=== PATIENT | male | born 1975 | race African-American/Black ===

== ENCOUNTER 2022-06-28 18:48 | Inpatient (IN) | payer MEDICAID, SELFPAY ==
--- NOTE | 2022-06-28 18:50 | ECG_ITS ---
[facility] Test Date: 2022-06-28 Pat Name: Yoel Almeida Department: Room: Gender: Male Client Services Analyst: : 1975 Requested By: Mak Schwarz Order Number: [id number] Aubrey MD: Christiano Patel M.D. Measurements Intervals Michael Rate: 75 P: 63 LA: 157 QRS: 50 QRSD: 94 T: 37 QT: 355 QTc: 397 Interpretive Statements SINUS RHYTHM No previous ECG available for comparison Electronically Signed On 06-29-2022 15:04:18 WINDOWS SYSTEM ADMIN by Christiano Patel M.D. [id number]
[2022-06-28 19:01] VITALS: BP 142/89; PULSE 78; RESP 14; TEMP 36.8; O2SAT 92; BMI 28.6
--- NOTE | 2022-06-28 19:12 | W.ED.PSYCHS ---
HPI - Psych General: Chief Complaint: Psychiatric Symptoms Stated Complaint: MHE Time Seen by Provider: 06/28/22 19:02 Source: patient Mode of arrival: ambulatory Limitations: no limitations History of Present Illness: 46-year-old male states he has been having increased depression and suicidal thoughts over the last 3 days he states that he does not have any specific plan but is getting more depressed and feeling like he may do something. He states he is also been hearing some voices denies any worsening improving factors. Associated symptoms: Reports depression and suicidal ideation Review of Systems Const: Denies: fever(s), chills, body aches or change in appetite Eyes: Denies: blurry vision or eye discomfort ENMT: Denies: throat pain or dental pain Card: Denies: chest pain Resp: Denies: dyspnea GI: Denies: abdominal pain, nausea, vomiting or diarrhea : Denies: dysuria Musc: Denies: neck pain or back pain Skin/Breast: Denies: rash Neuro: Denies: headache(s) Psych: Reports: depression and suicidal ideation Dirk/Lymph: Denies: easy bruising All/Imm: Denies: urticaria PFSH ED PFSH: Medical History Anxiety Hypertension Psychiatric care Social History (Updated 06/28/22 @ 19:13 by Mak Schwarz MD) Substance/Drug Use: unknown Physical Exam Const: COMMON NORMALS: no acute distress, patient oriented x3 and healthy appearing HENMT: COMMON NORMALS: normocephalic and atraumatic HEAD & SCALP: normocephalic and atraumatic Eye: COMMON NORMALS: Equal, round and reactive pupils present and EOMs intact bilaterally PUPIL: Yes Equal, round and reactive pupils present Neck/C-Spine: COMMON NORMALS: full ROM and supple Chest: COMMONS NORMALS: normal inspection of the chest and normal palpation of entire chest wall Resp: COMMON NORMALS: normal respiratory effort, No retractions, No use of accessory muscles and clear to auscultation bilaterally AUSCULTATION: clear to auscultation bilaterally Cardio: COMMON NORMALS: regular rate, regular rhythm and No murmurs present (Cardio) RATE: regular rate RHYTHM: regular rhythm GI: COMMON NORMALS: Normal to inspection, nondistended, normoactive bowel sounds present, Soft to palpation, non-tender and no masses PALPATION: Yes Soft to palpation Extremity: COMMON NORMALS: normal to inspection and full ROM Neuro: COMMON NORMALS: patient oriented x3, moves all extremities and no focal motor deficits Psych: COMMON NORMALS: mental status grossly normal, Normal thought process present and cooperative MOOD & AFFECT: Yes depressed mood THOUGHT PROCESS: Normal thought process present THOUGHT CONTENT: Yes Suicidality present Skin: COMMON NORMALS: no rashes or lesions noted and no wounds GENERAL SKIN EXAM: no rashes or lesions noted Course Vital Signs: Vital signs: Vital Signs Temperature 97.7 F 06/28/22 21:37 Pulse Rate 83 06/29/22 01:18 Respiratory Rate 16 06/29/22 01:18 Blood Pressure 150/90 06/29/22 01:18 Pulse Oximetry 95 06/29/22 01:18 Oxygen Delivery Me thod 06/28/22 21:37 [facility] - Psych Medical Decision Making Patient presents here with suicidal ideations he is medically cleared I spoke to psychiatrist Dr. Nugent and will plan on admitting here to the psych unit. Lab Data 06/28/22 19:40 06/28/22 19:40 Laboratory Results WBC 8.3 10^3/uL (4.0-10.0) 06/28/22 19:40 RBC 4.60 10^6/uL (4.1-5.3) 06/28/22 19:40 Hgb 13.9 g/dL (11.7-16.6) 06/28/22 19:40 Hct 42.2 % (42.0-52.0) 06/28/22 19:40 MCV 91.7 fl (80-94) 06/28/22 19:40 MCH 30.2 pg (28.0-34.0) 06/28/22 19:40 MCHC 32.9 g/dL (30.0-36.0) 06/28/22 19:40 RDW 13.2 % (12.1-15.1) 06/28/22 19:40 Plt Count 360 10^3/cmm (130-400) 06/28/22 19:40 MPV 9.1 fL (7.4-10.4) 06/28/22 19:40 Neut % (Auto) 43.8 % 06/28/22 19:40 Lymph % (Auto) 42.1 % 06/28/22 19:40 [place] % (Auto) 8.4 % 06/28/22 19:40 Eos % (Auto) 5.0 % 06/28/22 19:40 Baso % (Auto) 0.5 % 06/28/22 19:40 Neut # (Auto) 3.64 10^3/uL (1.8-7.7) 06/28/22 19:40 Lymph # (Auto) 3.5 10^3/uL (0.8-4.8) 06/28/22 19:40 [place] # (Auto) 0.7 10^3/uL (0.2-0.9) 06/28/22 19:40 Eos # (Auto) 0.4 10^3/uL (0.0-0.8) 06/28/22 19:40 Baso # (Auto) 0.0 10^3/uL (0.0-0.1) 06/28/22 19:40 Nucleated RBC % (auto) 0 % 06/28/22 19:40 Nucleated RBCs # 0.0 /100WBC 06/28/22 19:40 Sodium 144 mmol/L (136-145) 06/28/22 19:40 Potassium 3.5 mmol/L (3.5-5.1) 06/28/22 19:40 Chloride 107 mmol/L (98-107) 06/28/22 19:40 Carbon Dioxide 28 mmol/L (22-29) 06/28/22 19:40 Anion Gap 12.5 (5-19) 06/28/22 19:40 BUN 17 mg/dL (6-20) 06/28/22 19:40 Creatinine 0.8 mg/dL (0.7-1.2) 06/28/22 19:40 GFR Calculation 126.5 mL/min (90-130) 06/28/22 19:40 Glucose 109 mg/dL (65-115) 06/28/22 19:40 Calculated Osmolality 300 mOsm/kg (285-295) H 06/28/22 19:40 Calcium 9.4 mg/dL (8.5-10.5) 06/28/22 19:40 Total Bilirubin 0.2 mg/dL (0.15-1.2) 06/28/22 19:40 AST 17 U/L (0-40) 06/28/22 19:40 ALT 22 U/L (0-41) 06/28/22 19:40 Alkaline Phosphatase 129 U/L (40-130) 06/28/22 19:40 Total Protein 7.3 g/dL (6.6-8.7) 06/28/22 19:40 Albumin 4.4 g/dL (3.5-5.2) 06/28/22 19:40 Globulin 2.9 g/dL (1.3-4.6) 06/28/22 19:40 Salicylates 0.5 mg/dL (3-10) L 06/28/22 19:40 Urine Opiates Screen Negative ng/mL (Negative) 06/28/22 20:59 Acetaminophen < 5.0 ug/mL (10-30) L 06/28/22 19:40 Ur Barbiturates Screen Negative ng/mL (Negative) 06/28/22 20:59 Ur Phencyclidine Scrn Negative ng/mL (Negative) 06/28/22 20:59 Ur Amphetamines Screen Negative ng/mL (Negative) 06/28/22 20:59 U Benzodiazepines Scrn Negative ng/mL (Negative) 06/28/22 20:59 Urine Cocaine Screen Negative ng/mL (Negative) 06/28/22 20:59 U Marijuana (THC) Screen Positive ng/mL (Negative) H 06/28/22 20:59 Ethyl Alcohol < 10 mg/dL (0-10) 06/28/22 19:40 SARS-CoV-2 Ag (Rapid) negative (Negative) 06/28/22 20:20 EKG Data EKG 1: I personally reviewed and interpreted this EKG as follows: EKG interpretation date: 06/28/22 EKG interpretation time: 20:15 Interpretation: nsr hr [address] or t wave abnormalities qrs 94 qtc 383 Discharge Plan Discharge Patient Disposition: Admitted As Inpatient Clinical Impression: Suicidal ideation Coding Level of Care Code ED Correctional Case Records Supervisor for Kelley Gomez
[2022-06-28 19:53] LABS: Basophils % 0.5 %; Eosinophils # 0.4 10^3/uL (0.0-0.8); Hematocrit 42.2 % (42.0-52.0); Hemoglobin 13.9 g/dL (11.7-16.6); Lymphocytes # 3.5 10^3/uL (0.8-4.8); Lymphocytes % 42.1 %; Mean Corpuscular HGB Conc 32.9 g/dL (30.0-36.0); Mean Corpuscular Hemoglobin 30.2 pg (28.0-34.0); Mean Corpuscular Volume 91.7 fl (80-94); Mean Platelet Volume 9.1 fL (7.4-10.4); Monocytes # 0.7 10^3/uL (0.2-0.9); Monocytes % 8.4 %; Neutrophils # 3.64 10^3/uL (1.8-7.7); Neutrophils % 43.8 %; Nucleated Red Blood Cells % 0 %; Platelet Count 360 10^3/cmm (130-400); Red Cell Distribution Width 13.2 % (12.1-15.1); White Blood Count 8.3 10^3/uL (4.0-10.0)
[2022-06-28 20:11] LABS: Alanine Aminotransferase 22 U/L (0-41); Albumin Level 4.4 g/dL (3.5-5.2); Alkaline Phosphatase 129 U/L (40-130); Anion Gap 12.5 (5-19); Aspartate Amino Transferase 17 U/L (0-40); Blood Urea Nitrogen 17 mg/dL (6-20); Calcium 9.4 mg/dL (8.5-10.5); Carbon Dioxide 28 mmol/L (22-29); Chloride 107 mmol/L (98-107); Creatinine Clr Calc Pharmacy 152.1471; Globulin 2.9 g/dL (1.3-4.6); Glomerular Filtration Rate 126.5 mL/min (90-130); Glucose 109 mg/dL (65-115); Osmolality Calculated 300 mOsm/kg (285-295); Potassium 3.5 mmol/L (3.5-5.1); Salicylate 0.5 mg/dL (3-10); Sodium 144 mmol/L (136-145); Total Bilirubin 0.2 mg/dL (0.15-1.2); Total Protein 7.3 g/dL (6.6-8.7)
[2022-06-28 20:17] LABS: Acetaminophen < 5.0 ug/mL (10-30); Alcohol Level < 10 mg/dL (0-10)
[2022-06-28 20:45] LABS: SARS Covid-2 Antigen negative (Negative)
[2022-06-28 21:26] LABS: Amphetamines Screen Urine Negative (Negative); Barbiturates Screen Urine Negative (Negative); Benzodiazepines Screen Urine Negative (Negative); Cocaine Screen Urine Negative (Negative); Opiate Screen Urine Negative (Negative); PCP Screen Urine Negative (Negative); THC Screen Urine Positive (Negative)
[2022-06-28 21:37] VITALS: BP 154/105; PULSE 92; RESP 16; TEMP 36.5; O2SAT 97
--- NOTE | 2022-06-28 21:39 | PC.NURSE ---
Patient sitting in chair between rooms 7 and 8, NAD noted. No psych rooms available. Sitter watching patient.
[2022-06-28] MEDS: LORazepam 1 mg Tablet PO (23:25)
[2022-06-28 23:26] VITALS: BP 130/81; PULSE 62; RESP 16; O2SAT 97
[2022-06-29] VITALS (7 sets, daily range): BP systolic 117–152; BP diastolic 74–105; PULSE 70–105; RESP 16–17; TEMP 36.6–37.2; O2SAT 95–98
--- NOTE | 2022-06-29 08:25 | PC.PHAR ---
pt states he takes care of his own medications-pt got meds from [facility] michelle redman and michelle maddox [phone]- inna [phone]-inna states bonilla zarate last filled seroquel 400mg hs 05/17 12d/s pt states still taking-pt states still taking buspar 15mg bid states hes been out for 2 weeks last filled 03/24/22 30d/s-notes are made in the pharmacy comments
--- NOTE | 2022-06-29 12:55 | PC.NURSE ---
Pt was given breakfast and lunch tray
[2022-06-29] MEDS: quetiapine 100 mg Tablet PO (21:02)
[2022-06-29] MEDS: quetiapine 300 mg Tablet PO (21:02)
[2022-06-29] MEDS: amlodipine 5 mg Tablet PO (21:02)
[2022-06-29] MEDS: pantoprazole DR 40 mg Tablet PO (21:02)
[2022-06-29] MEDS: BuSPIRONE 10 mg Tablet 15 MG PO (21:02)
[2022-06-29] MEDS: famotidine 20 mg Tablet PO (21:12)
[2022-06-29] MEDS: carvedilol 12.5 mg Tablet PO (21:12)
[2022-06-30 06:00] VITALS: RESP 17
[2022-06-30] MEDS: famotidine 20 mg Tablet PO ×2 (08:45→21:10)
[2022-06-30] MEDS: pantoprazole DR 40 mg Tablet PO ×2 (08:45→21:10)
[2022-06-30] MEDS: carvedilol 12.5 mg Tablet PO ×2 (08:46→21:10)
[2022-06-30] MEDS: hydroCHLOROthiazide 25 mg Tablet PO (08:46)
[2022-06-30] MEDS: aspirin 81 mg EC Tablet PO (08:46)
[2022-06-30] MEDS: BuSPIRONE 10 mg Tablet 15 MG PO ×2 (08:46→21:10)
[2022-06-30 14:00] VITALS: BP 168/74; PULSE 78; RESP 18; TEMP 36.9; O2SAT 98
--- NOTE | 2022-06-30 14:07 | W.PM.NPUH&PS ---
Providers/Chief Complaint Admitting Physician: Joel Nugent MD Chief Complaint: MHE HPI NPU History of Present Illness Yoel Almeida is a 46 year old male who presented to the emergency department with the following report: Chief Complaint: Psychiatric Symptoms Stated Complaint: MHE Time Seen by Provider: 06/28/22 19:02 Source: patient Mode of arrival: ambulatory Limitations: no limitations History of Present Illness: 46-year-old male states he has been having increased depression and suicidal thoughts over the last 3 days he states that he does not have any specific plan but is getting more depressed and feeling like he may do something. He states he is also been hearing some voices denies any worsening improving factors. Associated symptoms: Reports depression and suicidal ideation The patient was admitted to the neuropsychiatric unit for definitive treatment of those issues. He is currently taking Seroquel and Buspar. He presents to the psychiatric hospital as he [place] [facility] [place] out. He has been psychiatrically hospitalized 15 to 20 times, has received outpatient services through [facility] and has been on a number of psychiatric medication. He reports a half a pack of cigarettes a day, alcohol sometimes, denies marijuana or any other illicit drug use. He denies any drug and alcohol treatment or drug and alcohol related charges. His mental health issues first began around 16 years old with paranoia and was around the first time he was psychiatrically hospitalized. He was seeing a psychiatrist through his school years for depression. He has been living at the homeless longterm and was working on housing though being homeless has been an issues in his life for him. He is in the process of getting back onto disability. He has mostly been off his medication due to his houselessness issue. Psychiatric History: As above. Substance Abuse History: As above. Family History: He reports mental health and addiction issues on both sides of the family and suicide attempts on one or both sides but he could not recall. Developmental History: He denies any issues with his or , was disabled and delayed in learning to walk and talk and meeting his developmental milestones and received speech therapy and special education classes. Psychosocial History: He reports his parents were together when he was born and were together on and off. He has 14 total siblings including full and half siblings. He described his childhood as nothing to talk about and denies emotional, physical or sexual abuse. He reports [employer] involvement and placement once in foster care. He endorses some traumatic events. The highest grade he achieved was 11th grade. He endorses being heterosexual with his longest relationship being 14 years. He has never been , does not have children, has not been in the and endorses being synagogue. His longest employment history is working at [employer]. He is currently homeless. Legal History: He has been to detention a number of times he could not recall, the longest time of which was 5 months. Medical History: He denies any known allergies to medications. He has high blood pressure and is flat footed. Meds NPU Home Medications Medication Instructions Recorded Confirmed Last Taken Type buspirone 15 mg tablet 15 mg PO BID 06/09/22 06/29/22 2 Weeks Ago History ~06/15/22 famotidine 20 mg tablet 20 mg PO BID 06/09/22 06/29/22 Unknown History albuterol sulfate 90 mcg/actuation 2 puff inhalation Q6H PRN 06/29/22 06/29/22 Unknown History aerosol inhaler (Ventolin HFA) Shortness Of Breath amlodipine 5 mg tablet 5 mg PO BEDTIME 06/29/22 06/29/22 Unknown History aspirin 81 mg tablet,delayed 81 mg PO DAILY 06/29/22 06/29/22 Unknown History release carvedilol 12.5 mg tablet (Coreg) 12.5 mg PO BID 06/29/22 06/29/22 Unknown History fluticasone propionate 50 2 spray intranasal DAILY 06/29/22 06/29/22 Unknown History mcg/actuation nasal spray,suspension guaifenesin 600 mg tablet, 600 mg PO Q12H PRN Congestion 06/29/22 06/29/22 Unknown History extended release 12 hr (Mucinex) hydrochlorothiazide 25 mg tablet 25 mg PO QAM 06/29/22 06/29/22 Unknown History omeprazole 20 mg capsule,delayed 20 mg PO BID 06/29/22 06/29/22 Unknown History release quetiapine 400 mg tablet (Seroquel) 400 mg PO BEDTIME 06/29/22 06/29/22 Unknown History Allergies Allergy/AdvReac Type Severity Reaction Status Date / Time No Known Allergies Allergy Verified 06/29/22 07:39 PFSH NPU PFSH: Medical History Anxiety Hypertension Psychiatric care Social History (Updated 06/28/22 @ 19:13 by Mak Schwarz MD) Substance/Drug Use: unknown Mental Status Exam MSE Comments: This is a tall, slender appearing -British male with hospital scrubs on with limited grooming and eye contact. No abnormal movements except for mild psychomotor retardation. Cooperative with exam in mild distress. Speech was decreased rate and volume. Mood described as alright, affect is subdued. Thought process, organized. Thought content: patient denies suicidal or homicidal ideation, no delusions reported or noted and denies any auditory or visual hallucinations. Attention and concentration are intact and memory appeared reliable but none were formally tested. He is alert and oriented times three. Insight and judgment are limited. Impulse control is limited. Vitals/I&O/Wt Last Vital Signs Temp 98.9 F 06/29/22 14:00 Pulse 70 06/29/22 14:00 Resp 16 06/29/22 14:00 BP 137/94 06/29/22 14:00 Pulse Ox 95 06/29/22 14:00 O2 Del Method 06/29/22 14:00 Weight last 48 hrs Weight 103.873 kg Data NPU 06/28/22 19:40 06/28/22 19:40 A&P Assessment and plan (1) Suicidal ideation: (2) Anxiety: (3) Hypertension: (4) Intellectual disability: Plan This is a 46 year old man with a history of depression and paranoia, housing issues, and genetic loading for mental health and addiction issues who presents after a recent episode of paranoia reporting he has not been able to consistently take his medication due to his housing issues and open to changes in those medications at this time. 1. Continue current medications 2. Encourage individual, group and milieu therapy 3. Continue q-15 minute check for safety Involuntary Hold Information 96 Hour Hold: 96 Hour Involuntary Admission: Yes 96 Hour Hold Ending Date: 07/04/22 96 Hour Hold Ending Time: 07:25 Attestations NPU Medical Necessity Statement*: Inpatient hospitalization is medically necessary and the clinically appropriate intervention at this time. We will monitor medications and make changes as indicated. Patient will be in the hospital for over two midnights. Likely length of stay is three to five days. Coding Level of Care Code Acute Code for Chg Fwd Diagnoses Suicidal ideation R45.851 Anxiety F41.9 Hypertension I10 Intellectual disability F79
[2022-06-30] MEDS: quetiapine 300 mg Tablet PO (21:10)
[2022-06-30] MEDS: quetiapine 100 mg Tablet PO (21:10)
[2022-06-30] MEDS: amlodipine 5 mg Tablet PO (21:10)
[2022-06-30 22:00] VITALS: BP 135/80; PULSE 72; RESP 18; TEMP 36.7; O2SAT 98
--- NOTE | 2022-07-01 01:27 | NUR.SHIFT ---
Patient calm and cooperative during assessment, denies SI/HI/AVH. He is interacting appropriately with staff & peers. Patient reports that Seroquil given last night made him unsteady on his feet & realizes that his body will adjust to it. Patient has been compliant with all medications, reports good appetite. No concerns voiced at this time.
[2022-07-01] MEDS: acetaminophen 325 mg Tablet 650 MG PO ×2 (05:59→20:44)
[2022-07-01 06:00] VITALS: BP 116/78; PULSE 80; RESP 18; O2SAT 96
[2022-07-01] MEDS: benzocaine 20% 7 gm 1 APPLIC MUCOUS MEM ×2 (06:05→20:44)
[2022-07-01] MEDS: famotidine 20 mg Tablet PO ×2 (08:32→20:36)
[2022-07-01] MEDS: fluticasone nasal spray 16gm Btl 2 SPRAY INTRANASAL (08:32)
[2022-07-01] MEDS: carvedilol 12.5 mg Tablet PO ×2 (08:33→20:36)
[2022-07-01] MEDS: BuSPIRONE 10 mg Tablet 15 MG PO ×2 (08:33→20:36)
[2022-07-01] MEDS: aspirin 81 mg EC Tablet PO (08:33)
[2022-07-01] MEDS: pantoprazole DR 40 mg Tablet PO ×2 (08:33→20:36)
[2022-07-01] MEDS: hydroCHLOROthiazide 25 mg Tablet PO (08:33)
--- NOTE | 2022-07-01 13:01 | W.PM.NPUPNS ---
Subjective NPU Subjective: Patient presented today reporting a desire and need to be discharged. We discussed the fact that he was on a 96-hour hold that ends on Monday. He was not happy about that reporting that he came on his own volition. The situation escalated as he started saying that he was being kept like this is long term and that there is no reason for him being on a 96-hour hold therefore we were doing something nefarious. At 1 point security was called to make sure things did not escalate out of control. He refused to take as needed medication to calm down but was able to avoid the aggression that he was initially threatening. Mental Status Exam MSE Comments: This is a tall, slender appearing -English male with hospital scrubs on with limited grooming and eye contact. No abnormal movements except for mild psychomotor retardation. Cooperative with exam in mild distress. Speech was decreased rate and volume. Mood described as upset, affect is congruent. Thought process, organized. Thought content: patient denies suicidal or homicidal ideation but was making aggressive threats when discussing discharge, no delusions reported or noted and denies any auditory or visual hallucinations. Attention and concentration are intact and memory appeared reliable but none were formally tested. He is alert and oriented times three. Insight and judgment are limited. Impulse control is limited. Vitals/I&O/Wt Last Vital Signs Temp 98.0 F 06/30/22 22:00 Pulse 80 07/01/22 06:00 Resp 18 07/01/22 06:00 BP 116/78 07/01/22 06:00 Pulse Ox 96 07/01/22 06:00 O2 Del Method 07/01/22 06:00 Data NPU 06/28/22 19:40 06/28/22 19:40 A&P Assessment and plan (1) Suicidal ideation: (2) Anxiety: (3) Hypertension: (4) Intellectual disability: Plan This is a 46 year old man with a history of depression and paranoia, housing issues, and genetic loading for mental health and addiction issues who presents after a recent episode of paranoia reporting he has not been able to consistently take his medication due to his housing issues and open to changes in those medications at this time. 1. Continue current medications 2. Encourage individual, group and milieu therapy 3. Continue q-15 minute check for safety 4. We will work with treatment team to explore discharge options. Involuntary Hold Information 96 Hour Hold: 96 Hour Involuntary Admission: Yes 96 Hour Hold Ending Date: 07/04/22 96 Hour Hold Ending Time: 07:25 Attestations NPU Medical Necessity Statement*: Inpatient hospitalization is medically necessary and the clinically appropriate intervention at this time. We will monitor medications and make changes as indicated. Likely length of stay is 2-4 days. Coding Level of Care Code Acute Code for Chg Fwd Diagnoses Suicidal ideation R45.851 Anxiety F41.9 Hypertension I10 Intellectual disability F79
[2022-07-01 14:00] VITALS: BP 139/96; PULSE 64; RESP 18; TEMP 37; O2SAT 98
--- NOTE | 2022-07-01 16:54 | PC.NURSE ---
Patient became very agitated and labile while speaking to leather production worker, Batsheva. Pt. and Batsheva approach nursing station and this nurse and other staff attempted to calm patient . Pt upset and wants to leave. Staff and nurses explained to patient he was on a 96 hr hold and gave another copy to him. Security called and tobacco warehouse agent. Shannan and Dr. Ramirez attempted to calm pt and explain why he was here. Pt. stated he needs to go to his room and calm down. Patient went to room. Monitoring.
[2022-07-01] MEDS: amlodipine 5 mg Tablet PO (20:36)
[2022-07-01] MEDS: quetiapine 300 mg Tablet PO (20:36)
[2022-07-01] MEDS: quetiapine 100 mg Tablet PO (20:36)
[2022-07-01 22:00] VITALS: BP 143/82; PULSE 65; RESP 16; TEMP 36.6; O2SAT 97
[2022-07-02 06:00] VITALS: BP 130/89; PULSE 79; RESP 16; TEMP 36.4; O2SAT 96
[2022-07-02] MEDS: aspirin 81 mg EC Tablet PO (08:43)
[2022-07-02] MEDS: hydroCHLOROthiazide 25 mg Tablet PO (08:44)
[2022-07-02] MEDS: BuSPIRONE 10 mg Tablet 15 MG PO ×2 (08:47→19:46)
[2022-07-02] MEDS: carvedilol 12.5 mg Tablet PO ×2 (08:48→19:49)
[2022-07-02] MEDS: famotidine 20 mg Tablet PO ×2 (08:49→19:46)
[2022-07-02] MEDS: fluticasone nasal spray 16gm Btl 2 SPRAY INTRANASAL (08:52)
[2022-07-02] MEDS: pantoprazole DR 40 mg Tablet PO ×2 (08:54→19:47)
--- NOTE | 2022-07-02 13:38 | P.NPUPN_ITS ---
Subjective NPU Subjective: Patient presented today reporting that he was doing much better than yesterday. He was apologetic for the episodes that led to security being called him demanding to leave. We discussed making sure that he had resources sufficient to manage his circumstances when he is discharged. We agreed that we would support discharge on Monday morning with any added resources social work can provide as he attempts to create stability in his living and housing circumstance. He continues to deny a desire for any additional medications. Mental Status Exam MSE Comments: This is a tall, slender appearing -[place] male with hospital scrubs on with limited grooming and eye contact. No abnormal movements except for mild psychomotor retardation. Cooperative with exam in no acute distress. Speech was decreased rate and volume. Mood described as better, affect is congruent. Thought process, organized. Thought content: patient denies suicidal or homicidal ideation but was making aggressive threats when discussing discharge, no delusions reported or noted and denies any auditory or visual hallucinations. Attention and concentration are intact and memory appeared reliable but none were formally tested. He is alert and oriented times three. Insight and judgment are limited but improving. Impulse control is limited. Vitals/I&O/Wt Last Vital Signs Temp 97.6 F 07/02/22 06:00 Pulse 79 07/02/22 06:00 Resp 16 07/02/22 06:00 BP 130/89 07/02/22 06:00 Pulse Ox 96 07/02/22 06:00 O2 Del Method 07/02/22 06:00 Data NPU 06/28/22 19:40 06/28/22 19:40 A&P Assessment and plan (1) Suicidal ideation: (2) Anxiety: (3) Hypertension: (4) Intellectual disability: Plan This is a 46 year old man with a history of depression and paranoia, housing issues, and genetic loading for mental health and addiction i krystyna who presents after a recent episode of paranoia reporting he has not been able to consistently take his medication due to his housing issues and open to changes in those medications at this time. 1. Continue current medications 2. Encourage individual, group and milieu therapy 3. Continue q-15 minute check for safety 4. We will work with treatment team to explore discharge options. Involuntary Hold Information 96 Hour Hold: 96 Hour Involuntary Admission: Yes 96 Hour Hold Ending Date: 07/04/22 96 Hour Hold Ending Time: 07:25 Attestations NPU Medical Necessity Statement*: Inpatient hospitalization is medically necessary and the clinically appropriate intervention at this time. We will monitor medications and make changes as indicated. Likely length of stay is 2-4 days. Tentative plan for discharge Monday. Coding Level of Care Code Acute Code for Chg Fwd Diagnoses Suicidal ideation R45.851 Anxiety F41.9 Hypertension I10 Intellectual disability F79
[2022-07-02 14:00] VITALS: BP 126/81; PULSE 90; RESP 16; TEMP 36.6; O2SAT 99
[2022-07-02] MEDS: quetiapine 300 mg Tablet PO (19:46)
[2022-07-02] MEDS: quetiapine 100 mg Tablet PO (19:47)
[2022-07-02] MEDS: amlodipine 5 mg Tablet PO (19:47)
[2022-07-02 20:35] VITALS: BP 157/88; PULSE 87; RESP 18; TEMP 36.8; O2SAT 97
[2022-07-03 06:00] VITALS: BP 114/71; PULSE 91; RESP 16; TEMP 36.6; O2SAT 98
--- NOTE | 2022-07-03 06:31 | W.PM.NPUPNS ---
Subjective NPU Subjective: Patient presents today reporting he is feeling better. We discussed his plan for discharge tomorrow. We discussed that we would make sure that the message gets passed along to treatment team for this plan. He has no incidences since Monday and we identified we would not request a hold extension. Mental Status Exam MSE Comments: This is a tall, slender appearing -Aust[place] male with hospital scrubs on with limited grooming and eye contact. No abnormal movements except for mild psychomotor retardation. Cooperative with exam in no acute distress. Speech was decreased rate and volume. Mood described as better, affect is congruent. Thought process, organized. Thought content: patient denies suicidal or homicidal ideation but was making aggressive threats when discussing discharge, no delusions reported or noted and denies any auditory or visual hallucinations. Attention and concentration are intact and memory appeared reliable but none were formally tested. He is alert and oriented times three. Insight and judgment are limited but improving. Impulse control is limited. Vitals/I&O/Wt Last Vital Signs Temp 97.8 F 07/03/22 06:00 Pulse 91 07/03/22 06:00 Resp 16 07/03/22 06:00 BP 114/71 07/03/22 06:00 Pulse Ox 98 07/03/22 06:00 O2 Del Method 07/02/22 20:35 Weight last 48 hrs Weight 108.976 kg Data NPU 06/28/22 19:40 06/28/22 19:40 A&P Assessment and plan (1) Suicidal ideation: (2) Anxiety: (3) Hypertension: (4) Intellectual disability: Plan This is a 46 year old man with a history of depression and paranoia, housing issues, and genetic loading for mental health and addiction issues who presents after a recent episode of paranoia reporting he has not been able to consistently take his medication due to his housing issues and open to changes in those medications at this time. 1. Continue current medications 2. Encourage individual, group and milieu therapy 3. Continue q-15 minute check for safety 4. We will work with treatment team to explore discharge options. Involuntary Hold Information 96 Hour Hold: 96 Hour Involuntary Admission: Yes 96 Hour Hold Ending Date: 07/04/22 96 Hour Hold Ending Time: 07:25 Attestations NPU Medical Necessity Statement*: Inpatient hospitalization is medically necessary and the clinically appropriate intervention at this time. We will monitor medications and make changes as indicated. Likely length of stay is 1-3 days. Tentative plan for discharge tomorrow. Coding Level of Care Code Acute Code for Chg Fwd Diagnoses Suicidal ideation R45.851 Anxiety F41.9 Hypertension I10 Intellectual disability F79
[2022-07-03] MEDS: pantoprazole DR 40 mg Tablet PO ×2 (09:18→21:12)
[2022-07-03] MEDS: famotidine 20 mg Tablet PO ×2 (09:18→21:12)
[2022-07-03] MEDS: carvedilol 12.5 mg Tablet PO ×2 (09:18→21:12)
[2022-07-03] MEDS: hydroCHLOROthiazide 25 mg Tablet PO (09:18)
[2022-07-03] MEDS: BuSPIRONE 10 mg Tablet 15 MG PO ×2 (09:18→21:11)
[2022-07-03] MEDS: aspirin 81 mg EC Tablet PO (09:18)
[2022-07-03] MEDS: fluticasone nasal spray 16gm Btl 2 SPRAY INTRANASAL (09:19)
[2022-07-03 14:00] VITALS: BP 133/81; PULSE 87; RESP 16; TEMP 36.6; O2SAT 96
[2022-07-03 20:30] VITALS: BP 141/91; PULSE 80; RESP 18; TEMP 36.7; O2SAT 97
[2022-07-03] MEDS: amlodipine 5 mg Tablet PO (20:42)
[2022-07-03] MEDS: quetiapine 300 mg Tablet PO (20:42)
[2022-07-03] MEDS: quetiapine 100 mg Tablet PO (20:43)
[2022-07-04] MEDS: benzocaine 20% 7 gm 1 APPLIC MUCOUS MEM (03:47)
--- NOTE | 2022-07-04 04:42 | PC.NURSE ---
pt has been up couple times stating there's a ghost in my room , explained that staff has just walked by his room. Pt requested orajel for mouth sores. Given per MD orders. no other issues reported or noted
[2022-07-04 06:00] VITALS: BP 109/70; PULSE 77; RESP 16; TEMP 36.4; O2SAT 97
[2022-07-04] MEDS: carvedilol 12.5 mg Tablet PO (08:09)
[2022-07-04] MEDS: hydroCHLOROthiazide 25 mg Tablet PO (08:09)
[2022-07-04] MEDS: fluticasone nasal spray 16gm Btl 2 SPRAY INTRANASAL (08:09)
[2022-07-04] MEDS: BuSPIRONE 10 mg Tablet 15 MG PO (08:09)
[2022-07-04] MEDS: aspirin 81 mg EC Tablet PO (08:09)
[2022-07-04] MEDS: pantoprazole DR 40 mg Tablet PO (08:09)
[2022-07-04] MEDS: famotidine 20 mg Tablet PO (08:09)
--- NOTE | 2022-07-04 10:49 | P.NPUDS_ITS ---
Diagnoses at Discharge Discharge Diagnosis (1) Suicidal ideation: Status: Acute (2) Anxiety: Status: Acute (3) Hypertension: Status: Acute (4) Intellectual disability: Status: Acute Reason for Visit Reason for Visit: MHE Brief History: History of Present Illness Yoel Almeida is a 46 year old male who presented to the emergency department with the following report: Chief Complaint: Psychiatric Symptoms Stated Complaint: MHE Time Seen by Provider: 06/28/22 19:02 Source: patient Mode of arrival: ambulatory Limitations: no limitations History of Present Illness:?? 46-year-old male states he has been having increased depression and suicidal thoughts over the last 3 days he states that he does not have any specific plan but is getting more depressed and feeling like he may do something.? He states he is also been hearing some voices denies any worsening improving factors. Associated symptoms: Reports depression and suicidal ideation The patient was admitted to the neuropsychiatric unit for definitive treatment of those issues. He is currently taking Seroquel and Buspar. He presents to the psychiatric hospital as [place] [facility] [place]. He has been psychiatrically hospitalized 15 to 20 times, has received outpatient services through [facility] and has been on a number of psychiatric medication. He reports a half a pack of cigarettes a day, alcohol sometimes, denies marijuana or any other illicit drug use. He denies any drug and alcohol treatment or drug and alcohol related charges. His mental health issues first began around 16 years old with paranoia and was around the first time he was psychiatrically hospitalized. He was seeing a psychiatrist through his school years for depression. He has been living at the homeless halfway and was working on housing though being homeless has been an issues in his life for him. He is in the process of getting back onto disability. He has mostly been off his medication due to his houselessness issue. Psychiatric History: As above. Substance Abuse History: As above. Family History: He reports mental health and addiction issues on both sides of the family and suicide attempts on one or both sides but he could not recall. Developmental History: He denies any issues with his or , was disabled and delayed in learning to walk and talk and meeting his developmental milestones and received speech therapy and special education classes. Psychosocial History: He reports his parents were together when he was born and were together on and off. He has 14 total siblings including full and half siblings. He described his childhood as nothing to talk about and denies emotional, physical or sexual abuse. He reports [employer] involvement and placement once in foster care. He endorses some traumatic events. The highest grade he achieved was 11th grade. He endorses being heterosexual with his longest relationship being 14 years. He has never been , does not have children, has not been in the and endorses being mandaeism. His longest employment history is working at [employer]. He is currently homeless. Legal History: He has been to longterm a number of times he could not recall, the longest time of which was 5 months. Medical History: He denies any known allergies to medications. He has high blood pressure and is flat footed. Meds NPU Home Medications ?Medication ?Instructions ?Recorded ?Confirmed ?Last Taken ?Type buspirone 15 mg ta blet 15 mg PO BID 06/09/22 06/29/22 2 Weeks Ago History ? ~06/15/22 ? famotidine 20 mg t ablet 20 mg PO BID 06/09/22 06/29/22 Unk nown History albuterol sulfate 90 mcg/actuation 2 puff inhalation Q6H PRN 06/29/22 06/29/22 Unknown History aerosol inhaler (V entolin HFA) Shortness Of Breat h ? amlodipine 5 mg ta blet 5 mg PO BEDTIME 06/29/22 06/29/22 Unk nown History aspirin 81 mg tabl et,delayed 81 mg PO DAILY 06/29/22 06/29/22 Unk nown History release ? carvedilol 12.5 mg tablet (Coreg) 12.5 mg PO BID 06/29/22 06/29/22 Unk nown History fluticasone propio day 50 2 spray intranasa l DAILY 06/29/22 06/29/22 Unknown History mcg/actuation nasa l ? spray,suspension ? guaifenesin 600 mg tablet, 600 mg PO Q12H [place] N Congestion 06/29/22 06/29/22 Unknown History extended release 1 2 hr (Mucinex) ? hydrochlorothiazid e 25 mg tablet 25 mg PO QAM 06/29/22 06/29/22 Unk nown History omeprazole 20 mg c apsule,delayed 20 mg PO BID 06/29/22 06/29/22 Unk nown History release ? quetiapine 400 mg tablet (Seroquel)E 400 mg PO BEDTIME 06/29/22 06/29/22 Unknown History Allergies Allergy/AdvReac Type Severity Reaction Status Date / Time No Known Allergies Allergy ? ? Verified 06/29/22 07:39 PFSH NPU PFSH:?? Medical History?(Garth valdezwed 06/28/22 @ 19:12 by Mak albarran MD) Anxiety Hypertension Psych iatric care ? Soc ial History?(Updat ed 06/28/22 @ 19:1 3 by Mak Schwarz MD) Substance/Drug Use:? unknown ? Hospital Course Hospital Course Discharge Summary: During the hospitalization, patient had routine laboratory studies which were within normal limits except for few outliers. Additionally there was a general medical evaluation which was also within normal limits and revealed no new acute processes. At the time of discharge, lethality was denied and psychosis was absent. Mood and anxiety were well managed as patient was restarted back on his medications including Buspar 15mg twice a day and seroquel 400mg at night. Patient endorsed a plan to avoid all drugs of abuse and follow-up with the aftercare recommendations of the treatment team. Patient was evaluated and deemed to be absent credible lethality, and had achieved the maximum benefit from an inpatient hospitalization, so was discharged. Involuntary Hold Information 96 Hour Hold: 96 Hour Involuntary Admission: Yes 96 Hour Hold Ending Date: 07/04/22 96 Hour Hold Ending Time: 07:25 Mental Status Exam MSE Comments: This is a tall, slender appearing -Kos[place] male with hospital scrubs on with limited grooming and eye contact. No abnormal movements except for mild psychomotor retardation. Cooperative with exam in no acute distress. Speech was normal in rate and volume. Mood described as okay. His affect is mood congruent. Thought process was linear and organized. Thought content: patient denies suicidal or homicidal ideation. There were no delusions reported or noted and denies any auditory or visual hallucinations. Attention and concentration are intact and memory appeared reliable but none were formally tested. He is alert and oriented times three. Insight and judgment were improving on discharge. Impulse control was adequate. Discharge Data Studies Completed and Pending: Laboratory Results WBC 8.3 10^3/uL (4.0- 10.0) 06/28/22 19:40 RBC 4.60 10^6/uL (4.1 -5.3) 06/28/22 19:40 Hgb 13.9 g/dL (11.7-1 6.6) 06/28/22 19:40 Hct 42.2 % (42.0-52.0 ) 06/28/22 19:40 MCV 91.7 fl (80-94) 06/28/22 19:40 MCH 30.2 pg (28.0-34. 0) 06/28/22 19:40 MCHC 32.9 g/dL (30.0-3 6.0) 06/28/22 19:40 RDW 13.2 % (12.1-15.1 ) 06/28/22 19:40 Plt Count 360 10^3/cmm (130 -400) 06/28/22 19:40 MPV 9.1 fL (7.4-10.4) 06/28/22 19:40 Neut % (Auto) 43.8 % 06/28/22 19:40 Lymph % (Auto) 42.1 % 06/28/22 19:40 [place] % (Auto) 8.4 % 06/28/22 19:40 Eos % (Auto) 5.0 % 06/28/22 19:40 Baso % (Auto) 0.5 % 06/28/22 19:40 Neut # (Auto) 3.64 10^3/uL (1.8 -7.7) 06/28/22 19:40 Lymph # (Auto) 3.5 10^3/uL (0.8- 4.8) 06/28/22 19:40 [place] # (Auto) 0.7 10^3/uL (0.2- 0.9) 06/28/22 19:40 Eos # (Auto) 0.4 10^3/uL (0.0- 0.8) 06/28/22 19:40 Baso # (Auto) 0.0 10^3/uL (0.0- 0.1) 06/28/22 19:40 Nucleated RBC % (a uto) 0 % 06/28/22 19:40 Nucleated RBCs # 0.0 /100WBC 06/28/22 19:40 Sodium 144 mmol/L (136-1 45) 06/28/22 19:40 Potassium 3.5 mmol/L (3.5-5 .1) 06/28/22 19:40 Chloride 107 mmol/L (98-10 7) 06/28/22 19:40 Carbon Dioxide 28 mmol/L (22-29) 06/28/22 19:40 Anion Gap 12.5 (5-19) 06/28/22 19:40 BUN 17 mg/dL (6-20) 06/28/22 19:40 Creatinine 0.8 mg/dL (0.7-1. 2) 06/28/22 19:40 GFR Calculation 126.5 mL/min (90- 130) 06/28/22 19:40 Glucose 109 mg/dL (65-115 ) 06/28/22 19:40 Calculated Osmolal ity 300 mOsm/kg (285- 295) H 06/28/22 19:40 Calcium 9.4 mg/dL (8.5-10 .5) 06/28/22 19:40 Total Bilirubin 0.2 mg/dL (0.15-1 .2) 06/28/22 19:40 AST 17 U/L (0-40) 06/28/22 19:40 ALT 22 U/L (0-41) 06/28/22 19:40 Alkaline Phosphata se 129 U/L (40-130) 06/28/22 19:40 Total Protein 7.3 g/dL (6.6-8.7 ) 06/28/22 19:40 Albumin 4.4 g/dL (3.5-5.2 ) 06/28/22 19:40 Globulin 2.9 g/dL (1.3-4.6 ) 06/28/22 19:40 Salicylates 0.5 mg/dL (3-10) L 06/28/22 19:40 Urine Opiates Scre en Negative ng/mL (N egative) 06/28/22 20:59 Acetaminophen < 5.0 ug/mL (10-3 0) L 06/28/22 19:40 Ur Barbiturates Sc reen Negative ng/mL (N egative) 06/28/22 20:59 Ur Phencyclidine S crn Negative ng/mL (N egative) 06/28/22 20:59 Ur Amphetamines Sc reen Negative ng/mL (N egative) 06/28/22 20:59 U Benzodiazepines Scrn Negative ng/mL (N egative) 06/28/22 20:59 Urine Cocaine Scre en Negative ng/mL (N egative) 06/28/22 20:59 U Marijuana (THC) Screen Positive ng/mL (N egative) H 06/28/22 20:59 Ethyl Alcohol < 10 mg/dL (0-10) 06/28/22 19:40 SARS-CoV-2 Ag (Rap id) negative (Negati ve) 06/28/22 20:20 Vitals: Last Vital Signs Temp 97.5 F L 07/04/22 06:00 Pulse 77 07/04/22 06:00 Resp 16 07/04/22 06:00 BP 109/70 07/04/22 06:00 Pulse Ox 97 07/04/22 06:00 O2 Del Method 07/03/22 14:00 Discharge Plan Discharge Patient Disposition: Home Prescriptions: Continued famotidine 20 mg tablet 20 mg PO BID Coreg 12.5 mg Tablet 12.5 mg PO BID Rx Instructions: must administer with a meal/food omeprazole 20 mg Capsule,Delayed Release(Dr/Ec) 20 mg PO BID hydrochlorothiazide 25 mg Tablet 25 mg PO QAM Ventolin HFA 90 mcg/actuation Hfa Aerosol Inhaler 2 puff INHALATION Q6H PRN (Reason: Shortness Of Breath) fluticasone propionate 50 mcg/actuation [place],Suspension 2 spray INTRANASAL DAILY Mucinex 600 mg Tablet Extended Release 12hr 600 mg PO Q12H PRN (Reason: Congestion) aspirin 81 mg Tablet,Delayed Release (Dr/Ec) 81 mg PO DAILY amlodipine 5 mg Tablet 5 mg PO BEDTIME buspirone 15 mg tablet 15 mg PO BID 30 Days Qty: 60 1RF Seroquel 400 mg Tablet 400 mg PO BEDTIME 30 Days Qty: 30 1RF Discharge Orders: Discharge Order (Routine); Ordered 07/04/22 Ordered By: Gurjit Haider Referrals: Olaf Russell MD [Physician] - 07/05/22 2:30 pm (Follow up) Aubrey Corral LPC [Therapist] - 07/06/22 9:45 am (Follow up.) Yoel Adams MD [Physician] - 07/27/22 1:30 pm (Appointment scheduled for 07/27/22 at 1:30 pm check.) Discharge Diet: Advance as tolerated Discharge Activity: Resume usual activity Patient Instructions: Mood Disorders (DC), Depression (DC), Opioid Safety Discharge Attestations NPU Time Spent in Discharge Care*: less than 30 min Coding Level of Care Code Acute Chg FW DC note Diagnoses Suicidal ideation R45.851 Anxiety F41.9 Hypertension I10 Intellectual disability F79
[2022-07-04 10:59] VITALS: BP 109/70; PULSE 77; RESP 16; TEMP 36.4; O2SAT 97
--- NOTE | 2022-07-04 11:53 | PC.NURSE ---
Nurse went over discharge instructions. Patient verbalized understanding. Medication prescriptions given to patient. All belongings given to patient verified by patient. Patient will be leaving with his upon discharge.
== END 2022-07-04 12:09 | disposition home or self-care (01) | DRG 880 ==
LOC: ER 06-29 05:17 → ER IP 06-29 05:33 → NP 06-29 11:49
PROVIDERS: Admitting Provider Psychiatry & Neurology Psychiatry; Emergency Provider Emergency Medicine; Visit Provider Psychiatry & Neurology Psychiatry
DX: F41.9 Anxiety disorder, unspecified (principal); R45.851 Suicidal ideations; F32.A Depression, unspecified; F17.210 Nicotine dependence, cigarettes, uncomplicated; F10.10 Alcohol abuse, uncomplicated; Z59.00 Homelessness unspecified; I10 Essential (primary) hypertension; F79 Unspecified intellectual disabilities; Z79.82 Long term (current) use of aspirin
CPT/HCPCS: 36415; 80053; 80306; 80307; 85025; 87426; 93005; 97150; 97165; 99238; 99285

== ENCOUNTER 2022-07-07 01:52 | Emergency (ER) | payer MEDICAID, SELFPAY ==
[2022-07-07 01:54] VITALS: BMI 30.4
--- NOTE | 2022-07-07 02:00 | ECG_ITS ---
[facility] Test Date: 2022-07-07 Pat Name: Yoel Almeida Department: Room: Gender: Male Superintendent Tests: : 1975 Requested By: Mak Schwarz Order Number: [id number] Reading MD: CHASTITY MOLINA Measurements Intervals [place] Rate: 91 P: 65 [place]: 165 QRS: 53 QRSD: 101 T: 46 QT: 330 QTc: 408 Interpretive Statements SINUS RHYTHM Compared to ECG 06/28/2022 20:15:30 No significant changes Electronically Signed On 07-09-2022 23:45:55 CDT by CHASTITY MOLINA [id number]
[2022-07-07 02:01] VITALS: BP 158/112; PULSE 89; RESP 11; TEMP 36.4; O2SAT 98
--- NOTE | 2022-07-07 02:01 | W.ED.CHESTPA ---
HPI - Chest Pain General: Chief Complaint: Chest Pain Stated Complaint: HTN Time Seen by Provider: 07/07/22 01:59 Source: patient and EMS Mode of arrival: EMS Limitations: no limitations History of Present Illness: 46-year-old male who has a history of high blood pressure he states he has not taken his blood pressure medicine since this morning he is hypertensive denies he has some mild chest pain he rates a 1 out of 10 he denies any other complaints at this time denies any worsening proving factors. Associated symptoms: Deny abdominal pain, dyspnea, fever(s), nausea or vomiting Review of Systems Const: Denies: fever(s), chills, body aches or change in appetite Eyes: Denies: blurry vision or eye discomfort ENMT: Denies: throat pain or dental pain Card: Reports: chest pain Resp: Denies: dyspnea GI: Denies: abdominal pain, nausea, vomiting or diarrhea : Denies: dysuria Musc: Denies: neck pain or back pain Skin/Breast: Denies: rash Neuro: Denies: headache(s) Psych: Denies: depression Dirk/Lymph: Denies: easy bruising All/Imm: Denies: urticaria PFSH ED PFSH: Medical History Anxiety Hypertension Psychiatric care Social History (Updated 07/07/22 @ 02:01 by Mak Schwarz MD) Alcohol intake: current Physical Exam Const: COMMON NORMALS: no acute distress, patient oriented x3 and healthy appearing HENMT: COMMON NORMALS: normocephalic and atraumatic HEAD & SCALP: normocephalic and atraumatic Eye: COMMON NORMALS: Equal, round and reactive pupils present and EOMs intact bilaterally PUPIL: Yes Equal, round and reactive pupils present Neck/C-Spine: COMMON NORMALS: full ROM and supple Chest: COMMONS NORMALS: normal inspection of the chest and normal palpation of entire chest wall Resp: COMMON NORMALS: normal respiratory effort, No retractions, No use of accessory muscles and clear to auscultation bilaterally AUSCULTATION: clear to auscultation bilaterally Cardio: COMMON NORMALS: regular rate, regular rhythm and No murmurs present (Cardio) RATE: regular rate RHYTHM: regular rhythm GI: COMMON NORMALS: Normal to inspection, nondistended, normoactive bowel sounds present, Soft to palpation, non-tender and no masses PALPATION: Yes Soft to palpation Extremity: COMMON NORMALS: normal to inspection and full ROM Neuro: COMMON NORMALS: patient oriented x3, moves all extremities and no focal motor deficits Psych: COMMON NORMALS: mental status grossly normal, Normal thought process present and cooperative THOUGHT PROCESS: Normal thought process present Skin: COMMON NORMALS: no rashes or lesions noted and no wounds GENERAL SKIN EXAM: no rashes or lesions noted Course Vital Signs: Vital signs: Vital Signs Temperature 97.5 F L 07/07/22 02:01 Pulse Rate 89 07/07/22 02:01 Respiratory Rate 11 L 07/07/22 02:01 Blood Pressure 158/112 07/07/22 02:01 Pulse Oximetry 98 07/07/22 02:01 Oxygen Delivery Me thod 07/07/22 02:01 MDM - Chest Pain Medical Decision Making Patient presents here with hypertension his blood pressure here has improved his blood work is normal troponins normal we will refill his blood pressure meds and he is stable for discharge. Lab Data 07/07/22 02:00 07/07/22 02:00 Laboratory Results WBC 9.1 10^3/uL (4.0-10.0) 07/07/22 02:00 RBC 4.88 10^6/uL (4.1-5.3) 07/07/22 02:00 Hgb 14.4 g/dL (11.7-16.6) 07/07/22 02:00 Hct 44.4 % (42.0-52.0) 07/07/22 02:00 MCV 91.0 fl (80-94) 07/07/22 02:00 MCH 29.5 pg (28.0-34.0) 07/07/22 02:00 MCHC 32.4 g/dL (30.0-36.0) 07/07/22 02:00 RDW 13.2 % (12.1-15.1) 07/07/22 02:00 Plt Count 335 10^3/cmm (130-400) 07/07/22 02:00 MPV 9.7 fL (7.4-10.4) 07/07/22 02:00 Neut % (Auto) 40.7 % 07/07/22 02:00 Lymph % (Auto) 42.9 % 07/07/22 02:00 [place] % (Auto) 12.5 % 07/07/22 02:00 Eos % (Auto) 3.1 % 07/07/22 02:00 Baso % (Auto) 0.6 % 07/07/22 02:00 Neut # (Auto) 3.69 10^3/uL (1.8-7.7) 07/07/22 02:00 Lymph # (Auto) 3.9 10^3/uL (0.8-4.8) 07/07/22 02:00 [place] # (Auto) 1.1 10^3/uL (0.2-0.9) H 07/07/22 02:00 Eos # (Auto) 0.3 10^3/uL (0.0-0.8) 07/07/22 02:00 Baso # (Auto) 0.1 10^3/uL (0.0-0.1) 07/07/22 02:00 Nucleated RBC % (auto) 0 % 07/07/22 02:00 Nucleated RBCs # 0.0 /100WBC 07/07/22 02:00 Sodium 136 mmol/L (136-145) 07/07/22 02:00 Potassium 3.2 mmol/L (3.5-5.1) L 07/07/22 02:00 Chloride 98 mmol/L (98-107) 07/07/22 02:00 Carbon Dioxide 27 mmol/L (22-29) 07/07/22 02:00 Anion Gap 14.2 (5-19) 07/07/22 02:00 BUN 19 mg/dL (6-20) 07/07/22 02:00 Creatinine 0.8 mg/dL (0.7-1.2) 07/07/22 02:00 GFR Calculation 126.5 mL/min (90-130) 07/07/22 02:00 Glucose 91 mg/dL (65-115) 07/07/22 02:00 Calculated Osmolality 284 mOsm/kg (285-295) L 07/07/22 02:00 Calcium 9.2 mg/dL (8.5-10.5) 07/07/22 02:00 Total Bilirubin 0.3 mg/dL (0.15-1.2) 07/07/22 02:00 AST 44 U/L (0-40) H 07/07/22 02:00 ALT 84 U/L (0-41) H 07/07/22 02:00 Alkaline Phosphatase 112 U/L (40-130) 07/07/22 02:00 Troponin T Baseline 6 ng/L (0-15) 07/07/22 02:00 Total Protein 7.3 g/dL (6.6-8.7) 07/07/22 02:00 Albumin 4.3 g/dL (3.5-5.2) 07/07/22 02:00 Globulin 3.0 g/dL (1.3-4.6) 07/07/22 02:00 EKG Data EKG 1: I personally reviewed and interpreted this EKG as follows: EKG interpretation date: 07/07/22 EKG interpretation time: 02:00 Interpretation: Normal sinus rhythm heart rate [address] or T wave maladies QRS 101 QTc 379 Discharge Plan Discharge Patient Disposition: Home Clinical Impression: Hypertension Prescriptions: Continued Coreg 12.5 mg Tablet 12.5 mg PO BID Qty: 60 0RF Rx Instructions: must administer with a meal/food amlodipine 5 mg Tablet 5 mg PO BEDTIME Qty: 30 0RF hydrochlorothiazide 25 mg Tablet 25 mg PO QAM Qty: 30 0RF No Action famotidine 20 mg tablet 20 mg PO BID omeprazole 20 mg Capsule,Delayed Release(Dr/Ec) 20 mg PO BID Ventolin HFA 90 mcg/actuation Hfa Aerosol Inhaler 2 puff INHALATION Q6H PRN (Reason: Shortness Of Breath) fluticasone propionate 50 mcg/actuation [place],Suspension 2 spray INTRANASAL DAILY Mucinex 600 mg Tablet Extended Release 12hr 600 mg PO Q12H PRN (Reason: Congestion) aspirin 81 mg Tablet,Delayed Release (Dr/Ec) 81 mg PO DAILY buspirone 15 mg tablet 15 mg PO BID 30 Days Qty: 60 1RF Seroquel 400 mg Tablet 400 mg PO BEDTIME 30 Days Qty: 30 1RF Discharge Orders: Discharge ED (Routine); Ordered 07/07/22 Ordered By: Mak Schwarz Discharge Diet: Advance as tolerated Discharge Activity: Resume usual activity Patient Instructions: Hypertension (ED) Coding Level of Care Code ED Assistant Designer for Chg Patricia
[2022-07-07] MEDS: labetalol 5 mg/mL SDV 20mL 10 MG IVP (02:04)
[2022-07-07 02:17] LABS: Basophils # 0.1 10^3/uL (0.0-0.1); Basophils % 0.6 %; Eosinophils # 0.3 10^3/uL (0.0-0.8); Eosinophils % 3.1 %; Hematocrit 44.4 % (42.0-52.0); Hemoglobin 14.4 g/dL (11.7-16.6); Lymphocytes # 3.9 10^3/uL (0.8-4.8); Lymphocytes % 42.9 %; Mean Corpuscular HGB Conc 32.4 g/dL (30.0-36.0); Mean Corpuscular Hemoglobin 29.5 pg (28.0-34.0); Mean Platelet Volume 9.7 fL (7.4-10.4); Monocytes # 1.1 10^3/uL (0.2-0.9); Monocytes % 12.5 %; Neutrophils # 3.69 10^3/uL (1.8-7.7); Neutrophils % 40.7 %; Nucleated Red Blood Cells % 0 %; Platelet Count 335 10^3/cmm (130-400); Red Blood Count 4.88 10^6/uL (4.1-5.3); Red Cell Distribution Width 13.2 % (12.1-15.1); White Blood Count 9.1 10^3/uL (4.0-10.0)
--- NOTE | 2022-07-07 02:18 | PC.NURSE ---
Allergies verified with patient and band placed on rt wrist.
--- NOTE | 2022-07-07 02:21 | XRR_ITS ---
PROCEDURE INFORMATION: Exam: XR Chest Exam date and time: 07/07/2022 2:25 AM Age: 46 years old Clinical indication: Chest pressure; Patient HX: C/O chest pain. Hypertensive on monitor. ; Additional info: Cp TECHNIQUE: Imaging protocol: Radiologic exam of the chest. Views: 1 view. COMPARISON: No relevant prior studies available. FINDINGS: Lungs: No consolidation. Pleural spaces: No pleural effusion. No pneumothorax. Heart/Mediastinum: The cardiac silhouette appears to be at the upper limits of normal/mildly enlarged, this finding is likely at least partially related to low lung volumes and technique. Bones/joints: No acute fracture. XR/XR chest 1V portable [id number] IMPRESSION: No acute cardiopulmonary findings.
[2022-07-07 02:36] LABS: Alanine Aminotransferase 84 U/L (0-41); Albumin Level 4.3 g/dL (3.5-5.2); Alkaline Phosphatase 112 U/L (40-130); Anion Gap 14.2 (5-19); Aspartate Amino Transferase 44 U/L (0-40); Blood Urea Nitrogen 19 mg/dL (6-20); Calcium 9.2 mg/dL (8.5-10.5); Carbon Dioxide 27 mmol/L (22-29); Chloride 98 mmol/L (98-107); Glomerular Filtration Rate 126.5 mL/min (90-130); Glucose 91 mg/dL (65-115); Osmolality Calculated 284 mOsm/kg (285-295); Potassium 3.2 mmol/L (3.5-5.1); Sodium 136 mmol/L (136-145); Total Bilirubin 0.3 mg/dL (0.15-1.2); Total Protein 7.3 g/dL (6.6-8.7)
[2022-07-07 02:37] LABS: Troponin(5th) Baseline 6 ng/L (0-15)
[2022-07-07 03:23] VITALS: BP 145/88; PULSE 79; RESP 15; O2SAT 95
--- NOTE | 2022-07-07 16:12 | DCPLANNER ---
Addendum entered by Jenny Jose 07/15/22 09:17: Patient had a follow up appointment scheduled with Dr. Russell at [facility] to establish care - patient did attend appointment. Addendum entered by Jenny Jose 07/12/22 12:54: fresh food manager called patient due to no primary care physician - patient stated that he would like help in getting established with a primary care physician. fresh food manager called [facility], gave clinic patients information. A follow up appointment was scheduled for patient for June at 1:[address] Russell. fresh food manager gave patient the appointment information. Original Note: fresh food manager called patient due to no primary care physician - no answer at this time
== END 2022-07-07 03:29 | disposition home or self-care (01) ==
PROVIDERS: Emergency Provider Emergency Medicine
DX: I10 Essential (primary) hypertension (principal); Z79.82 Long term (current) use of aspirin
CPT/HCPCS: 71045; 80053; 84484; 85025; 93005; 96374; 99285; J3490

== ENCOUNTER 2022-07-19 01:10 | Emergency (ER) | payer MEDICAID, SELFPAY ==
[2022-07-19 01:11] VITALS: BP 132/92; PULSE 86; RESP 14; TEMP 36.5; O2SAT 96; BMI 30.4
--- NOTE | 2022-07-19 01:20 | ED_ITS ---
HPI - Extremity Injury (Lower) General: Chief Complaint: Extremity Problem,Nontraumatic Stated Complaint: Pain In Feet Time Seen by Provider: 07/19/22 01:19 History of Present Illness: 46-year-old male patient comes in today with complaints of foot pain. Patient states that he has been having some increased foot pain and is doing his best with that. Patient states that he is homeless and has been walking quite a bit. Patient appears nontoxic. Patient appears in no acute distress. Patient has a history of anxiety, hypertension, and intellectual disability. Review of Systems General: Reports: 10 or more systems reviewed and unremarkable except in HPI and below Const: Denies: fever(s) Card: Denies: chest pain Resp: Denies: dyspnea GI: Denies: nausea or vomiting : Denies: difficulty urinating Musc: Reports: extremity pain (Bilateral foot pain) [facility] ED PFSH: Medical History (Updated 07/19/22 @ 01:39 by LEXI Cosme) Allergic rhinitis Anxiety GERD (gastroesophageal reflux disease) Hospital discharge follow-up Hypertension Psychiatric care Social History (Updated 07/07/22 @ 02:01 by Mak Schwarz MD) Alcohol intake: current Physical Exam Const: COMMON NORMALS: alert HENMT: COMMON NORMALS: normocephalic HEAD & SCALP: normocephalic Neck/C-Spine: COMMON NORMALS: full ROM Resp: COMMON NORMALS: normal respiratory effort Cardio: COMMON NORMALS: regular rate RATE: regular rate Extremity: NARRATIVE EXTREMITY EXAM: Bilateral lower feet have no ulcers or significant abnormality. Neuro: SENSORIUM/ORIENTATION: Yes alert Skin: COMMON NORMALS: no rashes or lesions noted GENERAL SKIN EXAM: no rashes or lesions noted Course Vital Signs: Vital signs: Vital Signs Temperature 97.7 F 07/19/22 01:11 Pulse Rate 86 07/19/22 01:11 Respiratory Rate 14 07/19/22 01:11 Blood Pressure 132/92 07/19/22 01:11 Pulse Oximetry 96 07/19/22 01:11 Oxygen Delivery Me thod 07/19/22 01:11 MDM - Extremity Injury (Lower) Medical Decision Making 46-year-old male patient that is homeless comes in today for complaints of bilateral feet pain. On exam patient has no sores or injuries to the feet. Patient does have decreased arch angulation. Differential diagnosis includes but not limited to malingering, planter fasciitis, pes planus, homelessness. Believe patient has no significant abnormality of the feet probably has pain secondary to his flat feet and being up on them. Patient was given some Tylenol for his pain recommended to change his socks frequently to keep them dry as possible and wear good supportive shoes. Patient is homeless he was given a pair socks and recommended to check with the local shelters. 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 Discharge Plan Discharge Patient Disposition: Home Clinical Impression: Bilateral foot pain, Homelessness unspecified, Pes planus of both feet Condition: Stable Prescriptions: [place] (acetaminophen) 500 mg capsule 1,000 mg PO Q8H PRN (Reason: pain) Qty: 60 0RF No Action Ventolin HFA 90 mcg/actuation HFA aerosol inhaler 2 puff INHALATION Q6H PRN (Reason: Shortness Of Breath) Qty: 18 5RF amlodipine 5 mg tablet 5 mg PO BEDTIME Qty: 30 5RF aspirin 81 mg tablet,delayed release (DR/EC) 81 mg PO DAILY Qty: 90 5RF Coreg 12.5 mg tablet 12.5 mg PO BID Qty: 60 5RF Rx Instructions: must administer with a meal/food famotidine 20 mg tablet 20 mg PO BID Qty: 60 5RF fluticasone propionate 50 mcg/actuation [place],suspension 2 spray INTRANASAL DAILY PRN (Reason: nasal congestion) Qty: 16 5RF Mucinex 600 mg tablet extended release 12hr 600 mg PO Q12H PRN (Reason: Congestion) Qty: 60 5RF hydrochlorothiazide 25 mg tablet 25 mg PO QAM Qty: 30 5RF buspirone 15 mg tablet 15 mg PO BID 30 Days Qty: 60 1RF Seroquel 400 mg Tablet 400 mg PO BEDTIME 30 Days Qty: 30 1RF Discharge Orders: Discharge ED (Routine); Ordered 07/19/22 Ordered By: Buzz Muñoz Discharge Diet: Usual diet Discharge Activity: Increase activity as tolerated Patient Instructions: Pain Management Activity Restrictions/Additional Instructions: Change socks frequently. Wearing good comfortable supportive shoe. Follow-up with primary care as needed. Return to ED for new concerns or worsening symptoms. Coding Level of Care Code ED Ripening Room Attendant for Kelley Gomez
[2022-07-19] MEDS: acetaminophen 500 mg Tablet 1000 MG PO (01:47)
[2022-07-19 01:51] VITALS: BP 132/92; PULSE 80; RESP 16; O2SAT 94
[2022-07-19 01:58] VITALS: BP 132/92; PULSE 80; RESP 16; TEMP 36.5; O2SAT 94
== END 2022-07-19 01:59 | disposition home or self-care (01) ==
PROVIDERS: Emergency Provider Nurse Practitioner Family
DX: M79.671 Pain in right foot (principal); M79.672 Pain in left foot; M21.42 Flat foot [pes planus] (acquired), left foot; M21.41 Flat foot [pes planus] (acquired), right foot; Z59.00 Homelessness unspecified; Z79.82 Long term (current) use of aspirin; I10 Essential (primary) hypertension
CPT/HCPCS: 99283

== ENCOUNTER 2022-07-21 20:45 | Emergency (ER) | payer MEDICAID, SELFPAY ==
[2022-07-21 21:06] VITALS: BP 168/101; PULSE 98; RESP 20; TEMP 36.6; O2SAT 97; BMI 30.4
--- NOTE | 2022-07-21 21:17 | ECG_ITS ---
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 Measurements Intervals [place] Rate: 97 P: 68 VA: 154 QRS: 54 QRSD: 91 T: 43 QT: 313 QTc: 398 Interpretive Statements SINUS RHYTHM POSSIBLE LEFT ATRIAL ENLARGEMENT [-0.1mV P-WAVE IN V1/V2] WARNING: DATA QUALITY MAY AFFECT INTERPRETATION Compared to ECG 07/07/2022 02:00:41 No significant changes Electronically Signed On 07-22-2022 15:54:13 CDT by Corbin Wu M.D. [id number]
[2022-07-21 22:02] VITALS: BP 168/101; PULSE 98; RESP 20; O2SAT 97
--- NOTE | 2022-07-21 22:03 | W.ED.ARRPALP ---
HPI - Arrhythmia/Palpitations General: Chief Complaint: Arrhythmia/Palpitations Stated Complaint: High B/P Time Seen by Provider: 07/21/22 21:49 Source: patient Mode of arrival: ambulatory Limitations: no limitations History of Present Illness: 46-year-old male has a history hypertension he states that his is in the [place] [facility] and he is homeless and she has his meds he was unable to take them today he is concerned about his blood pressure he denies any chest pain denies any headache denies any worsening proving factors. Associated symptoms: Deny nausea or vomiting Review of Systems Const: Denies: fever(s), chills, body aches or change in appetite Eyes: Denies: blurry vision or eye discomfort ENMT: Denies: throat pain or dental pain Card: Denies: chest pain Resp: Denies: dyspnea GI: Denies: abdominal pain, nausea, vomiting or diarrhea : Denies: dysuria Musc: Denies: neck pain or back pain Skin/Breast: Denies: rash Neuro: Denies: headache(s) Psych: Denies: depression Dirk/Lymph: Denies: easy bruising All/Imm: Denies: urticaria PFSH ED PFSH: Medical History Allergic rhinitis Anxiety GERD (gastroesophageal reflux disease) Hospital discharge follow-up Hypertension Psychiatric care Social History Alcohol intake: current Physical Exam Const: COMMON NORMALS: no acute distress, patient oriented x3 and healthy appearing HENMT: COMMON NORMALS: normocephalic and atraumatic HEAD & SCALP: normocephalic and atraumatic Eye: COMMON NORMALS: Equal, round and reactive pupils present and EOMs intact bilaterally PUPIL: Yes Equal, round and reactive pupils present Neck/C-Spine: COMMON NORMALS: full ROM and supple Chest: COMMONS NORMALS: normal inspection of the chest and normal palpation of entire chest wall Resp: COMMON NORMALS: normal respiratory effort, No retractions, No use of accessory muscles and clear to auscultation bilaterally AUSCULTATION: clear to auscultation bilaterally Cardio: COMMON NORMALS: regular rate, regular rhythm and No murmurs present (Cardio) RATE: regular rate RHYTHM: regular rhythm GI: COMMON NORMALS: Normal to inspection, nondistended, normoactive bowel sounds present, Soft to palpation, non-tender and no masses PALPATION: Yes Soft to palpation Extremity: COMMON NORMALS: normal to inspection and full ROM Neuro: COMMON NORMALS: patient oriented x3, moves all extremities and no focal motor deficits Psych: COMMON NORMALS: mental status grossly normal, Normal thought process present and cooperative THOUGHT PROCESS: Normal thought process present Skin: COMMON NORMALS: no rashes or lesions noted and no wounds GENERAL SKIN EXAM: no rashes or lesions noted Course Vital Signs: Vital signs: Vital Signs Temperature 97.9 F 07/21/22 21:06 Pulse Rate 98 07/21/22 21:06 Respiratory Rate 20 H 07/21/22 21:06 Blood Pressure 168/101 07/21/22 21:06 Pulse Oximetry 97 07/21/22 21:06 Oxygen Delivery Me thod 07/21/22 21:06 MDM - Arrhythmia/Palpitations Medical Decision Making Patient presents here with hypertension he has a long history hypertension has not taken his meds today we will give a dose of hydralazine he has no other complaints he is stable for discharge. Discharge Plan Discharge Patient Disposition: Home Clinical Impression: Hypertension Condition: Stable Prescriptions: No Action Ventolin HFA 90 mcg/actuation HFA aerosol inhaler 2 puff INHALATION Q6H PRN (Reason: Shortness Of Breath) Qty: 18 5RF amlodipine 5 mg tablet 5 mg PO BEDTIME Qty: 30 5RF aspirin 81 mg tablet,delayed release (DR/EC) 81 mg PO DAILY Qty: 90 5RF Coreg 12.5 mg tablet 12.5 mg PO BID Qty: 60 5RF Rx Instructions: must administer with a meal/food famotidine 20 mg tablet 20 mg PO BID Qty: 60 5RF fluticasone propionate 50 mcg/actuation spray,suspension 2 spray INTRANASAL DAILY PRN (Reason: nasal congestion) Qty: 16 5RF Mucinex 600 mg tablet extended release 12hr 600 mg PO Q12H PRN (Reason: Congestion) Qty: 60 5RF hydrochlorothiazide 25 mg tablet 25 mg PO QAM Qty: 30 5RF Mapap (acetaminophen) 500 mg capsule 1,000 mg PO Q8H PRN (Reason: pain) Qty: 60 0RF buspirone 15 mg tablet 15 mg PO BID 30 Days Qty: 60 1RF Seroquel 400 mg Tablet 400 mg PO BEDTIME 30 Days Qty: 30 1RF Discharge Orders: Discharge ED (Routine); Ordered 07/21/22 Ordered By: Mak Schwarz Discharge Diet: Advance as tolerated Discharge Activity: Resume usual activity Patient Instructions: Hypertension (ED) Coding Level of Care Code ED Administrative Assistant Receptionist for Kelley Gomez
[2022-07-21] MEDS: hyDRALAzine 20 mg/mL INJ 1 mL 10 MG IM (22:04)
== END 2022-07-21 22:09 | disposition home or self-care (01) ==
PROVIDERS: Emergency Provider Emergency Medicine
DX: I10 Essential (primary) hypertension (principal); Z79.82 Long term (current) use of aspirin
CPT/HCPCS: 93005; 96372; 99284; J0360

== ENCOUNTER 2022-08-02 00:48 | Emergency (ER) | payer MEDICAID, SELFPAY ==
[2022-08-02 00:51] VITALS: BP 180/125; PULSE 90; RESP 18; TEMP 36.3; O2SAT 98; BMI 30.4
[2022-08-02 00:56] VITALS: BP 135/78; PULSE 70; RESP 18; O2SAT 98
--- NOTE | 2022-08-02 00:58 | W.ED.GENADLT ---
HPI - General Adult General: Chief complaint: General Medical Stated complaint: Left Hand Injury\Needs inhales Time Seen by Provider: 08/02/22 00:49 History of Present Illness: 46-year-old male patient with intellectual disability comes into the ER for concerns about elevated blood pressure, aggravating reflux, and difficulty breathing. Patient at this time is homeless and is waiting to get housing. Patient has no housing available at this time. Patient states that he lost his inhaler while staying at a hotel. Patient was concerned due to blood pressure being elevated and came into the ER to be seen. Patient was also concerned about a growth to his left hand. Examination of the injury notes that it is a wart. Main concern patient has is difficulty sleeping and not having a place to sleep. Associated symptoms: Deny chest pain, dyspnea or headache(s) Review of Systems General: Reports: 10 or more systems reviewed and unremarkable except in HPI and below Const: Denies: fever(s) Card: Denies: chest pain Resp: Denies: dyspnea Musc: Denies: extremity pain Skin/Breast: Reports: new lesions Neuro: Denies: headache(s) PFSH ED PFSH: Medical History Allergic rhinitis Anxiety GERD (gastroesophageal reflux disease) Hospital discharge follow-up Hypertension Psychiatric care Social History Alcohol intake: current Physical Exam Const: COMMON NORMALS: alert HENMT: COMMON NORMALS: normocephalic HEAD & SCALP: normocephalic Neck/C-Spine: COMMON NORMALS: full ROM Chest: COMMONS NORMALS: normal inspection of the chest Resp: COMMON NORMALS: normal respiratory effort Cardio: COMMON NORMALS: regular rate and regular rhythm RATE: regular rate RHYTHM: regular rhythm GI: COMMON NORMALS: non-tender Extremity: COMMON NORMALS: no pedal edema Neuro: SENSORIUM/ORIENTATION: Yes alert Skin: LESIONS: lesion noted (Fleshy lesion noted to the ulnar side of left hand) Course Vital Signs: Vital signs: Vital Signs Temperature 97.4 F L 08/02/22 00:51 Pulse Rate 85 08/02/22 01:44 Respiratory Rate 16 08/02/22 01:44 Blood Pressure 135/78 08/02/22 00:56 Pulse Oximetry 99 08/02/22 01:44 Oxygen Delivery Me thod 08/02/22 01:44 MDM - General Adult Medical Decision Making Patient comes in today for concerns of dyspepsia, elevated blood pressure, and lesion to the left hand. On exam we note a wart to the left side of his hand. Respirations are even lungs are clear to auscultation. No edema is noted. Abdomen soft nontender. Differential diagnosis includes not limited to homelessness, GERD, anxiety, asthma. Patient was given 0.1 mg of clonidine and monitored for blood pressure. Patient was given albuterol to help with his complaints of breathing difficulty. Patient was given a dose of famotidine. Patient was recommended to eat a healthy diet and follow-up with primary care return to ED for new concerns. Discharge Plan Discharge Patient Disposition: Home Clinical Impression: Wart viral Qualifiers: Viral wart type: other viral wart Qualified Code(s): B07.8 - Other viral warts Hypertension Qualifiers: Hypertension type: unspecified Qualified Code(s): I10 - Essential (primary) hypertension GERD (gastroesophageal reflux disease) Qualifiers: Esophagitis presence: without esophagitis Qualified Code(s): K21.9 - Gastro-esophageal reflux disease without esophagitis Condition: Stable Prescriptions: No Action Ventolin HFA 90 mcg/actuation HFA aerosol inhaler 2 puff INHALATION Q6H PRN (Reason: Shortness Of Breath) Qty: 18 5RF amlodipine 5 mg tablet 5 mg PO BEDTIME Qty: 30 5RF aspirin 81 mg tablet,delayed release (DR/EC) 81 mg PO DAILY Qty: 90 5RF Coreg 12.5 mg tablet 12.5 mg PO BID Qty: 60 5RF Rx Instructions: must administer with a meal/food famotidine 20 mg tablet 20 mg PO BID Qty: 60 5RF fluticasone propionate 50 mcg/actuation spray,suspension 2 spray INTRANASAL DAILY PRN (Reason: nasal congestion) Qty: 16 5RF Mucinex 600 mg tablet extended release 12hr 600 mg PO Q12H PRN (Reason: Congestion) Qty: 60 5RF hydrochlorothiazide 25 mg tablet 25 mg PO QAM Qty: 30 5RF Mapap (acetaminophen) 500 mg capsule 1,000 mg PO Q8H PRN (Reason: pain) Qty: 60 0RF buspirone 15 mg tablet 15 mg PO BID 30 Days Qty: 60 1RF Seroquel 400 mg Tablet 400 mg PO BEDTIME 30 Days Qty: 30 1RF Discharge Orders: Discharge ED (Routine); Ordered 08/02/22 Ordered By: Buzz Muñoz Discharge Diet: Usual diet Discharge Activity: Increase activity as tolerated Patient Instructions: Armando Suarez (ED) Activity Restrictions/Additional Instructions: Continue with medications as ordered. Use albuterol as needed for respiratory difficulty. Follow-up with primary care for further instruction. And refills of medications. Coding Level of Care Code ED Granite Polisher for Kelley Gomez
[2022-08-02] MEDS: famotidine 20 mg Tablet 40 MG PO (01:13)
[2022-08-02] MEDS: albuterol 8 gm MDI 2 PUFF INHALATION (01:43)
[2022-08-02 01:44] VITALS: PULSE 85; RESP 16; O2SAT 99
[2022-08-02 01:57] VITALS: BP 129/86; PULSE 73; RESP 17; O2SAT 97
--- NOTE | 2022-08-09 13:50 | DCPLANNER ---
manager landscape was triggered for patient with no primary care physician - patient is established with Dr. Russell at [facility].
== END 2022-08-02 01:58 | disposition home or self-care (01) ==
PROVIDERS: Emergency Provider Nurse Practitioner Family; PCP Family Medicine Adult Medicine
DX: I10 Essential (primary) hypertension (principal); B07.8 Other viral warts; K21.9 Gastro-esophageal reflux disease without esophagitis; Z79.82 Long term (current) use of aspirin
CPT/HCPCS: 94640; 99283; J3535

== ENCOUNTER 2022-08-15 11:22 | Emergency (ER) | payer MEDICAID, SELFPAY ==
[2022-08-15 11:42] VITALS: BP 160/106; PULSE 75; RESP 16; TEMP 36.8; O2SAT 99
--- NOTE | 2022-08-15 11:54 | ED_ITS ---
HPI - Male Genitourinary General: Chief complaint: Urogenital-Male Stated complaint: MHE Time Seen by Provider: 08/15/22 11:43 History of Present Illness: Mr. Almeida is a 46-year-old gentleman presenting to the emergency department due to concern for exposure to sexually transmitted infection. He reports a new sexual partner approximately 1 week ago and did not use barrier protection device. He is concerned that they may have had an STI and desires testing. He has noticed some mild itching however no rashes or skin lesions, denies testicular or penile pain, no pain with urination or changes in urination, no other changes in health. He does report a remote history of sexually transmitted infection. No other specific changes in health, exacerbating, or alleviating factors identified. Onset (ago): day(s) Context: new sexual partner Review of Systems General: Reports: 10 or more systems reviewed and unremarkable except in HPI and below PFSH ED PFSH: Medical History Allergic rhinitis Anxiety GERD (gastroesophageal reflux disease) Hospital discharge follow-up Hypertension Psychiatric care Social History Alcohol intake: current Substance/Drug Use: unknown Physical Exam Const: COMMON NORMALS: alert GENERAL APPEARANCE: cooperative and well developed HENMT: COMMON NORMALS: normocephalic and atraumatic HEAD & SCALP: normocephalic and atraumatic Eye: COMMON NORMALS: conjunctivae normal CONJUNCTIVA: Yes conjunctivae normal SCLERA: sclerae normal Neck/C-Spine: COMMON NORMALS: supple GENERAL: Yes trachea midline Resp: COMMON NORMALS: normal respiratory effort EFFORT & INSPECTION: Yes able to speak in complete sentences Cardio: COMMON NORMALS: regular rate and regular rhythm RATE: regular rate RHYTHM: regular rhythm GI: COMMON NORMALS: Soft to palpation PALPATION: Yes Soft to palpation and No Tenderness to palpation present (GI) : COMMON NORMALS: Yes normal external exam, Yes Testes normal and Yes scrotum normal Extremity: GENERAL: Yes normal exam except as noted and No edema Neuro: COMMON NORMALS: moves all extremities SENSORIUM/ORIENTATION: Yes alert and No Orientation impaired Psych: COMMON NORMALS: mental status grossly normal and Normal thought process present THOUGHT PROCESS: Normal thought process present Course Vital Signs: Vital signs: Vital Signs Temperature 98.2 F 08/15/22 11:42 Pulse Rate 75 08/15/22 11:42 Respiratory Rate 16 08/15/22 11:42 Blood Pressure 160/106 08/15/22 11:42 Pulse Oximetry 99 08/15/22 11:42 Oxygen Delivery Me thod Room Air 08/15/22 11:42 MDM - Male Medical Decision Making 46-year-old gentleman presenting due to concern over sexually transmitted infection due to new sexual partner. Exam as above. No concerning findings. Patient desires empiric treatment and we will also send urine for further analysis. Treatment ordered. The results of ED evaluation were discussed with the patient including prescriptions and/or symptomatic cares (if applicable) including appropriate and responsible use, followup plan, and return precautions. The patient verbalized understanding and felt safe for discharge. Medical Records I reviewed the patient's medical records. Lab Data I reviewed the patient's lab results. Discharge Plan Discharge Patient Disposition: Home Clinical Impression: Concern about sexually transmitted disease in male without diagnosis Condition: Stable Prescriptions: No Action Ventolin HFA 90 mcg/actuation HFA aerosol inhaler 2 puff INHALATION Q6H PRN (Reason: Shortness Of Breath) Qty: 18 5RF aspirin 81 mg tablet,delayed release (DR/EC) 81 mg PO DAILY Qty: 90 5RF fluticasone propionate 50 mcg/actuation spray,suspension 2 spray INTRANASAL DAILY PRN (Reason: nasal congestion) Qty: 16 5RF Mucinex 600 mg tablet extended release 12hr 600 mg PO Q12H PRN (Reason: Congestion) Qty: 60 5RF hydrochlorothiazide 25 mg tablet 25 mg PO QAM Qty: 30 5RF pantoprazole 40 mg tablet,delayed release (DR/EC) 40 mg PO DAILY Qty: 30 3RF Coreg 12.5 mg tablet 12.5 mg PO BID Qty: 60 5RF Rx Instructions: must administer with a meal/food amlodipine 5 mg tablet 5 mg PO BEDTIME Qty: 30 5RF buspirone 15 mg tablet 15 mg PO BID 30 Days Qty: 60 1RF quetiapine [Seroquel] 400 mg Tablet 400 mg PO BEDTIME 30 Days Qty: 30 1RF sucralfate 1 gram tablet 1 g PO TID 28 Days Qty: 84 0RF Discharge Orders: Discharge ED (Routine); Ordered 08/15/22 Ordered By: Vinay Knight Discharge Diet: Usual diet Discharge Activity: Resume usual activity Activity Restrictions/Additional Instructions: Thank you for visiting the emergency department. You were seen and evaluated for concern over exposure to sexually transmitted infection. We obtained a urine sample which will be sent to lab for further analysis. We do not routinely perform screening for hepatitis or HIV, this can be ordered by your primary care provider. You were treated empirically. Please follow-up with your primary care provider. Return to the emergency department for anything that you are concerned about and feel needs emergency department evaluation. Coding Level of Care Code ED Director [employer] for Kelley Gomez
[2022-08-15] MEDS: azithromycin 250 mg Tablet 1000 MG PO (12:37)
[2022-08-15] MEDS: cefTRIAXone 500 MG in water for injection-sterile 1 ML IM (12:48)
--- NOTE | 2022-08-19 12:04 | DCPLANNER ---
Patient sees Dr. Russell at [facility] for primary care physician.
== END 2022-08-15 12:55 | disposition home or self-care (01) ==
PROVIDERS: Emergency Provider Emergency Medicine; PCP Family Medicine Adult Medicine
DX: Z20.2 Contact with and (suspected) exposure to infections with a predominantly sexual mode of transmission (principal); Z79.82 Long term (current) use of aspirin; I10 Essential (primary) hypertension
CPT/HCPCS: 36415; 87491; 87591; 96372; 99284; J0696; Q0144

== ENCOUNTER 2022-08-19 11:28 | Emergency (ER) | payer MEDICAID, SELFPAY ==
[2022-08-19 11:42] VITALS: BP 136/86; PULSE 77; RESP 18; TEMP 36.7; O2SAT 97; BMI 30.4
--- NOTE | 2022-08-19 11:45 | ECG_ITS ---
[facility] Test Date: 2022-08-19 Pat Name: Yoel Almeida Department: Room: Gender: Male Er Rn: : 1975 Requested By: Fer Jin Order Number: [id number] Aubrey MD: Jihan Ware M.D. Measurements Intervals Mobile Rate: 69 P: 67 NV: 164 QRS: 49 QRSD: 86 T: 48 QT: 339 QTc: 365 Interpretive Statements SINUS RHYTHM EARLY REPOLARIZATION [ST ELEVATION WITH NORMALLY INFLECTED T-WAVE] Compared to ECG 07/21/2022 21:28:27 Early repolarization now present Electronically Signed On 08-20-2022 16:31:35 CDT by Jihan Ware M.D. [id number]
[2022-08-19 12:18] VITALS: BP 135/91; PULSE 74; RESP 16; O2SAT 97
--- NOTE | 2022-08-19 12:22 | XR_ITS ---
WS: [id number] Exam: XR chest 1V portable [id number] Date/Time of Exam: 08/19/2022 12:31 PM Reason For Exam: dyspnea/cough Comparison 07/07/2022. Findings: The lungs are clear and fully expanded. Costophrenic angles are sharp. No infiltrates. Bronchovascula r relief appears normal. Cardiac silhouette is unremarkable. Bony elements are intact. XR/XR chest 1V portable [id number] IMPRESSION: Unremarkable chest radiograph.
--- NOTE | 2022-08-19 12:43 | W.ED.SOB ---
HPI - SOB/Dyspnea General: Chief Complaint: Shortness of Breath/Dyspnea Stated Complaint: sob Time Seen by Provider: 08/19/22 12:21 Source: patient Mode of arrival: ambulatory History of Present Illness: HPI Narrative: 46-year-old male presents emergency room with complaints of vague chest discomfort feeling he states he has had this in the past its been relieved by GI cocktail. He has a history of his use nebulizers also complains of shortness of breath he denies any productive cough. No vomiting no diarrhea no hematochezia melena hematemesis or coffee-ground emesis. MD elicited complaint: shortness of breath and cough Onset (ago): hour(s) Timing: constant Exacerbating factors: nothing Relieving factors: nothing Associated symptoms: Reports chest pain and cough; Deny abdominal pain, chest congestion, diaphoresis, dizziness, extremity pain, fever(s), hemoptysis, lightheadedness, myalgias, nausea, orthopnea, palpitations, paresthesias, polydipsia, polyuria, rash, sense of impending doom, syncope or vomiting Review of Systems Const: Denies: fever(s), chills, fatigue, malaise or diaphoresis ENMT: Denies: throat pain, ear or mastoid pain, nasal discharge or nasal congestion Card: Reports: chest pain; Denies: palpitations, lightheadedness, syncope or orthopnea Resp: Reports: dyspnea, non-productive cough and wheezing; Denies: productive cough, hemoptysis or chest congestion GI: Denies: abdominal pain, nausea or vomiting : Denies: flank pain, dysuria, urinary frequency or urinary urgency Musc: Denies: extremity pain Skin/Breast: Denies: rash or pruritus Neuro: Denies: dizziness Endo: Denies: polyuria or polydipsia PFS ED PFSH: Medical History Allergic rhinitis Anxiety GERD (gastroesophageal reflux disease) Hospital discharge follow-up Hypertension Psychiatric care Social History Alcohol intake: current Substance/Drug Use: unknown Physical Exam Const: COMMON NORMALS: no acute distress GENERAL APPEARANCE: cooperative and comfortable ORIENTATION/CONSCIOUSNESS: Yes awake, Yes oriented to person, Yes oriented to place and Yes oriented to time HENMT: COMMON NORMALS: normocephalic, atraumatic and hearing grossly normal bilaterally HEAD & SCALP: normocephalic and atraumatic Resp: COMMON NORMALS: normal respiratory effort, No retractions and No use of accessory muscles AUSCULTATION: wheezes Cardio: COMMON NORMALS: regular rate, regular rhythm and No murmurs present (Cardio) RATE: regular rate RHYTHM: regular rhythm GI: COMMON NORMALS: Soft to palpation and No hepatosplenomegaly present AUSCULTATION: Yes normoactive bowel sounds PALPATION: Yes Soft to palpation, No Tenderness to palpation present (GI), No Guarding due to palpation present (GI) and Yes No hepatosplenomegaly present Extremity: COMMON NORMALS: normal to inspection, capillary refill normal, no clubbing, cyanosis or edema, no calf tenderness and no pedal edema Neuro: SENSORIUM/ORIENTATION: Yes oriented to person, Yes oriented to place and Yes oriented to time Skin: COMMON NORMALS: no rashes or lesions noted GENERAL SKIN EXAM: no rashes or lesions noted Course Vital Signs: Vital signs: Vital Signs Temperature 98.1 F 08/19/22 11:42 Pulse Rate 62 08/19/22 14:48 Respiratory Rate 16 08/19/22 14:48 Blood Pressure 143/94 08/19/22 14:48 Pulse Oximetry 95 08/19/22 14:48 Oxygen Delivery Me thod Room Air 08/19/22 14:48 MDM - SOB/Dyspnea Medical Decision Making Patient improved after nebulizer and GI cocktail. Will discharge home to DC famotidine start Protonix. Continue albuterol as needed and will also have him set up for a graded exercise stress test. Labs imaging and EKG reviewed no acute ST changes chest x-ray was not normal and there is no pneumonia pneumothorax. Clinically has no signs of a pulmonary embolism. No evidence of widening of the mediastinum reflective of dissection. He has not had any medic easy melena hematemesis or coffee-ground emesis and labs do not reflect any GI bleed. Medical Records I reviewed the patient's medical records. Lab Data I reviewed the patient's lab results. 08/19/22 12:36 08/19/22 12:36 Labs/Radiology: Radiology Impressions Chest X-Ray 08/19/22 12:22 IMPRESSION: Unremarkable chest radiograph. Laboratory Results WBC 6.1 10^3/uL (4.0-10.0) 08/19/22 12:36 RBC 5.02 10^6/uL (4.1-5.3) 08/19/22 12:36 Hgb 14.7 g/dL (11.7-16.6) 08/19/22 12:36 Hct 45.0 % (42.0-52.0) 08/19/22 12:36 MCV 89.6 fl (80-94) 08/19/22 12:36 MCH 29.3 pg (28.0-34.0) 08/19/22 12:36 MCHC 32.7 g/dL (30.0-36.0) 08/19/22 12:36 RDW 13.2 % (12.1-15.1) 08/19/22 12:36 Plt Count 348 10^3/cmm (130-400) 08/19/22 12:36 MPV 9.7 fL (7.4-10.4) 08/19/22 12:36 Neut % (Auto) 47.2 % 08/19/22 12:36 Lymph % (Auto) 38.9 % 08/19/22 12:36 [place] % (Auto) 10.7 % 08/19/22 12:36 Eos % (Auto) 2.3 % 08/19/22 12:36 Baso % (Auto) 0.7 % 08/19/22 12:36 Neut # (Auto) 2.86 10^3/uL (1.8-7.7) 08/19/22 12:36 Lymph # (Auto) 2.4 10^3/uL (0.8-4.8) 08/19/22 12:36 [place] # (Auto) 0.7 10^3/uL (0.2-0.9) 08/19/22 12:36 Eos # (Auto) 0.1 10^3/uL (0.0-0.8) 08/19/22 12:36 Baso # (Auto) 0.0 10^3/uL (0.0-0.1) 08/19/22 12:36 Nucleated RBC % (auto) 0 % 08/19/22 12:36 Nucleated RBCs # 0.0 /100WBC 08/19/22 12:36 Sodium 136 mmol/L (136-145) 08/19/22 12:36 Potassium 3.8 mmol/L (3.5-5.1) 08/19/22 12:36 Chloride 100 mmol/L (98-107) 08/19/22 12:36 Carbon Dioxide 24 mmol/L (22-29) 08/19/22 12:36 Anion Gap 15.8 (5-19) 08/19/22 12:36 BUN 13 mg/dL (6-20) 08/19/22 12:36 Creatinine 0.7 mg/dL (0.7-1.2) 08/19/22 12:36 GFR Calculation 147.6 mL/min (90-130) H 08/19/22 12:36 Glucose 95 mg/dL (65-115) 08/19/22 12:36 Calculated Osmolality 282 mOsm/kg (285-295) L 08/19/22 12:36 Calcium 9.6 mg/dL (8.5-10.5) 08/19/22 12:36 Magnesium 2.2 mg/dL (1.7-2.3) 08/19/22 12:36 Total Bilirubin 0.4 mg/dL (0.15-1.2) 08/19/22 12:36 AST 37 U/L (0-40) 08/19/22 12:36 ALT 79 U/L (0-41) H 08/19/22 12:36 Alkaline Phosphatase 89 U/L (40-130) 08/19/22 12:36 Troponin T Baseline 6 ng/L (0-15) 08/19/22 12:36 Troponin T 120 Minute 6.00 ng/L (0-15) 08/19/22 14:14 Delta Troponin T 0 ABS# (0-10) 08/19/22 14:14 NT-Pro-B Natriuret Pep 36 pg/mL (0-125) 08/19/22 12:36 Total Protein 7.4 g/dL (6.6-8.7) 08/19/22 12:36 Albumin 4.4 g/dL (3.5-5.2) 08/19/22 12:36 Globulin 3.0 g/dL (1.3-4.6) 08/19/22 12:36 Discharge Plan Discharge Patient Disposition: Home Clinical Impression: Atypical chest pain, GERD (gastroesophageal reflux disease), Reactive airway disease Condition: Stable Prescriptions: New pantoprazole 40 mg tablet,delayed release (DR/EC) 40 mg PO DAILY 28 Days Qty: 30 0RF Discontinued famotidine 20 mg tablet 20 mg PO BID Qty: 60 5RF No Action Ventolin HFA 90 mcg/actuation HFA aerosol inhaler 2 puff INHALATION Q6H PRN (Reason: Shortness Of Breath) Qty: 18 5RF aspirin 81 mg tablet,delayed release (DR/EC) 81 mg PO DAILY Qty: 90 5RF fluticasone propionate 50 mcg/actuation spray,suspension 2 spray INTRANASAL DAILY PRN (Reason: nasal congestion) Qty: 16 5RF Mucinex 600 mg tablet extended release 12hr 600 mg PO Q12H PRN (Reason: Congestion) Qty: 60 5RF amlodipine 5 mg tablet 5 mg PO BEDTIME Qty: 30 5RF Coreg 12.5 mg tablet 12.5 mg PO BID Qty: 60 5RF Rx Instructions: must administer with a meal/food hydrochlorothiazide 25 mg tablet 25 mg PO QAM Qty: 30 5RF buspirone 15 mg tablet 15 mg PO BID 30 Days Qty: 60 1RF quetiapine [Seroquel] 400 mg Tablet 400 mg PO BEDTIME 30 Days Qty: 30 1RF Discharge Orders: Discharge ED (Routine); Ordered 08/19/22 Ordered By: Fer Garibay Referrals: Olaf Russell MD [Primary Care Provider] - Discharge Diet: Usual diet Discharge Activity: Resume usual activity Patient Instructions: Opioid Safety, Pain Management Activity Restrictions/Additional Instructions: You were seen today for atypical chest pain shortness of breath and reflux. Your symptoms improved with treatment given in the emergency room your EKG and cardiac enzymes were negative. Recommend you stop the famotidine and start pantoprazole. Continue to use the albuterol as needed. Case management make arrangements for an outpatient exercise stress test. Return to the emergency room for further problems. Coding Level of Care Code ED Machine Binder Stripper for Kelley Gomez
[2022-08-19 12:55] VITALS: PULSE 71; RESP 16; O2SAT 98
[2022-08-19] MEDS: ipratropium-albuterol 3 mL Neb INHALATION (12:56)
[2022-08-19 13:00] VITALS: PULSE 70
[2022-08-19 13:09] LABS: Troponin(5th) Baseline 6 ng/L (0-15)
[2022-08-19 13:17] LABS: Alanine Aminotransferase 79 U/L (0-41); Albumin Level 4.4 g/dL (3.5-5.2); Alkaline Phosphatase 89 U/L (40-130); Anion Gap 15.8 (5-19); Aspartate Amino Transferase 37 U/L (0-40); Blood Urea Nitrogen 13 mg/dL (6-20); Calcium 9.6 mg/dL (8.5-10.5); Carbon Dioxide 24 mmol/L (22-29); Chloride 100 mmol/L (98-107); Glomerular Filtration Rate 147.6 mL/min (90-130); Glucose 95 mg/dL (65-115); Magnesium 2.2 mg/dL (1.7-2.3); NT Pro B Type Natriuretic Pept 36 pg/mL (0-125); Osmolality Calculated 282 mOsm/kg (285-295); Potassium 3.8 mmol/L (3.5-5.1); Sodium 136 mmol/L (136-145); Total Bilirubin 0.4 mg/dL (0.15-1.2); Total Protein 7.4 g/dL (6.6-8.7)
[2022-08-19] MEDS: lidocaine 2% viscous 15 ML, aluminum-mag hydrox-simethicon 30 ML, sucralfate oral liq 1 GM PO (13:23)
[2022-08-19 14:16] LABS: Basophils % 0.7 %; Eosinophils # 0.1 10^3/uL (0.0-0.8); Eosinophils % 2.3 %; Hemoglobin 14.7 g/dL (11.7-16.6); Lymphocytes # 2.4 10^3/uL (0.8-4.8); Lymphocytes % 38.9 %; Mean Corpuscular HGB Conc 32.7 g/dL (30.0-36.0); Mean Corpuscular Hemoglobin 29.3 pg (28.0-34.0); Mean Corpuscular Volume 89.6 fl (80-94); Mean Platelet Volume 9.7 fL (7.4-10.4); Monocytes # 0.7 10^3/uL (0.2-0.9); Monocytes % 10.7 %; Neutrophils # 2.86 10^3/uL (1.8-7.7); Neutrophils % 47.2 %; Nucleated Red Blood Cells % 0 %; Platelet Count 348 10^3/cmm (130-400); Red Blood Count 5.02 10^6/uL (4.1-5.3); Red Cell Distribution Width 13.2 % (12.1-15.1); White Blood Count 6.1 10^3/uL (4.0-10.0)
[2022-08-19 14:48] VITALS: BP 143/94; PULSE 62; RESP 16; O2SAT 95
[2022-08-19 15:13] LABS: Troponin 5 2HR Delta 0 ABS# (0-10)
--- NOTE | 2022-08-19 15:19 | ECG_ITS ---
[facility] Test Date: 2022-08-19 Pat Name: Yoel Almeida Department: Room: Gender: Male Screener Perfumer: : 1975 Requested By: Fer Jin Order Number: [id number] Aubrey MD: Jihan Ware M.D. Measurements Intervals [place] Rate: 71 P: 67 IA: 161 QRS: -64 QRSD: 128 T: 14 QT: 445 QTc: 485 Interpretive Statements SINUS RHYTHM WITH OCCASIONAL SUPRAVENTRICULAR PREMATURE COMPLEXES LEFT ANTERIOR FASCICULAR BLOCK [QRS AXIS <= -45, QR IN I, RS IN II] MINIMAL VOLTAGE CRITERIA FOR LVH, CONSIDER NORMAL VARIANT [MEETS CRITERIA IN ONE OF: R(aVL), S(V1), R(V5), R(V5/V6)+S(V1)] PROLONGED QT INTERVAL Compared to ECG 08/19/2022 12:07:58 Left anterior fascicular block now present Prolonged QT interval now present Early repolarization no longer present Electronically Signed On 08-20-2022 16:54:31 CDT by Jihan Ware M.D. [id number]
--- NOTE | 2022-08-23 10:05 | DCPLANNER ---
wind plant manager had message to schedule an outpatient stress test for patient. wind plant manager faxed signed order to centralized scheduling, who will call patient with appointment information.
== END 2022-08-19 15:26 | disposition home or self-care (01) ==
PROVIDERS: Emergency Provider Family Medicine; PCP Family Medicine Adult Medicine
DX: R07.89 Other chest pain (principal); K21.9 Gastro-esophageal reflux disease without esophagitis; J45.909 Unspecified asthma, uncomplicated; Z79.82 Long term (current) use of aspirin; I10 Essential (primary) hypertension
CPT/HCPCS: 36415; 71045; 80053; 83735; 83880; 84484; 85025; 93005; 94640; 99285

== ENCOUNTER 2022-08-27 03:15 | Emergency (ER) | payer MEDICAID, SELFPAY ==
[2022-08-27 03:22] VITALS: BP 128/88; PULSE 86; RESP 18; TEMP 36.6; O2SAT 96; BMI 30.4
--- NOTE | 2022-08-27 03:29 | ECG_ITS ---
[facility] Test Date: 2022-08-27 Pat Name: Yoel Almeida Department: Room: Gender: Male Trust Manager Assistant: : 1975 Requested By: [place] Order Number: [id number] Aubrey MD: Christiano Patel M.D. Measurements Intervals [place] Rate: 76 P: 72 SC: 152 QRS: 60 QRSD: 101 T: 53 QT: 365 QTc: 413 Interpretive Statements SINUS RHYTHM Compared to ECG 08/19/2022 15:19:07 Left anterior fascicular block no longer present Prolonged QT interval no longer present Electronically Signed On 08-27-2022 9:55:42 CDT by Christiano Patel M.D. [id number]
--- NOTE | 2022-08-27 03:29 | XRR_ITS ---
PROCEDURE INFORMATION: Exam: XR Chest Exam date and time: 08/27/2022 3:39 AM Age: 46 years old Clinical indication: Shortness of breath TECHNIQUE: Imaging protocol: Radiologic exam of the chest. Views: 1 view. COMPARISON: CR XR chest 1V portable [id number] 08/19/2022 12:54 PM FINDINGS: Lungs: Lungs are clear. Pleural spaces: There is no pleural effusion or pneumothorax. Heart/Mediastinum: Cardiomediastinal contours are unremarkable. Bones/joints: Bones are unremarkable. XR/XR chest 1V portable [id number] IMPRESSION: No acute findings.
[2022-08-27] MEDS: lidocaine 2% viscous 15 ML, aluminum-mag hydrox-simethicon 30 ML, sucralfate oral liq 1 GM PO (03:48)
[2022-08-27 04:44] VITALS: BP 117/78; PULSE 69; RESP 18; O2SAT 92
--- NOTE | 2022-08-27 05:29 | W.ED.SOB ---
HPI - SOB/Dyspnea General: Chief Complaint: Shortness of Breath/Dyspnea Stated Complaint: vocal cord issues Time Seen by Provider: 08/27/22 03:44 Source: patient History of Present Illness: HPI Narrative: 46-year-old male with a vague complaint of chest congestion, shortness of breath, and mild chest discomfort. He notes that he had similar symptoms a few days ago, was seen here, and was given a GI cocktail which resolved his symptoms. He has been on pantoprazole for quite some time without complete improvement in his reflux symptoms. He has had a cough. No sputum production, no fever. MD elicited complaint: shortness of breath and anxiety Pertinent past history: COPD Onset (ago): hour(s) Timing: constant Severity: moderate Exacerbating factors: other Relieving factors: nothing Known history of: other Associated symptoms: Reports chest pain; Deny fever(s) or vomiting Review of Systems Const: Denies: fever(s) Eyes: Denies: change in vision ENMT: Reports: throat pain Card: Reports: chest pain Resp: Reports: dyspnea; Denies: productive cough GI: Denies: vomiting Psych: Reports: anxiety PFSH ED PFSH: Medical History Allergic rhinitis Anxiety GERD (gastroesophageal reflux disease) Hospital discharge follow-up Hypertension Psychiatric care Social History Alcohol intake: current Substance/Drug Use: unknown Physical Exam Const: COMMON NORMALS: no acute distress and alert GENERAL APPEARANCE: cooperative; not ill appearing HENMT: COMMON NORMALS: normocephalic, atraumatic, external ears normal, TM's normal bilaterally and Normal external nose present HEAD & SCALP: normocephalic and atraumatic FACE & SINUS: normal facial exam and edema (minimal right); no ecchymosis NOSE: Normal external nose present EXTERNAL EAR: Yes external ears normal TYMPANIC MEMBRANE: TM's normal bilaterally Eye: COMMON NORMALS: Equal, round and reactive pupils present and EOMs intact bilaterally PUPIL: Yes Equal, round and reactive pupils present Chest: CHEST: Yes Symmetrical chest wall rise Resp: COMMON NORMALS: normal respiratory effort, No use of accessory muscles and clear to auscultation bilaterally AUSCULTATION: clear to auscultation bilaterally Cardio: COMMON NORMALS: regular rate and regular rhythm RATE: regular rate RHYTHM: regular rhythm GI: COMMON NORMALS: Normal to inspection, nondistended, normoactive bowel sounds present and Soft to palpation PALPATION: Yes Soft to palpation Extremity: COMMON NORMALS: no pedal edema Neuro: MILO COMA SCALE: document GCS findings [place] coma scale eye opening: Spontaneous [place] coma scale verbal response: Orientated [place] coma scale motor response: Obey commands Milo coma scale total score: 15 SENSORIUM/ORIENTATION: Yes alert Psych: ATTITUDE: Yes calm Course Vital Signs: Vital signs: Vital Signs Temperature 98 F 08/27/22 03:22 Pulse Rate 69 08/27/22 04:44 Respiratory Rate 18 08/27/22 04:44 Blood Pressure 117/78 08/27/22 04:44 Pulse Oximetry 92 08/27/22 04:44 Oxygen Delivery Me thod Room Air 08/27/22 03:22 MDM - SOB/Dyspnea Medical Decision Making 46 year old male with throat and chest discomfort relieved immediately by GI cocktail. He is asymptomatic now. His EKG is normal with no ST changes. Chest X-ray is negative. He had a negative chest pain workup a week ago. It appears he is to be scheduled for a stress test as an outpatient. With improvement in his symptoms, he'll be allowed discharge. Lab Data Labs/Radiology: Radiology Impressions Chest X-Ray 08/27/22 03:29 IMPRESSION: No acute findings. Discharge Plan Discharge Patient Disposition: Home Clinical Impression: GERD (gastroesophageal reflux disease), Atypical chest pain Condition: Stable Prescriptions: New sucralfate 1 gram tablet 1 g PO TID 28 Days Qty: 84 0RF No Action Ventolin HFA 90 mcg/actuation HFA aerosol inhaler 2 puff INHALATION Q6H PRN (Reason: Shortness Of Breath) Qty: 18 5RF aspirin 81 mg tablet,delayed release (DR/EC) 81 mg PO DAILY Qty: 90 5RF fluticasone propionate 50 mcg/actuation spray,suspension 2 spray INTRANASAL DAILY PRN (Reason: nasal congestion) Qty: 16 5RF Mucinex 600 mg tablet extended release 12hr 600 mg PO Q12H PRN (Reason: Congestion) Qty: 60 5RF amlodipine 5 mg tablet 5 mg PO BEDTIME Qty: 30 5RF Coreg 12.5 mg tablet 12.5 mg PO BID Qty: 60 5RF Rx Instructions: must administer with a meal/food hydrochlorothiazide 25 mg tablet 25 mg PO QAM Qty: 30 5RF buspirone 15 mg tablet 15 mg PO BID 30 Days Qty: 60 1RF quetiapine [Seroquel] 400 mg Tablet 400 mg PO BEDTIME 30 Days Qty: 30 1RF pantoprazole 40 mg tablet,delayed release (DR/EC) 40 mg PO DAILY 28 Days Qty: 30 0RF Discharge Orders: Discharge ED (Routine); Ordered 08/27/22 Ordered By: Yohannes Mejia Referrals: Olaf Russell MD [Primary Care Provider] - 1-3 days Patient Instructions: Chest Pain (ED), Esophageal Spasm (ED) Activity Restrictions/Additional Instructions: Take the medication you were prescribed 30 minutes before meals return for worsening pain, shortness of breath, any other concerning symptoms. See your doctor this coming week. They may wish to perform more outpatient tests Coding Level of Care Code ED Braker Passenger Train for Kelley Gomez
== END 2022-08-27 04:46 | disposition home or self-care (01) ==
PROVIDERS: Emergency Provider Emergency Medicine; PCP Family Medicine Adult Medicine
DX: K21.9 Gastro-esophageal reflux disease without esophagitis (principal); R07.89 Other chest pain; Z79.82 Long term (current) use of aspirin; I10 Essential (primary) hypertension
CPT/HCPCS: 71045; 93005; 99284

== ENCOUNTER 2022-09-03 22:18 | Emergency (ER) | payer MEDICAID, SELFPAY ==
--- NOTE | 2022-09-03 23:10 | XRR_ITS ---
PROCEDURE INFORMATION: Exam: XR Chest Exam date and time: 09/03/2022 11:20 PM Age: 46 years old Clinical indication: Patient HX: Cough and congestion; Additional info: Chest congestion TECHNIQUE: Imaging protocol: Radiologic exam of the chest. Views: 1 view. COMPARISON: CR (CHEST, ) 08/27/2022 3:39 AM FINDINGS: Lungs: Unremarkable. No consolidation. Pleural spaces: Unremarkable. No pleural effusion. No pneumothorax. Heart/Mediastinum: Unremarkable. No cardiomegaly. Bones/joints: Unremarkable. XR/XR chest 1V portable [id number] IMPRESSION: No acute findings.
--- NOTE | 2022-09-03 23:12 | ED_ITS ---
HPI - SOB/Dyspnea General: Chief Complaint: Allergic Reaction Stated Complaint: chest congestion from dust Time Seen by Provider: 09/03/22 23:11 History of Present Illness: HPI Narrative: 46-year-old male patient comes in today for some chest congestion and heartburn. Patient reports been working around a lot of dust lately and does not feel like he is getting a deep breath. Patient also reports some increased reflux and is asking for GI cocktail. Patient appears nontoxic. Patient appears in mild to no pain. Associated symptoms: Deny chest pain or fever(s) Review of Systems General: Reports: 10 or more systems reviewed and unremarkable except in HPI and below Const: Denies: fever(s) Card: Denies: chest pain Resp: Reports: non-productive cough GI: Reports: heartburn : Denies: difficulty urinating Musc: Denies: back pain Skin/Breast: Denies: rash PFSH ED PFSH: Medical History Allergic rhinitis Anxiety GERD (gastroesophageal reflux disease) Hospital discharge follow-up Hypertension Psychiatric care Social History Alcohol intake: current Substance/Drug Use: unknown Physical Exam Const: COMMON NORMALS: alert HENMT: COMMON NORMALS: normocephalic HEAD & SCALP: normocephalic MOUTH: Normal oral and palatal mucosa present Neck/C-Spine: COMMON NORMALS: full ROM Resp: COMMON NORMALS: normal respiratory effort and clear to auscultation bilaterally AUSCULTATION: clear to auscultation bilaterally Cardio: COMMON NORMALS: regular rate and regular rhythm RATE: regular rate RHYTHM: regular rhythm GI: COMMON NORMALS: non-tender Extremity: COMMON NORMALS: no pedal edema Neuro: SENSORIUM/ORIENTATION: Yes alert Skin: COMMON NORMALS: turgor normal GENERAL SKIN EXAM: turgor normal Course Vital Signs: Vital signs: Vital Signs Temperature 98.5 F 09/03/22 23:36 Pulse Rate 75 09/03/22 23:36 Respiratory Rate 16 09/03/22 23:36 Blood Pressure 139/98 09/03/22 23:36 Pulse Oximetry 98 09/03/22 23:36 Oxygen Delivery Me thod Room Air 09/03/22 23:36 MDM - SOB/Dyspnea Medical Decision Making Patient comes in today for complaints of cough and heartburn. On exam patient appears nontoxic. Lungs are clear to auscultation. Skin is warm and dry. No edema is noted in extremities. Differential diagnosis includes not limited to bronchitis, pneumonia, malingering, GERD. Patient does have a history of GERD but has been without his pantoprazole. Patient was given a GI cocktail in the ER and written a prescription for famotidine. Chest x-ray was normal. Recommended use of albuterol as needed for wheezing or cough. Patient reported understanding and agreed to plan. Discharge Plan Discharge Patient Disposition: Home Clinical Impression: GERD (gastroesophageal reflux disease) Qualifiers: Esophagitis presence: without esophagitis Qualified Code(s): K21.9 - Gastro- esophageal reflux disease without esophagitis Cough Qualifiers: Cough type: unspecified Qualified Code(s): R05.9 - Cough, unspecified Condition: Stable Prescriptions: New famotidine 40 mg tablet 40 mg PO BID Qty: 60 0RF No Action Ventolin HFA 90 mcg/actuation HFA aerosol inhaler 2 puff INHALATION Q6H PRN (Reason: Shortness Of Breath) Qty: 18 5RF aspirin 81 mg tablet,delayed release (DR/EC) 81 mg PO DAILY Qty: 90 5RF fluticasone propionate 50 mcg/actuation spray,suspension 2 spray INTRANASAL DAILY PRN (Reason: nasal congestion) Qty: 16 5RF Mucinex 600 mg tablet extended release 12hr 600 mg PO Q12H PRN (Reason: Congestion) Qty: 60 5RF amlodipine 5 mg tablet 5 mg PO BEDTIME Qty: 30 5RF hydrochlorothiazide 25 mg tablet 25 mg PO QAM Qty: 30 5RF Coreg 12.5 mg tablet 12.5 mg PO BID Qty: 60 5RF Rx Instructions: must administer with a meal/food pantoprazole 40 mg tablet,delayed release (DR/EC) 40 mg PO DAILY Qty: 30 3RF buspirone 15 mg tablet 15 mg PO BID 30 Days Qty: 60 1RF quetiapine [Seroquel] 400 mg Tablet 400 mg PO BEDTIME 30 Days Qty: 30 1RF sucralfate 1 gram tablet 1 g PO TID 28 Days Qty: 84 0RF Discharge Orders: Discharge ED (Routine); Ordered 09/03/22 Ordered By: Buzz Muñoz Referrals: Olaf Russell MD [Primary Care Provider] - Discharge Diet: Usual diet Discharge Activity: Increase activity as tolerated Patient Instructions: GERD (Gastroesophageal Reflux Disease) (ED) Activity Restrictions/Additional Instructions: Use inhaler as needed for coughing and wheezing. Take famotidine twice a day for gastric reflux and heartburn. Follow-up with primary care as needed. Return to ED for new concerns. Coding Level of Care Code ED Cash Shortage Investigator for Kelley Gomez
[2022-09-03 23:36] VITALS: BP 139/98; PULSE 75; RESP 16; TEMP 36.9; O2SAT 98; BMI 30.4
[2022-09-03] MEDS: lidocaine 2% viscous 15 ML, aluminum-mag hydrox-simethicon 30 ML, sucralfate oral liq 1 GM PO (23:58)
== END 2022-09-04 00:07 | disposition home or self-care (01) ==
PROVIDERS: Emergency Provider Nurse Practitioner Family; PCP Family Medicine Adult Medicine
DX: K21.9 Gastro-esophageal reflux disease without esophagitis (principal); R05.9 Cough, unspecified; Z79.82 Long term (current) use of aspirin; I10 Essential (primary) hypertension
CPT/HCPCS: 71045; 99283

== ENCOUNTER 2022-10-08 21:43 | Emergency (ER) | payer MEDICAID, SELFPAY ==
[2022-10-08 21:53] VITALS: BP 148/83; PULSE 83; RESP 14; TEMP 36.6; O2SAT 96
--- NOTE | 2022-10-08 23:42 | W.ED.GENADLT ---
HPI - General Adult General: Chief complaint: Shortness of Breath/Dyspnea Stated complaint: sob, wants treatment , abdomen pain Time Seen by Provider: 10/08/22 23:18 Source: patient Mode of arrival: ambulatory Limitations: no limitations History of Present Illness: Patient is a 46-year-old male who presents to ED today with a plethora of medical complaints. It is somewhat difficult to follow patient on history as he has so many complaints. He complains of chest congestion and mucus. He states he normally takes Mucinex at home for this. He states he normally has some type of inhaler that he uses but is out of it and wants a refill and breathing treatment now. Also complains of some arm pain as well as some abdominal bloating and gas. He states at one point he was given what sounds to be a GI cocktail and that opened me up also requesting 1 of those currently. He states he takes famotidine at home for his gas wants a refill of this medication. He also wants refills of Mucinex. Some report of rectal burning given in triage but he does not mention this particular complaint to me. Looking at previous documentations it looks like he was seen here twice last month for somewhat similar stories. Patient states he is not having any active chest pain. Not specifically complaining of shortness of breath-just chest congestion. He appears in no acute distress. His vital signs are normal. Onset (ago): unknown (chronic) Associated symptoms: Deny chest pain, confusion, malaise, nausea, rash, palpitations, syncope or vomiting Treatments prior to arrival: none Review of Systems Const: Denies: fever(s), chills, body aches, fatigue or malaise Eyes: Denies: change in vision, blurry vision, photophobia, floaters or seeing flashes ENMT: Reports: nasal discharge, nasal congestion and post nasal drip; Denies: throat pain, enlarged tonsils or odynophagia Card: Denies: chest pain, palpitations, irregular heart rhythm, edema, swelling of feet/ankles, lightheadedness, syncope, pre-syncope or orthopnea Resp: Reports: non-productive cough and chest congestion; Denies: wheezing, change in phlegm color or hemoptysis GI: Reports: abdominal pain, heartburn and bloating; Denies: nausea, vomiting or change in bowel habits : Denies: flank pain or dysuria Musc: Reports: extremity pain; Denies: neck pain, back pain, extremity swelling, joint pain, joint swelling, joint redness, joint warmth or limited range of motion Skin/Breast: Denies: rash Neuro: Denies: numbness in extremities, weakness in extremities, sensory changes, lack of coordination, difficulty walking, dizziness, confusion or seizure-like activity PFSH ED PFSH: Medical History Allergic rhinitis Anxiety GERD (gastroesophageal reflux disease) Hospital discharge follow-up Hypertension Psychiatric care Social History Alcohol intake: current Substance/Drug Use: unknown Physical Exam Const: COMMON NORMALS: no acute distress, average body habitus, patient oriented x3, no limitations, alert and well nourished GENERAL APPEARANCE: cooperative ORIENTATION/CONSCIOUSNESS: Yes awake, Yes oriented to person, Yes oriented to place and Yes oriented to time HENMT: COMMON NORMALS: normocephalic and atraumatic HEAD & SCALP: normal to inspection, normocephalic and atraumatic FACE & SINUS: normal facial exam and sinuses nontender Eye: GENERAL EYE: appearance normal, both eyes and all related structures Neck/C-Spine: COMMON NORMALS: full ROM, no lymphadenopathy, supple and no meningeal signs Chest: COMMONS NORMALS: normal inspection of the chest Resp: COMMON NORMALS: normal respiratory effort and clear to auscultation bilaterally AUSCULTATION: clear to auscultation bilaterally Cardio: COMMON NORMALS: regular rate and regular rhythm RATE: regular rate RHYTHM: regular rhythm GI: COMMON NORMALS: Normal to inspection, nondistended, normoactive bowel sounds present, Soft to palpation, non-tender, No hepatosplenomegaly present and no masses PALPATION: Yes Soft to palpation and Yes No hepatosplenomegaly present : COMMON NORMALS: Yes no CVA tenderness BLADDER/KIDNEY EXAM: Yes no CVA tenderness Back/Pelvis: COMMON NORMALS: no CVA tenderness and thoracic and lumbar spine normal to inspection Extremity: COMMON NORMALS: normal to inspection, full ROM, capillary refill normal, no joint enlargement, no clubbing, cyanosis or edema, no calf tenderness and no pedal edema GENERAL: Yes normal exam except as noted Neuro: MILO COMA SCALE: document GCS findings [place] coma scale eye opening: Spontaneous [place] coma scale verbal response: Orientated [place] coma scale motor response: Obey commands Milo coma scale total score: 15 COMMON NORMALS: patient oriented x3, CN's II-XII intact bilaterally, moves all extremities, no focal motor deficits, no sensory deficits noted and gait normal SENSORIUM/ORIENTATION: Yes alert, Yes oriented to person, Yes oriented to place and Yes oriented to time MENINGEAL SIGNS: Yes no meningeal signs Psych: SPEECH: Yes excessive Skin: COMMON NORMALS: no rashes or lesions noted GENERAL SKIN EXAM: no rashes or lesions noted Course Vital Signs: Vital signs: Vital Signs Temperature 97.9 F 10/08/22 21:53 Pulse Rate 74 10/08/22 23:53 Respiratory Rate 16 10/08/22 23:53 Blood Pressure 148/83 10/08/22 21:53 Pulse Oximetry 98 10/08/22 23:53 Oxygen Delivery Me thod Room Air 10/08/22 23:53 MDM - General Adult Medical Decision Making Patient here for multiple medical complaints none of which are acute. He is somewhat hard to follow given his excessive tangential speech. Ultimately patient was given an albuterol inhaler here as well as a dose of Maalox which he seems satisfied with. I will provide him with prescriptions for the albuterol as well as his famotidine. He does tell me he has a primary care provider so I highly recommend he follows up with him for further evaluation and treatment of his chronic conditions. Do not have any concern for emergent or life-threatening pathology at this time. Discharge Plan Discharge Patient Disposition: Home Clinical Impression: Multiple complaints Condition: Stable Prescriptions: New famotidine 20 mg tablet 20 mg PO DAILY Qty: 30 0RF albuterol sulfate 90 mcg/actuation HFA aerosol inhaler 2 inh INHALATION Q4H PRN (Reason: shortness of breath or wheezing) Qty: 6.7 0RF No Action aspirin 81 mg tablet,delayed release (DR/EC) 81 mg PO DAILY Qty: 90 5RF Mucinex 600 mg tablet extended release 12hr 600 mg PO Q12H PRN (Reason: Congestion) Qty: 60 5RF hydrochlorothiazide 25 mg tablet 25 mg PO QAM Qty: 30 5RF Coreg 12.5 mg tablet 12.5 mg PO BID Qty: 60 5RF Rx Instructions: must administer with a meal/food amlodipine 5 mg tablet 5 mg PO BEDTIME Qty: 30 5RF pantoprazole 40 mg tablet,delayed release (DR/EC) 40 mg PO DAILY Qty: 30 3RF fluticasone propionate 50 mcg/actuation spray,suspension 2 spray INTRANASAL DAILY PRN (Reason: nasal congestion) Qty: 16 5RF Ventolin HFA 90 mcg/actuation HFA aerosol inhaler 2 puff INHALATION Q6H PRN (Reason: Shortness Of Breath) Qty: 18 5RF buspirone 15 mg tablet 15 mg PO BID 30 Days Qty: 60 1RF quetiapine [Seroquel] 400 mg Tablet 400 mg PO BEDTIME 30 Days Qty: 30 1RF famotidine 40 mg tablet 40 mg PO BID Qty: 60 0RF Discharge Orders: Discharge ED (Routine); Ordered 10/08/22 Ordered By: Sri Penaloza Referrals: Olaf Russell MD [Primary Care Provider] - Activity Restrictions/Additional Instructions: Please follow-up with your primary care provider for further evaluation and treatment of your multiple medical complaints. Coding Level of Care Code ED Imaging Account Manager for Kelley Gomez
[2022-10-08] MEDS: albuterol 8 gm MDI 2 PUFF INHALATION (23:52)
[2022-10-08 23:53] VITALS: PULSE 74; RESP 16; O2SAT 98
[2022-10-08] MEDS: alum-mag-hydroxide-sime 30 mL UDC PO (23:55)
== END 2022-10-08 23:56 | disposition home or self-care (01) ==
PROVIDERS: Emergency Provider Physician Assistant; PCP Family Medicine Adult Medicine
DX: R06.02 Shortness of breath (principal); R09.89 Other specified symptoms and signs involving the circulatory and respiratory systems; R05.9 Cough, unspecified; R14.0 Abdominal distension (gaseous); M79.603 Pain in arm, unspecified; Z79.82 Long term (current) use of aspirin; I10 Essential (primary) hypertension
CPT/HCPCS: 94640; 99283; J3535

== ENCOUNTER 2022-10-13 13:34 | Emergency (ER) | payer MEDICAID, SELFPAY ==
[2022-10-13 13:40] VITALS: BP 133/93; PULSE 75; RESP 18; TEMP 36.8; O2SAT 98; BMI 30.4
--- NOTE | 2022-10-13 13:43 | ECG_ITS ---
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 Measurements Intervals [place] Rate: 74 P: 74 MO: 162 QRS: 49 QRSD: 88 T: 55 QT: 336 QTc: 373 Interpretive Statements SINUS RHYTHM EARLY REPOLARIZATION [ST ELEVATION WITH NORMALLY INFLECTED T-WAVE] INTERPRETATION BASED ON A DEFAULT AGE OF 40 YEARS Compared to ECG 08/27/2022 03:34:18 Early repolarization now present Electronically Signed On 10-13-2022 15:59:17 CDT by Radha Edmondson M.D. [id number] f
--- NOTE | 2022-10-13 13:57 | XR_ITS ---
WS: [id number] EXAMINATION: XR chest 1V portable [id number] REASON FOR EXAM: chest pain COMPARISON: 09/03/2022 ORDER DATE: 10/13/2022 1:57 PM TECHNIQUE: A single, portable frontal chest x-ray was obtained. X-RAY FINDINGS: The lungs are clear. Pleural spaces are clear. No pleural effusions or pneumothorax. Cardiomediastinal silhouette is normal. No evidence for pulmonary edema. Soft tissue and osseous structures are unremarkable. No tubes or lines are present. XR/XR chest 1V portable [id number] IMPRESSION: Unremarkable frontal portable chest x-ray.
--- NOTE | 2022-10-13 14:22 | W.ED.CHESTPA ---
HPI - Chest Pain General: Chief Complaint: Chest Pain Stated Complaint: Chest pain Time Seen by Provider: 10/13/22 13:35 Source: patient Mode of arrival: ambulatory Limitations: no limitations History of Present Illness: Patient is a 46-year-old male known to me here for complaints of gas . He is requesting a GI cocktail. Patient states he has gas (as he rubs all over his abdomen) and states it radiates up into his chest. He has some chest congestion/phlegm. Symptoms are similar to what I saw him for recently. He has not followed up with primary care. He states he has not tried anything [id number] for his gas/upset stomach. Diet is fairly poor. Patient denies shortness of breath or difficulty breathing. MD complaint: chest pain and other (abdominal pain/ gas ) Onset (ago): day(s) Timing of current episode: episodic Prior episodes: Yes Pain location: epigastric and other (abdomen) Pain radiation: none Severity: mild Quality: fullness Relieving factors: other (GI cocktail) Exacerbating factors: eating Associated symptoms: Reports no associated symptoms and abdominal pain; Deny dyspnea, fever(s), nausea, palpitations, syncope or vomiting Treatment prior to arrival: none Risk Factors: Thoracic aortic dissection risk factors: none Review of Systems Const: Denies: fever(s), chills, body aches, fatigue or malaise Card: Reports: chest pain (reports gas in abdomen radiates up into chest); Denies: palpitations, irregular heart rhythm, edema, swelling of feet/ankles, lightheadedness, syncope, pre-syncope, dyspnea on exertion, orthopnea, leg pain with exertion or acrocyanosis Resp: Reports: chest congestion; Denies: dyspnea, wheezing or hemoptysis GI: Reports: abdominal pain, heartburn and bloating; Denies: nausea, vomiting, diarrhea, constipation or change in bowel habits Musc: Denies: neck pain, back pain, extremity pain or joint pain Skin/Breast: Denies: rash Neuro: Denies: headache(s) or dizziness PFSH ED PFSH: Medical History Allergic rhinitis Anxiety GERD (gastroesophageal reflux disease) Hospital discharge follow-up Hypertension Psychiatric care Social History Alcohol intake: current Substance/Drug Use: unknown Physical Exam Const: COMMON NORMALS: no acute distress, average body habitus, patient oriented x3, no limitations, alert and well nourished GENERAL APPEARANCE: cooperative ORIENTATION/CONSCIOUSNESS: Yes awake, Yes oriented to person, Yes oriented to place and Yes oriented to time HENMT: COMMON NORMALS: normocephalic and atraumatic HEAD & SCALP: normal to inspection, normocephalic and atraumatic Neck/C-Spine: COMMON NORMALS: no JVD Chest: COMMONS NORMALS: normal inspection of the chest and normal palpation of entire chest wall Resp: COMMON NORMALS: normal respiratory effort and clear to auscultation bilaterally AUSCULTATION: clear to auscultation bilaterally Cardio: COMMON NORMALS: no JVD, regular rate and regular rhythm RATE: regular rate RHYTHM: regular rhythm GI: COMMON NORMALS: Normal to inspection, nondistended, normoactive bowel sounds present, Soft to palpation, non-tender, No hepatosplenomegaly present and no masses INSPECTION: Yes normal to inspection PALPATION: Yes Soft to palpation and Yes No hepatosplenomegaly present OTHER: reports his abdomen feels bloated ; non-surgical exam : COMMON NORMALS: Yes no CVA tenderness BLADDER/KIDNEY EXAM: Yes no CVA tenderness Back/Pelvis: COMMON NORMALS: no CVA tenderness, thoracic and lumbar spine normal to inspection, no thoracic nor lumbar tenderness and thoraco-lumbar ROM normal Extremity: COMMON NORMALS: normal to inspection, capillary refill normal, no joint enlargement, no clubbing, cyanosis or edema, no calf tenderness and no pedal edema GENERAL: Yes normal exam except as noted Neuro: MILO COMA SCALE: document GCS findings [place] coma scale eye opening: Spontaneous [place] coma scale verbal response: Orientated [place] coma scale motor response: Obey commands Milo coma scale total score: 15 COMMON NORMALS: patient oriented x3 SENSORIUM/ORIENTATION: Yes alert, Yes oriented to person, Yes oriented to place and Yes oriented to time Skin: COMMON NORMALS: no rashes or lesions noted GENERAL SKIN EXAM: no rashes or lesions noted Course Vital Signs: Vital signs: Vital Signs Temperature 98.3 F 10/13/22 13:40 Pulse Rate 71 10/13/22 14:50 Respiratory Rate 18 10/13/22 13:40 Blood Pressure 153/104 10/13/22 14:50 Pulse Oximetry 99 10/13/22 14:50 Oxygen Delivery Me thod Room Air 10/13/22 14:50 MDM - Chest Pain Medical Decision Making Patient appears in no acute distress. His vital signs are normal. Blood work including cardiac work-up is nonactionable. EKG is nonischemic. Patient's symptoms alleviated after GI cocktail. At this time recommend attempting to treat symptoms with Maalox and Gas-X at home prior to returning to ED as this complaint is not necessarily emergent in nature. He can also follow-up with his primary care provider. Return to ED precautions were discussed with patient. Lab Data 10/13/22 14:08 10/13/22 14:08 Radiology Impressions Chest X-Ray 10/13/22 13:57 IMPRESSION: Unremarkable frontal portable chest x-ray. Laboratory Results WBC 6.7 10^3/uL (4.0-10.0) 10/13/22 14:08 RBC 4.76 10^6/uL (4.1-5.3) 10/13/22 14:08 Hgb 14.3 g/dL (11.7-16.6) 10/13/22 14:08 Hct 43.2 % (42.0-52.0) 10/13/22 14:08 MCV 90.8 fl (80-94) 10/13/22 14:08 MCH 30.0 pg (28.0-34.0) 10/13/22 14:08 MCHC 33.1 g/dL (30.0-36.0) 10/13/22 14:08 RDW 14.0 % (12.1-15.1) 10/13/22 14:08 Plt Count 292 10^3/cmm (130-400) 10/13/22 14:08 MPV 9.0 fL (7.4-10.4) 10/13/22 14:08 Neut % (Auto) 36.7 % 10/13/22 14:08 Lymph % (Auto) 48.2 % 10/13/22 14:08 [place] % (Auto) 11.6 % 10/13/22 14:08 Eos % (Auto) 2.7 % 10/13/22 14:08 Baso % (Auto) 0.7 % 10/13/22 14:08 Neut # (Auto) 2.46 10^3/uL (1.8-7.7) 10/13/22 14:08 Lymph # (Auto) 3.2 10^3/uL (0.8-4.8) 10/13/22 14:08 [place] # (Auto) 0.8 10^3/uL (0.2-0.9) 10/13/22 14:08 Eos # (Auto) 0.2 10^3/uL (0.0-0.8) 10/13/22 14:08 Baso # (Auto) 0.1 10^3/uL (0.0-0.1) 10/13/22 14:08 Nucleated RBC % (auto) 0 % 10/13/22 14:08 Nucleated RBCs # 0.0 /100WBC 10/13/22 14:08 Sodium 139 mmol/L (136-145) 10/13/22 14:08 Potassium 4.0 mmol/L (3.5-5.1) 10/13/22 14:08 Chloride 102 mmol/L (98-107) 10/13/22 14:08 Carbon Dioxide 27 mmol/L (22-29) 10/13/22 14:08 Anion Gap 14.0 (5-19) 10/13/22 14:08 BUN 8 mg/dL (6-20) 10/13/22 14:08 Creatinine 0.7 mg/dL (0.7-1.2) 10/13/22 14:08 GFR Calculation 147.6 mL/min (90-130) H 10/13/22 14:08 Glucose 95 mg/dL (65-115) 10/13/22 14:08 Calculated Osmolality 286 mOsm/kg (285-295) 10/13/22 14:08 Calcium 9.8 mg/dL (8.5-10.5) 10/13/22 14:08 Total Bilirubin 0.2 mg/dL (0.15-1.2) 10/13/22 14:08 AST 35 U/L (0-40) 10/13/22 14:08 ALT 65 U/L (0-41) H 10/13/22 14:08 Alkaline Phosphatase 95 U/L (40-130) 10/13/22 14:08 Troponin T Baseline 6 ng/L (0-15) 10/13/22 14:08 Total Protein 6.9 g/dL (6.6-8.7) 10/13/22 14:08 Albumin 4.5 g/dL (3.5-5.2) 10/13/22 14:08 Globulin 2.4 g/dL (1.3-4.6) 10/13/22 14:08 Lipase 17 U/L (13-60) 10/13/22 14:08 Discharge Plan Discharge Patient Disposition: Home Clinical Impression: Gastrointestinal complaint Condition: Stable Prescriptions: No Action aspirin 81 mg tablet,delayed release (DR/EC) 81 mg PO DAILY Qty: 90 5RF Mucinex 600 mg tablet extended release 12hr 600 mg PO Q12H PRN (Reason: Congestion) Qty: 60 5RF hydrochlorothiazide 25 mg tablet 25 mg PO QAM Qty: 30 5RF Coreg 12.5 mg tablet 12.5 mg PO BID Qty: 60 5RF Rx Instructions: must administer with a meal/food amlodipine 5 mg tablet 5 mg PO BEDTIME Qty: 30 5RF pantoprazole 40 mg tablet,delayed release (DR/EC) 40 mg PO DAILY Qty: 30 3RF fluticasone propionate 50 mcg/actuation spray,suspension 2 spray INTRANASAL DAILY PRN (Reason: nasal congestion) Qty: 16 5RF Ventolin HFA 90 mcg/actuation HFA aerosol inhaler 2 puff INHALATION Q6H PRN (Reason: Shortness Of Breath) Qty: 18 5RF famotidine 20 mg tablet 20 mg PO DAILY Qty: 30 0RF albuterol sulfate 90 mcg/actuation HFA aerosol inhaler 2 inh INHALATION Q4H PRN (Reason: shortness of breath or wheezing) Qty: 6.7 0RF buspirone 15 mg tablet 15 mg PO BID 30 Days Qty: 60 1RF quetiapine [Seroquel] 400 mg Tablet 400 mg PO BEDTIME 30 Days Qty: 30 1RF famotidine 40 mg tablet 40 mg PO BID Qty: 60 0RF Discharge Orders: Discharge ED (Routine); Ordered 10/13/22 Ordered By: Sri Penaloza Referrals: Olaf Russell MD [Primary Care Provider] - Activity Restrictions/Additional Instructions: As we discussed patient may use Maalox and Gas-X at home for treatment of his flatulence/gas. He may continue his famotidine as prescribed. I recommend he follow-up with his primary care provider for any further episodes. Coding Level of Care Code ED Site Safety Manager for Kelley Gomez
[2022-10-13 14:24] LABS: Basophils # 0.1 10^3/uL (0.0-0.1); Basophils % 0.7 %; Eosinophils # 0.2 10^3/uL (0.0-0.8); Eosinophils % 2.7 %; Hematocrit 43.2 % (42.0-52.0); Hemoglobin 14.3 g/dL (11.7-16.6); Lymphocytes # 3.2 10^3/uL (0.8-4.8); Lymphocytes % 48.2 %; Mean Corpuscular HGB Conc 33.1 g/dL (30.0-36.0); Mean Corpuscular Volume 90.8 fl (80-94); Monocytes # 0.8 10^3/uL (0.2-0.9); Monocytes % 11.6 %; Neutrophils # 2.46 10^3/uL (1.8-7.7); Neutrophils % 36.7 %; Nucleated Red Blood Cells % 0 %; Platelet Count 292 10^3/cmm (130-400); Red Blood Count 4.76 10^6/uL (4.1-5.3); White Blood Count 6.7 10^3/uL (4.0-10.0)
[2022-10-13 14:43] LABS: Troponin(5th) Baseline 6 ng/L (0-15)
[2022-10-13 14:45] LABS: Alanine Aminotransferase 65 U/L (0-41); Albumin Level 4.5 g/dL (3.5-5.2); Alkaline Phosphatase 95 U/L (40-130); Aspartate Amino Transferase 35 U/L (0-40); Blood Urea Nitrogen 8 mg/dL (6-20); Calcium 9.8 mg/dL (8.5-10.5); Carbon Dioxide 27 mmol/L (22-29); Chloride 102 mmol/L (98-107); Globulin 2.4 g/dL (1.3-4.6); Glomerular Filtration Rate 147.6 mL/min (90-130); Glucose 95 mg/dL (65-115); Lipase 17 U/L (13-60); Osmolality Calculated 286 mOsm/kg (285-295); Sodium 139 mmol/L (136-145); Total Bilirubin 0.2 mg/dL (0.15-1.2); Total Protein 6.9 g/dL (6.6-8.7)
[2022-10-13 14:50] VITALS: BP 153/104; PULSE 71; O2SAT 99
[2022-10-13] MEDS: lidocaine 2% viscous 15 ML, aluminum-mag hydrox-simethicon 30 ML, sucralfate oral liq 1 GM PO (14:58)
[2022-10-13 15:04] VITALS: PULSE 77; O2SAT 96
== END 2022-10-13 15:05 | disposition home or self-care (01) ==
PROVIDERS: Emergency Provider Physician Assistant; PCP Family Medicine Adult Medicine
DX: R14.3 Flatulence (principal); R07.9 Chest pain, unspecified; R10.9 Unspecified abdominal pain; Z79.82 Long term (current) use of aspirin; I10 Essential (primary) hypertension
CPT/HCPCS: 36415; 71045; 80053; 83690; 84484; 85025; 93005; 99285

== ENCOUNTER 2022-10-18 20:04 | Emergency (ER) | payer MEDICAID, SELFPAY ==
[2022-10-18 20:06] VITALS: BP 142/89; PULSE 94; RESP 18; TEMP 36.8; O2SAT 96; BMI 30.4
--- NOTE | 2022-10-18 20:14 | ECG_ITS ---
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 Measurements Intervals [place] Rate: 87 P: 54 MI: 150 QRS: 46 QRSD: 93 T: 51 QT: 328 QTc: 397 Interpretive Statements SINUS RHYTHM Compared to ECG 10/13/2022 13:46:23 Early repolarization no longer present Electronically Signed On 10-20-2022 10:04:17 CDT by Jihan Ware M.D. [email or web address]. ([email or web address]) montgomery va medical centerYippeeO Internet Marketing Solutionsuniversity hospitals parma medical centerJumpMusic/store/NU/[id number] f
--- NOTE | 2022-10-18 20:14 | XRR_ITS ---
PROCEDURE INFORMATION: Exam: XR Chest Exam date and time: 10/18/2022 8:22 PM Age: 47 years old Clinical indication: Pain; Chest pressure; Additional info: Cp TECHNIQUE: Imaging protocol: Radiologic exam of the chest. Views: 1 view. COMPARISON: CR XR chest 1V portable [id number] 10/13/2022 2:07 PM FINDINGS: Lungs: Unremarkable. No consolidation. Pleural spaces: Unremarkable. No pleural effusion. No pneumothorax. Heart/Mediastinum: Unremarkable. No cardiomegaly. Bones/joints: Unremarkable. XR/XR chest 1V portable [id number] IMPRESSION: No acute findings.
--- NOTE | 2022-10-18 20:21 | W.ED.SOB ---
HPI - SOB/Dyspnea General: Chief Complaint: Shortness of Breath/Dyspnea Stated Complaint: wants breathing treatment Time Seen by Provider: 10/18/22 20:05 Source: patient Mode of arrival: ambulatory Limitations: no limitations History of Present Illness: HPI Narrative: 47-year-old male states that he had smoked marijuana 2 hours ago he states he thinks it may have been laced with something he states since that has been having some chest pain along with dyspnea and feeling extremely anxious. States he feels like he is having anxiety attack he wants a drug screen done denies any fever denies any cough he is resting comfortably here. Associated symptoms: Reports chest pain; Deny abdominal pain, fever(s), nausea or vomiting Review of Systems Const: Denies: fever(s), chills, body aches or change in appetite Eyes: Denies: blurry vision or eye discomfort ENMT: Denies: throat pain or dental pain Card: Reports: chest pain Resp: Reports: dyspnea GI: Denies: abdominal pain, nausea, vomiting or diarrhea : Denies: dysuria Musc: Denies: neck pain or back pain Skin/Breast: Denies: rash Neuro: Denies: headache(s) Psych: Reports: anxiety; Denies: depression PFSH ED PFSH: Medical History Allergic rhinitis Anxiety GERD (gastroesophageal reflux disease) Hospital discharge follow-up Hypertension Psychiatric care Social History Alcohol intake: current Substance/Drug Use: unknown Physical Exam Const: COMMON NORMALS: no acute distress, patient oriented x3 and healthy appearing GENERAL APPEARANCE: anxious HENMT: COMMON NORMALS: normocephalic and atraumatic HEAD & SCALP: normocephalic and atraumatic Eye: COMMON NORMALS: Equal, round and reactive pupils present and EOMs intact bilaterally PUPIL: Yes Equal, round and reactive pupils present Neck/C-Spine: COMMON NORMALS: full ROM and supple Chest: COMMONS NORMALS: normal inspection of the chest and normal palpation of entire chest wall Resp: COMMON NORMALS: normal respiratory effort, No retractions, No use of accessory muscles and clear to auscultation bilaterally AUSCULTATION: clear to auscultation bilaterally Cardio: COMMON NORMALS: regular rate, regular rhythm and No murmurs present (Cardio) RATE: regular rate RHYTHM: regular rhythm GI: COMMON NORMALS: Normal to inspection, nondistended, normoactive bowel sounds present, Soft to palpation, non-tender and no masses PALPATION: Yes Soft to palpation Extremity: COMMON NORMALS: normal to inspection and full ROM Neuro: COMMON NORMALS: patient oriented x3, moves all extremities and no focal motor deficits Psych: COMMON NORMALS: mental status grossly normal, Normal thought process present and cooperative THOUGHT PROCESS: Normal thought process present Skin: COMMON NORMALS: no rashes or lesions noted and no wounds GENERAL SKIN EXAM: no rashes or lesions noted Course Vital Signs: Vital signs: Vital Signs Temperature 98.2 F 10/18/22 20:06 Pulse Rate 94 10/18/22 20:06 Respiratory Rate 18 10/18/22 20:06 Blood Pressure 142/89 10/18/22 20:06 Pulse Oximetry 96 10/18/22 20:06 Oxygen Delivery Me thod Room Air 10/18/22 20:06 MDM - SOB/Dyspnea Medical Decision Making Patient presents here with dyspnea along with anxiety he did test positive for methamphetamine he likely had used some meth he feels much improved with Ativan his troponin and x-ray EKG all normal no sign of acute coronary or pulmonary process he is stable for discharge she is to follow-up his PCP and return if worsening. Medical Records I reviewed the patient's medical records. Lab Data I reviewed the patient's lab results. 10/18/22 20:42 10/18/22 20:42 Labs/Radiology: Radiology Impressions Chest X-Ray 10/18/22 20:14 IMPRESSION: No acute findings. Laboratory Results WBC 6.9 10^3/uL (4.0-10.0) 10/18/22 20:42 RBC 4.60 10^6/uL (4.1-5.3) 10/18/22 20:42 Hgb 14.0 g/dL (11.7-16.6) 10/18/22 20:42 Hct 42.0 % (42.0-52.0) 10/18/22 20:42 MCV 91.3 fl (80-94) 10/18/22 20:42 MCH 30.4 pg (28.0-34.0) 10/18/22 20:42 MCHC 33.3 g/dL (30.0-36.0) 10/18/22 20:42 RDW 13.6 % (12.1-15.1) 10/18/22 20:42 Plt Count 284 10^3/cmm (130-400) 10/18/22 20:42 MPV 9.4 fL (7.4-10.4) 10/18/22 20:42 Neut % (Auto) 40.8 % 10/18/22 20:42 Lymph % (Auto) 43.6 % 10/18/22 20:42 [place] % (Auto) 10.8 % 10/18/22 20:42 Eos % (Auto) 3.8 % 10/18/22 20:42 Baso % (Auto) 0.7 % 10/18/22 20:42 Neut # (Auto) 2.83 10^3/uL (1.8-7.7) 10/18/22 20:42 Lymph # (Auto) 3.0 10^3/uL (0.8-4.8) 10/18/22 20:42 [place] # (Auto) 0.8 10^3/uL (0.2-0.9) 10/18/22 20:42 Eos # (Auto) 0.3 10^3/uL (0.0-0.8) 10/18/22 20:42 Baso # (Auto) 0.1 10^3/uL (0.0-0.1) 10/18/22 20:42 Nucleated RBC % (auto) 0 % 10/18/22 20:42 Nucleated RBCs # 0.0 /100WBC 10/18/22 20:42 Sodium 139 mmol/L (136-145) 10/18/22 20:42 Potassium 3.9 mmol/L (3.5-5.1) 10/18/22 20:42 Chloride 102 mmol/L (98-107) 10/18/22 20:42 Carbon Dioxide 27 mmol/L (22-29) 10/18/22 20:42 Anion Gap 13.9 (5-19) 10/18/22 20:42 BUN 11 mg/dL (6-20) 10/18/22 20:42 Creatinine 0.7 mg/dL (0.7-1.2) 10/18/22 20:42 GFR Calculation 146.9 mL/min (90-130) H 10/18/22 20:42 Glucose 101 mg/dL (65-115) 10/18/22 20:42 Calculated Osmolality 288 mOsm/kg (285-295) 10/18/22 20:42 Calcium 9.5 mg/dL (8.5-10.5) 10/18/22 20:42 Total Bilirubin 0.2 mg/dL (0.15-1.2) 10/18/22 20:42 AST 27 U/L (0-40) 10/18/22 20:42 ALT 48 U/L (0-41) H 10/18/22 20:42 Alkaline Phosphatase 90 U/L (40-130) 10/18/22 20:42 Troponin T Baseline 6 ng/L (0-15) 10/18/22 20:42 Total Protein 6.7 g/dL (6.6-8.7) 10/18/22 20:42 Albumin 4.2 g/dL (3.5-5.2) 10/18/22 20:42 Globulin 2.5 g/dL (1.3-4.6) 10/18/22 20:42 Urine Opiates Screen Negative ng/mL (Negative) 10/18/22 21:08 Ur Barbiturates Screen Negative ng/mL (Negative) 10/18/22 21:08 Ur Phencyclidine Scrn Negative ng/mL (Negative) 10/18/22 21:08 Ur Amphetamines Screen Positive ng/mL (Negative) H 10/18/22 21:08 U Benzodiazepines Scrn Negative ng/mL (Negative) 10/18/22 21:08 Urine Cocaine Screen Negative ng/mL (Negative) 10/18/22 21:08 U Marijuana (THC) Screen Positive ng/mL (Negative) H 10/18/22 21:08 EKG Data EKG 1: I personally reviewed and interpreted this EKG as follows: EKG Interpretation Date: 10/18/22 EKG interpretation time: 20:18 Interpretation: nsr hr [address] or t wave abnormalities qrs 93 qtc 373 Discharge Plan Discharge Patient Disposition: Home Clinical Impression: Dyspnea, Drug abuse, Chest pain Condition: Stable Prescriptions: No Action aspirin 81 mg tablet,delayed release (DR/EC) 81 mg PO DAILY Qty: 90 5RF Mucinex 600 mg tablet extended release 12hr 600 mg PO Q12H PRN (Reason: Congestion) Qty: 60 5RF hydrochlorothiazide 25 mg tablet 25 mg PO QAM Qty: 30 5RF Coreg 12.5 mg tablet 12.5 mg PO BID Qty: 60 5RF Rx Instructions: must administer with a meal/food amlodipine 5 mg tablet 5 mg PO BEDTIME Qty: 30 5RF pantoprazole 40 mg tablet,delayed release (DR/EC) 40 mg PO DAILY Qty: 30 3RF fluticasone propionate 50 mcg/actuation spray,suspension 2 spray INTRANASAL DAILY PRN (Reason: nasal congestion) Qty: 16 5RF Ventolin HFA 90 mcg/actuation HFA aerosol inhaler 2 puff INHALATION Q6H PRN (Reason: Shortness Of Breath) Qty: 18 5RF famotidine 20 mg tablet 20 mg PO DAILY Qty: 30 0RF albuterol sulfate 90 mcg/actuation HFA aerosol inhaler 2 inh INHALATION Q4H PRN (Reason: shortness of breath or wheezing) Qty: 6.7 0RF buspirone 15 mg tablet 15 mg PO BID 30 Days Qty: 60 1RF quetiapine [Seroquel] 400 mg Tablet 400 mg PO BEDTIME 30 Days Qty: 30 1RF famotidine 40 mg tablet 40 mg PO BID Qty: 60 0RF Discharge Orders: Discharge ED (Routine); Ordered 10/18/22 Ordered By: Mak Schwarz Referrals: Olaf Russell MD [Primary Care Provider] - 1-3 days Discharge Diet: Advance as tolerated Discharge Activity: Resume usual activity Patient Instructions: Dyspnea (ED) Coding Level of Care Code ED Universal Winding Machine Operator for Kelley Gomez
--- NOTE | 2022-10-18 21:05 | PC.NURSE ---
PT PLACED ON CONTINUOS SPO2, NIBP, AND CM.
[2022-10-18 21:08] LABS: Basophils # 0.1 10^3/uL (0.0-0.1); Basophils % 0.7 %; Eosinophils # 0.3 10^3/uL (0.0-0.8); Eosinophils % 3.8 %; Lymphocytes % 43.6 %; Mean Corpuscular HGB Conc 33.3 g/dL (30.0-36.0); Mean Corpuscular Hemoglobin 30.4 pg (28.0-34.0); Mean Corpuscular Volume 91.3 fl (80-94); Mean Platelet Volume 9.4 fL (7.4-10.4); Monocytes # 0.8 10^3/uL (0.2-0.9); Monocytes % 10.8 %; Neutrophils # 2.83 10^3/uL (1.8-7.7); Neutrophils % 40.8 %; Nucleated Red Blood Cells % 0 %; Platelet Count 284 10^3/cmm (130-400); Red Cell Distribution Width 13.6 % (12.1-15.1); White Blood Count 6.9 10^3/uL (4.0-10.0)
[2022-10-18] MEDS: LORazepam 2 mg/mL INJ 1 mL 1 MG IVP (21:09)
--- NOTE | 2022-10-18 21:16 | PC.NURSE ---
REPORT GIVEN TO LIN[facility] REY ASSUMED CARE.
[2022-10-18 21:22] LABS: Amphetamines Screen Urine Positive (Negative); Barbiturates Screen Urine Negative (Negative); Benzodiazepines Screen Urine Negative (Negative); Cocaine Screen Urine Negative (Negative); Opiate Screen Urine Negative (Negative); PCP Screen Urine Negative (Negative); THC Screen Urine Positive (Negative)
[2022-10-18 21:29] LABS: Troponin(5th) Baseline 6 ng/L (0-15)
[2022-10-18 21:32] LABS: Alanine Aminotransferase 48 U/L (0-41); Albumin Level 4.2 g/dL (3.5-5.2); Alkaline Phosphatase 90 U/L (40-130); Anion Gap 13.9 (5-19); Aspartate Amino Transferase 27 U/L (0-40); Blood Urea Nitrogen 11 mg/dL (6-20); Calcium 9.5 mg/dL (8.5-10.5); Carbon Dioxide 27 mmol/L (22-29); Chloride 102 mmol/L (98-107); Globulin 2.5 g/dL (1.3-4.6); Glomerular Filtration Rate 146.9 mL/min (90-130); Glucose 101 mg/dL (65-115); Osmolality Calculated 288 mOsm/kg (285-295); Potassium 3.9 mmol/L (3.5-5.1); Sodium 139 mmol/L (136-145); Total Bilirubin 0.2 mg/dL (0.15-1.2); Total Protein 6.7 g/dL (6.6-8.7)
[2022-10-18] MEDS: lidocaine 2% viscous 15 ML, aluminum-mag hydrox-simethicon 30 ML, sucralfate oral liq 1 GM PO (21:46)
[2022-10-18] MEDS: albuterol 2.5 mg/3 mL Neb INHALATION (21:51)
[2022-10-18 21:53] VITALS: PULSE 79; RESP 16; O2SAT 100
--- NOTE | 2022-10-18 22:14 | ECG_ITS ---
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 Measurements Intervals [place] Rate: 80 P: 57 [place]: 164 QRS: 40 QRSD: 102 T: 46 QT: 348 QTc: 404 Interpretive Statements SINUS RHYTHM NONSPECIFIC T-WAVE ABNORMALITY Compared to ECG 10/18/2022 20:18:51 T-wave abnormality now present Electronically Signed On 11-01-2022 9:54:54 CDT by Radha Edmondson M.D. [email or web address] [id number] f
== END 2022-10-18 22:24 | disposition home or self-care (01) ==
PROVIDERS: Emergency Provider Emergency Medicine; PCP Family Medicine Adult Medicine
DX: R07.9 Chest pain, unspecified (principal); R06.00 Dyspnea, unspecified; F15.10 Other stimulant abuse, uncomplicated; Z79.82 Long term (current) use of aspirin; I10 Essential (primary) hypertension
CPT/HCPCS: 71045; 80053; 80306; 84484; 85025; 93005; 94640; 96374; 99285; J2060; J3535; J7613

== ENCOUNTER 2022-11-01 03:51 | Emergency (ER) | payer MEDICAID, SELFPAY ==
[2022-11-01 03:52] VITALS: BMI 31.4
--- NOTE | 2022-11-01 03:52 | XRR_ITS ---
PROCEDURE INFORMATION: Exam: XR Chest Exam date and time: 11/01/2022 4:05 AM Age: 47 years old Clinical indication: Pain; Chest pressure; Additional info: Cp TECHNIQUE: Imaging protocol: Radiologic exam of the chest. Views: 1 view. COMPARISON: CR (CHEST, ) 10/18/2022 8:22 PM FINDINGS: Lungs: No CHF/pulmonary edema. Visible lungs appear essentially clear. Pleural spaces: No visible pneumothorax. No definite pleural fluid. Heart/Mediastinum: Heart size is within normal limits. Bones/joints: No significant acute finding. XR/XR chest 1V portable [id number] IMPRESSION: 1. No definite CHF or pneumonia. 2. Other findings discussed above.
[2022-11-01 03:53] VITALS: BP 147/87; PULSE 80; RESP 17; TEMP 37.2; O2SAT 99
--- NOTE | 2022-11-01 03:55 | ED_ITS ---
HPI - Chest Pain General: Chief Complaint: Chest Pain Stated Complaint: CP Time Seen by Provider: 11/01/22 03:51 Source: patient and EMS Mode of arrival: EMS Limitations: no limitations History of Present Illness: 47-year-old male who is well-known to the ER he has been seen here multiple times the past for chest pain he states he is having a pain in his epigastric region tonight he states it felt like gas his became concerned and called EMS the denies any pain currently has had no short of breath denies any vomiting or diarrhea. Associated symptoms: Deny abdominal pain, dyspnea, fever(s), nausea or vomiting Review of Systems Const: Denies: fever(s) or chills Eyes: Denies: eye discomfort ENMT: Denies: throat pain or dental pain Card: Reports: chest pain Resp: Denies: dyspnea GI: Denies: abdominal pain, nausea, vomiting or diarrhea Musc: Denies: neck pain or back pain Skin/Breast: Denies: rash Neuro: Denies: headache(s) PFSH ED PFSH: Medical History Allergic rhinitis Anxiety GERD (gastroesophageal reflux disease) Hospital discharge follow-up Hypertension Psychiatric care Social History Alcohol intake: current Substance/Drug Use: unknown Physical Exam Const: COMMON NORMALS: no acute distress, patient oriented x3 and healthy appearing HENMT: COMMON NORMALS: normocephalic and atraumatic HEAD & SCALP: normocephalic and atraumatic Eye: COMMON NORMALS: conjunctivae normal CONJUNCTIVA: Yes conjunctivae normal Neck/C-Spine: COMMON NORMALS: full ROM and supple Chest: COMMONS NORMALS: normal inspection of the chest and normal palpation of entire chest wall Resp: COMMON NORMALS: normal respiratory effort, No retractions, No use of accessory muscles and clear to auscultation bilaterally AUSCULTATION: clear to auscultation bilaterally Cardio: COMMON NORMALS: regular rate, regular rhythm and No murmurs present (Cardio) RATE: regular rate RHYTHM: regular rhythm GI: COMMON NORMALS: Normal to inspection, nondistended, normoactive bowel sounds present, Soft to palpation, non-tender and no masses PALPATION: Yes Soft to palpation Extremity: COMMON NORMALS: normal to inspection and full ROM Neuro: COMMON NORMALS: patient oriented x3, moves all extremities and no focal motor deficits Psych: COMMON NORMALS: mental status grossly normal, Normal thought process present and cooperative THOUGHT PROCESS: Normal thought process present Skin: COMMON NORMALS: no rashes or lesions noted and no wounds GENERAL SKIN EXAM: no rashes or lesions noted Course Vital Signs: Vital signs: Vital Signs Temperature 98.9 F 11/01/22 03:53 Pulse Rate 80 11/01/22 03:53 Respiratory Rate 17 11/01/22 03:53 Blood Pressure 148/83 11/01/22 04:28 Pulse Oximetry 94 11/01/22 04:28 Oxygen Delivery Me thod Room Air 11/01/22 04:28 MDM - Chest Pain Medical Decision Making Patient presents for chest pain that is atypical in nature his troponin here is negative EKG and x-ray are normal he has been pain-free here he is stable for discharge is follow-up with PCP and return if worsening Medical Records I reviewed the patient's medical records. Lab Data I reviewed the patient's lab results. 11/01/22 03:56 11/01/22 03:56 Laboratory Results WBC 8.2 10^3/uL (4.0-10.0) 11/01/22 03:56 RBC 4.62 10^6/uL (4.1-5.3) 11/01/22 03:56 Hgb 14.0 g/dL (11.7-16.6) 11/01/22 03:56 Hct 42.6 % (42.0-52.0) 11/01/22 03:56 MCV 92.2 fl (80-94) 11/01/22 03:56 MCH 30.3 pg (28.0-34.0) 11/01/22 03:56 MCHC 32.9 g/dL (30.0-36.0) 11/01/22 03:56 RDW 13.5 % (12.1-15.1) 11/01/22 03:56 Plt Count 320 10^3/cmm (130-400) 11/01/22 03:56 MPV 9.3 fL (7.4-10.4) 11/01/22 03:56 Neut % (Auto) 41.7 % 11/01/22 03:56 Lymph % (Auto) 44.5 % 11/01/22 03:56 [place] % (Auto) 9.2 % 11/01/22 03:56 Eos % (Auto) 3.8 % 11/01/22 03:56 Baso % (Auto) 0.6 % 11/01/22 03:56 Neut # (Auto) 3.40 10^3/uL (1.8-7.7) 11/01/22 03:56 Lymph # (Auto) 3.6 10^3/uL (0.8-4.8) 11/01/22 03:56 [place] # (Auto) 0.8 10^3/uL (0.2-0.9) 11/01/22 03:56 Eos # (Auto) 0.3 10^3/uL (0.0-0.8) 11/01/22 03:56 Baso # (Auto) 0.1 10^3/uL (0.0-0.1) 11/01/22 03:56 Nucleated RBC % (auto) 0.4 % 11/01/22 03:56 Nucleated RBCs # 0.0 /100WBC 11/01/22 03:56 Sodium Cancelled 11/01/22 03:56 Potassium Cancelled 11/01/22 03:56 Chloride Cancelled 11/01/22 03:56 Carbon Dioxide Cancelled 11/01/22 03:56 Anion Gap Cancelled 11/01/22 03:56 BUN Cancelled 11/01/22 03:56 Creatinine Cancelled 11/01/22 03:56 GFR Calculation Cancelled 11/01/22 03:56 Glucose Cancelled 11/01/22 03:56 Calculated Osmolality Cancelled 11/01/22 03:56 Calcium Cancelled 11/01/22 03:56 Total Bilirubin Cancelled 11/01/22 03:56 AST Cancelled 11/01/22 03:56 ALT Cancelled 11/01/22 03:56 Alkaline Phosphatase Cancelled 11/01/22 03:56 Troponin T Baseline 6 ng/L (0-15) 11/01/22 03:56 Total Protein Cancelled 11/01/22 03:56 Albumin Cancelled 11/01/22 03:56 Globulin Cancelled 11/01/22 03:56 EKG Data EKG 1: I personally reviewed and interpreted this EKG as follows: EKG interpretation date: 11/01/22 EKG interpretation time: 03:55 Interpretation: Normal sinus rhythm heart rate [address] or T wave abnormalities QRS 102 QTc 385 Discharge Plan Discharge Patient Disposition: Home Clinical Impression: Chest pain Condition: Stable Prescriptions: No Action aspirin 81 mg tablet,delayed release (DR/EC) 81 mg PO DAILY Qty: 90 5RF Mucinex 600 mg tablet extended release 12hr 600 mg PO Q12H PRN (Reason: Congestion) Qty: 60 5RF hydrochlorothiazide 25 mg tablet 25 mg PO QAM Qty: 30 5RF Coreg 12.5 mg tablet 12.5 mg PO BID Qty: 60 5RF Rx Instructions: must administer with a meal/food amlodipine 5 mg tablet 5 mg PO BEDTIME Qty: 30 5RF pantoprazole 40 mg tablet,delayed release (DR/EC) 40 mg PO DAILY Qty: 30 3RF fluticasone propionate 50 mcg/actuation spray,suspension 2 spray INTRANASAL DAILY PRN (Reason: nasal congestion) Qty: 16 5RF Ventolin HFA 90 mcg/actuation HFA aerosol inhaler 2 puff INHALATION Q6H PRN (Reason: Shortness Of Breath) Qty: 18 5RF famotidine 20 mg tablet 20 mg PO DAILY Qty: 30 0RF albuterol sulfate 90 mcg/actuation HFA aerosol inhaler 2 inh INHALATION Q4H PRN (Reason: shortness of breath or wheezing) Qty: 6.7 0RF buspirone 15 mg tablet 15 mg PO BID 30 Days Qty: 60 1RF quetiapine [Seroquel] 400 mg Tablet 400 mg PO BEDTIME 30 Days Qty: 30 1RF famotidine 40 mg tablet 40 mg PO BID Qty: 60 0RF Discharge Orders: Discharge ED (Routine); Ordered 11/01/22 Ordered By: Mak Schwarz Referrals: Olaf Russell MD [Primary Care Provider] - Discharge Diet: Advance as tolerated Discharge Activity: Resume usual activity Patient Instructions: Chest Pain (ED) Coding Level of Care Code ED Aircraft Refueler for Kelley Gomez
[2022-11-01 04:00] LABS: Basophils # 0.1 10^3/uL (0.0-0.1); Basophils % 0.6 %; Eosinophils # 0.3 10^3/uL (0.0-0.8); Eosinophils % 3.8 %; Hematocrit 42.6 % (42.0-52.0); Lymphocytes # 3.6 10^3/uL (0.8-4.8); Lymphocytes % 44.5 %; Mean Corpuscular HGB Conc 32.9 g/dL (30.0-36.0); Mean Corpuscular Hemoglobin 30.3 pg (28.0-34.0); Mean Corpuscular Volume 92.2 fl (80-94); Mean Platelet Volume 9.3 fL (7.4-10.4); Monocytes # 0.8 10^3/uL (0.2-0.9); Monocytes % 9.2 %; Neutrophils % 41.7 %; Nucleated Red Blood Cells % 0.4 %; Platelet Count 320 10^3/cmm (130-400); Red Blood Count 4.62 10^6/uL (4.1-5.3); Red Cell Distribution Width 13.5 % (12.1-15.1); White Blood Count 8.2 10^3/uL (4.0-10.0)
[2022-11-01] MEDS: pantoprazole 40 mg SDV 80 MG IVP (04:16)
[2022-11-01 04:28] VITALS: BP 148/83; O2SAT 94
[2022-11-01 04:42] LABS: Troponin(5th) Baseline 6 ng/L (0-15)
[2022-11-01 05:39] VITALS: BP 119/68; PULSE 73; RESP 16; O2SAT 97
== END 2022-11-01 06:13 | disposition home or self-care (01) ==
PROVIDERS: Emergency Provider Emergency Medicine; PCP Family Medicine Adult Medicine
DX: R07.89 Other chest pain (principal); I10 Essential (primary) hypertension; Z79.82 Long term (current) use of aspirin; Z79.899 Other long term (current) drug therapy
CPT/HCPCS: 71045; 84484; 85025; 96374; 99285; C9113; J3535

== ENCOUNTER 2022-11-04 02:58 | Emergency (ER) | payer MEDICAID, SELFPAY ==
[2022-11-04 03:07] VITALS: BP 151/106; PULSE 69; RESP 16; TEMP 36.7; O2SAT 95; BMI 31.3
--- NOTE | 2022-11-04 03:08 | W.ED.GENADLT ---
HPI - General Adult General: Chief complaint: General Medical Stated complaint: side pain Time Seen by Provider: 11/04/22 02:59 Source: patient Mode of arrival: ambulatory Limitations: no limitations History of Present Illness: 47-year-old male here with multiple complaints. He been seen here multiple times he states he did hit his head 6 months ago he feels like he has knots on his head from that. He states he also has bilateral flank pain having pains in his arms. He denies any chest pain denies any fevers or dysuria. Denies any worsening proving factors. Associated symptoms: Reports headache(s); Deny chest pain, dyspnea, nausea or rash Review of Systems Const: Denies: fever(s) or chills Eyes: Denies: eye discomfort ENMT: Denies: throat pain or dental pain Card: Denies: chest pain Resp: Denies: dyspnea GI: Denies: abdominal pain or nausea : Reports: flank pain; Denies: dysuria Musc: Denies: neck pain or back pain Skin/Breast: Denies: rash Neuro: Reports: headache(s) PFSH ED PFSH: Medical History Allergic rhinitis Anxiety GERD (gastroesophageal reflux disease) Hospital discharge follow-up Hypertension Psychiatric care Social History Alcohol intake: current Substance/Drug Use: unknown Physical Exam Const: COMMON NORMALS: no acute distress, patient oriented x3 and healthy appearing HENMT: COMMON NORMALS: normocephalic and atraumatic HEAD & SCALP: normocephalic and atraumatic Eye: COMMON NORMALS: conjunctivae normal CONJUNCTIVA: Yes conjunctivae normal Neck/C-Spine: COMMON NORMALS: full ROM and supple Chest: COMMONS NORMALS: normal inspection of the chest and normal palpation of entire chest wall Resp: COMMON NORMALS: normal respiratory effort, No retractions, No use of accessory muscles and clear to auscultation bilaterally AUSCULTATION: clear to auscultation bilaterally Cardio: COMMON NORMALS: regular rate, regular rhythm and No murmurs present (Cardio) RATE: regular rate RHYTHM: regular rhythm GI: COMMON NORMALS: Normal to inspection, nondistended, normoactive bowel sounds present, Soft to palpation, non-tender and no masses PALPATION: Yes Soft to palpation Extremity: COMMON NORMALS: normal to inspection and full ROM Neuro: COMMON NORMALS: patient oriented x3, moves all extremities and no focal motor deficits Psych: COMMON NORMALS: mental status grossly normal, Normal thought process present and cooperative THOUGHT PROCESS: Normal thought process present Skin: COMMON NORMALS: no rashes or lesions noted and no wounds GENERAL SKIN EXAM: no rashes or lesions noted Course Vital Signs: Vital signs: Vital Signs Temperature 98.1 F 11/04/22 03:07 Pulse Rate 69 11/04/22 03:07 Respiratory Rate 16 11/04/22 03:07 Blood Pressure 151/106 11/04/22 03:07 Pulse Oximetry 95 11/04/22 03:07 Oxygen Delivery Me thod Room Air 11/04/22 03:07 [facility] - General Adult Medical Decision Making Patient presents here with multiple complaints complaining of headache for months abdominal pain he is well-appearing here his blood works normal he is stable for discharge he is follow-up with PCP and return if worsening. Medical Records I reviewed the patient's medical records. Lab Data I reviewed the patient's lab results. 11/04/22 03:15 11/04/22 03:15 Laboratory Results WBC 8.5 10^3/uL (4.0-10.0) 11/04/22 03:15 RBC 4.69 10^6/uL (4.1-5.3) 11/04/22 03:15 Hgb 14.0 g/dL (11.7-16.6) 11/04/22 03:15 Hct 42.3 % (42.0-52.0) 11/04/22 03:15 MCV 90.2 fl (80-94) 11/04/22 03:15 MCH 29.9 pg (28.0-34.0) 11/04/22 03:15 MCHC 33.1 g/dL (30.0-36.0) 11/04/22 03:15 RDW 13.7 % (12.1-15.1) 11/04/22 03:15 Plt Count 345 10^3/cmm (130-400) 11/04/22 03:15 MPV 8.9 fL (7.4-10.4) 11/04/22 03:15 Neut % (Auto) 35.6 % 11/04/22 03:15 Lymph % (Auto) 50.2 % 11/04/22 03:15 [place] % (Auto) 9.4 % 11/04/22 03:15 Eos % (Auto) 3.9 % 11/04/22 03:15 Baso % (Auto) 0.7 % 11/04/22 03:15 Neut # (Auto) 3.01 10^3/uL (1.8-7.7) 11/04/22 03:15 Lymph # (Auto) 4.3 10^3/uL (0.8-4.8) 11/04/22 03:15 [place] # (Auto) 0.8 10^3/uL (0.2-0.9) 11/04/22 03:15 Eos # (Auto) 0.3 10^3/uL (0.0-0.8) 11/04/22 03:15 Baso # (Auto) 0.1 10^3/uL (0.0-0.1) 11/04/22 03:15 Nucleated RBC % (auto) 0 % 11/04/22 03:15 Nucleated RBCs # 0.0 /100WBC 11/04/22 03:15 Sodium 138 mmol/L (136-145) 11/04/22 03:15 Potassium 3.5 mmol/L (3.5-5.1) 11/04/22 03:15 Chloride 101 mmol/L (98-107) 11/04/22 03:15 Carbon Dioxide 26 mmol/L (22-29) 11/04/22 03:15 Anion Gap 14.5 (5-19) 11/04/22 03:15 BUN 10 mg/dL (6-20) 11/04/22 03:15 Creatinine 0.8 mg/dL (0.7-1.2) 11/04/22 03:15 GFR Calculation 125.9 mL/min (90-130) 11/04/22 03:15 Glucose 89 mg/dL (65-115) 11/04/22 03:15 Calculated Osmolality 285 mOsm/kg (285-295) 11/04/22 03:15 Calcium 9.0 mg/dL (8.5-10.5) 11/04/22 03:15 Total Bilirubin 0.2 mg/dL (0.15-1.2) 11/04/22 03:15 AST 21 U/L (0-40) 11/04/22 03:15 ALT 33 U/L (0-41) 11/04/22 03:15 Alkaline Phosphatase 104 U/L (40-130) 11/04/22 03:15 Total Protein 6.8 g/dL (6.6-8.7) 11/04/22 03:15 Albumin 4.1 g/dL (3.5-5.2) 11/04/22 03:15 Globulin 2.7 g/dL (1.3-4.6) 11/04/22 03:15 Lipase 19 U/L (13-60) 11/04/22 03:15 Urine Color Light yellow (Yellow) 11/04/22 03:28 Urine Appearance Clear (CLEAR) 11/04/22 03:28 Urine pH 7 (5-7) 11/04/22 03:28 Ur Specific [place] 1.015 (1.005-1.030) 11/04/22 03:28 Urine Protein Neg (Negative) 11/04/22 03:28 Urine Glucose (UA) Norm (Normal) 11/04/22 03:28 Urine Ketones Negative (Negative) 11/04/22 03:28 Urine Blood Neg (Negative) 11/04/22 03:28 Urine Nitrate Negative (Negative) 11/04/22 03:28 Urine Bilirubin Neg (Negative) 11/04/22 03:28 Urine Urobilinogen Neg mg/dL (Negative) 11/04/22 03:28 Ur Leukocyte Esterase Negative (Negative) 11/04/22 03:28 Discharge Plan Discharge Patient Disposition: Home Clinical Impression: Flank pain Condition: Stable Prescriptions: No Action aspirin 81 mg tablet,delayed release (DR/EC) 81 mg PO DAILY Qty: 90 5RF Mucinex 600 mg tablet extended release 12hr 600 mg PO Q12H PRN (Reason: Congestion) Qty: 60 5RF hydrochlorothiazide 25 mg tablet 25 mg PO QAM Qty: 30 5RF Coreg 12.5 mg tablet 12.5 mg PO BID Qty: 60 5RF Rx Instructions: must administer with a meal/food amlodipine 5 mg tablet 5 mg PO BEDTIME Qty: 30 5RF pantoprazole 40 mg tablet,delayed release (DR/EC) 40 mg PO DAILY Qty: 30 3RF fluticasone propionate 50 mcg/actuation spray,suspension 2 spray INTRANASAL DAILY PRN (Reason: nasal congestion) Qty: 16 5RF Ventolin HFA 90 mcg/actuation HFA aerosol inhaler 2 puff INHALATION Q6H PRN (Reason: Shortness Of Breath) Qty: 18 5RF famotidine 20 mg tablet 20 mg PO DAILY Qty: 30 0RF albuterol sulfate 90 mcg/actuation HFA aerosol inhaler 2 inh INHALATION Q4H PRN (Reason: shortness of breath or wheezing) Qty: 6.7 0RF buspirone 15 mg tablet 15 mg PO BID 30 Days Qty: 60 1RF quetiapine [Seroquel] 400 mg Tablet 400 mg PO BEDTIME 30 Days Qty: 30 1RF famotidine 40 mg tablet 40 mg PO BID Qty: 60 0RF Discharge Orders: Discharge ED (Routine); Ordered 11/04/22 Ordered By: Mak Schwarz Referrals: Olaf Russell MD [Primary Care Provider] - 1-3 days Discharge Diet: Advance as tolerated Discharge Activity: Resume usual activity Patient Instructions: Flank Pain (ED) Coding Level of Care Code ED School Program Director for Kelley Gomez
[2022-11-04] MEDS: LORazepam 2 mg/mL INJ 1 mL 1 MG IVP (03:22)
[2022-11-04 03:23] LABS: Basophils # 0.1 10^3/uL (0.0-0.1); Basophils % 0.7 %; Eosinophils # 0.3 10^3/uL (0.0-0.8); Eosinophils % 3.9 %; Hematocrit 42.3 % (42.0-52.0); Lymphocytes # 4.3 10^3/uL (0.8-4.8); Lymphocytes % 50.2 %; Mean Corpuscular HGB Conc 33.1 g/dL (30.0-36.0); Mean Corpuscular Hemoglobin 29.9 pg (28.0-34.0); Mean Corpuscular Volume 90.2 fl (80-94); Mean Platelet Volume 8.9 fL (7.4-10.4); Monocytes # 0.8 10^3/uL (0.2-0.9); Monocytes % 9.4 %; Neutrophils # 3.01 10^3/uL (1.8-7.7); Neutrophils % 35.6 %; Nucleated Red Blood Cells % 0 %; Platelet Count 345 10^3/cmm (130-400); Red Blood Count 4.69 10^6/uL (4.1-5.3); Red Cell Distribution Width 13.7 % (12.1-15.1); White Blood Count 8.5 10^3/uL (4.0-10.0)
[2022-11-04 03:38] LABS: Add Urine Microscopic? NO; Charge for UA Resulting for Rev
[2022-11-04 03:39] LABS: Bilirubin Urine Neg (Negative); Blood Urine Neg (Negative); Glucose Urine UA Norm (Normal); Ketones Urine Negative (Negative); Leukocyte Esterase Urine Negative (Negative); Nitrate Urine Negative (Negative); Protein Urine Neg (Negative); Specific Gravity, Urine 1.015 (1.005-1.030); Urine Appearance Clear (CLEAR); Urine Color Light yellow (Yellow); Urobilinogen Urine Neg (Negative); pH Urine 7 (5-7)
[2022-11-04 03:46] LABS: Alanine Aminotransferase 33 U/L (0-41); Albumin Level 4.1 g/dL (3.5-5.2); Alkaline Phosphatase 104 U/L (40-130); Anion Gap 14.5 (5-19); Aspartate Amino Transferase 21 U/L (0-40); Blood Urea Nitrogen 10 mg/dL (6-20); Carbon Dioxide 26 mmol/L (22-29); Chloride 101 mmol/L (98-107); Globulin 2.7 g/dL (1.3-4.6); Glomerular Filtration Rate 125.9 mL/min (90-130); Glucose 89 mg/dL (65-115); Lipase 19 U/L (13-60); Osmolality Calculated 285 mOsm/kg (285-295); Potassium 3.5 mmol/L (3.5-5.1); Sodium 138 mmol/L (136-145); Total Bilirubin 0.2 mg/dL (0.15-1.2); Total Protein 6.8 g/dL (6.6-8.7)
[2022-11-04] MEDS: alum-mag-hydroxide-sime 30 mL UDC PO (04:07)
== END 2022-11-04 04:15 | disposition home or self-care (01) ==
PROVIDERS: Emergency Provider Emergency Medicine; PCP Family Medicine Adult Medicine
DX: R10.9 Unspecified abdominal pain (principal); R51.9 Headache, unspecified
CPT/HCPCS: 80053; 81003; 83690; 85025; 96374; 99284; J2060

== ENCOUNTER → 2022-11-11 10:56 | Outpatient (BNVA) | payer MEDICAID, SELFPAY | PROVIDERS: PCP Family Medicine Adult Medicine; Visit Provider Family Medicine Adult Medicine | DX: M25.561 Pain in right knee (principal) | CPT/HCPCS: 73562 ==

== ENCOUNTER 2022-11-15 03:10 | Emergency (ER) | payer MEDICAID, SELFPAY ==
[2022-11-15 03:11] VITALS: BP 138/103; PULSE 67; RESP 18; TEMP 36.7; O2SAT 99; BMI 29.9
--- NOTE | 2022-11-15 03:38 | ED_ITS ---
HPI - General Adult General: Chief complaint: General Medical Stated complaint: ANXIETY Time Seen by Provider: 11/15/22 03:14 Source: patient and EMS Mode of arrival: EMS Limitations: no limitations History of Present Illness: 47-year-old male is here with multiple complaints he called EMS because he is has hypertension he did take his medicine at home he missed his dose this evening his blood pressure is much improved he states that he is also got some redness to his face concerned he may have cellulitis is also concerned about STD. Denies any fever denies any pain denies any chest pain Associated symptoms: Reports rash; Deny chest pain, dyspnea, headache(s), nausea or vomiting Review of Systems Const: Denies: fever(s), chills, body aches or change in appetite ENMT: Denies: throat pain or dental pain Card: Denies: chest pain Resp: Denies: dyspnea GI: Denies: abdominal pain, nausea, vomiting or diarrhea Musc: Denies: neck pain or back pain Skin/Breast: Reports: rash Neuro: Denies: headache(s) PFSH ED PFSH: Medical History Allergic rhinitis Anxiety Chest congestion GERD (gastroesophageal reflux disease) Hospital discharge follow-up Hypertension Night terrors, adult Psychiatric care Right anterior knee pain Social History Alcohol intake: current Substance/Drug Use: unknown Physical Exam Const: COMMON NORMALS: no acute distress, patient oriented x3 and healthy appearing HENMT: COMMON NORMALS: normocephalic and atraumatic HEAD & SCALP: normocephalic and atraumatic OTHER: Slight erythema of the right side of his face Eye: COMMON NORMALS: Equal, round and reactive pupils present and EOMs intact bilaterally PUPIL: Yes Equal, round and reactive pupils present Neck/C-Spine: COMMON NORMALS: full ROM and supple Chest: COMMONS NORMALS: normal inspection of the chest and normal palpation of entire chest wall Resp: COMMON NORMALS: normal respiratory effort, No retractions, No use of accessory muscles and clear to auscultation bilaterally AUSCULTATION: clear to auscultation bilaterally Cardio: COMMON NORMALS: regular rate, regular rhythm and No murmurs present (Cardio) RATE: regular rate RHYTHM: regular rhythm GI: COMMON NORMALS: Normal to inspection, nondistended, normoactive bowel sounds present, Soft to palpation, non-tender and no masses PALPATION: Yes Soft to palpation Extremity: COMMON NORMALS: normal to inspection and full ROM Neuro: COMMON NORMALS: patient oriented x3, moves all extremities and no focal motor deficits Psych: COMMON NORMALS: mental status grossly normal, Normal thought process present and cooperative THOUGHT PROCESS: Normal thought process present Skin: COMMON NORMALS: no rashes or lesions noted and no wounds GENERAL SKIN EXAM: no rashes or lesions noted Course Vital Signs: Vital signs: Vital Signs Temperature 98.0 F 11/15/22 03:11 Pulse Rate 67 11/15/22 03:11 Respiratory Rate 18 11/15/22 03:11 Blood Pressure 138/103 11/15/22 03:11 Pulse Oximetry 99 11/15/22 03:11 Oxygen Delivery Me thod Room Air 11/15/22 03:11 MDM - General Adult Medical Decision Making Patient presents for mild facial cellulitis we will prescribe him Keflex his blood pressure here is improved he did not want to wait to give us urine he did stated that he was to go to the health department for an STD check Discharge Plan Discharge Patient Disposition: Home Clinical Impression: Hypertension, Cellulitis Condition: Stable Prescriptions: New cephalexin 500 mg capsule 500 mg PO TID 7 Days Qty: 21 0RF No Action Mucinex 600 mg tablet extended release 12hr 600 mg PO Q12H PRN (Reason: breathing/Congestion) Qty: 60 5RF clonidine HCl 0.1 mg tablet 0.1 mg PO .q hs Qty: 30 5RF famotidine 40 mg tablet 40 mg PO BID Qty: 60 3RF buspirone 15 mg tablet 15 mg PO BID 30 Days Qty: 60 3RF Ventolin HFA 90 mcg/actuation HFA aerosol inhaler 2 puff INHALATION Q6H PRN (Reason: shortness of breath or wheezing) Qty: 18 5RF aspirin 81 mg tablet,delayed release (DR/EC) 81 mg PO DAILY Qty: 90 5RF Coreg 12.5 mg tablet 12.5 mg PO BID Qty: 60 5RF Rx Instructions: must administer with a meal/food amlodipine 5 mg tablet 5 mg PO BEDTIME Qty: 30 5RF pantoprazole 40 mg tablet,delayed release (DR/EC) 40 mg PO DAILY Qty: 30 3RF fluticasone propionate 50 mcg/actuation spray,suspension 2 spray INTRANASAL DAILY PRN (Reason: nasal congestion) Qty: 16 5RF quetiapine [Seroquel] 400 mg Tablet 400 mg PO BEDTIME 30 Days Qty: 30 1RF Discharge Orders: Discharge ED (Routine); Ordered 11/15/22 Ordered By: Mak Schwarz Referrals: Olaf Russell MD [Primary Care Provider] - 1-3 days Discharge Diet: Advance as tolerated Discharge Activity: Resume usual activity Patient Instructions: Cellulitis (ED) Coding Level of Care Code ED Sql Architect for Kelley Gomez
[2022-11-15] MEDS: cephALEXin 500 mg Capsule PO (03:44)
[2022-11-15] MEDS: diphenhydrAMINE 25 mg Capsule PO (03:48)
[2022-11-15] MEDS: albuterol 8 gm MDI 2 PUFF INHALATION (04:06)
[2022-11-15 04:10] VITALS: PULSE 72; RESP 18; O2SAT 97
[2022-11-15 04:27] VITALS: BP 138/103; PULSE 72; RESP 18; TEMP 36.7; O2SAT 97
== END 2022-11-15 04:28 | disposition home or self-care (01) ==
PROVIDERS: Emergency Provider Emergency Medicine; PCP Family Medicine Adult Medicine
DX: I10 Essential (primary) hypertension (principal); L03.211 Cellulitis of face; Z79.82 Long term (current) use of aspirin
CPT/HCPCS: 94640; 99283; J3535

== ENCOUNTER 2022-11-16 03:25 | Emergency (ER) | payer MEDICAID, SELFPAY ==
[2022-11-16 03:27] VITALS: BP 146/99; PULSE 72; RESP 16; TEMP 37.1; O2SAT 97; BMI 42.0
--- NOTE | 2022-11-16 03:28 | XRR_ITS ---
PROCEDURE INFORMATION: Exam: XR Chest Exam date and time: 11/16/2022 3:35 AM Age: 47 years old Clinical indication: Shortness of breath; Additional info: SOB TECHNIQUE: Imaging protocol: Radiologic exam of the chest. Views: 1 view. COMPARISON: CR (CHEST, ) 11/01/2022 4:05 AM FINDINGS: Lungs: Unremarkable. No consolidation. Pleural spaces: Unremarkable. No pleural effusion. No pneumothorax. Heart/Mediastinum: Unremarkable. No cardiomegaly. Bones/joints: Unremarkable. XR/XR chest 1V portable [id number] IMPRESSION: No acute disease.
--- NOTE | 2022-11-16 03:28 | ECG_ITS ---
[facility] Test Date: 2022-11-16 Pat Name: Yoel Almeida Department: Room: Gender: Male [employer] Officer: : 1975 Requested By: Mak Schwarz Order Number: [id number] Aubrey MD: Jihan Ware M.D. Measurements Intervals [place] Rate: 71 P: 67 NH: 179 QRS: 44 QRSD: 97 T: 42 QT: 358 QTc: 391 Interpretive Statements SINUS RHYTHM Compared to ECG 11/01/2022 03:55:43 T-wave abnormality no longer present Electronically Signed On 11-16-2022 20:23:47 CDT by Jihan Ware M.D. [id number]
[2022-11-16 03:38] LABS: Basophils # 0.1 10^3/uL (0.0-0.1); Basophils % 0.8 %; Eosinophils # 0.4 10^3/uL (0.0-0.8); Eosinophils % 4.2 %; Hematocrit 43.1 % (42.0-52.0); Hemoglobin 14.4 g/dL (11.7-16.6); Lymphocytes # 3.2 10^3/uL (0.8-4.8); Lymphocytes % 36.9 %; Mean Corpuscular HGB Conc 33.4 g/dL (30.0-36.0); Mean Corpuscular Volume 89.8 fl (80-94); Mean Platelet Volume 9.3 fL (7.4-10.4); Monocytes # 0.8 10^3/uL (0.2-0.9); Monocytes % 9.4 %; Neutrophils # 4.15 10^3/uL (1.8-7.7); Neutrophils % 48.6 %; Nucleated Red Blood Cells % 0 %; Platelet Count 363 10^3/cmm (130-400); Red Cell Distribution Width 13.6 % (12.1-15.1); White Blood Count 8.5 10^3/uL (4.0-10.0)
--- NOTE | 2022-11-16 03:39 | ED_ITS ---
HPI - Chest Pain General: Chief Complaint: Chest Pain Stated Complaint: CP, SOB Time Seen by Provider: 11/16/22 03:26 Source: patient and EMS Mode of arrival: EMS Limitations: no limitations History of Present Illness: 47-year-old male has been seen here multiple times he states that he staying in a hotel [place] is very [place] and there he states that every night he gets short of breath and starts feeling like his abdominal pain chest pain he states he woke up again this morning with same complaints he was seen last night for similar he denies any worsening proving factors he is well-appearing here at this time. Associated symptoms: Reports abdominal pain and dyspnea; Deny fever(s), nausea or vomiting Review of Systems Const: Denies: fever(s), chills, body aches or change in appetite Eyes: Denies: eye discomfort ENMT: Denies: throat pain or dental pain Card: Reports: chest pain Resp: Reports: dyspnea GI: Reports: abdominal pain; Denies: nausea, vomiting or diarrhea : Denies: dysuria Musc: Denies: neck pain or back pain Skin/Breast: Denies: rash Neuro: Denies: headache(s) Psych: Denies: depression Dirk/Lymph: Denies: easy bruising All/Imm: Denies: urticaria PFSH ED PFSH: Medical History Allergic rhinitis Anxiety Chest congestion GERD (gastroesophageal reflux disease) Hospital discharge follow-up Hypertension Night terrors, adult Psychiatric care Right anterior knee pain Social History Alcohol intake: current Substance/Drug Use: unknown Physical Exam Const: COMMON NORMALS: no acute distress, patient oriented x3 and healthy appearing HENMT: COMMON NORMALS: normocephalic and atraumatic HEAD & SCALP: normocephalic and atraumatic Eye: COMMON NORMALS: conjunctivae normal CONJUNCTIVA: Yes conjunctivae normal Neck/C-Spine: COMMON NORMALS: full ROM and supple Chest: COMMONS NORMALS: normal inspection of the chest Resp: COMMON NORMALS: normal respiratory effort, No retractions, No use of accessory muscles and clear to auscultation bilaterally AUSCULTATION: clear to auscultation bilaterally Cardio: COMMON NORMALS: regular rate, regular rhythm and No murmurs present (Cardio) RATE: regular rate RHYTHM: regular rhythm GI: INSPECTION: Yes normal to inspection Extremity: COMMON NORMALS: normal to inspection and full ROM Neuro: COMMON NORMALS: patient oriented x3, moves all extremities and no focal motor deficits Psych: COMMON NORMALS: mental status grossly normal, Normal thought process present and cooperative THOUGHT PROCESS: Normal thought process present Skin: COMMON NORMALS: no rashes or lesions noted and no wounds GENERAL SKIN EXAM: no rashes or lesions noted Course Vital Signs: Vital signs: Vital Signs Temperature 98.7 F 11/16/22 03:27 Pulse Rate 63 11/16/22 04:08 Respiratory Rate 18 11/16/22 04:08 Blood Pressure 123/97 11/16/22 04:08 Pulse Oximetry 96 11/16/22 04:08 Oxygen Delivery Me thod Room Air 11/16/22 04:01 MDM - Chest Pain Medical Decision Making Patient presents here with chest pain he is well-appearing here troponins normal x-ray EKG is normal he is stable for discharge he is follow-up with PCP and return if worsening. He also concerned of possible SVT we will treat him with azithromycin and Rocephin Medical Records I reviewed the patient's medical records. Lab Data I reviewed the patient's lab results. 11/16/22 03:10 11/16/22 03:10 Laboratory Results WBC 8.5 10^3/uL (4.0-10.0) 11/16/22 03:10 RBC 4.80 10^6/uL (4.1-5.3) 11/16/22 03:10 Hgb 14.4 g/dL (11.7-16.6) 11/16/22 03:10 Hct 43.1 % (42.0-52.0) 11/16/22 03:10 MCV 89.8 fl (80-94) 11/16/22 03:10 MCH 30.0 pg (28.0-34.0) 11/16/22 03:10 MCHC 33.4 g/dL (30.0-36.0) 11/16/22 03:10 RDW 13.6 % (12.1-15.1) 11/16/22 03:10 Plt Count 363 10^3/cmm (130-400) 11/16/22 03:10 MPV 9.3 fL (7.4-10.4) 11/16/22 03:10 Neut % (Auto) 48.6 % 11/16/22 03:10 Lymph % (Auto) 36.9 % 11/16/22 03:10 [place] % (Auto) 9.4 % 11/16/22 03:10 Eos % (Auto) 4.2 % 11/16/22 03:10 Baso % (Auto) 0.8 % 11/16/22 03:10 Neut # (Auto) 4.15 10^3/uL (1.8-7.7) 11/16/22 03:10 Lymph # (Auto) 3.2 10^3/uL (0.8-4.8) 11/16/22 03:10 [place] # (Auto) 0.8 10^3/uL (0.2-0.9) 11/16/22 03:10 Eos # (Auto) 0.4 10^3/uL (0.0-0.8) 11/16/22 03:10 Baso # (Auto) 0.1 10^3/uL (0.0-0.1) 11/16/22 03:10 Nucleated RBC % (auto) 0 % 11/16/22 03:10 Nucleated RBCs # 0.0 /100WBC 11/16/22 03:10 Sodium 137 mmol/L (136-145) 11/16/22 03:10 Potassium 3.4 mmol/L (3.5-5.1) L 11/16/22 03:10 Chloride 99 mmol/L (98-107) 11/16/22 03:10 Carbon Dioxide 27 mmol/L (22-29) 11/16/22 03:10 Anion Gap 14.4 (5-19) 11/16/22 03:10 BUN 12 mg/dL (6-20) 11/16/22 03:10 Creatinine 0.9 mg/dL (0.7-1.2) 11/16/22 03:10 GFR Calculation 109.9 mL/min (90-130) 11/16/22 03:10 Glucose 108 mg/dL (65-115) 11/16/22 03:10 Calculated Osmolality 284 mOsm/kg (285-295) L 11/16/22 03:10 Calcium 9.7 mg/dL (8.5-10.5) 11/16/22 03:10 Total Bilirubin 0.2 mg/dL (0.15-1.2) 11/16/22 03:10 AST 16 U/L (0-40) 11/16/22 03:10 ALT 26 U/L (0-41) 11/16/22 03:10 Alkaline Phosphatase 103 U/L (40-130) 11/16/22 03:10 Troponin T Baseline 6 ng/L (0-15) 11/16/22 03:10 Total Protein 7.5 g/dL (6.6-8.7) 11/16/22 03:10 Albumin 4.5 g/dL (3.5-5.2) 11/16/22 03:10 Globulin 3.0 g/dL (1.3-4.6) 11/16/22 03:10 Lipase 17 U/L (13-60) 11/16/22 03:10 EKG Data EKG 1: I personally reviewed and interpreted this EKG as follows: EKG interpretation date: 11/16/22 EKG interpretation time: 03:31 Interpretation: nsr hr [address] or t wave abnormalities qrs 97 qtc 381 Discharge Plan Discharge Patient Disposition: Home Clinical Impression: Chest pain, Concern about STD in male without diagnosis Condition: Stable Prescriptions: No Action Mucinex 600 mg tablet extended release 12hr 600 mg PO Q12H PRN (Reason: breathing/Congestion) Qty: 60 5RF clonidine HCl 0.1 mg tablet 0.1 mg PO .q hs Qty: 30 5RF famotidine 40 mg tablet 40 mg PO BID Qty: 60 3RF buspirone 15 mg tablet 15 mg PO BID 30 Days Qty: 60 3RF Ventolin HFA 90 mcg/actuation HFA aerosol inhaler 2 puff INHALATION Q6H PRN (Reason: shortness of breath or wheezing) Qty: 18 5RF aspirin 81 mg tablet,delayed release (DR/EC) 81 mg PO DAILY Qty: 90 5RF Coreg 12.5 mg tablet 12.5 mg PO BID Qty: 60 5RF Rx Instructions: must administer with a meal/food amlodipine 5 mg tablet 5 mg PO BEDTIME Qty: 30 5RF pantoprazole 40 mg tablet,delayed release (DR/EC) 40 mg PO DAILY Qty: 30 3RF fluticasone propionate 50 mcg/actuation spray,suspension 2 spray INTRANASAL DAILY PRN (Reason: nasal congestion) Qty: 16 5RF cephalexin 500 mg capsule 500 mg PO TID 7 Days Qty: 21 0RF quetiapine [Seroquel] 400 mg Tablet 400 mg PO BEDTIME 30 Days Qty: 30 1RF Discharge Orders: Discharge ED (Routine); Ordered 11/16/22 Ordered By: Mak Schwarz Referrals: Olaf Russell MD [Primary Care Provider] - Discharge Diet: Advance as tolerated Discharge Activity: Resume usual activity Patient Instructions: Chest Pain (ED) Coding Level of Care Code ED Automotive Paint Technician for Kelley Gomez
[2022-11-16] MEDS: azithromycin 250 mg Tablet 1000 MG PO (03:41)
[2022-11-16] MEDS: cefTRIAXone 250 MG in water for injection-sterile 0.9 ML IM (03:41)
[2022-11-16] MEDS: LORazepam 2 mg/mL INJ 1 mL 1 MG IVP (03:41)
[2022-11-16 03:56] LABS: Troponin(5th) Baseline 6 ng/L (0-15)
[2022-11-16 03:59] LABS: Alanine Aminotransferase 26 U/L (0-41); Albumin Level 4.5 g/dL (3.5-5.2); Alkaline Phosphatase 103 U/L (40-130); Anion Gap 14.4 (5-19); Aspartate Amino Transferase 16 U/L (0-40); Blood Urea Nitrogen 12 mg/dL (6-20); Calcium 9.7 mg/dL (8.5-10.5); Carbon Dioxide 27 mmol/L (22-29); Chloride 99 mmol/L (98-107); Glomerular Filtration Rate 109.9 mL/min (90-130); Glucose 108 mg/dL (65-115); Lipase 17 U/L (13-60); Osmolality Calculated 284 mOsm/kg (285-295); Potassium 3.4 mmol/L (3.5-5.1); Sodium 137 mmol/L (136-145); Total Bilirubin 0.2 mg/dL (0.15-1.2); Total Protein 7.5 g/dL (6.6-8.7)
[2022-11-16 04:01] VITALS: BP 144/106; PULSE 72; RESP 18; O2SAT 98
[2022-11-16 04:08] VITALS: BP 123/97; PULSE 63; RESP 18; O2SAT 96
== END 2022-11-16 04:17 | disposition home or self-care (01) ==
PROVIDERS: Emergency Provider Emergency Medicine; PCP Family Medicine Adult Medicine
DX: R07.9 Chest pain, unspecified (principal); Z79.899 Other long term (current) drug therapy; Z79.82 Long term (current) use of aspirin
CPT/HCPCS: 71045; 80053; 83690; 84484; 85025; 87491; 87591; 93005; 96372; 96374; 99285; J0696; J2060; Q0144

== ENCOUNTER → 2022-12-08 18:10 | Outpatient (BNVA) | payer MEDICAID, SELFPAY | PROVIDERS: PCP Family Medicine Adult Medicine; Visit Provider Registered Nurse Neonatal Intensive Care | DX: R10.9 Unspecified abdominal pain (principal) | CPT/HCPCS: 81000 ==

== ENCOUNTER 2022-12-09 02:30 | Emergency (ER) | payer MEDICAID, SELFPAY ==
[2022-12-09 02:33] VITALS: BMI 29.5
[2022-12-09 02:39] VITALS: BP 140/88; PULSE 73; RESP 16; TEMP 36.7; O2SAT 95
[2022-12-09 03:35] LABS: Basophils % 0.5 %; Eosinophils # 0.2 10^3/uL (0.0-0.8); Hematocrit 40.9 % (42.0-52.0); Hemoglobin 13.8 g/dL (11.7-16.6); Lymphocytes # 3.4 10^3/uL (0.8-4.8); Lymphocytes % 46.2 %; Mean Corpuscular HGB Conc 33.7 g/dL (30.0-36.0); Mean Corpuscular Hemoglobin 30.5 pg (28.0-34.0); Mean Corpuscular Volume 90.3 fl (80-94); Mean Platelet Volume 9.5 fL (7.4-10.4); Monocytes # 0.6 10^3/uL (0.2-0.9); Monocytes % 8.3 %; Neutrophils # 3.05 10^3/uL (1.8-7.7); Neutrophils % 41.7 %; Nucleated Red Blood Cells % 0 %; Platelet Count 331 10^3/cmm (130-400); Red Blood Count 4.53 10^6/uL (4.1-5.3); Red Cell Distribution Width 13.4 % (12.1-15.1); White Blood Count 7.3 10^3/uL (4.0-10.0)
[2022-12-09 03:47] LABS: Alanine Aminotransferase 53 U/L (0-41); Albumin Level 4.4 g/dL (3.5-5.2); Alkaline Phosphatase 94 U/L (40-130); Anion Gap 11.6 (5-19); Aspartate Amino Transferase 35 U/L (0-40); Blood Urea Nitrogen 15 mg/dL (6-20); Calcium 9.5 mg/dL (8.5-10.5); Carbon Dioxide 30 mmol/L (22-29); Chloride 100 mmol/L (98-107); Globulin 2.9 g/dL (1.3-4.6); Glomerular Filtration Rate 109.9 mL/min (90-130); Glucose 117 mg/dL (65-115); Lipase 22 U/L (13-60); Osmolality Calculated 288 mOsm/kg (285-295); Potassium 3.6 mmol/L (3.5-5.1); Sodium 138 mmol/L (136-145); Total Bilirubin 0.2 mg/dL (0.15-1.2); Total Protein 7.3 g/dL (6.6-8.7)
[2022-12-09] MEDS: ketorolac 30 mg/mL INJ IVP (04:13)
[2022-12-09 04:15] VITALS: BP 146/83; PULSE 73; RESP 16; O2SAT 96
[2022-12-09 04:27] LABS: Add Urine Microscopic? NO; Charge for UA Resulting for Rev
[2022-12-09 04:34] LABS: Bilirubin Urine Neg (Negative); Blood Urine Neg (Negative); Glucose Urine UA Norm (Normal); Ketones Urine Negative (Negative); Leukocyte Esterase Urine Negative (Negative); Nitrate Urine Negative (Negative); Protein Urine Neg (Negative); Specific Gravity, Urine 1.015 (1.005-1.030); Urine Appearance Clear (CLEAR); Urine Color Yellow (Yellow); Urobilinogen Urine Neg (Negative); pH Urine 6 (5-7)
--- NOTE | 2022-12-09 04:48 | ED_ITS ---
HPI - Back Pain/Injury General: Chief Complaint: Back Pain/Injury Stated Complaint: BACK PAIN Time Seen by Provider: 12/09/22 02:43 History of Present Illness: 47-year-old -[place] male presents emergency room with complaint of abdominal bloating, back pain and right arm tingling for the past few days. Patient described the back pain as aching sensation mostly along the paralumbar area with severity of 7 out of 10 especially with movement. Patient denies any direct fall or injury. No dysuria, hematuria or urinary frequency. Denies any nausea or vomiting. No fever or chills. No recent weight loss or weight gain. Associated symptoms: Reports abdominal pain and nausea; Deny change in bowel habits, fecal incontinence or vomiting Review of Systems General: Reports: 10 or more systems reviewed and unremarkable except in HPI and below GI: Reports: abdominal pain, nausea and bloating; Denies: vomiting, hematemesis, coffee ground emesis, dysphagia, heartburn, GI cramping, belching, excessive flatus, fecal incontinence, change in bowel habits, pain on defecation, rectal pain, rectal swelling, rectal itching, change in stool character, hematochezia or melena PFS ED PFSH: Medical History Allergic rhinitis Anxiety Chest congestion GERD (gastroesophageal reflux disease) Hospital discharge follow-up Hypertension Night terrors, adult Psychiatric care Right anterior knee pain Social History Alcohol intake: current Substance/Drug Use: unknown Physical Exam 2 Const: COMMON NORMALS: no acute distress HENMT: COMMON NORMALS: normocephalic, atraumatic, hearing grossly normal bilaterally, external ears normal, EAC's normal, TM's normal bilaterally, Normal external nose present, Normal nasal mucous membranes and turbinates present, moist oral mucous membranes, oropharynx normal, dentition normal and gingiva normal HEAD & SCALP: normocephalic and atraumatic NOSE: Normal external nose present and Normal nasal mucous membranes and turbinates present EXTERNAL EAR: Yes external ears normal EXTERNAL AUDITORY CANAL: EAC's normal TYMPANIC MEMBRANE: TM's normal bilaterally Neck/C-Spine: COMMON NORMALS: full ROM, no lymphadenopathy, supple, no meningeal signs, no JVD, Thyroid normal and No carotid bruits THYROID: Thyroid normal Resp: COMMON NORMALS: normal respiratory effort, No retractions, No use of accessory muscles, clear to auscultation bilaterally and percussion normal AUSCULTATION: clear to auscultation bilaterally PERCUSSION: percussion normal Cardio: COMMON NORMALS: no JVD GI: INSPECTION: Yes normal to inspection, No abdominal wall ecchymosis, No Abdominal wall edema, No abdominal distension, No Fluid wave present, No Localized GI swelling present, No Laceration(s) present (GI), No GI tube present and No GI ostomy present PERCUSSION: no fluid wave RECTAL EXAM: No Laceration(s) present (GI) Back/Pelvis: GENERAL BACK: No erythema, No warmth, No ecchymosis and No Craven- Sofia sign LUMBAR SPINE/LOWER BACK: Yes normal to inspection, Yes ROM limited, No pain with ROM, No lumbar spinal tenderness, Yes paraspinal muscle tenderness, No mass present, No Lumbar scoliosis, No straight leg raise negative bilaterally, No straight leg raise positive right, No straight leg raise positive left and No other soft tissue findings Extremity: COMMON NORMALS: normal to inspection, full ROM, capillary refill normal, no joint enlargement, no clubbing, cyanosis or edema, no calf tenderness and no pedal edema Neuro: MENINGEAL SIGNS: Yes no meningeal signs Psych: COMMON NORMALS: mental status grossly normal, Normal thought process present, cooperative, normal affect, speech normal, activity/motor behavior normal, denies hallucinations, denies homicidal ideation and denies suicidal ideation SPEECH: Yes normal speech THOUGHT PROCESS: Normal thought process present Course Vital Signs: Vital signs: Vital Signs Temperature 98.0 F 12/09/22 02:39 Pulse Rate 59 L 12/09/22 04:57 Respiratory Rate 16 12/09/22 04:57 Blood Pressure 120/71 12/09/22 04:57 Pulse Oximetry 98 12/09/22 04:57 MDM - Back Pain/Injury Medical Decision Making Patient was made comfortable emergency room. Patient had extensive work-up done including CBC, CMP, UA. Given pain medication. Upon reassessment patient was resting comfortably without any acute distress. Discussed lab finding with patient. Close follow-up PCP recommended. Labs 12/09/22 03:05 12/09/22 03:05 Laboratory Results WBC 7.3 10^3/uL (4.0-10.0) 12/09/22 03:05 RBC 4.53 10^6/uL (4.1-5.3) 12/09/22 03:05 Hgb 13.8 g/dL (11.7-16.6) 12/09/22 03:05 Hct 40.9 % (42.0-52.0) L 12/09/22 03:05 MCV 90.3 fl (80-94) 12/09/22 03:05 MCH 30.5 pg (28.0-34.0) 12/09/22 03:05 MCHC 33.7 g/dL (30.0-36.0) 12/09/22 03:05 RDW 13.4 % (12.1-15.1) 12/09/22 03:05 Plt Count 331 10^3/cmm (130-400) 12/09/22 03:05 MPV 9.5 fL (7.4-10.4) 12/09/22 03:05 Neut % (Auto) 41.7 % 12/09/22 03:05 Lymph % (Auto) 46.2 % 12/09/22 03:05 [place] % (Auto) 8.3 % 12/09/22 03:05 Eos % (Auto) 3.0 % 12/09/22 03:05 Baso % (Auto) 0.5 % 12/09/22 03:05 Neut # (Auto) 3.05 10^3/uL (1.8-7.7) 12/09/22 03:05 Lymph # (Auto) 3.4 10^3/uL (0.8-4.8) 12/09/22 03:05 [place] # (Auto) 0.6 10^3/uL (0.2-0.9) 12/09/22 03:05 Eos # (Auto) 0.2 10^3/uL (0.0-0.8) 12/09/22 03:05 Baso # (Auto) 0.0 10^3/uL (0.0-0.1) 12/09/22 03:05 Nucleated RBC % (auto) 0 % 12/09/22 03:05 Nucleated RBCs # 0.0 /100WBC 12/09/22 03:05 Sodium 138 mmol/L (136-145) 12/09/22 03:05 Potassium 3.6 mmol/L (3.5-5.1) 12/09/22 03:05 Chloride 100 mmol/L (98-107) 12/09/22 03:05 Carbon Dioxide 30 mmol/L (22-29) H 12/09/22 03:05 Anion Gap 11.6 (5-19) 12/09/22 03:05 BUN 15 mg/dL (6-20) 12/09/22 03:05 Creatinine 0.9 mg/dL (0.7-1.2) 12/09/22 03:05 GFR Calculation 109.9 mL/min (90-130) 12/09/22 03:05 Glucose 117 mg/dL (65-115) H 12/09/22 03:05 Calculated Osmolality 288 mOsm/kg (285-295) 12/09/22 03:05 Calcium 9.5 mg/dL (8.5-10.5) 12/09/22 03:05 Total Bilirubin 0.2 mg/dL (0.15-1.2) 12/09/22 03:05 AST 35 U/L (0-40) 12/09/22 03:05 ALT 53 U/L (0-41) H 12/09/22 03:05 Alkaline Phosphatase 94 U/L (40-130) 12/09/22 03:05 Total Protein 7.3 g/dL (6.6-8.7) 12/09/22 03:05 Albumin 4.4 g/dL (3.5-5.2) 12/09/22 03:05 Globulin 2.9 g/dL (1.3-4.6) 12/09/22 03:05 Lipase 22 U/L (13-60) 12/09/22 03:05 Urine Color Yellow (Yellow) 12/09/22 04:20 Urine Appearance Clear (CLEAR) 12/09/22 04:20 Urine pH 6 (5-7) 12/09/22 04:20 Ur Specific [place] 1.015 (1.005-1.030) 12/09/22 04:20 Urine Protein Neg (Negative) 12/09/22 04:20 Urine Glucose (UA) Norm (Normal) 12/09/22 04:20 Urine Ketones Negative (Negative) 12/09/22 04:20 Urine Blood Neg (Negative) 12/09/22 04:20 Urine Nitrate Negative (Negative) 12/09/22 04:20 Urine Bilirubin Neg (Negative) 12/09/22 04:20 Urine Urobilinogen Neg mg/dL (Negative) 12/09/22 04:20 Ur Leukocyte Esterase Negative (Negative) 12/09/22 04:20 Discharge Plan Discharge Patient Disposition: Home Clinical Impression: Back pain Condition: Stable Prescriptions: New naproxen 500 mg tablet 500 mg PO BID PRN (Reason: pain) Qty: 20 0RF No Action Mucinex 600 mg tablet extended release 12hr 600 mg PO Q12H PRN (Reason: breathing/Congestion) Qty: 60 5RF clonidine HCl 0.1 mg tablet 0.1 mg PO .q hs Qty: 30 5RF buspirone 15 mg tablet 15 mg PO BID 30 Days Qty: 60 3RF Ventolin HFA 90 mcg/actuation HFA aerosol inhaler 2 puff INHALATION Q6H PRN (Reason: shortness of breath or wheezing) Qty: 18 5RF aspirin 81 mg tablet,delayed release (DR/EC) 81 mg PO DAILY Qty: 90 5RF Coreg 12.5 mg tablet 12.5 mg PO BID Qty: 60 5RF Rx Instructions: must administer with a meal/food amlodipine 5 mg tablet 5 mg PO BEDTIME Qty: 30 5RF pantoprazole 40 mg tablet,delayed release (DR/EC) 40 mg PO DAILY Qty: 30 3RF fluticasone propionate 50 mcg/actuation spray,suspension 2 spray INTRANASAL DAILY PRN (Reason: nasal congestion) Qty: 16 5RF famotidine 40 mg tablet 40 mg PO BID Qty: 60 3RF quetiapine [Seroquel] 400 mg Tablet 400 mg PO BEDTIME 30 Days Qty: 30 1RF Discharge Orders: Discharge ED (Routine); Ordered 12/09/22 Ordered By: Padmini Rasmussen Referrals: Olaf Russell MD [Primary Care Provider] - Discharge Diet: Advance as tolerated Discharge Activity: Resume usual activity Patient Instructions: Opioid Safety, Pain Management Coding Level of Care Code ED Production Sound Mixer for Kelley Gomez
--- NOTE | 2022-12-09 04:48 | ED_ITS ---
HPI - Back Pain/Injury General: Chief Complaint: Back Pain/Injury Stated Complaint: BACK PAIN Time Seen by Provider: 12/09/22 02:43 PFSH ED PFSH: Medical History Allergic rhinitis Anxiety Chest congestion GERD (gastroesophageal reflux disease) Hospital discharge follow-up Hypertension Night terrors, adult Psychiatric care Right anterior knee pain Social History Alcohol intake: current Substance/Drug Use: unknown Course Vital Signs: Vital signs: Vital Signs Temperature 98.0 F 12/09/22 02:39 Pulse Rate 73 12/09/22 04:15 Respiratory Rate 16 12/09/22 04:15 Blood Pressure 146/83 12/09/22 04:15 Pulse Oximetry 96 12/09/22 04:15 MDM - Back Pain/Injury Labs 12/09/22 03:05 12/09/22 03:05 Laboratory Results WBC 7.3 10^3/uL (4.0-10.0) 12/09/22 03:05 RBC 4.53 10^6/uL (4.1-5.3) 12/09/22 03:05 Hgb 13.8 g/dL (11.7-16.6) 12/09/22 03:05 Hct 40.9 % (42.0-52.0) L 12/09/22 03:05 MCV 90.3 fl (80-94) 12/09/22 03:05 MCH 30.5 pg (28.0-34.0) 12/09/22 03:05 MCHC 33.7 g/dL (30.0-36.0) 12/09/22 03:05 RDW 13.4 % (12.1-15.1) 12/09/22 03:05 Plt Count 331 10^3/cmm (130-400) 12/09/22 03:05 MPV 9.5 fL (7.4-10.4) 12/09/22 03:05 Neut % (Auto) 41.7 % 12/09/22 03:05 Lymph % (Auto) 46.2 % 12/09/22 03:05 [place] % (Auto) 8.3 % 12/09/22 03:05 Eos % (Auto) 3.0 % 12/09/22 03:05 Baso % (Auto) 0.5 % 12/09/22 03:05 Neut # (Auto) 3.05 10^3/uL (1.8-7.7) 12/09/22 03:05 Lymph # (Auto) 3.4 10^3/uL (0.8-4.8) 12/09/22 03:05 [place] # (Auto) 0.6 10^3/uL (0.2-0.9) 12/09/22 03:05 Eos # (Auto) 0.2 10^3/uL (0.0-0.8) 12/09/22 03:05 Baso # (Auto) 0.0 10^3/uL (0.0-0.1) 12/09/22 03:05 Nucleated RBC % (auto) 0 % 12/09/22 03:05 Nucleated RBCs # 0.0 /100WBC 12/09/22 03:05 Sodium 138 mmol/L (136-145) 12/09/22 03:05 Potassium 3.6 mmol/L (3.5-5.1) 12/09/22 03:05 Chloride 100 mmol/L (98-107) 12/09/22 03:05 Carbon Dioxide 30 mmol/L (22-29) H 12/09/22 03:05 Anion Gap 11.6 (5-19) 12/09/22 03:05 BUN 15 mg/dL (6-20) 12/09/22 03:05 Creatinine 0.9 mg/dL (0.7-1.2) 12/09/22 03:05 GFR Calculation 109.9 mL/min (90-130) 12/09/22 03:05 Glucose 117 mg/dL (65-115) H 12/09/22 03:05 Calculated Osmolality 288 mOsm/kg (285-295) 12/09/22 03:05 Calcium 9.5 mg/dL (8.5-10.5) 12/09/22 03:05 Total Bilirubin 0.2 mg/dL (0.15-1.2) 12/09/22 03:05 AST 35 U/L (0-40) 12/09/22 03:05 ALT 53 U/L (0-41) H 12/09/22 03:05 Alkaline Phosphatase 94 U/L (40-130) 12/09/22 03:05 Total Protein 7.3 g/dL (6.6-8.7) 12/09/22 03:05 Albumin 4.4 g/dL (3.5-5.2) 12/09/22 03:05 Globulin 2.9 g/dL (1.3-4.6) 12/09/22 03:05 Lipase 22 U/L (13-60) 12/09/22 03:05 Urine Color Yellow (Yellow) 12/09/22 04:20 Urine Appearance Clear (CLEAR) 12/09/22 04:20 Urine pH 6 (5-7) 12/09/22 04:20 Ur Specific [place] 1.015 (1.005-1.030) 12/09/22 04:20 Urine Protein Neg (Negative) 12/09/22 04:20 Urine Glucose (UA) Norm (Normal) 12/09/22 04:20 Urine Ketones Negative (Negative) 12/09/22 04:20 Urine Blood Neg (Negative) 12/09/22 04:20 Urine Nitrate Negative (Negative) 12/09/22 04:20 Urine Bilirubin Neg (Negative) 12/09/22 04:20 Urine Urobilinogen Neg mg/dL (Negative) 12/09/22 04:20 Ur Leukocyte Esterase Negative (Negative) 12/09/22 04:20 Discharge Plan Discharge Condition: Stable Prescriptions: No Action Mucinex 600 mg tablet extended release 12hr 600 mg PO Q12H PRN (Reason: breathing/Congestion) Qty: 60 5RF clonidine HCl 0.1 mg tablet 0.1 mg PO .q hs Qty: 30 5RF buspirone 15 mg tablet 15 mg PO BID 30 Days Qty: 60 3RF Ventolin HFA 90 mcg/actuation HFA aerosol inhaler 2 puff INHALATION Q6H PRN (Reason: shortness of breath or wheezing) Qty: 18 5RF aspirin 81 mg tablet,delayed release (DR/EC) 81 mg PO DAILY Qty: 90 5RF Coreg 12.5 mg tablet 12.5 mg PO BID Qty: 60 5RF Rx Instructions: must administer with a meal/food amlodipine 5 mg tablet 5 mg PO BEDTIME Qty: 30 5RF pantoprazole 40 mg tablet,delayed release (DR/EC) 40 mg PO DAILY Qty: 30 3RF fluticasone propionate 50 mcg/actuation spray,suspension 2 spray INTRANASAL DAILY PRN (Reason: nasal congestion) Qty: 16 5RF famotidine 40 mg tablet 40 mg PO BID Qty: 60 3RF quetiapine [Seroquel] 400 mg Tablet 400 mg PO BEDTIME 30 Days Qty: 30 1RF Referrals: Olaf Russell MD [Primary Care Provider] - Coding Level of Care Code ED Rolling Mill Plugger for Chg Patricia
[2022-12-09 04:57] VITALS: BP 120/71; PULSE 59; RESP 16; O2SAT 98
[2022-12-09] MEDS: magnesium citrate Btl 296 mL PO (05:08)
== END 2022-12-09 05:10 | disposition home or self-care (01) ==
PROVIDERS: Emergency Provider Family Medicine; PCP Family Medicine Adult Medicine
DX: M54.50 Low back pain, unspecified (principal)
CPT/HCPCS: 80053; 81003; 83690; 85025; 96374; 99284; J1885

== ENCOUNTER 2022-12-17 10:37 | Emergency (ER) | payer MEDICAID, SELFPAY ==
[2022-12-17 10:46] VITALS: BP 131/87; PULSE 75; RESP 14; TEMP 36.8; O2SAT 97; BMI 29.5
--- NOTE | 2022-12-17 12:44 | ED_ITS ---
HPI - Dental/Oral General: Chief complaint: Dental/Oral Stated complaint: swelling in mouth, break out on hands Time Seen by Provider: 12/17/22 12:18 History of Present Illness: 47yo male Presents with right lower dental pain. Patient reports that he has been having drainage in his mouth that he has been swallowing and causing an upset stomach. Patient reports he has a broken tooth to the area. States that he has not been able to find a dentist in the area that takes his Medicaid. He denies fever, chills, difficulty swallowing, painful tongue movements, history of diabetes. Associated symptoms: Denies fever(s) or odynophagia Review of Systems Const: Denies: fever(s), chills or body aches ENMT: Reports: dental pain; Denies: throat pain or odynophagia Card: Denies: chest pain Resp: Denies: dyspnea GI: Denies: abdominal pain or vomiting Musc: Denies: neck pain PFSH ED PFSH: Medical History (Updated 12/17/22 @ 12:43 by LEXI Alvarez) Allergic rhinitis Anxiety GERD (gastroesophageal reflux disease) Hypertension Intellectual disability Night terrors, adult Psychiatric care Right anterior knee pain Social History Alcohol intake: current Substance/Drug Use: unknown Physical Exam Const: COMMON NORMALS: no acute distress and alert GENERAL APPEARANCE: cooperative ORIENTATION/CONSCIOUSNESS: Yes awake OTHER: Patient is sitting upright on the side of the stretcher in no acute distress. He is able to speak and give history with no difficulty. No family is at bedside HENMT: COMMON NORMALS: normocephalic, atraumatic, external ears normal and Normal external nose present HEAD & SCALP: normocephalic and atraumatic NOSE: Normal external nose present EXTERNAL EAR: Yes external ears normal MOUTH: Normal oral and palatal mucosa present and lip normal TEETH & GINGIVA IMAGES: 1. #31 broken posteriorly. No abscess or active drainage noted THROAT: posterior oropharynx normal Eye: GENERAL EYE: appearance normal, both eyes and all related structures Neck/C-Spine: COMMON NORMALS: full ROM Chest: CHEST: Yes Symmetrical chest wall rise Resp: COMMON NORMALS: normal respiratory effort EFFORT & INSPECTION: Yes able to speak in complete sentences Cardio: COMMON NORMALS: regular rate RATE: regular rate Extremity: COMMON NORMALS: full ROM Neuro: SENSORIUM/ORIENTATION: Yes alert SPEECH: speech normal Psych: COMMON NORMALS: cooperative ATTITUDE: Yes calm Course Vital Signs: Vital signs: Vital Signs Temperature 98.3 F 12/17/22 10:46 Pulse Rate 75 12/17/22 10:46 Respiratory Rate 14 12/17/22 10:46 Blood Pressure 131/87 12/17/22 10:46 Pulse Oximetry 97 12/17/22 10:46 Oxygen Delivery Me thod Room Air 12/17/22 10:46 MDM - Dental/Oral Medical Decision Making 47yo Male here for dental pain that has been ongoing for the past several days and reports drainage from the tooth area. Patient reports that his tooth is broken, but has been so for a while now. States that he has attempted to find a dentist in the area that takes his insurance, but has been unsuccessful. Patient denies history of diabetes, fever, chills, body aches, painful tongue movements, difficulty swallowing. Patient is nontoxic in appearance. Vital signs are stable. No abscess visualized on exam. Patient is noted to have full range of motion of his tongue with no difficulty. No indication of Ludewig's. Discussed with patient we would begin antibiotics to help with a potential infection given his reported history of drainage to the area, but he would need to see a dentist to take care of the tooth. Patient was advised [facility] had a dental clinic in [place] and they should take his insurance. Encourage patient to contact them as soon as possible. Recommend he return to the emergency department if rapid worsening symptoms, onset of fever associated with worsening, difficulty swallowing, painful tongue movements, and as needed. Medical Records I reviewed the patient's medical records. Discharge Plan Discharge Patient Disposition: Home Clinical Impression: Pain, dental, Nontraumatic broken or cracked tooth, Dental infection Condition: Stable Prescriptions: New amoxicillin-pot clavulanate 875-125 mg tablet 1 tab PO Q12H Qty: 14 0RF No Action Mucinex 600 mg tablet extended release 12hr 600 mg PO Q12H PRN (Reason: breathing/Congestion) Qty: 60 5RF clonidine HCl 0.1 mg tablet 0.1 mg PO .q hs Qty: 30 5RF buspirone 15 mg tablet 15 mg PO BID 30 Days Qty: 60 3RF Ventolin HFA 90 mcg/actuation HFA aerosol inhaler 2 puff INHALATION Q6H PRN (Reason: shortness of breath or wheezing) Qty: 18 5RF aspirin 81 mg tablet,delayed release (DR/EC) 81 mg PO DAILY Qty: 90 5RF Coreg 12.5 mg tablet 12.5 mg PO BID Qty: 60 5RF Rx Instructions: must administer with a meal/food amlodipine 5 mg tablet 5 mg PO BEDTIME Qty: 30 5RF pantoprazole 40 mg tablet,delayed release (DR/EC) 40 mg PO DAILY Qty: 30 3RF fluticasone propionate 50 mcg/actuation spray,suspension 2 spray INTRANASAL DAILY PRN (Reason: nasal congestion) Qty: 16 5RF famotidine 40 mg tablet 40 mg PO BID Qty: 60 3RF quetiapine [Seroquel] 400 mg Tablet 400 mg PO BEDTIME 30 Days Qty: 30 1RF naproxen 500 mg tablet 500 mg PO BID PRN (Reason: pain) Qty: 20 0RF Discharge Orders: Discharge ED (Routine); Ordered 12/17/22 Ordered By: Flex Mcgregor Referrals: Olaf Russell MD [Primary Care Provider] - Discharge Diet: Usual diet Discharge Activity: Resume usual activity Patient Instructions: Toothache (ED) Activity Restrictions/Additional Instructions: [facility] has a dental clinic. You may try to call their office to see if they accept your insurance or if they are able to see you to take care of your dental needs. [place] [facility] Print Language: Brazilian Coding Level of Care Code ED Tool Engine Lathe Set Up Operator for Kelley Gomez
== END 2022-12-17 12:49 | disposition home or self-care (01) ==
PROVIDERS: Emergency Provider Nurse Practitioner; PCP Family Medicine Adult Medicine
DX: M84.48XA Pathological fracture, other site, initial encounter for fracture (principal); K04.7 Periapical abscess without sinus; Z79.82 Long term (current) use of aspirin; I10 Essential (primary) hypertension
CPT/HCPCS: 99283

== ENCOUNTER 2023-01-10 22:46 | Emergency (ER) | payer MEDICAID, SELFPAY ==
[2023-01-10 22:56] VITALS: BP 110/72; PULSE 82; RESP 16; TEMP 37.1; O2SAT 98; BMI 27.5
--- NOTE | 2023-01-11 01:04 | XRR_ITS ---
PROCEDURE INFORMATION: Exam: XR Chest Exam date and time: 01/11/2023 1:08 AM Age: 47 years old Clinical indication: Other: Fatigue; Additional info: Ftigue TECHNIQUE: Imaging protocol: Radiologic exam of the chest. Views: 1 view. COMPARISON: CR XR chest 1V portable [id number] 11/16/2022 3:35 AM FINDINGS: Lungs: Unremarkable. No consolidation. Pleural spaces: Unremarkable. No pleural effusion. No pneumothorax. Heart/Mediastinum: Unremarkable. No cardiomegaly. Bones/joints: Unremarkable. XR/XR chest 1V portable [id number] IMPRESSION: No acute findings.
--- NOTE | 2023-01-11 01:05 | W.ED.GENADLT ---
HPI - General Adult General: Chief complaint: General Medical Stated complaint: exhausted Time Seen by Provider: 01/11/23 01:00 History of Present Illness: Patient presents to the ER for evaluation of exhaustion. Patient said he is felt super weak and tired all day today just like he did when he had walking pneumonia. Patient admits to drinking beer and smoking marijuana and thinks maybe it was laced with something. He just wants to be checked out. Review of Systems General: Reports: 10 or more systems reviewed and unremarkable except in HPI and below PFSH ED PFSH: Medical History Allergic rhinitis Anxiety GERD (gastroesophageal reflux disease) Hypertension Intellectual disability Night terrors, adult Psychiatric care Right anterior knee pain Social History Alcohol intake: current Substance/Drug Use: unknown Physical Exam Const: COMMON NORMALS: no acute distress, average body habitus, patient oriented x3, no limitations, healthy appearing, alert and well nourished HENMT: COMMON NORMALS: normocephalic, atraumatic, hearing grossly normal bilaterally, external ears normal, Normal external nose present and moist oral mucous membranes HEAD & SCALP: normocephalic and atraumatic NOSE: Normal external nose present EXTERNAL EAR: Yes external ears normal Eye: COMMON NORMALS: Equal, round and reactive pupils present, EOMs intact bilaterally, conjunctivae normal and no scleral icterus CONJUNCTIVA: Yes conjunctivae normal PUPIL: Yes Equal, round and reactive pupils present Neck/C-Spine: COMMON NORMALS: full ROM, no lymphadenopathy, supple, no meningeal signs, no JVD and Thyroid normal THYROID: Thyroid normal Lymph: LYMPHATIC: no lymphadenopathy noted Chest: COMMONS NORMALS: normal inspection of the chest and normal palpation of entire chest wall Resp: COMMON NORMALS: normal respiratory effort, No retractions, No use of accessory muscles and clear to auscultation bilaterally AUSCULTATION: clear to auscultation bilaterally Cardio: COMMON NORMALS: no JVD, regular rate, regular rhythm, S1 normal heart sound present, S2 normal heart sound present, No gallops present (Cardio), No clicks present (Cardio), No murmurs present (Cardio) and No rub (Cardio) RATE: regular rate RHYTHM: regular rhythm HEART SOUNDS: S1 normal heart sound present and S2 normal heart sound present GI: COMMON NORMALS: Normal to inspection, nondistended, normoactive bowel sounds present, Soft to palpation, non-tender, No hepatosplenomegaly present and no masses PALPATION: Yes Soft to palpation and Yes No hepatosplenomegaly present : COMMON NORMALS: Yes no CVA tenderness BLADDER/KIDNEY EXAM: Yes no CVA tenderness Back/Pelvis: COMMON NORMALS: no CVA tenderness Neuro: COMMON NORMALS: patient oriented x3 SENSORIUM/ORIENTATION: Yes alert MENINGEAL SIGNS: Yes no meningeal signs Course Vital Signs: Vital signs: Vital Signs Temperature 98.7 F 01/10/23 22:56 Pulse Rate 82 01/10/23 22:56 Respiratory Rate 16 01/10/23 22:56 Blood Pressure 110/72 01/10/23 22:56 Pulse Oximetry 98 01/10/23 22:56 Oxygen Delivery Me thod Room Air 01/10/23 22:56 MDM - General Adult Medical Decision Making Patient presents to the ER with complaints of anxiety more than normal and thinking someone spiked something in his weed. Patient was worked up in a standard fashion with physical exam and lab work included UA and urine drug screen. All essentially benign except urine drug screen showed positive for amphetamines. TSH was low which would indicate indicate hyperthyroidism which would go against his exhaustion. Patient be discharged home and told to follow-up with his family practice physician within next 7 days for further evaluation and treatment. Differential Diagnosis Fatigue, exhaustion, hypothyroidism, drug use Medical Records I reviewed the patient's medical records. Lab Data I reviewed the patient's lab results. 01/11/23 01:21 01/11/23 01:21 Radiology Impressions Chest X-Ray 01/11/23 01:04 IMPRESSION: No acute findings. Laboratory Results WBC 6.34 10^3/uL (3.29-11.43) 01/11/23 01:21 RBC 4.47 10^6/uL (3.85-5.65) 01/11/23 01:21 Hgb 13.50 g/dL (11.27-16.99) 01/11/23 01:21 Hct 40.7 % (37-53) 01/11/23 01:21 MCV 91.1 fl (82-101) 01/11/23 01:21 MCH 30.2 pg (27-33) 01/11/23 01:21 MCHC 33.2 g/dL (30-55) 01/11/23 01:21 RDW 13.1 % (12.1-15.1) 01/11/23 01:21 Plt Count 293 10^3/cmm (157-399) 01/11/23 01:21 MPV 8.8 fL (7.4-10.4) 01/11/23 01:21 Neut % (Auto) 31.7 % 01/11/23 01:21 Lymph % (Auto) 54.4 % 01/11/23 01:21 [place] % (Auto) 8.0 % 01/11/23 01:21 Eos % (Auto) 4.9 % 01/11/23 01:21 Baso % (Auto) 0.8 % 01/11/23 01:21 Neut # (Auto) 2.01 10^3/uL (1.8-7.7) 01/11/23 01:21 Lymph # (Auto) 3.5 10^3/uL (0.8-4.8) 01/11/23 01:21 [place] # (Auto) 0.5 10^3/uL (0.2-0.9) 01/11/23 01:21 Eos # (Auto) 0.3 10^3/uL (0.0-0.8) 01/11/23 01:21 Baso # (Auto) 0.1 10^3/uL (0.0-0.1) 01/11/23 01:21 Nucleated RBC % (auto) 0 % 01/11/23 01:21 Nucleated RBCs # 0.0 /100WBC 01/11/23 01:21 Sodium 140 mmol/L (136-145) 01/11/23 01:21 Potassium 3.3 mmol/L (3.5-5.1) L 01/11/23 01:21 Chloride 102 mmol/L (98-107) 01/11/23 01:21 Carbon Dioxide 28 mmol/L (22-29) 01/11/23 01:21 Anion Gap 13.3 (5-19) 01/11/23 01:21 BUN 12 mg/dL (6-20) 01/11/23 01:21 Creatinine 0.8 mg/dL (0.7-1.2) 01/11/23 01:21 GFR Calculation 125.9 mL/min (90-130) 01/11/23 01:21 Glucose 100 mg/dL (65-115) 01/11/23 01:21 Calculated Osmolality 290 mOsm/kg (285-295) 01/11/23 01:21 Calcium 9.4 mg/dL (8.5-10.5) 01/11/23 01:21 Magnesium 2.1 mg/dL (1.7-2.3) 01/11/23 01:21 Total Bilirubin 0.3 mg/dL (0.15-1.2) 01/11/23 01:21 AST 28 U/L (0-40) 01/11/23 01:21 ALT 40 U/L (0-41) 01/11/23 01:21 Alkaline Phosphatase 75 U/L (40-130) 01/11/23 01:21 Total Protein 7.0 g/dL (6.6-8.7) 01/11/23 01:21 Albumin 4.5 g/dL (3.5-5.2) 01/11/23 01:21 Globulin 2.5 g/dL (1.3-4.6) 01/11/23 01:21 TSH 0.06 uIU/mL (0.27-4.20) L 01/11/23 01:21 Urine Color Yellow (Yellow) 01/11/23 01:30 Urine Appearance Clear (CLEAR) 01/11/23 01:30 Urine pH 6 (5-7) 01/11/23 01:30 Ur Specific [place] 1.005 (1.005-1.030) 01/11/23 01:30 Urine Protein Neg (Negative) 01/11/23 01:30 Urine Glucose (UA) Norm (Normal) 01/11/23 01:30 Urine Ketones Negative (Negative) 01/11/23 01:30 Urine Blood Neg (Negative) 01/11/23 01:30 Urine Nitrate Negative (Negative) 01/11/23 01:30 Urine Bilirubin Neg (Negative) 01/11/23 01:30 Urine Urobilinogen Neg mg/dL (Negative) 01/11/23 01:30 Ur Leukocyte Esterase Negative (Negative) 01/11/23 01:30 Urine Opiates Screen Negative ng/mL (Negative) 01/11/23 01:30 Ur Barbiturates Screen Negative ng/mL (Negative) 01/11/23 01:30 Ur Phencyclidine Scrn Negative ng/mL (Negative) 01/11/23 01:30 Ur Amphetamines Screen Positive ng/mL (Negative) H 01/11/23 01:30 U Benzodiazepines Scrn Negative ng/mL (Negative) 01/11/23 01:30 Urine Cocaine Screen Negative ng/mL (Negative) 01/11/23 01:30 U Marijuana (THC) Screen Negative ng/mL (Negative) 01/11/23 01:30 All radiology interpretation(s) finalized by discharge Discharge Plan Discharge Patient Disposition: Home Clinical Impression: Methamphetamine use, Hyperthyroidism Condition: Stable Prescriptions: No Action Mucinex 600 mg tablet extended release 12hr 600 mg PO Q12H PRN (Reason: breathing/Congestion) Qty: 60 5RF clonidine HCl 0.1 mg tablet 0.1 mg PO .q hs Qty: 30 5RF buspirone 15 mg tablet 15 mg PO BID 30 Days Qty: 60 3RF Ventolin HFA 90 mcg/actuation HFA aerosol inhaler 2 puff INHALATION Q6H PRN (Reason: shortness of breath or wheezing) Qty: 18 5RF aspirin 81 mg tablet,delayed release (DR/EC) 81 mg PO DAILY Qty: 90 5RF Coreg 12.5 mg tablet 12.5 mg PO BID Qty: 60 5RF Rx Instructions: must administer with a meal/food amlodipine 5 mg tablet 5 mg PO BEDTIME Qty: 30 5RF pantoprazole 40 mg tablet,delayed release (DR/EC) 40 mg PO DAILY Qty: 30 3RF fluticasone propionate 50 mcg/actuation spray,suspension 2 spray INTRANASAL DAILY PRN (Reason: nasal congestion) Qty: 16 5RF famotidine 40 mg tablet 40 mg PO BID Qty: 60 3RF amoxicillin-pot clavulanate 875-125 mg tablet 1 tab PO Q12H Qty: 14 0RF quetiapine [Seroquel] 400 mg Tablet 400 mg PO BEDTIME 30 Days Qty: 30 1RF naproxen 500 mg tablet 500 mg PO BID PRN (Reason: pain) Qty: 20 0RF Discharge Orders: Discharge ED (Routine); Ordered 01/11/23 Ordered By: Gunnar Castañeda Referrals: Olaf Russell MD [Primary Care Provider] - 1 week Patient Instructions: Hyperthyroidism (ED), Methamphetamine Use Disorder (ED) Activity Restrictions/Additional Instructions: Please follow-up with your family practice physician within the next 7 days for further evaluation and treatment of your symptoms. Please do not use methamphetamines. Coding Level of Care Code ED Veterinary Laboratory Technician for Kelley Gomez
[2023-01-11 01:26] LABS: Basophils # 0.1 10^3/uL (0.0-0.1); Basophils % 0.8 %; Eosinophils # 0.3 10^3/uL (0.0-0.8); Eosinophils % 4.9 %; Hematocrit 40.7 % (37-53); Lymphocytes # 3.5 10^3/uL (0.8-4.8); Lymphocytes % 54.4 %; Mean Corpuscular HGB Conc 33.2 g/dL (30-55); Mean Corpuscular Hemoglobin 30.2 pg (27-33); Mean Corpuscular Volume 91.1 fl (82-101); Mean Platelet Volume 8.8 fL (7.4-10.4); Monocytes # 0.5 10^3/uL (0.2-0.9); Neutrophils # 2.01 10^3/uL (1.8-7.7); Neutrophils % 31.7 %; Nucleated Red Blood Cells % 0 %; Platelet Count 293 10^3/cmm (157-399); Red Blood Count 4.47 10^6/uL (3.85-5.65); Red Cell Distribution Width 13.1 % (12.1-15.1); White Blood Count 6.34 10^3/uL (3.29-11.43)
[2023-01-11 01:39] LABS: Add Urine Microscopic? NO; Charge for UA Resulting for Rev
[2023-01-11 01:49] LABS: Amphetamines Screen Urine Positive (Negative); Barbiturates Screen Urine Negative (Negative); Benzodiazepines Screen Urine Negative (Negative); Bilirubin Urine Neg (Negative); Blood Urine Neg (Negative); Cocaine Screen Urine Negative (Negative); Glucose Urine UA Norm (Normal); Ketones Urine Negative (Negative); Leukocyte Esterase Urine Negative (Negative); Nitrate Urine Negative (Negative); Opiate Screen Urine Negative (Negative); PCP Screen Urine Negative (Negative); Protein Urine Neg (Negative); Specific Gravity, Urine 1.005 (1.005-1.030); THC Screen Urine Negative (Negative); Urine Appearance Clear (CLEAR); Urine Color Yellow (Yellow); Urobilinogen Urine Neg (Negative); pH Urine 6 (5-7)
[2023-01-11 01:54] LABS: Alanine Aminotransferase 40 U/L (0-41); Albumin Level 4.5 g/dL (3.5-5.2); Alkaline Phosphatase 75 U/L (40-130); Anion Gap 13.3 (5-19); Aspartate Amino Transferase 28 U/L (0-40); Blood Urea Nitrogen 12 mg/dL (6-20); Calcium 9.4 mg/dL (8.5-10.5); Carbon Dioxide 28 mmol/L (22-29); Chloride 102 mmol/L (98-107); Globulin 2.5 g/dL (1.3-4.6); Glomerular Filtration Rate 125.9 mL/min (90-130); Glucose 100 mg/dL (65-115); Magnesium 2.1 mg/dL (1.7-2.3); Osmolality Calculated 290 mOsm/kg (285-295); Potassium 3.3 mmol/L (3.5-5.1); Sodium 140 mmol/L (136-145); Thyroid Stimulating Hormone 0.06 uIU/mL (0.27-4.20); Total Bilirubin 0.3 mg/dL (0.15-1.2)
[2023-01-11 02:17] VITALS: BP 110/72; PULSE 82; RESP 16; TEMP 37.1; O2SAT 98
== END 2023-01-11 02:19 | disposition home or self-care (01) ==
PROVIDERS: Emergency Provider Emergency Medicine; PCP Family Medicine Adult Medicine
DX: E05.90 Thyrotoxicosis, unspecified without thyrotoxic crisis or storm (principal); F15.90 Other stimulant use, unspecified, uncomplicated; Z79.82 Long term (current) use of aspirin; I10 Essential (primary) hypertension
CPT/HCPCS: 36415; 71045; 80053; 80306; 81003; 83735; 84443; 85025; 99284

== ENCOUNTER 2023-01-29 16:22 | Emergency (ER) | payer MEDICAID, SELFPAY ==
[2023-01-29 17:05] VITALS: BP 144/92; PULSE 96; RESP 16; TEMP 36.6; O2SAT 99; BMI 29.9
--- NOTE | 2023-01-29 17:13 | W.ED.ABDPA2 ---
Documented by User: Fer Garibay DO 01/29/23 18:33 HPI - Abdominal Pain General: Chief Complaint: Abdominal Pain Stated Complaint: abd pain Time Seen by Provider: 01/29/23 17:13 Source: patient Mode of arrival: ambulatory History of Present Illness: 47-year-old male presents emergency room with complaint of abdominal pain. Told the triage nurse about a story about he ate a chicken and that made his stomach hurt he has had this previously and he drank a mann drink that we have given him that seem to make it better (I think this was Carafate slurry). Earlier today he seen at physician in the outpatient clinic and was given Augmentin for tooth ache. He states he is still having a lot of tooth pain despite taking several [id number] analgesics and he wants something for pain he also states he thinks he needs his potassium checked because he is quite certain that it is low. Was difficult to get him to focus on 1 particular complaint is reported complaint to the triage nurse was different than the nurse that evaluated him initially in the room and slightly different when I talked to him again. No vomiting no diarrhea no hematochezia melena hematemesis coffee-ground emesis no dysuria urgency or frequency or hematuria. Does state he has a little bit of chest discomfort is worse when he takes a deep breath but refers more the pain to the epigastric area when demonstrating to me. No pain that radiates into the neck back or arms MD elicited complaint: abdominal pain Onset (ago): hour(s) Location: Epigastric Severity: moderate Quality: cramping Radiation: none Exacerbating factors: nothing Relieving factors: nothing Associated Symptoms: Denies chills, dysuria and fever(s) Review of Systems Const: Denies: fever(s) or chills Card: Denies: chest pain Resp: Denies: dyspnea GI: Denies: abdominal pain : Denies: dysuria, urinary frequency or urinary urgency Musc: Denies: neck pain or back pain Skin/Breast: Denies: rash PFSH ED PFSH: Medical History Allergic rhinitis Anxiety GERD (gastroesophageal reflux disease) Hypertension Intellectual disability Night terrors, adult Psychiatric care Right anterior knee pain Social History (Reviewed 01/29/23 @ 17:14 by RANJITH Morgan Alcohol intake: current Substance/Drug Use: unknown Physical Exam Const: COMMON NORMALS: no acute distress GENERAL APPEARANCE: cooperative and comfortable ORIENTATION/CONSCIOUSNESS: Yes awake, Yes oriented to person, Yes oriented to place and Yes oriented to time HENMT: COMMON NORMALS: normocephalic, atraumatic and hearing grossly normal bilaterally HEAD & SCALP: normocephalic and atraumatic Resp: COMMON NORMALS: normal respiratory effort, No retractions, No use of accessory muscles and clear to auscultation bilaterally AUSCULTATION: clear to auscultation bilaterally Cardio: COMMON NORMALS: regular rate, regular rhythm and No murmurs present (Cardio) RATE: regular rate RHYTHM: regular rhythm GI: COMMON NORMALS: Soft to palpation and No hepatosplenomegaly present AUSCULTATION: Yes normoactive bowel sounds PALPATION: Yes Soft to palpation, No Tenderness to palpation present (GI), No Guarding due to palpation present (GI) and Yes No hepatosplenomegaly present Extremity: COMMON NORMALS: normal to inspection, capillary refill normal, no clubbing, cyanosis or edema, no calf tenderness and no pedal edema Neuro: SENSORIUM/ORIENTATION: Yes oriented to person, Yes oriented to place and Yes oriented to time Skin: COMMON NORMALS: no rashes or lesions noted GENERAL SKIN EXAM: no rashes or lesions noted Course Vital Signs: Vital signs: Vital Signs Temperature 97.9 F 01/29/23 17:05 Pulse Rate 96 01/29/23 17:05 Respiratory Rate 16 01/29/23 17:05 Blood Pressure 144/92 01/29/23 17:05 Pulse Oximetry 99 01/29/23 17:05 Oxygen Delivery Me thod Room Air 01/29/23 17:05 MDM - Abdominal Pain Medical Decision Making Labs pending. Care signed out to Dr. Mejia at change of shift. See final notes for diagnosis and disposition. Lab Data 01/29/23 17:57 01/29/23 17:57 Labs/Radiology: Laboratory Results WBC 6.79 10^3/uL (3.29-11.43) 01/29/23 17:57 RBC 4.48 10^6/uL (3.85-5.65) 01/29/23 17:57 Hgb 13.90 g/dL (11.27-16.99) 01/29/23 17:57 Hct 41.9 % (37-53) 01/29/23 17:57 MCV 93.5 fl (82-101) 01/29/23 17:57 MCH 31.0 pg (27-33) 01/29/23 17:57 MCHC 33.2 g/dL (30-55) 01/29/23 17:57 RDW 13.2 % (12.1-15.1) 01/29/23 17:57 Plt Count 320 10^3/cmm (157-399) 01/29/23 17:57 MPV 9.0 fL (7.4-10.4) 01/29/23 17:57 Neut % (Auto) 42.7 % 01/29/23 17:57 Lymph % (Auto) 42.9 % 01/29/23 17:57 Schleicher % (Auto) 9.9 % 01/29/23 17:57 Eos % (Auto) 3.7 % 01/29/23 17:57 Baso % (Auto) 0.7 % 01/29/23 17:57 Neut # (Auto) 2.90 10^3/uL (1.8-7.7) 01/29/23 17:57 Lymph # (Auto) 2.9 10^3/uL (0.8-4.8) 01/29/23 17:57 Schleicher # (Auto) 0.7 10^3/uL (0.2-0.9) 01/29/23 17:57 Eos # (Auto) 0.3 10^3/uL (0.0-0.8) 01/29/23 17:57 Baso # (Auto) 0.1 10^3/uL (0.0-0.1) 01/29/23 17:57 Nucleated RBC % (auto) 0 % 01/29/23 17:57 Nucleated RBCs # 0.0 /100WBC 01/29/23 17:57 Sodium 138 mmol/L (136-145) 01/29/23 17:57 Potassium 3.7 mmol/L (3.5-5.1) 01/29/23 17:57 Chloride 100 mmol/L (98-107) 01/29/23 17:57 Carbon Dioxide 32 mmol/L (22-29) H 01/29/23 17:57 Anion Gap 9.7 (5-19) 01/29/23 17:57 BUN 13 mg/dL (6-20) 01/29/23 17:57 Creatinine 1.0 mg/dL (0.7-1.2) 01/29/23 17:57 GFR Calculation 97.3 mL/min (90-130) 01/29/23 17:57 Glucose 100 mg/dL (65-115) 01/29/23 17:57 Calculated Osmolality 286 mOsm/kg (285-295) 01/29/23 17:57 Calcium 9.1 mg/dL (8.5-10.5) 01/29/23 17:57 Total Bilirubin 0.4 mg/dL (0.15-1.2) 01/29/23 17:57 AST 25 U/L (0-40) 01/29/23 17:57 ALT 40 U/L (0-41) 01/29/23 17:57 Alkaline Phosphatase 71 U/L (40-130) 01/29/23 17:57 Total Protein 7.0 g/dL (6.6-8.7) 01/29/23 17:57 Albumin 4.4 g/dL (3.5-5.2) 01/29/23 17:57 Globulin 2.6 g/dL (1.3-4.6) 01/29/23 17:57 Lipase 14 U/L (13-60) 01/29/23 17:57 XR interpretation done by ED provider, pending radiology final review Discharge Plan Discharge Patient Disposition: Home Clinical Impression: Abdominal pain, epigastric Condition: Stable Prescriptions: New tramadol 50 mg tablet 50 mg PO Q8H PRN (Reason: pain) Qty: 7 0RF sucralfate 1 gram tablet 1 g PO TID 28 Days Qty: 84 0RF Continued pantoprazole 40 mg tablet,delayed release (DR/EC) 40 mg PO DAILY Qty: 30 3RF Discontinued naproxen 500 mg tablet 500 mg PO BID PRN (Reason: pain) Qty: 20 0RF No Action Mucinex 600 mg tablet extended release 12hr 600 mg PO Q12H PRN (Reason: breathing/Congestion) Qty: 60 5RF clonidine HCl 0.1 mg tablet 0.1 mg PO .q hs Qty: 30 5RF buspirone 15 mg tablet 15 mg PO BID 30 Days Qty: 60 3RF Ventolin HFA 90 mcg/actuation HFA aerosol inhaler 2 puff INHALATION Q6H PRN (Reason: shortness of breath or wheezing) Qty: 18 5RF amoxicillin-pot clavulanate 875-125 mg tablet 1 tab PO BID 7 Days Qty: 14 0RF aspirin 81 mg tablet,delayed release (DR/EC) 81 mg PO DAILY Qty: 90 5RF cephalexin 500 mg capsule 500 mg PO TID 7 Days Qty: 21 0RF Coreg 12.5 mg tablet 12.5 mg PO BID Qty: 60 5RF Rx Instructions: must administer with a meal/food amlodipine 5 mg tablet 5 mg PO BEDTIME Qty: 30 5RF fluticasone propionate 50 mcg/actuation spray,suspension 2 spray INTRANASAL DAILY PRN (Reason: nasal congestion) Qty: 16 5RF famotidine 40 mg tablet 40 mg PO BID Qty: 60 3RF quetiapine [Seroquel] 400 mg Tablet 400 mg PO BEDTIME 30 Days Qty: 30 1RF Discharge Orders: Discharge ED (Routine); Ordered 01/29/23 Ordered By: Yohannes Mejia Referrals: Olaf Russell MD [Primary Care Provider] - 1-3 days Patient Instructions: Abdominal Pain (ED), Opioid Safety, Pain Management Activity Restrictions/Additional Instructions: Fill your antibiotics for your tooth problem. Other scripts are for your stomach problem. Pain medication for severe pain related to your tooth. Take sucralfate 30 minutes before meals to help with your belly pain. See your doctor this week. Coding Level of Care Code ED Legal Secretary Receptionist for Chg Fwd Documented by User: Yohannes Mejia DO 01/29/23 19:10 HPI - Abdominal Pain General: Chief Complaint: Abdominal Pain Stated Complaint: abd pain Time Seen by Provider: 01/29/23 17:13 PFSH ED PFSH: Medical History Allergic rhinitis Anxiety GERD (gastroesophageal reflux disease) Hypertension Intellectual disability Night terrors, adult Psychiatric care Right anterior knee pain Social History Alcohol intake: current Substance/Drug Use: unknown Course Vital Signs: Vital signs: Vital Signs Temperature 97.9 F 01/29/23 17:05 Pulse Rate 96 01/29/23 17:05 Respiratory Rate 16 01/29/23 17:05 Blood Pressure 144/92 01/29/23 17:05 Pulse Oximetry 99 01/29/23 17:05 Oxygen Delivery Me thod Room Air 01/29/23 17:05 MDM - Abdominal Pain Medical Decision Making Labs pending. Care signed out to Dr. Mejia at change of shift. See final notes for diagnosis and disposition. 47-year-old patient checked out to me at shift change by the previous physician. This is pending work-up. CBC is normal. BMP is not remarkable. Lipase is normal. Patient is improved after Carafate and Toradol IV. Chest x-ray is clear. He will be allowed discharge. He will fill his antibiotic prescription for the tooth problem. Tramadol for pain, very short course. Carafate and pantoprazole for continued stomach discomfort. Close outpatient follow-up. To return if worsening. Lab Data 01/29/23 17:57 01/29/23 17:57 Labs/Radiology: Laboratory Results WBC 6.79 10^3/uL (3.29-11.43) 01/29/23 17:57 RBC 4.48 10^6/uL (3.85-5.65) 01/29/23 17:57 Hgb 13.90 g/dL (11.27-16.99) 01/29/23 17:57 Hct 41.9 % (37-53) 01/29/23 17:57 MCV 93.5 fl (82-101) 01/29/23 17:57 MCH 31.0 pg (27-33) 01/29/23 17:57 MCHC 33.2 g/dL (30-55) 01/29/23 17:57 RDW 13.2 % (12.1-15.1) 01/29/23 17:57 Plt Count 320 10^3/cmm (157-399) 01/29/23 17:57 MPV 9.0 fL (7.4-10.4) 01/29/23 17:57 Neut % (Auto) 42.7 % 01/29/23 17:57 Lymph % (Auto) 42.9 % 01/29/23 17:57 Schleicher % (Auto) 9.9 % 01/29/23 17:57 Eos % (Auto) 3.7 % 01/29/23 17:57 Baso % (Auto) 0.7 % 01/29/23 17:57 Neut # (Auto) 2.90 10^3/uL (1.8-7.7) 01/29/23 17:57 Lymph # (Auto) 2.9 10^3/uL (0.8-4.8) 01/29/23 17:57 Schleicher # (Auto) 0.7 10^3/uL (0.2-0.9) 01/29/23 17:57 Eos # (Auto) 0.3 10^3/uL (0.0-0.8) 01/29/23 17:57 Baso # (Auto) 0.1 10^3/uL (0.0-0.1) 01/29/23 17:57 Nucleated RBC % (auto) 0 % 01/29/23 17:57 Nucleated RBCs # 0.0 /100WBC 01/29/23 17:57 Sodium 138 mmol/L (136-145) 01/29/23 17:57 Potassium 3.7 mmol/L (3.5-5.1) 01/29/23 17:57 Chloride 100 mmol/L (98-107) 01/29/23 17:57 Carbon Dioxide 32 mmol/L (22-29) H 01/29/23 17:57 Anion Gap 9.7 (5-19) 01/29/23 17:57 BUN 13 mg/dL (6-20) 01/29/23 17:57 Creatinine 1.0 mg/dL (0.7-1.2) 01/29/23 17:57 GFR Calculation 97.3 mL/min (90-130) 01/29/23 17:57 Glucose 100 mg/dL (65-115) 01/29/23 17:57 Calculated Osmolality 286 mOsm/kg (285-295) 01/29/23 17:57 Calcium 9.1 mg/dL (8.5-10.5) 01/29/23 17:57 Total Bilirubin 0.4 mg/dL (0.15-1.2) 01/29/23 17:57 AST 25 U/L (0-40) 01/29/23 17:57 ALT 40 U/L (0-41) 01/29/23 17:57 Alkaline Phosphatase 71 U/L (40-130) 01/29/23 17:57 Total Protein 7.0 g/dL (6.6-8.7) 01/29/23 17:57 Albumin 4.4 g/dL (3.5-5.2) 01/29/23 17:57 Globulin 2.6 g/dL (1.3-4.6) 01/29/23 17:57 Lipase 14 U/L (13-60) 01/29/23 17:57 Discharge Plan Discharge Patient Disposition: Home Clinical Impression: Abdominal pain, epigastric Condition: Stable Prescriptions: New tramadol 50 mg tablet 50 mg PO Q8H PRN (Reason: pain) Qty: 7 0RF sucralfate 1 gram tablet 1 g PO TID 28 Days Qty: 84 0RF Continued pantoprazole 40 mg tablet,delayed release (DR/EC) 40 mg PO DAILY Qty: 30 3RF Discontinued naproxen 500 mg tablet 500 mg PO BID PRN (Reason: pain) Qty: 20 0RF No Action Mucinex 600 mg tablet extended release 12hr 600 mg PO Q12H PRN (Reason: breathing/Congestion) Qty: 60 5RF clonidine HCl 0.1 mg tablet 0.1 mg PO .q hs Qty: 30 5RF buspirone 15 mg tablet 15 mg PO BID 30 Days Qty: 60 3RF Ventolin HFA 90 mcg/actuation HFA aerosol inhaler 2 puff INHALATION Q6H PRN (Reason: shortness of breath or wheezing) Qty: 18 5RF amoxicillin-pot clavulanate 875-125 mg tablet 1 tab PO BID 7 Days Qty: 14 0RF aspirin 81 mg tablet,delayed release (DR/EC) 81 mg PO DAILY Qty: 90 5RF cephalexin 500 mg capsule 500 mg PO TID 7 Days Qty: 21 0RF Coreg 12.5 mg tablet 12.5 mg PO BID Qty: 60 5RF Rx Instructions: must administer with a meal/food amlodipine 5 mg tablet 5 mg PO BEDTIME Qty: 30 5RF fluticasone propionate 50 mcg/actuation spray,suspension 2 spray INTRANASAL DAILY PRN (Reason: nasal congestion) Qty: 16 5RF famotidine 40 mg tablet 40 mg PO BID Qty: 60 3RF quetiapine [Seroquel] 400 mg Tablet 400 mg PO BEDTIME 30 Days Qty: 30 1RF Discharge Orders: Discharge ED (Routine); Ordered 01/29/23 Ordered By: Yohannes Mejia Referrals: Olaf Russell MD [Primary Care Provider] - 1-3 days Patient Instructions: Abdominal Pain (ED), Opioid Safety, Pain Management Activity Restrictions/Additional Instructions: Fill your antibiotics for your tooth problem. Other scripts are for your stomach problem. Pain medication for severe pain related to your tooth. Take sucralfate 30 minutes before meals to help with your belly pain. See your doctor this week. Coding Level of Care Code ED Legal Secretary Receptionist for Kelley Gomez
--- NOTE | 2023-01-29 18:07 | ECG_ITS ---
[facility] Test Date: 2023-01-29 Pat Name: Yoel Almeida Department: Room: Gender: Male Hospital Supervisor: : 1975 Requested By: Fer Jin Order Number: [id number] Aubrey MD: Corbin Wu M.D. Measurements Intervals [place] Rate: 56 P: 53 MI: 181 QRS: 44 QRSD: 92 T: 35 QT: 384 QTc: 374 Interpretive Statements SINUS BRADYCARDIA Compared to ECG 11/16/2022 03:31:15 Sinus rhythm no longer present Electronically Signed On 01-29-2023 22:51:35 CDT by Corbin Wu M.D. [email or web address] hospitaleMazeMemetrohealth par[facility] medical centerSitScape/store/OM/[id number]
--- NOTE | 2023-01-29 18:16 | XRR_ITS ---
PROCEDURE INFORMATION: Exam: XR Chest Exam date and time: 01/29/2023 6:26 PM Age: 47 years old Clinical indication: Cough and dyspnea; Patient HX: Cough; Dyspnea; HTN TECHNIQUE: Imaging protocol: Radiologic exam of the chest. Views: 1 view. COMPARISON: CR (CHEST, ) 01/11/2023 1:08 AM FINDINGS: Lungs: Unremarkable. No consolidation. Pleural spaces: Unremarkable. No pleural effusion. No pneumothorax. Heart/Mediastinum: Unremarkable. No cardiomegaly. Bones/joints: Unremarkable. XR/XR chest 1V portable [id number] IMPRESSION: No acute findings.
[2023-01-29 18:27] LABS: Alanine Aminotransferase 40 U/L (0-41); Albumin Level 4.4 g/dL (3.5-5.2); Alkaline Phosphatase 71 U/L (40-130); Anion Gap 9.7 (5-19); Aspartate Amino Transferase 25 U/L (0-40); Blood Urea Nitrogen 13 mg/dL (6-20); Calcium 9.1 mg/dL (8.5-10.5); Carbon Dioxide 32 mmol/L (22-29); Chloride 100 mmol/L (98-107); Creatinine Clr Calc Pharmacy 123.0418; Globulin 2.6 g/dL (1.3-4.6); Glomerular Filtration Rate 97.3 mL/min (90-130); Glucose 100 mg/dL (65-115); Lipase 14 U/L (13-60); Osmolality Calculated 286 mOsm/kg (285-295); Potassium 3.7 mmol/L (3.5-5.1); Sodium 138 mmol/L (136-145); Total Bilirubin 0.4 mg/dL (0.15-1.2)
[2023-01-29] MEDS: ketorolac 30 mg/mL INJ IVP (18:27)
[2023-01-29] MEDS: sucralfate 1 gm/10 mL Oral Liq UDC PO (18:27)
[2023-01-29 18:38] LABS: Basophils # 0.1 10^3/uL (0.0-0.1); Basophils % 0.7 %; Eosinophils # 0.3 10^3/uL (0.0-0.8); Eosinophils % 3.7 %; Hematocrit 41.9 % (37-53); Lymphocytes # 2.9 10^3/uL (0.8-4.8); Lymphocytes % 42.9 %; Mean Corpuscular HGB Conc 33.2 g/dL (30-55); Mean Corpuscular Volume 93.5 fl (82-101); Monocytes # 0.7 10^3/uL (0.2-0.9); Monocytes % 9.9 %; Neutrophils % 42.7 %; Nucleated Red Blood Cells % 0 %; Platelet Count 320 10^3/cmm (157-399); Red Blood Count 4.48 10^6/uL (3.85-5.65); Red Cell Distribution Width 13.2 % (12.1-15.1); White Blood Count 6.79 10^3/uL (3.29-11.43)
[2023-01-29 19:14] VITALS: BP 143/101; RESP 16
== END 2023-01-29 19:17 | disposition home or self-care (01) ==
PROVIDERS: Family Medicine; Emergency Provider Emergency Medicine; PCP Family Medicine Adult Medicine
DX: R10.13 Epigastric pain (principal); Z79.82 Long term (current) use of aspirin; I10 Essential (primary) hypertension
CPT/HCPCS: 36415; 71045; 80053; 83690; 85025; 93005; 96374; 99285; J1885

== ENCOUNTER 2023-02-11 23:39 | Emergency (ER) | payer MEDICAID, SELFPAY ==
[2023-02-12 00:21] VITALS: BP 142/92; PULSE 74; RESP 18; TEMP 36.8; O2SAT 96; BMI 29.7
[2023-02-12 01:00] VITALS: BP 136/83; PULSE 66; O2SAT 94
[2023-02-12 02:00] VITALS: BP 132/78; PULSE 58; O2SAT 94
[2023-02-12 02:31] VITALS: BP 141/99; PULSE 66; O2SAT 97
--- NOTE | 2023-02-12 03:49 | XRR_ITS ---
PROCEDURE INFORMATION: Exam: XR Chest Exam date and time: 02/12/2023 4:08 AM Age: 47 years old Clinical indication: Shortness of breath; Patient HX: C/O SOB TECHNIQUE: Imaging protocol: Radiologic exam of the chest. Views: 1 view. COMPARISON: CR (CHEST, ) 01/29/2023 6:26 PM FINDINGS: Lungs: Unremarkable. No consolidation. Pleural spaces: Unremarkable. No pleural effusion. No pneumothorax. Heart/Mediastinum: Unremarkable. No cardiomegaly. Bones/joints: Unremarkable. XR/XR chest 1V portable [id number] IMPRESSION: No acute findings.
[2023-02-12 05:27] LABS: Alanine Aminotransferase 41 U/L (0-41); Albumin Level 4.2 g/dL (3.5-5.2); Alkaline Phosphatase 90 U/L (40-130); Blood Urea Nitrogen 13 mg/dL (6-20); Calcium 9.1 mg/dL (8.5-10.5); Carbon Dioxide 27 mmol/L (22-29); Chloride 104 mmol/L (98-107); Globulin 2.6 g/dL (1.3-4.6); Glomerular Filtration Rate 109.9 mL/min (90-130); Glucose 109 mg/dL (65-115); Osmolality Calculated 287 mOsm/kg (285-295); Sodium 138 mmol/L (136-145); Total Bilirubin 0.2 mg/dL (0.15-1.2); Total Protein 6.8 g/dL (6.6-8.7)
[2023-02-12 05:30] LABS: Anion Gap 11.2 (5-19); Aspartate Amino Transferase 25 U/L (0-40); Potassium 4.2 mmol/L (3.5-5.1)
--- NOTE | 2023-02-12 05:38 | ED_ITS ---
HPI - Weakness General: Chief complaint: Weakness Stated complaint: Back Pain\Cant Sleep Time Seen by Provider: 02/12/23 04:34 Source: patient History of Present Illness: 47 year old male well known to the emergency department. He presents with several complaints. He says that his legs have felt weak today. He says he's had some congestion. And he feels like his potassium is low due to the weakness. Potential fever. No vomiting. No overt chest pain. He also says that he has not been able to sleep. MD Complaint: generalized weakness Associated symptoms: Reports fever(s) ( maybe so ) and nausea; Denies chest pain, chills, confusion, headache(s) or vomiting Review of Systems Const: Reports: fever(s) ( maybe so ); Denies: chills or body aches Eyes: Denies: change in vision ENMT: Denies: throat pain Card: Denies: chest pain or palpitations Resp: Reports: dyspnea and non-productive cough; Denies: productive cough or wheezing GI: Reports: nausea; Denies: abdominal pain, vomiting, diarrhea or hematochezia Skin/Breast: Denies: rash Neuro: Reports: weakness in extremities; Denies: headache(s), numbness in extremities, dizziness or confusion PFSH ED PFSH: Medical History Allergic rhinitis Anxiety GERD (gastroesophageal reflux disease) Hypertension Intellectual disability Night terrors, adult Psychiatric care Right anterior knee pain Social History Alcohol intake: current Substance/Drug Use: unknown Physical Exam Const: COMMON NORMALS: no acute distress GENERAL APPEARANCE: cooperative; not ill appearing and not frail appearing HENMT: COMMON NORMALS: normocephalic, atraumatic and Normal external nose present HEAD & SCALP: normocephalic and atraumatic FACE & SINUS: normal facial exam and face symmetric NOSE: Normal external nose present Eye: COMMON NORMALS: Equal, round and reactive pupils present and EOMs intact bilaterally PUPIL: Yes Equal, round and reactive pupils present Neck/C-Spine: GENERAL: Yes trachea midline Chest: CHEST: Yes Symmetrical chest wall rise Resp: COMMON NORMALS: normal respiratory effort, No retractions, No use of accessory muscles and clear to auscultation bilaterally AUSCULTATION: clear to auscultation bilaterally Cardio: COMMON NORMALS: regular rate and regular rhythm RATE: regular rate RHYTHM: regular rhythm GI: COMMON NORMALS: Normal to inspection, nondistended, normoactive bowel sounds present Extremity: COMMON NORMALS: no pedal edema Neuro: MILO COMA SCALE: document GCS findings [place] coma scale eye opening: Spontaneous Milo coma scale verbal response: Orientated Milo coma scale motor response: Obey commands [place] coma scale total score: 15 SENSORY EXAM: Yes extremities (intact) Psych: COMMON NORMALS: speech normal SPEECH: Yes normal speech Skin: COMMON NORMALS: no rashes or lesions noted GENERAL SKIN EXAM: no rashes or lesions noted Course Vital Signs: Vital signs: Vital Signs Temperature 98.3 F 02/12/23 00:21 Pulse Rate 66 02/12/23 05:52 Respiratory Rate 18 02/12/23 00:21 Blood Pressure 151/105 02/12/23 05:52 Pulse Oximetry 97 02/12/23 05:52 Oxygen Delivery Me thod Room Air 02/12/23 02:31 MDM - Weakness Medical Decision Making No significant findings on exam. He was concerned that his potassium was low. It is 4.2. Laboratories otherwise is not remarkable. Chest X-ray is negative. He'll be allowed discharge. Lab Data 02/12/23 04:53 Radiology Impressions Chest X-Ray 02/12/23 03:49 IMPRESSION: No acute findings. Laboratory Results Sodium 138 mmol/L (136-145) 02/12/23 04:53 Potassium 4.2 mmol/L (3.5-5.1) 02/12/23 04:53 Chloride 104 mmol/L (98-107) 02/12/23 04:53 Carbon Dioxide 27 mmol/L (22-29) 02/12/23 04:53 Anion Gap 11.2 (5-19) 02/12/23 04:53 BUN 13 mg/dL (6-20) 02/12/23 04:53 Creatinine 0.9 mg/dL (0.7-1.2) 02/12/23 04:53 GFR Calculation 109.9 mL/min (90-130) 02/12/23 04:53 Glucose 109 mg/dL (65-115) 02/12/23 04:53 Calculated Osmolality 287 mOsm/kg (285-295) 02/12/23 04:53 Calcium 9.1 mg/dL (8.5-10.5) 02/12/23 04:53 Total Bilirubin 0.2 mg/dL (0.15-1.2) 02/12/23 04:53 AST 25 U/L (0-40) 02/12/23 04:53 ALT 41 U/L (0-41) 02/12/23 04:53 Alkaline Phosphatase 90 U/L (40-130) 02/12/23 04:53 Total Protein 6.8 g/dL (6.6-8.7) 02/12/23 04:53 Albumin 4.2 g/dL (3.5-5.2) 02/12/23 04:53 Globulin 2.6 g/dL (1.3-4.6) 02/12/23 04:53 XR interpretation done by ED provider, pending radiology final review Discharge Plan Discharge Patient Disposition: Home Clinical Impression: Anxiety, Insomnia, Acute dyspnea Condition: Stable Prescriptions: New Ambien 10 mg tablet 10 mg PO ONCE Qty: 1 0RF No Action Mucinex 600 mg tablet extended release 12hr 600 mg PO Q12H PRN (Reason: breathing/Congestion) Qty: 60 5RF clonidine HCl 0.1 mg tablet 0.1 mg PO .q hs Qty: 30 5RF buspirone 15 mg tablet 15 mg PO BID 30 Days Qty: 60 3RF Ventolin HFA 90 mcg/actuation HFA aerosol inhaler 2 puff INHALATION Q6H PRN (Reason: shortness of breath or wheezing) Qty: 18 5RF amoxicillin-pot clavulanate 875-125 mg tablet 1 tab PO BID 7 Days Qty: 14 0RF aspirin 81 mg tablet,delayed release (DR/EC) 81 mg PO DAILY Qty: 90 5RF cephalexin 500 mg capsule 500 mg PO TID 7 Days Qty: 21 0RF Coreg 12.5 mg tablet 12.5 mg PO BID Qty: 60 5RF Rx Instructions: must administer with a meal/food amlodipine 5 mg tablet 5 mg PO BEDTIME Qty: 30 5RF fluticasone propionate 50 mcg/actuation spray,suspension 2 spray INTRANASAL DAILY PRN (Reason: nasal congestion) Qty: 16 5RF famotidine 40 mg tablet 40 mg PO BID Qty: 60 3RF quetiapine [Seroquel] 400 mg Tablet 400 mg PO BEDTIME 30 Days Qty: 30 1RF tramadol 50 mg tablet 50 mg PO Q8H PRN (Reason: pain) Qty: 7 0RF sucralfate 1 gram tablet 1 g PO TID 28 Days Qty: 84 0RF pantoprazole 40 mg tablet,delayed release (DR/EC) 40 mg PO DAILY Qty: 30 3RF Discharge Orders: Discharge ED (Routine); Ordered 02/12/23 Ordered By: Yohannes Mejia Referrals: Olaf Russell MD [Primary Care Provider] - 1-3 days Patient Instructions: Dyspnea (ED), Insomnia (ED) Activity Restrictions/Additional Instructions: Take the medication you were dispensed to help you sleep. Your potassium was normal. Chest x-ray was normal. No cause of weakness was identified on your work-up in the emergency department. Follow-up with your doctor this week. Coding Level of Care Code ED Window Unit Air Conditioning Mechanic for Kelley Gomez
[2023-02-12 05:52] VITALS: BP 151/105; PULSE 66; O2SAT 97
== END 2023-02-12 05:54 | disposition home or self-care (01) ==
PROVIDERS: Emergency Provider Emergency Medicine; PCP Family Medicine Adult Medicine
DX: F41.9 Anxiety disorder, unspecified (principal); R06.00 Dyspnea, unspecified; G47.00 Insomnia, unspecified; Z79.82 Long term (current) use of aspirin; I10 Essential (primary) hypertension
CPT/HCPCS: 71045; 80053; 99284

== ENCOUNTER 2023-03-05 06:41 | Emergency (ER) | payer MEDICAID, SELFPAY ==
[2023-03-05 06:45] VITALS: BMI 29.7
[2023-03-05 06:48] VITALS: BP 136/97; PULSE 61; RESP 16; TEMP 36.9; O2SAT 100
--- NOTE | 2023-03-05 06:50 | ED_ITS ---
HPI - Dental/Oral General: Chief complaint: Dental/Oral Stated complaint: TOOTH PAIN Time Seen by Provider: 03/05/23 06:41 Source: patient Mode of arrival: ambulatory Limitations: no limitations History of Present Illness: 47-year-old male states that he has had right lower dental pain for the last 2 days states pain is sharp in nature rates an 8 out of 10 denies any worsening improving factors denies any fevers denies any difficulty swallowing. Associated symptoms: Denies fever(s) Review of Systems Const: Denies: fever(s), chills, body aches or change in appetite Eyes: Denies: blurry vision or eye discomfort ENMT: Reports: dental pain; Denies: throat pain Card: Denies: chest pain Resp: Denies: dyspnea GI: Denies: abdominal pain, nausea, vomiting or diarrhea Musc: Denies: neck pain or back pain Skin/Breast: Denies: rash Neuro: Denies: headache(s) PFSH ED PFSH: Medical History Allergic rhinitis Anxiety GERD (gastroesophageal reflux disease) Hypertension Intellectual disability Night terrors, adult Psychiatric care Right anterior knee pain Social History Alcohol intake: current Substance/Drug Use: unknown Physical Exam Const: COMMON NORMALS: no acute distress, patient oriented x3 and healthy appearing HENMT: COMMON NORMALS: normocephalic and atraumatic HEAD & SCALP: normocephalic and atraumatic OTHER: Tenderness over right lower molar does have dental carry no abscess no trismus Neck/C-Spine: COMMON NORMALS: full ROM and supple Chest: COMMONS NORMALS: normal inspection of the chest Resp: COMMON NORMALS: normal respiratory effort Extremity: COMMON NORMALS: normal to inspection and full ROM Neuro: COMMON NORMALS: patient oriented x3, moves all extremities and no focal motor deficits Psych: COMMON NORMALS: mental status grossly normal, Normal thought process present and cooperative THOUGHT PROCESS: Normal thought process present Skin: COMMON NORMALS: no rashes or lesions noted and no wounds GENERAL SKIN EXAM: no rashes or lesions noted MDM - Dental/Oral Medical Decision Making Patient presents here with dental pain he has no trismus no abscess he is well- appearing here he is stable for discharge we will place him on Naprosyn and Keflex he is to follow-up with a dentist. Medical Records I reviewed the patient's medical records. No radiology studies performed this visit Discharge Plan Discharge Patient Disposition: Home Clinical Impression: Toothache Condition: Stable Prescriptions: New cephalexin 500 mg capsule 500 mg PO TID 7 Days Qty: 21 0RF Naprosyn 500 mg tablet 500 mg PO BID PRN (Reason: pain) Qty: 20 0RF No Action Mucinex 600 mg tablet extended release 12hr 600 mg PO Q12H PRN (Reason: breathing/Congestion) Qty: 60 5RF clonidine HCl 0.1 mg tablet 0.1 mg PO .q hs Qty: 30 5RF buspirone 15 mg tablet 15 mg PO BID 30 Days Qty: 60 3RF Ventolin HFA 90 mcg/actuation HFA aerosol inhaler 2 puff INHALATION Q6H PRN (Reason: shortness of breath or wheezing) Qty: 18 5RF nuyzjvdumdqiqup-aiocgsmwb-JC [Bromfed DM] 2-30-10 mg/5 mL syrup 5 ml PO Q6H PRN (Reason: cold symptoms) Qty: 118 0RF aspirin 81 mg tablet,delayed release (DR/EC) 81 mg PO DAILY Qty: 90 5RF Coreg 12.5 mg tablet 12.5 mg PO BID Qty: 60 5RF Rx Instructions: must administer with a meal/food fluticasone propionate 50 mcg/actuation spray,suspension 2 spray INTRANASAL DAILY PRN (Reason: nasal congestion) Qty: 16 5RF famotidine 40 mg tablet 40 mg PO BID Qty: 60 3RF amlodipine 5 mg tablet 5 mg PO BEDTIME Qty: 90 1RF quetiapine [Seroquel] 400 mg Tablet 400 mg PO BEDTIME 30 Days Qty: 30 1RF tramadol 50 mg tablet 50 mg PO Q8H PRN (Reason: pain) Qty: 7 0RF pantoprazole 40 mg tablet,delayed release (DR/EC) 40 mg PO DAILY Qty: 30 3RF Ambien 10 mg tablet 10 mg PO ONCE Qty: 1 0RF Discharge Orders: Discharge ED (Routine); Ordered 03/05/23 Ordered By: Mak Schwarz Referrals: Olaf Russell MD [Primary Care Provider] - 1-3 days Discharge Diet: Advance as tolerated Discharge Activity: Resume usual activity Patient Instructions: Toothache (ED) Coding Level of Care Code ED Senior Sales Representative for Kelley Gomez
[2023-03-05] MEDS: HYDROcodone-acetaminophen 5-325 mg Tablet 1 TAB PO (06:59)
[2023-03-05] MEDS: ketorolac 30 mg/mL INJ IM (07:00)
== END 2023-03-05 07:50 | disposition home or self-care (01) ==
PROVIDERS: Emergency Provider Emergency Medicine; PCP Family Medicine Adult Medicine
DX: K08.89 Other specified disorders of teeth and supporting structures (principal); Z79.82 Long term (current) use of aspirin; I10 Essential (primary) hypertension
CPT/HCPCS: 96372; 99284; J1885

== ENCOUNTER 2023-03-25 05:45 | Emergency (ER) | payer MEDICAID, SELFPAY ==
[2023-03-25 05:53] VITALS: BP 136/81; PULSE 82; RESP 16; TEMP 36.8; O2SAT 91; BMI 34.0
--- NOTE | 2023-03-25 05:58 | XRR_ITS ---
PROCEDURE INFORMATION: Exam: XR Chest Exam date and time: 03/25/2023 6:12 AM Age: 47 years old Clinical indication: Chest pressure; Patient HX: C/O chest pain; Additional info: Cp TECHNIQUE: Imaging protocol: Radiologic exam of the chest. Views: 1 view. COMPARISON: CR (CHEST, ) 02/12/2023 4:08 AM FINDINGS: Lungs: Hypoventilatory changes in the bilateral lower lobes. Pleural spaces: Unremarkable. No pleural effusion. No pneumothorax. Heart/Mediastinum: Unremarkable. No cardiomegaly. Bones/joints: Unremarkable. XR/XR chest 1V portable [id number] IMPRESSION: No acute findings.
--- NOTE | 2023-03-25 05:58 | ECG_ITS ---
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 Measurements Intervals [place] Rate: 87 P: 65 VT: 174 QRS: 45 QRSD: 101 T: 34 QT: 352 QTc: 424 Interpretive Statements SINUS RHYTHM NONSPECIFIC ST & T-WAVE ABNORMALITY Compared to ECG 01/29/2023 18:07:44 T-wave abnormality now present Sinus bradycardia no longer present Electronically Signed On 03-26-2023 21:31:35 SENIOR COBOL DEVELOPER by Radha Edmondson M.D. [id number] f
--- NOTE | 2023-03-25 06:04 | ED_ITS ---
HPI - Chest Pain 2 General: Chief Complaint: Chest Pain Stated Complaint: CP Time Seen by Provider: 03/25/23 05:58 Source: patient Mode of arrival: ambulatory History of Present Illness: 47-year-old male presents to the emergen cy room presents with his complaint of chest pain and intermittent rapid heart rate. No significant shortness of breath no productive cough no fever. Patient states he thinks someone laced his marijuana on something. They were doing some moving to the early hours this morning and noticed rapid heart rate alternating with normal heart rate. No shortness of breath associated with it he states he is feeling better now. MD complaint: chest pain Onset (ago): hour(s) Timing of current episode: episodic Prior episodes: Yes Pain location: substernal Pain radiation: none Quality: aching Relieving factors: nothing Exacerbating factors: nothing Associated symptoms: Deny abdominal pain, diaphoresis, dyspnea, fever(s), leg edema, nausea, palpitations, sense of impending doom, syncope or vomiting Review of Systems 2 Const: Denies: fever(s), chills or diaphoresis Card: Denies: chest pain, palpitations or syncope Resp: Denies: dyspnea GI: Denies: abdominal pain, nausea or vomiting : Denies: dysuria, urinary frequency or urinary urgency Musc: Denies: neck pain or back pain Skin/Breast: Denies: rash PFSH ED 2 PFSH: Medical History TMJ arthralgia Night terrors, adult Allergic rhinitis GERD (gastroesophageal reflux disease) Intellectual disability Anxiety Hypertension Psychiatric care Social History Alcohol intake: current Substance/Drug Use: unknown Physical Exam 2 Const: COMMON NORMALS: no acute distress GENERAL APPEARANCE: cooperative and comfortable ORIENTATION/CONSCIOUSNESS: Yes awake, Yes oriented to person, Yes oriented to place and Yes oriented to time HENMT: COMMON NORMALS: normocephalic, atraumatic and hearing grossly normal bilaterally HEAD & SCALP: normocephalic and atraumatic Resp: COMMON NORMALS: normal respiratory effort, No retractions, No use of accessory muscles and clear to auscultation bilaterally AUSCULTATION: clear to auscultation bilaterally Cardio: COMMON NORMALS: regular rate, regular rhythm and No murmurs present (Cardio) RATE: regular rate RHYTHM: regular rhythm GI: COMMON NORMALS: Soft to palpation and No hepatosplenomegaly present A USCULTATION: Yes normoactive bowel sounds PALPATION: Yes Soft to palpation, No Tenderness to palpation present (GI), No Guarding due to palpation present (GI) and Yes No hepatosplenomegaly present Extremity: COMMON NORMALS: normal to inspection, capillary refill normal, no clubbing, cyanosis or edema, no calf tenderness and no pedal edema Neuro: SENSORIUM/ORIENTATION: Yes oriented to person, Yes oriented to place and Yes oriented to time Skin: COMMON NORMALS: no rashes or lesions noted GENERAL SKIN EXAM: no rashes or lesions noted Course 2 Vital Signs: Vital signs: Vital Signs Temperature 98.2 F 03/25/23 05:53 Pulse Rate 75 03/25/23 07:11 Respiratory Rate 18 03/25/23 07:11 Blood Pressure 116/92 03/25/23 07:11 Pulse Oximetry 97 03/25/23 07:11 Oxygen Delivery Me thod Room Air 03/25/23 07:11 MDM - Chest Pain Medical Decision Making Patient seen with complaints of intermittent palpitations and rapid heart rate that he states began after use of marijuana she thinks was laced with something else. He has not had any tachycardia arrhythmias here we will discharge patient home. Recommend he abstain from marijuana use continue his regular medications particularly the Coreg if he has persistent symptoms follow-up with his primary care doctor. Medical Records I reviewed the patient's medical records. Lab Data I reviewed the patient's lab results. 03/25/23 06:00 03/25/23 06:00 Radiology Impressions Chest X-Ray 03/25/23 05:58 IMPRESSION: No acute findings. Laboratory Results WBC 6.81 10^3/uL (3.29-11.43) 03/25/23 06:00 RBC 4.42 10^6/uL (3.85-5.65) 03/25/23 06:00 Hgb 13.40 g/dL (11.27-16.99) 03/25/23 06:00 Hct 40.3 % (37-53) 03/25/23 06:00 MCV 91.2 fl (82-101) 03/25/23 06:00 MCH 30.3 pg (27-33) 03/25/23 06:00 MCHC 33.3 g/dL (30-55) 03/25/23 06:00 RDW 12.9 % (12.1-15.1) 03/25/23 06:00 Plt Count 345 10^3/cmm (157-399) 03/25/23 06:00 MPV 9.6 fL (7.4-10.4) 03/25/23 06:00 Neut % (Auto) 34.5 % 03/25/23 06:00 Lymph % (Auto) 49.9 % 03/25/23 06:00 Republic % (Auto) 10.7 % 03/25/23 06:00 Eos % (Auto) 4.1 % 03/25/23 06:00 Baso % (Auto) 0.7 % 03/25/23 06:00 Neut # (Auto) 2.34 10^3/uL (1.8-7.7) 03/25/23 06:00 Lymph # (Auto) 3.4 10^3/uL (0.8-4.8) 03/25/23 06:00 Republic # (Auto) 0.7 10^3/uL (0.2-0.9) 03/25/23 06:00 Eos # (Auto) 0.3 10^3/uL (0.0-0.8) 03/25/23 06:00 Baso # (Auto) 0.1 10^3/uL (0.0-0.1) 03/25/23 06:00 Nucleated RBC % (auto) 0 % 03/25/23 06:00 Nucleated RBCs # 0.0 /100WBC 03/25/23 06:00 Sodium 138 mmol/L (136-145) 03/25/23 06:00 Potassium 3.6 mmol/L (3.5-5.1) 03/25/23 06:00 Chloride 99 mmol/L (98-107) 03/25/23 06:00 Carbon Dioxide 26 mmol/L (22-29) 03/25/23 06:00 Anion Gap 16.6 (5-19) 03/25/23 06:00 BUN 14 mg/dL (6-20) 03/25/23 06:00 Creatinine 0.9 mg/dL (0.7-1.2) 03/25/23 06:00 GFR Calculation 109.9 mL/min (90-130) 03/25/23 06:00 Glucose 82 mg/dL (65-115) 03/25/23 06:00 Calculated Osmolality 286 mOsm/kg (285-295) 03/25/23 06:00 Calcium 9.8 mg/dL (8.5-10.5) 03/25/23 06:00 Total Bilirubin 0.3 mg/dL (0.15-1.2) 03/25/23 06:00 AST 24 U/L (0-40) 03/25/23 06:00 ALT 31 U/L (0-41) 03/25/23 06:00 Alkaline Phosphatase 93 U/L (40-130) 03/25/23 06:00 Troponin T Baseline < 6 ng/L (0-15) 03/25/23 06:00 Troponin T 120 Minute 6.00 ng/L (0-15) 03/25/23 07:45 Delta Troponin T 0.53534 ABS# (0-10) 03/25/23 07:45 NT-Pro-B Natriuret Pep < 36 pg/mL (0-125) 03/25/23 06:00 Total Protein 7.0 g/dL (6.6-8.7) 03/25/23 06:00 Albumin 4.7 g/dL (3.5-5.2) 03/25/23 06:00 Globulin 2.3 g/dL (1.3-4.6) 03/25/23 06:00 All radiology interpretation(s) finalized by discharge Discharge Plan Discharge Patient Disposition: Home Clinical Impression: Palpitations Condition: Stable Prescriptions: No Action Mucinex 600 mg tablet extended release 12hr 600 mg PO Q12H PRN (Reason: breathing/Congestion) Qty: 60 5RF clonidine HCl 0.1 mg tablet 0.1 mg PO .q hs Qty: 30 5RF buspirone 15 mg tablet 15 mg PO BID 30 Days Qty: 60 3RF Ventolin HFA 90 mcg/actuation HFA aerosol inhaler 2 puff INHALATION Q6H PRN (Reason: shortness of breath or wheezing) Qty: 18 5RF zzcclxuwbtiqhkq-aakgdgyoz-DL [Bromfed DM] 2-30-10 mg/5 mL syrup 5 ml PO Q6H PRN (Reason: cold symptoms) Qty: 118 0RF aspirin 81 mg tablet,delayed release (DR/EC) 81 mg PO DAILY Qty: 90 5RF Coreg 12.5 mg tablet 12.5 mg PO BID Qty: 60 5RF Rx Instructions: must administer with a meal/food fluticasone propionate 50 mcg/actuation spray,suspension 2 spray INTRANASAL DAILY PRN (Reason: nasal congestion) Qty: 16 5RF amlodipine 5 mg tablet 5 mg PO BEDTIME Qty: 90 1RF famotidine 40 mg tablet 40 mg PO BID Qty: 60 3RF Naprosyn 500 mg tablet 500 mg PO BID PRN (Reason: pain) Qty: 20 0RF quetiapine [Seroquel] 400 mg Tablet 400 mg PO BEDTIME 30 Days Qty: 30 1RF tramadol 50 mg tablet 50 mg PO Q8H PRN (Reason: pain) Qty: 7 0RF pantoprazole 40 mg tablet,delayed release (DR/EC) 40 mg PO DAILY Qty: 30 3RF Ambien 10 mg tablet 10 mg PO ONCE Qty: 1 0RF Discharge Orders: Discharge ED (Routine); Ordered 03/25/23 Ordered By: Fer Garibay Referrals: Olaf Russell MD [Primary Care Provider] - Discharge Diet: Usual diet Discharge Activity: Increase activity as tolerated Patient Instructions: Opioid Safety, Pain Management Activity Restrictions/Additional Instructions: Thank you for choosing [facility] for your healthcare needs today. Please realize this is an emergency room and that we are providing you with a medical screening exam and this may not be complete and all inclusive of all the testing and or work up that you may need to determine your ailment or severity of your illness. It is very important that you follow up as instructed or that you return to the Emergency Department should you have concerns or if your condition changes or worsens in any way. You are seen today for complaints of intermittent palpitations and rapid heart rate. Your heart rate here was normal. You had related that this began after using some marijuana. Abstain from marijuana. Take all of your medications regularly particularly your Coreg. Follow-up with your primary care doctor Coding Level of Care Code ED Maintenance Truck Driver for Kelley Gomez
[2023-03-25 06:07] VITALS: BP 143/81; PULSE 74; RESP 17; O2SAT 95
[2023-03-25 06:08] LABS: Basophils # 0.1 10^3/uL (0.0-0.1); Basophils % 0.7 %; Eosinophils # 0.3 10^3/uL (0.0-0.8); Eosinophils % 4.1 %; Hematocrit 40.3 % (37-53); Lymphocytes # 3.4 10^3/uL (0.8-4.8); Lymphocytes % 49.9 %; Mean Corpuscular HGB Conc 33.3 g/dL (30-55); Mean Corpuscular Hemoglobin 30.3 pg (27-33); Mean Corpuscular Volume 91.2 fl (82-101); Mean Platelet Volume 9.6 fL (7.4-10.4); Monocytes # 0.7 10^3/uL (0.2-0.9); Monocytes % 10.7 %; Neutrophils # 2.34 10^3/uL (1.8-7.7); Neutrophils % 34.5 %; Nucleated Red Blood Cells % 0 %; Platelet Count 345 10^3/cmm (157-399); Red Blood Count 4.42 10^6/uL (3.85-5.65); Red Cell Distribution Width 12.9 % (12.1-15.1); White Blood Count 6.81 10^3/uL (3.29-11.43)
[2023-03-25 06:28] LABS: Troponin(5th) Baseline < 6 ng/L (0-15)
[2023-03-25 06:44] LABS: Alanine Aminotransferase 31 U/L (0-41); Albumin Level 4.7 g/dL (3.5-5.2); Alkaline Phosphatase 93 U/L (40-130); Aspartate Amino Transferase 24 U/L (0-40); Blood Urea Nitrogen 14 mg/dL (6-20); Calcium 9.8 mg/dL (8.5-10.5); Carbon Dioxide 26 mmol/L (22-29); Chloride 99 mmol/L (98-107); Globulin 2.3 g/dL (1.3-4.6); Glomerular Filtration Rate 109.9 mL/min (90-130); Glucose 82 mg/dL (65-115); NT Pro B Type Natriuretic Pept < 36 pg/mL (0-125); Osmolality Calculated 286 mOsm/kg (285-295); Sodium 138 mmol/L (136-145); Total Bilirubin 0.3 mg/dL (0.15-1.2)
[2023-03-25 06:47] LABS: Anion Gap 16.6 (5-19); Potassium 3.6 mmol/L (3.5-5.1)
[2023-03-25 07:11] VITALS: BP 116/92; PULSE 75; RESP 18; O2SAT 97
--- NOTE | 2023-03-25 08:11 | ECG_ITS ---
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 Measurements Intervals [place] Rate: 76 P: 57 FL: 187 QRS: 42 QRSD: 102 T: 39 QT: 373 QTc: 420 Interpretive Statements SINUS RHYTHM NONSPECIFIC T-WAVE ABNORMALITY Compared to ECG 03/25/2023 05:47:14 No significant changes Electronically Signed On 03-26-2023 21:36:00 DATA PROCESSING MECHANIC by Radha Edmondson M.D. [id number]
[2023-03-25 08:19] LABS: Troponin 5 2HR Delta 0.00001 ABS# (0-10)
== END 2023-03-25 09:32 | disposition home or self-care (01) ==
PROVIDERS: Emergency Medicine; Emergency Provider Family Medicine; PCP Family Medicine Adult Medicine
DX: R00.2 Palpitations (principal); Z79.82 Long term (current) use of aspirin; I10 Essential (primary) hypertension
CPT/HCPCS: 36415; 71045; 80053; 83880; 84484; 85025; 93005; 99285

== ENCOUNTER 2023-04-18 20:13 | Emergency (ER) | payer MEDICAID, SELFPAY ==
[2023-04-18 20:15] VITALS: BP 145/83; PULSE 75; RESP 18; TEMP 37.2; O2SAT 100; BMI 29.7
--- NOTE | 2023-04-18 20:22 | ECG_ITS ---
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 Measurements Intervals [place] Rate: 67 P: 60 SD: 174 QRS: 41 QRSD: 94 T: 41 QT: 360 QTc: 382 Interpretive Statements SINUS RHYTHM Compared to ECG 03/25/2023 08:11:25 T-wave abnormality no longer present Electronically Signed On 04-19-2023 0:32:00 SIGNING AGENT by Jihan Ware M.D. [email or web address] point mature adult care unitCrusader Vaporclinton memorial hospitalEZMove/store/OM/[id number]
--- NOTE | 2023-04-18 20:22 | XRR_ITS ---
PROCEDURE INFORMATION: Exam: XR Chest Exam date and time: 04/18/2023 8:26 PM Age: 47 years old Clinical indication: Shortness of breath; Additional info: SOB TECHNIQUE: Imaging protocol: Radiologic exam of the chest. Views: 1 view. COMPARISON: CR (CHEST, ) 03/25/2023 6:12 AM FINDINGS: Lungs: Clear, symmetrically inflated lungs. Pleural spaces: No pleural effusion. No pneumothorax. Heart/Mediastinum: Cardiac silhouette is normal in size for technique. Bones/joints: Age appropriate. XR/XR chest 1V portable [id number] IMPRESSION: No acute cardiopulmonary abnormality.
--- NOTE | 2023-04-18 20:24 | ED_ITS ---
HPI - General Adult General: Chief complaint: Shortness of Breath/Dyspnea Stated complaint: RESP. DISTRESS Time Seen by Provider: 04/18/23 20:18 Source: patient Mode of arrival: ambulatory Limitations: no limitations History of Present Illness: 47-year-old male states he did smoke mar gennya earlier today since then he feels like he has had some wheezing along with congestion in his chest. States he had some mild dyspnea denies any pain denies any fevers. He is in no distress here his pulse ox is 100%. Associated symptoms: Reports dyspnea; Deny chest pain, headache(s), nausea, rash or vomiting Review of Systems Const: Denies: fever(s), chills, body aches or change in appetite Eyes: Denies: blurry vision or eye discomfort ENMT: Denies: throat pain or dental pain Card: Denies: chest pain Resp: Reports: dyspnea GI: Denies: abdominal pain, nausea, vomiting or diarrhea Musc: Denies: neck pain or back pain Skin/Breast: Denies: rash Neuro: Denies: headache(s) PFSH ED PFSH: Medical History TMJ arthralgia Night terrors, adult Allergic rhinitis GERD (gastroesophageal reflux disease) Intellectual disability Anxiety Hypertension Psychiatric care Social History Alcohol intake: current Substance/Drug Use: unknown Physical Exam Const: COMMON NORMALS: no acute distress, patient oriented x3 and healthy appearing HENMT: COMMON NORMALS: normocephalic and atraumatic HEAD & SCALP: normocephalic and atraumatic Eye: COMMON NORMALS: Equal, round and reactive pupils present and EOMs intact bilaterally PUPIL: Yes Equal, round and reactive pupils present Neck/C-Spine: COMMON NORMALS: full ROM and supple Chest: COMMONS NORMALS: normal inspection of the chest and normal palpation of entire chest wall Resp: COMMON NORMALS: normal respiratory effort, No retractions, No use of accessory muscles and clear to auscultation bilaterally AUSCULTATION: clear to auscultation bilaterally Cardio: COMMON NORMALS: regular rate, regular rhythm and No murmurs present (Cardio) RATE: regular rate RHYTHM: regular rhythm Extremity: COMMON NORMALS: normal to inspection and full ROM Neuro: COMMON NORMALS: patient oriented x3, moves all extremities and no focal motor deficits Psych: COMMON NORMALS: mental status grossly normal, Normal thought process present and cooperative THOUGHT PROCESS: Normal thought process present Skin: COMMON NORMALS: no rashes or lesions noted and no wounds GENERAL SKIN EXAM: no rashes or lesions noted Course Vital Signs: Vital signs: Vital Signs Temperature 98.9 F 04/18/23 20:15 Pulse Rate 63 04/18/23 20:39 Respiratory Rate 18 04/18/23 20:36 Blood Pressure 145/83 04/18/23 20:15 Pulse Oximetry 99 04/18/23 20:36 Oxygen Delivery Me thod Room Air 04/18/23 20:36 MDM - General Adult Medical Decision Making Patient presents here with cough along with marijuana use today x-ray shows no pneumonia he had no cough or respiratory distress here he is stable for discharge he is to follow-up with PCP and return if worsening. Medical Records I reviewed the patient's medical records. XR interpretation done by ED provider, pending radiology final review ED provider radiology interpretation(s): cxr: no acute abnormality EKG Data EKG 1: I personally reviewed and interpreted this EKG as follows: EKG interpretation date: 04/18/23 EKG interpretation time: 20:42 Interpretation: nsr hr [address] or t wave abnormalities qrs 94 qtc 376 Discharge Plan Discharge Patient Disposition: Home Clinical Impression: Marijuana use Cough Qualifiers: Cough type: acute Qualified Code(s): R05.1 - Acute cough Condition: Stable Prescriptions: No Action Mucinex 600 mg tablet extended release 12hr 600 mg PO Q12H PRN (Reason: breathing/Congestion) Qty: 60 5RF clonidine HCl 0.1 mg tablet 0.1 mg PO .q hs Qty: 30 5RF buspirone 15 mg tablet 15 mg PO BID 30 Days Qty: 60 3RF Ventolin HFA 90 mcg/actuation HFA aerosol inhaler 2 puff INHALATION Q6H PRN (Reason: shortness of breath or wheezing) Qty: 18 5RF wmlsbzztfoaskpe-zwonoburj-CE [Bromfed DM] 2-30-10 mg/5 mL syrup 5 ml PO Q6H PRN (Reason: cold symptoms) Qty: 118 0RF aspirin 81 mg tablet,delayed release (DR/EC) 81 mg PO DAILY Qty: 90 5RF fluticasone propionate 50 mcg/actuation spray,suspension 2 spray INTRANASAL DAILY PRN (Reason: nasal congestion) Qty: 16 5RF amlodipine 5 mg tablet 5 mg PO BEDTIME Qty: 90 1RF famotidine 40 mg tablet 40 mg PO BID Qty: 60 3RF Coreg 12.5 mg tablet 12.5 mg PO BID Qty: 60 5RF Rx Instructions: must administer with a meal/food Naprosyn 500 mg tablet 500 mg PO BID PRN (Reason: pain) Qty: 20 0RF quetiapine [Seroquel] 400 mg Tablet 400 mg PO BEDTIME 30 Days Qty: 30 1RF tramadol 50 mg tablet 50 mg PO Q8H PRN (Reason: pain) Qty: 7 0RF pantoprazole 40 mg tablet,delayed release (DR/EC) 40 mg PO DAILY Qty: 30 3RF Ambien 10 mg tablet 10 mg PO ONCE Qty: 1 0RF Discharge Orders: Discharge ED (Routine); Ordered 04/18/23 Ordered By: Mak Schwarz Referrals: Olaf Russell MD [Primary Care Provider] - 1-3 days Discharge Diet: Advance as tolerated Discharge Activity: Resume usual activity Patient Instructions: Acute Cough (ED) Coding Level of Care Code ED [place] Worker for Kelley Gomez
[2023-04-18 20:36] VITALS: PULSE 65; RESP 18; O2SAT 99
[2023-04-18] MEDS: ipratropium-albuterol 3 mL Neb INHALATION (20:36)
[2023-04-18 20:39] VITALS: PULSE 63
[2023-04-18] MEDS: dexamethasone 10 mg/mL INJ IVP (20:44)
[2023-04-18 21:28] VITALS: BP 128/77; PULSE 78; RESP 15; O2SAT 98
== END 2023-04-18 21:00 | disposition home or self-care (01) ==
PROVIDERS: Emergency Provider Emergency Medicine; PCP Family Medicine Adult Medicine
DX: R05.1 Acute cough (principal); F12.90 Cannabis use, unspecified, uncomplicated; Z79.82 Long term (current) use of aspirin; I10 Essential (primary) hypertension
CPT/HCPCS: 71045; 93005; 94640; 96374; 99284; J1100

== ENCOUNTER 2023-05-05 20:54 | Emergency (ER) | payer MEDICAID, SELFPAY ==
[2023-05-05 20:56] VITALS: BP 130/80; PULSE 71; RESP 20; TEMP 36.9; O2SAT 98; BMI 29.3
--- NOTE | 2023-05-05 20:59 | XRR_ITS ---
PROCEDURE INFORMATION: Exam: XR Chest Exam date and time: 05/05/2023 9:12 PM Age: 47 years old Clinical indication: Chest wall pain; Patient HX: PT. Brought to er via [facility] with complaint of chest pain at 1600 after stressful event. EMS started iv on patient and has given 324 asa, nitro and did ekg showing normal sinus rythm; Additional info: Cp TECHNIQUE: Imaging protocol: Radiologic exam of the chest. Views: 1 view. COMPARISON: CR (CHEST, ) 04/18/2023 8:26 PM FINDINGS: Lungs: No consolidation. Pleural spaces: No large pleural effusion. No pneumothorax. Heart/Mediastinum: Unremarkable. No cardiomegaly. Bones/joints: No acute abnormality. XR/XR chest 1V portable [id number] IMPRESSION: No acute findings.
--- NOTE | 2023-05-05 20:59 | ECG_ITS ---
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 Measurements Intervals [place] Rate: 74 P: 67 NC: 163 QRS: 50 QRSD: 93 T: 46 QT: 356 QTc: 397 Interpretive Statements SINUS RHYTHM Compared to ECG 04/18/2023 20:42:40 No significant changes Electronically Signed On 05-08-2023 7:59:05 BAIT TIER by Corbin Wu M.D. [email or web address] [facility].Q-gohighland community hospitalHOTPOTATO MEDIAtwin city hospital.Inte[employer]X/store/NU/[id number] f
[2023-05-05 21:07] VITALS: BP 130/80; PULSE 71; RESP 16; O2SAT 98
--- NOTE | 2023-05-05 21:15 | PC.NURSE ---
Pt. states that he was trying to buy something with the money on his playstation card and it took all of his money. Pt. states that he became angry and called them to get the problem fixed and they were rude on the phone and hung up on him. He states that this caused stress and caused him to have chest pain . Pt. states that he was able to call back to another customer engagement manager. and they were able to get his money returned to the card.
[2023-05-05 21:21] LABS: INR 0.92 (0.8-1.2)
[2023-05-05 21:22] LABS: Partial Thromboplastin Time 34.9 SECONDS (23.9-36.7)
[2023-05-05 21:29] LABS: Troponin(5th) Baseline < 6 ng/L (0-15)
[2023-05-05 21:37] LABS: Alanine Aminotransferase 43 U/L (0-41); Albumin Level 4.3 g/dL (3.5-5.2); Alkaline Phosphatase 84 U/L (40-130); Anion Gap 12.1 (5-19); Aspartate Amino Transferase 23 U/L (0-40); Blood Urea Nitrogen 15 mg/dL (6-20); Calcium 9.7 mg/dL (8.5-10.5); Carbon Dioxide 29 mmol/L (22-29); Chloride 102 mmol/L (98-107); Creatine Phosphokinase 131 U/L (39-308); Creatinine Clr Calc Pharmacy 152.3218; Glomerular Filtration Rate 125.9 mL/min (90-130); Glucose 94 mg/dL (65-115); NT Pro B Type Natriuretic Pept < 36 pg/mL (0-125); Osmolality Calculated 291 mOsm/kg (285-295); Potassium 3.1 mmol/L (3.5-5.1); Sodium 140 mmol/L (136-145); Total Bilirubin 0.2 mg/dL (0.15-1.2); Total Protein 7.3 g/dL (6.6-8.7)
[2023-05-05 21:38] LABS: Basophils # 0.1 10^3/uL (0.0-0.1); Basophils % 0.9 %; Eosinophils # 0.2 10^3/uL (0.0-0.8); Eosinophils % 3.5 %; Hematocrit 41.2 % (37-53); Lymphocytes # 3.3 10^3/uL (0.8-4.8); Lymphocytes % 48.2 %; Mean Corpuscular HGB Conc 32.8 g/dL (30-55); Mean Corpuscular Hemoglobin 30.1 pg (27-33); Mean Platelet Volume 8.8 fL (7.4-10.4); Monocytes # 0.7 10^3/uL (0.2-0.9); Monocytes % 10.5 %; Neutrophils # 2.53 10^3/uL (1.8-7.7); Neutrophils % 36.8 %; Nucleated Red Blood Cells % 0 %; Platelet Count 303 10^3/cmm (157-399); Red Blood Count 4.48 10^6/uL (3.85-5.65); Red Cell Distribution Width 13.2 % (12.1-15.1); White Blood Count 6.87 10^3/uL (3.29-11.43)
--- NOTE | 2023-05-05 21:55 | ED_ITS ---
HPI - Chest Pain 2 General: Chief Complaint: Chest Pain Stated Complaint: Chest Pain Time Seen by Provider: 05/05/23 20:56 History of Present Illness: 47-year-old male with no history of rosy nary disease. He presents with chest discomfort. This started after becoming upset over losing money on a pradeep card this evening. He still having some intermittent chest discomfort. Has had discomfort for 4 hours or so. No significant shortness of breath. No vomiting. No fever. MD complaint: chest pain Associated symptoms: Deny abdominal pain, dyspnea, fever(s), nausea, palpitations or vomiting Review of Systems 2 Const: Denies: fever(s), chills or body aches Eyes: Denies: change in vision Card: Reports: chest pain; Denies: palpitations Resp: Denies: dyspnea, productive cough, non-productive cough or wheezing GI: Denies: abdominal pain, nausea, vomiting, diarrhea or hematochezia Skin/Breast: Denies: rash Neuro: Denies: headache(s), weakness in extremities, dizziness or confusion PFSH ED 2 PFSH: Medical History Chronic foot pain Bilateral bunions TMJ arthralgia Night terrors, adult Allergic rhinitis GERD (gastroesophageal reflux disease) Intellectual disability Anxiety Hypertension Psychiatric care Social History Alcohol intake: current Substance/Drug Use: unknown Physical Exam 2 Const: COMMON NORMALS: no acute distress GENERAL APPEARANCE: cooperative; not ill appearing and not frail appearing HENMT: COMMON NORMALS: normocephalic, atraumatic and Normal external nose present HEAD & SCALP: normocephalic and atraumatic FACE & SINUS: normal facial exam and face symmetric NOSE: Normal external nose present Eye: COMMON NORMALS: Equal, round and reactive pupils present and EOMs intact bilaterally PUPIL: Yes Equal, round and reactive pupils present Neck/C-Spine: GENERAL: Yes trachea midline Chest: CHEST: Yes Symmetrical chest wall rise Resp: COMMON NORMALS: normal respiratory effort, No retractions, No use of accessory muscles and clear to auscultation bilaterally AUSCULTATION: clear to auscultation bilaterally Cardio: COMMON NORMALS: regular rate and regular rhythm RATE: regular rate RHYTHM: regular rhythm GI: COMMON NORMALS: Normal to inspection, nondistended, normoactive bowel sounds present Extremity: COMMON NORMALS: no pedal edema Neuro: MILO COMA SCALE: document GCS findings Milo coma scale eye opening: Spontaneous Milo coma scale verbal response: Orientated [place] coma scale motor response: Obey commands [place] coma scale total score: 15 S ENSORY EXAM: Yes extremities (intact) Psych: COMMON NORMALS: speech normal SPEECH: Yes normal speech Skin: COMMON NORMALS: no rashes or lesions noted GENERAL SKIN EXAM: no rashes or lesions noted Course 2 Vital Signs: Vital signs: Vital Signs Temperature 98.4 F 05/05/23 20:56 Pulse Rate 72 05/05/23 22:06 Respiratory Rate 12 05/05/23 22:06 Blood Pressure 145/101 05/05/23 22:07 Pulse Oximetry 95 05/05/23 22:06 MDM - Chest Pain Medical Decision Making Somewhat reproducible chest discomfort on exam. CBC is normal. Potassium is 3.1 and is repleted. Vitals are normal. Chest x-ray is negative. First troponin is less than 6. The patient's had chest pain for more than 4 hours. BNP is nondetectable. He will be allowed home. Lab Data 05/05/23 21:35 05/05/23 20:41 Radiology Impressions Chest X-Ray 05/05/23 20:59 IMPRESSION: No acute findings. Laboratory Results WBC 6.87 10^3/uL (3.29-11.43) 05/05/23 21:35 Corrected WBC Cancelled 05/05/23 20:41 RBC 4.48 10^6/uL (3.85-5.65) 05/05/23 21:35 Hgb 13.50 g/dL (11.27-16.99) 05/05/23 21:35 Hct 41.2 % (37-53) 05/05/23 21:35 MCV 92.0 fl (82-101) 05/05/23 21:35 MCH 30.1 pg (27-33) 05/05/23 21:35 MCHC 32.8 g/dL (30-55) 05/05/23 21:35 RDW 13.2 % (12.1-15.1) 05/05/23 21:35 Plt Count 303 10^3/cmm (157-399) 05/05/23 21:35 MPV 8.8 fL (7.4-10.4) 05/05/23 21:35 Gran % Cancelled 05/05/23 20:41 Neut % (Auto) 36.8 % 05/05/23 21:35 Lymph % (Auto) 48.2 % 05/05/23 21:35 [place] % (Auto) 10.5 % 05/05/23 21:35 Eos % (Auto) 3.5 % 05/05/23 21:35 Baso % (Auto) 0.9 % 05/05/23 21:35 Neut # (Auto) 2.53 10^3/uL (1.8-7.7) 05/05/23 21:35 Lymph # (Auto) 3.3 10^3/uL (0.8-4.8) 05/05/23 21:35 [place] # (Auto) 0.7 10^3/uL (0.2-0.9) 05/05/23 21:35 Eos # (Auto) 0.2 10^3/uL (0.0-0.8) 05/05/23 21:35 Baso # (Auto) 0.1 10^3/uL (0.0-0.1) 05/05/23 21:35 Absolute Gran (auto) Cancelled 05/05/23 20:41 Nucleated RBC % (auto) 0 % 05/05/23 21:35 Nucleated RBCs # 0.0 /100WBC 05/05/23 21:35 PT 12.60 SECONDS (12.1-14.9) 05/05/23 20:41 INR 0.92 (0.8-1.2) 05/05/23 20:41 APTT 34.9 SECONDS (23.9-36.7) 05/05/23 20:41 Sodium 140 mmol/L (136-145) 05/05/23 20:41 Potassium 3.1 mmol/L (3.5-5.1) L 05/05/23 20:41 Chloride 102 mmol/L (98-107) 05/05/23 20:41 Carbon Dioxide 29 mmol/L (22-29) 05/05/23 20:41 Anion Gap 12.1 (5-19) 05/05/23 20:41 BUN 15 mg/dL (6-20) 05/05/23 20:41 Creatinine 0.8 mg/dL (0.7-1.2) 05/05/23 20:41 GFR Calculation 125.9 mL/min (90-130) 05/05/23 20:41 Glucose 94 mg/dL (65-115) 05/05/23 20:41 Calculated Osmolality 291 mOsm/kg (285-295) 05/05/23 20:41 Calcium 9.7 mg/dL (8.5-10.5) 05/05/23 20:41 Total Bilirubin 0.2 mg/dL (0.15-1.2) 05/05/23 20:41 AST 23 U/L (0-40) 05/05/23 20:41 ALT 43 U/L (0-41) H 05/05/23 20:41 Alkaline Phosphatase 84 U/L (40-130) 05/05/23 20:41 Creatine Kinase 131 U/L (39-308) 05/05/23 20:41 Troponin T Baseline < 6 ng/L (0-15) 05/05/23 20:41 NT-Pro-B Natriuret Pep < 36 pg/mL (0-125) 05/05/23 20:41 Total Protein 7.3 g/dL (6.6-8.7) 05/05/23 20:41 Albumin 4.3 g/dL (3.5-5.2) 05/05/23 20:41 Globulin 3.0 g/dL (1.3-4.6) 05/05/23 20:41 All radiology interpretation(s) finalized by discharge Discharge Plan Discharge Patient Disposition: Home Clinical Impression: Chest pain Condition: Stable Prescriptions: No Action Mucinex 600 mg tablet extended release 12hr 600 mg PO Q12H PRN (Reason: breathing/Congestion) Qty: 60 5RF clonidine HCl 0.1 mg tablet 0.1 mg PO .q hs Qty: 30 5RF buspirone 15 mg tablet 15 mg PO BID 30 Days Qty: 60 3RF Ventolin HFA 90 mcg/actuation HFA aerosol inhaler 2 puff INHALATION Q6H PRN (Reason: shortness of breath or wheezing) Qty: 18 5RF aucaeqavovyskux-ocdyfcfpm-FX [Bromfed DM] 2-30-10 mg/5 mL syrup 5 ml PO Q6H PRN (Reason: cold symptoms) Qty: 118 0RF aspirin 81 mg tablet,delayed release (DR/EC) 81 mg PO DAILY Qty: 90 5RF fluticasone propionate 50 mcg/actuation spray,suspension 2 spray INTRANASAL DAILY PRN (Reason: nasal congestion) Qty: 16 5RF amlodipine 5 mg tablet 5 mg PO BEDTIME Qty: 90 1RF famotidine 40 mg tablet 40 mg PO BID Qty: 60 3RF Coreg 12.5 mg tablet 12.5 mg PO BID Qty: 60 5RF Rx Instructions: must administer with a meal/food Naprosyn 500 mg tablet 500 mg PO BID PRN (Reason: pain) Qty: 20 0RF quetiapine [Seroquel] 400 mg Tablet 400 mg PO BEDTIME 30 Days Qty: 30 1RF pantoprazole 40 mg tablet,delayed release (DR/EC) 40 mg PO DAILY Qty: 30 3RF Discharge Orders: Discharge ED (Routine); Ordered 05/05/23 Ordered By: Yohannes Mejia Referrals: Olaf Russell MD [Primary Care Provider] - 4-7 days Patient Instructions: Chest Pain (ED), Opioid Safety, Pain Management Activity Restrictions/Additional Instructions: Your workup in the emergency department this evening did not reveal a cause of your chest pain. There were no heart problems or lung problems detected. Return for repeated episodes or worsening chest discomfort, shortness of breath, fever, or other concerning symptoms. See your doctor next week. Coding Level of Care Code ED Generation Manager for Kelley Gomez
[2023-05-05] MEDS: potassium chloride ER 20 mEq Tablet 40 MEQ PO (22:05)
[2023-05-05 22:06] VITALS: BP 150/125; PULSE 72; RESP 12; O2SAT 95
[2023-05-05 22:07] VITALS: BP 145/101
== END 2023-05-05 22:11 | disposition home or self-care (01) ==
PROVIDERS: Emergency Provider Emergency Medicine; PCP Family Medicine Adult Medicine
DX: R07.9 Chest pain, unspecified (principal); Z79.82 Long term (current) use of aspirin; I10 Essential (primary) hypertension
CPT/HCPCS: 36415; 71045; 80053; 82550; 83880; 84484; 85025; 85610; 85730; 93005; 99285

== ENCOUNTER 2023-05-10 01:18 | Emergency (ER) | payer MEDICAID, SELFPAY ==
[2023-05-10] VITALS (7 sets, daily range): BP systolic 124–138; BP diastolic 65–82; PULSE 63–82; RESP 13–20; TEMP 36.6; O2SAT 94–98; BMI 29.3
--- NOTE | 2023-05-10 01:20 | XRR_ITS ---
PROCEDURE INFORMATION: Exam: XR Chest Exam date and time: 05/10/2023 1:36 AM Age: 47 years old Clinical indication: Chest wall pain; Additional info: Chest pain TECHNIQUE: Imaging protocol: Radiologic exam of the chest. Views: 1 view. COMPARISON: CR (CHEST, ) 05/05/2023 9:12 PM FINDINGS: Lungs: Clear, symmetrically inflated lungs. Pleural spaces: No pleural effusion. No pneumothorax. Heart/Mediastinum: Cardiac silhouette is normal in size for technique. Bones/joints: Age appropriate. XR/XR chest 1V portable [id number] IMPRESSION: No acute cardiopulmonary abnormality.
--- NOTE | 2023-05-10 01:27 | ECG_ITS ---
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 Measurements Intervals [place] Rate: 74 P: 60 NE: 166 QRS: 48 QRSD: 105 T: 54 QT: 359 QTc: 399 Interpretive Statements SINUS RHYTHM ST ELEVATION CONSISTENT WITH INJURY, PERICARDITIS, OR EARLY REPOLARIZATION [ST ELEVATION W/O NORMALLY INFLECTED T-WAVE] NONSPECIFIC ST & T-WAVE ABNORMALITY Compared to ECG 05/05/2023 20:59:41 ST (T wave) deviation now present Early repolarization now present T-wave abnormality now present Electronically Signed On 05-10-2023 14:18:55 COUNTY NURSE by Christiano Patel M.D. [email or web address]
[2023-05-10 01:36] LABS: Basophils # 0.1 10^3/uL (0.0-0.1); Basophils % 0.7 %; Eosinophils # 0.3 10^3/uL (0.0-0.8); Eosinophils % 3.8 %; Hematocrit 41.7 % (37-53); Lymphocytes # 3.2 10^3/uL (0.8-4.8); Lymphocytes % 45.8 %; Mean Corpuscular HGB Conc 33.3 g/dL (30-55); Mean Corpuscular Hemoglobin 30.6 pg (27-33); Mean Corpuscular Volume 91.9 fl (82-101); Mean Platelet Volume 9.3 fL (7.4-10.4); Monocytes # 0.6 10^3/uL (0.2-0.9); Monocytes % 7.8 %; Neutrophils # 2.94 10^3/uL (1.8-7.7); Neutrophils % 41.6 %; Nucleated Red Blood Cells % 0 %; Platelet Count 344 10^3/cmm (157-399); Red Blood Count 4.54 10^6/uL (3.85-5.65); Red Cell Distribution Width 13.3 % (12.1-15.1); White Blood Count 7.07 10^3/uL (3.29-11.43)
[2023-05-10 01:48] LABS: Troponin(5th) Baseline < 6 ng/L (0-15)
[2023-05-10 01:49] LABS: Alanine Aminotransferase 43 U/L (0-41); Albumin Level 4.2 g/dL (3.5-5.2); Alkaline Phosphatase 99 U/L (40-130); Anion Gap 13.1 (5-19); Aspartate Amino Transferase 21 U/L (0-40); Blood Urea Nitrogen 17 mg/dL (6-20); Calcium 9.6 mg/dL (8.5-10.5); Carbon Dioxide 30 mmol/L (22-29); Chloride 97 mmol/L (98-107); Creatinine Clr Calc Pharmacy 152.3218; Globulin 2.7 g/dL (1.3-4.6); Glomerular Filtration Rate 125.9 mL/min (90-130); Glucose 119 mg/dL (65-115); Osmolality Calculated 287 mOsm/kg (285-295); Potassium 3.1 mmol/L (3.5-5.1); Sodium 137 mmol/L (136-145); Total Bilirubin 0.2 mg/dL (0.15-1.2); Total Protein 6.9 g/dL (6.6-8.7)
--- NOTE | 2023-05-10 02:13 | ED_ITS ---
HPI - Chest Pain 2 General: Chief Complaint: Chest Pain Stated Complaint: CP Time Seen by Provider: 05/10/23 01:22 History of Present Illness: Presents to the ER with complaints of intermittent chest pain. He states this started 3 days ago after he smokes marijuana. Patient thinks that may have been laced with something. Patient says his pain has been off and on. The pain is a burning that alternates between his left and right chest. Patient also complains of congestion but is unable to cough anything up. Patient does not currently have chest pain and does not appear to be short of breath. Patient was seen in the ER approximately week ago for chest pain and worked up all which was negative and patient was discharged. Review of Systems 2 General: Reports: 10 or more systems reviewed and unremarkable except in HPI and below PFSH ED 2 PFSH: Medical History Chronic foot pain Bilateral bunions TMJ arthralgia Night terrors, adult Allergic rhinitis GERD (gastroesophageal reflux disease) Intellectual disability Anxiety Hypertension Psychiatric care Social History Alcohol intake: current Substance/Drug Use: unknown Physical Exam 2 Const: COMMON NORMALS: no acute distress, average body habitus, patient oriented x3, no limitations, healthy appearing, alert and well nourished HENMT: COMMON NORMALS: normocephalic, atraumatic, hearing grossly normal bilaterally, external ears normal, EAC's normal, Normal external nose present, moist oral mucous membranes and oropharynx normal HEAD & SCALP: normocephalic and atraumatic NOSE: Normal external nose present EXTERNAL EAR: Yes external ears normal EXTERNAL AUDITORY CANAL: EAC's normal Neck/C-Spine: COMMON NORMALS: no JVD Chest: COMMONS NORMALS: normal inspection of the chest and normal palpation of entire chest wall Resp: COMMON NORMALS: normal respiratory effort, No retractions, No use of accessory muscles and clear to auscultation bilaterally AUSCULTATION: clear to auscultation bilaterally Cardio: COMMON NORMALS: no JVD, regular rate, regular rhythm, S1 normal heart sound present, S2 normal heart sound present, No gallops present (Cardio), No clicks present (Cardio), No murmurs present (Cardio) and No rub (Cardio) R ATE: regular rate RHYTHM: regular rhythm HEART SOUNDS: S1 normal heart sound present and S2 normal heart sound present GI: COMMON NORMALS: Normal to inspection, nondistended, normoactive bowel sounds present, Soft to palpation, non-tender, No hepatosplenomegaly present, no masses and no bruits PALPATION: Yes Soft to palpation and Yes No hepatosplenomegaly present Neuro: COMMON NORMALS: patient oriented x3 SENSORIUM/ORIENTATION: Yes alert Course 2 Vital Signs: Vital signs: Vital Signs Temperature 97.8 F 05/10/23 01:30 Pulse Rate 63 05/10/23 03:30 Respiratory Rate 14 05/10/23 03:30 Blood Pressure 136/76 05/10/23 03:30 Pulse Oximetry 96 05/10/23 03:30 Oxygen Delivery Me thod Room Air 05/10/23 02:48 MDM - Chest Pain Medical Decision Making Patient presents to the ER with complaints of chest pain x 3 days. Patient was worked up in a standard chest pain fashion and compared the results to his past visit. All of which were benign for acute cardiac reasons for chest pain. Patient be discharged home. Patient to follow-up with his PCP in the next 7 days for further evaluation and treatment. Differential Diagnosis Unlikely acute massive pulmonary embolism, acute respiratory failure, acute myocardial infarction, cardiac arrest or sudden cardiac Medical Records I reviewed the patient's medical records. Lab Data I reviewed the patient's lab results. 05/10/23 01:22 05/10/23 01:22 Radiology Impressions Chest X-Ray 05/10/23 01:20 IMPRESSION: No acute cardiopulmonary abnormality. Laboratory Results WBC 7.07 10^3/uL (3.29-11.43) 05/10/23 01:22 RBC 4.54 10^6/uL (3.85-5.65) 05/10/23 01:22 Hgb 13.90 g/dL (11.27-16.99) 05/10/23 01:22 Hct 41.7 % (37-53) 05/10/23 01:22 MCV 91.9 fl (82-101) 05/10/23 01:22 MCH 30.6 pg (27-33) 05/10/23 01:22 MCHC 33.3 g/dL (30-55) 05/10/23 01:22 RDW 13.3 % (12.1-15.1) 05/10/23 01: Plt Count 344 10^3/cmm (157-399) 05/10/23 01:22 MPV 9.3 fL (7.4-10.4) 05/10/23 01:22 Neut % (Auto) 41.6 % 05/10/23 01: Lymph % (Auto) 45.8 % 05/10/23 01:22 [place] % (Auto) 7.8 % 05/10/23 01:22 Eos % (Auto) 3.8 % 05/10/23 01:22 Baso % (Auto) 0.7 % 05/10/23 01: Neut # (Auto) 2.94 10^3/uL (1.8-7.7) 05/10/23 01: Lymph # (Auto) 3.2 10^3/uL (0.8-4.8) 05/10/23 01: [place] # (Auto) 0.6 10^3/uL (0.2-0.9) 05/10/23 01: Eos # (Auto) 0.3 10^3/uL (0.0-0.8) 05/10/23 01:22 Baso # (Auto) 0.1 10^3/uL (0.0-0.1) 05/10/23: Nucleated RBC % (auto) 0 % 05/10/23: Nucleated RBCs # 0.0 /100WBC 05/10/23 01:22 Sodium 137 mmol/L (136-145) 05/10/23 01: Potassium 3.1 mmol/L (3.5-5.1) L 05/10/23 01: Chloride 97 mmol/L (98-107) L 05/10/23 01:22 Carbon Dioxide 30 mmol/L (22-29) H 05/10/23 01:22 Anion Gap 13.1 (5-19) 05/10/23 01:22 BUN 17 mg/dL (6-20) 05/10/23 01:22 Creatinine 0.8 mg/dL (0.7-1.2) 05/10/23 01:22 GFR Calculation 125.9 mL/min (90-130) 05/10/23 01:22 Glucose 119 mg/dL (65-115) H 05/10/23 01:22 Calculated Osmolality 287 mOsm/kg (285-295) 05/10/23 01:22 Calcium 9.6 mg/dL (8.5-10.5) 05/10/23 01:22 Total Bilirubin 0.2 mg/dL (0.15-1.2) 05/10/23 01:22 AST 21 U/L (0-40) 05/10/23 01:22 ALT 43 U/L (0-41) H 05/10/23 01:22 Alkaline Phosphatase 99 U/L (40-130) 05/10/23 01:22 Troponin T Baseline < 6 ng/L (0-15) 05/10/23 01:22 Troponin T 120 Minute 6.00 ng/L (0-15) 05/10/23 03:17 Delta Troponin T 0.03448 ABS# (0-10) 05/10/23 03:17 Total Protein 6.9 g/dL (6.6-8.7) 05/10/23 01:22 Albumin 4.2 g/dL (3.5-5.2) 05/10/23 01:22 Globulin 2.7 g/dL (1.3-4.6) 05/10/23 01:22 All radiology interpretation(s) finalized by discharge EKG Data EKG 1: I personally reviewed and interpreted this EKG as follows: EKG interpretation date: 05/10/23 EKG interpretation time: 01:27 Prior EKG tracings: not available for review Interpretation: EKG showed ventricular rate 74 bpm, NE interval 166, QRS duration 105, QTc 386, sinus rhythm, nonspecific ST-T wave abnormality EKG 2: I personally reviewed and interpreted this EKG as follows: EKG interpretation date: 05/10/23 EKG interpretation time: 03:13 Prior EKG tracings: available for review Interpretation: EKG showed ventricular rate 69 bpm, NE interval 167, QRS duration 100, QTc 375, sinus rhythm, nonspecific ST and T wave abnormality Discharge Plan Discharge Patient Disposition: Home Clinical Impression: Atypical chest pain Condition: Stable Prescriptions: No Action Mucinex 600 mg tablet extended release 12hr 600 mg PO Q12H PRN (Reason: breathing/Congestion) Qty: 60 5RF clonidine HCl 0.1 mg tablet 0.1 mg PO .q hs Qty: 30 5RF buspirone 15 mg tablet 15 mg PO BID 30 Days Qty: 60 3RF Ventolin HFA 90 mcg/actuation HFA aerosol inhaler 2 puff INHALATION Q6H PRN (Reason: shortness of breath or wheezing) Qty: 18 5RF wdefoskxisohthq-rojjfqzvz-WO [Bromfed DM] 2-30-10 mg/5 mL syrup 5 ml PO Q6H PRN (Reason: cold symptoms) Qty: 118 0RF aspirin 81 mg tablet,delayed release (DR/EC) 81 mg PO DAILY Qty: 90 5RF fluticasone propionate 50 mcg/actuation spray,suspension 2 spray INTRANASAL DAILY PRN (Reason: nasal congestion) Qty: 16 5RF amlodipine 5 mg tablet 5 mg PO BEDTIME Qty: 90 1RF famotidine 40 mg tablet 40 mg PO BID Qty: 60 3RF Coreg 12.5 mg tablet 12.5 mg PO BID Qty: 60 5RF Rx Instructions: must administer with a meal/food Naprosyn 500 mg tablet 500 mg PO BID PRN (Reason: pain) Qty: 20 0RF quetiapine [Seroquel] 400 mg Tablet 400 mg PO BEDTIME 30 Days Qty: 30 1RF pantoprazole 40 mg tablet,delayed release (DR/EC) 40 mg PO DAILY Qty: 30 3RF Discharge Orders: Discharge ED (Routine); Ordered 05/10/23 Ordered By: Gunnar Castañeda Referrals: Olaf Russell MD [Primary Care Provider] - 1 week Patient Instructions: Chest Pain (ED) Activity Restrictions/Additional Instructions: Your chest pain does not appear to be cardiac in nature. Please follow-up with your family practice physician for further evaluation and testing within the next 7 days as needed. Coding Level of Care Code ED Laborer General for Kelley Gomez
--- NOTE | 2023-05-10 03:13 | ECG_ITS ---
[facility] Test Date: 2023-05-10 Pat Name: Yoel Almeida Department: Room: Gender: Male Post Secondary Professional: : 1975 Requested By: Gunnar Castañeda Order Number: [id number] Aubrey MD: Christiano Patel M.D. Measurements Intervals [place] Rate: 69 P: 65 IN: 167 QRS: 52 QRSD: 100 T: 50 QT: 355 QTc: 383 Interpretive Statements SINUS RHYTHM ST ELEVATION CONSISTENT WITH INJURY, PERICARDITIS, OR EARLY REPOLARIZATION [ST ELEVATION W/O NORMALLY INFLECTED T-WAVE] NONSPECIFIC T-WAVE ABNORMALITY Compared to ECG 05/05/2023 20:59:41 ST (T wave) deviation now present Early repolarization now present T-wave abnormality now present Electronically Signed On 05-10-2023 14:26:44 [employer] by Christiano Patel M.D. [email or web address]
[2023-05-10 03:40] LABS: Troponin 5 2HR Delta 0.00001 ABS# (0-10)
== END 2023-05-10 04:06 | disposition home or self-care (01) ==
PROVIDERS: Emergency Provider Emergency Medicine; PCP Family Medicine Adult Medicine
DX: R07.89 Other chest pain (principal)
CPT/HCPCS: 71045; 80053; 84484; 85025; 93005; 99285

== ENCOUNTER → 2023-05-16 13:35 | Outpatient (BNVA) | payer MEDICAID, SELFPAY | PROVIDERS: PCP Family Medicine Adult Medicine; Visit Provider Podiatrist Foot & Ankle Surgery | DX: M21.611 Bunion of right foot (principal); M21.612 Bunion of left foot; M21.621 Bunionette of right foot; M21.622 Bunionette of left foot; M21.41 Flat foot [pes planus] (acquired), right foot; M21.42 Flat foot [pes planus] (acquired), left foot; L84 Corns and callosities; L60.3 Nail dystrophy | CPT/HCPCS: 73630; 99203 ==

== ENCOUNTER 2023-06-19 13:37 | Emergency (ER) | payer MEDICAID, SELFPAY ==
[2023-06-19 14:00] VITALS: BP 138/86; PULSE 76; RESP 16; TEMP 36.7; O2SAT 98; BMI 29.5
[2023-06-19 14:30] LABS: Basophils # 0.1 10^3/uL (0.0-0.1); Basophils % 0.9 %; Eosinophils # 0.2 10^3/uL (0.0-0.8); Eosinophils % 2.8 %; Hematocrit 41.9 % (37-53); Lymphocytes # 2.7 10^3/uL (0.8-4.8); Lymphocytes % 42.8 %; Mean Corpuscular HGB Conc 32.2 g/dL (30-55); Mean Corpuscular Hemoglobin 29.5 pg (27-33); Mean Corpuscular Volume 91.5 fl (82-101); Mean Platelet Volume 9.2 fL (7.4-10.4); Monocytes # 0.7 10^3/uL (0.2-0.9); Monocytes % 10.6 %; Neutrophils % 42.7 %; Nucleated Red Blood Cells % 0 %; Platelet Count 302 10^3/cmm (157-399); Red Blood Count 4.58 10^6/uL (3.85-5.65); Red Cell Distribution Width 13.3 % (12.1-15.1); White Blood Count 6.33 10^3/uL (3.29-11.43)
[2023-06-19 14:47] LABS: Alanine Aminotransferase 47 U/L (0-41); Albumin Level 4.1 g/dL (3.5-5.2); Alkaline Phosphatase 86 U/L (40-130); Aspartate Amino Transferase 21 U/L (0-40); Blood Urea Nitrogen 14 mg/dL (6-20); Calcium 9.2 mg/dL (8.5-10.5); Carbon Dioxide 29 mmol/L (22-29); Chloride 102 mmol/L (98-107); Creatinine Clr Calc Pharmacy 152.6181; Globulin 2.8 g/dL (1.3-4.6); Glomerular Filtration Rate 125.9 mL/min (90-130); Glucose 93 mg/dL (65-115); Osmolality Calculated 290 mOsm/kg (285-295); Sodium 140 mmol/L (136-145); Total Bilirubin 0.4 mg/dL (0.15-1.2); Total Protein 6.9 g/dL (6.6-8.7)
[2023-06-19 14:51] LABS: Anion Gap 12.7 (5-19); Potassium 3.7 mmol/L (3.5-5.1)
[2023-06-19 15:21] VITALS: BP 143/73; PULSE 74; O2SAT 95
--- NOTE | 2023-06-19 16:00 | XRR_ITS ---
PROCEDURE INFORMATION: Exam: XR Chest Exam date and time: 06/19/2023 4:07 PM Age: 47 years old Clinical indication: Cough and dyspnea; Additional info: Dyspnea/cough TECHNIQUE: Imaging protocol: Radiologic exam of the chest. Views: 1 view. COMPARISON: CR (CHEST, ) 05/10/2023 1:36 AM FINDINGS: Lungs: No focal consolidation. Pleural spaces: No evidence of pneumothorax. No evidence of pleural effusion. Heart/Mediastinum: Cardiomediastinal silhouette is within normal limits. Bones/joints: No evidence of acute osseous abnormality. XR/XR chest 1V portable [id number] IMPRESSION: 1. No acute cardiopulmonary abnormality.
--- NOTE | 2023-06-19 16:00 | CTR_ITS ---
PROCEDURE INFORMATION: Exam: CT Head Without Contrast Exam date and time: 06/19/2023 4:20 PM Age: 47 years old Clinical indication: Visual disturbance; Additional info: Vision changes in the L eye TECHNIQUE: Imaging protocol: Computed tomography of the head without contrast. Radiation optimization: All CT scans at this facility use at least one of these dose optimization techniques: automated exposure control; mA and/or kV adjustment per patient size (includes targeted exams where dose is matched to clinical indication); or iterative reconstruction. COMPARISON: No relevant prior studies available. RADIATION DOSE METRICS: Total DLP (mGy-cm): 1235.48 FINDINGS: Brain: No evidence of intra-axial or extra-axial hemorrhage. No mass effect or midline shift. Craven-white differentiation is maintained. Basilar cisterns are patent. Cerebral ventricles: No hydrocephalus. Paranasal sinuses: Moderate mucosal thickening of the left frontal sinus. The visualized paranasal sinuses are otherwise well aerated. Mastoid air cells: The visualized mastoids and middle ears are clear. Bones/joints: The visualized calvarium and bony orbits are intact. Soft tissues: No gross soft tissue abnormality. CT/CT head wo con* [id number] IMPRESSION: 1. No acute intracranial abnormality. If there is clinical concern for acute ischemia beyond the window for neuro intervention, consider correlation with MRI.
[2023-06-19 16:04] VITALS: PULSE 70; RESP 16; O2SAT 95
[2023-06-19 16:05] LABS: Add Urine Microscopic? NO; Charge for UA Resulting for Rev
[2023-06-19 16:09] LABS: Bilirubin Urine Neg (Negative); Blood Urine Neg (Negative); Glucose Urine UA Norm (Normal); Ketones Urine Negative (Negative); Leukocyte Esterase Urine Negative (Negative); Nitrate Urine Negative (Negative); Protein Urine Neg (Negative); Urine Appearance Clear (CLEAR); Urine Color Yellow (Yellow); Urobilinogen Urine Norm (Negative); pH Urine 5 (5-7)
--- NOTE | 2023-06-19 16:09 | ED_ITS ---
HPI - General Adult 2 General: Chief complaint: General Medical Stated complaint: knots on foot, body aches, blurred vision Time Seen by Provider: 06/19/23 15:27 Source: patient Mode of arrival: ambulatory History of Present Illness: 47-year-old male presents emergency room he has multiple different complaints is difficult to get a full handle on his complaining of knots under his skin as being painful is complaining of some sores on his feet which is seen a youth leader for. When I try to get him to drill down about what the most specific issue that he came in for was he states blurry vision particularly in his left eye been going on the last couple of days. No chest pain no vomiting no diarrhea. No eye pain no recent head trauma. Onset (ago): hour(s) Relieving factors: none Exacerbating factors: none Associated symptoms: Deny chest pain, confusion, cough, diaphoresis, decreased appetite, dyspnea, fevers/chills, headache(s), malaise, nausea, rash, palpitations, seizures, short of breath, syncope, vomiting or weakness Review of Systems 2 Const: Denies: malaise or diaphoresis Card: Denies: chest pain, palpitations or syncope Resp: Denies: dyspnea GI: Denies: nausea or vomiting : Denies: dysuria, urinary frequency or urinary urgency Musc: Denies: neck pain or back pain Skin/Breast: Denies: rash Neuro: Denies: headache(s) or confusion PFSH ED 2 PFSH: Medical History Hypokalemia Smoker COPD (chronic obstructive pulmonary disease) Chronic foot pain Bilateral bunions TMJ arthralgia Night terrors, adult Allergic rhinitis GERD (gastroesophageal reflux disease) Intellectual disability Anxiety Hypertension Psychiatric care Social History Alcohol intake: current Substance/Drug Use: unknown Physical Exam 2 Const: COMMON NORMALS: no acute distress GENERAL APPEARANCE: cooperative and comfortable ORIENTATION/CONSCIOUSNESS: Yes awake, Yes oriented to person, Yes oriented to place and Yes oriented to time HENMT: COMMON NORMALS: normocephalic, atraumatic and hearing grossly normal bilaterally HEAD & SCALP: normocephalic and atraumatic Resp: COMMON NORMALS: normal respiratory effort, No retractions, No use of accessory muscles and clear to auscultation bilaterally AUSCULTATION: clear to auscultation bilaterally Cardio: COMMON NORMALS: regular rate, regular rhythm and No murmurs present (Cardio) RATE: regular rate RHYTHM: regular rhythm GI: COMMON NORMALS: Soft to palpation and No hepatosplenomegaly present A USCULTATION: Yes normoactive bowel sounds PALPATION: Yes Soft to palpation, No Tenderness to palpation present (GI), No Guarding due to palpation present (GI) and Yes No hepatosplenomegaly present Extremity: COMMON NORMALS: normal to inspection, capillary refill normal, no clubbing, cyanosis or edema, no calf tenderness and no pedal edema Neuro: SENSORIUM/ORIENTATION: Yes oriented to person, Yes oriented to place and Yes oriented to time Skin: COMMON NORMALS: no rashes or lesions noted GENERAL SKIN EXAM: no rashes or lesions noted Course 2 Vital Signs: Vital signs: Vital Signs Temperature 98.1 F 06/19/23 14:00 Pulse Rate 70 06/19/23 16:04 Respiratory Rate 16 06/19/23 16:04 Blood Pressure 143/73 06/19/23 15:21 Pulse Oximetry 95 06/19/23 16:04 Oxygen Delivery Me thod Room Air 06/19/23 16:04 [facility] - General Adult Medical Decision Making Exam findings show no evidence of Oliver's palsy or stroke. Repeat exam remains unremarkable CT of the head was negative. We did do a bedside vision chart during exam when she was able to read without difficulty with both the left and right eye when tested each individually. Will discharge the patient home he had question about his footcare recommend he follow-up with podiatry regarding that. Follow-up with primary care if is any further problems and recommend he have a formal eye exam with optometry ophthalmology. Can use Tylenol ibuprofen for the headaches. Medical Records I reviewed the patient's medical records. Lab Data I reviewed the patient's lab results. 06/19/23 14:24 06/19/23 14:24 Radiology Impressions Chest X-Ray 06/19/23 16:00 IMPRESSION: 1. No acute cardiopulmonary abnormality. Head CT 06/19/23 16:00 IMPRESSION: 1. No acute intracranial abnormality. If there is clinical concern for acute ischemia beyond the window for neuro intervention, consider correlation with MRI. Laboratory Results WBC 6.33 10^3/uL (3.29-11.43) 06/19/23 14:24 RBC 4.58 10^6/uL (3.85-5.65) 06/19/23 14:24 Hgb 13.50 g/dL (11.27-16.99) 06/19/23 14:24 Hct 41.9 % (37-53) 06/19/23 14:24 MCV 91.5 fl (82-101) 06/19/23 14:24 MCH 29.5 pg (27-33) 06/19/23 14:24 MCHC 32.2 g/dL (30-55) 06/19/23 14:24 RDW 13.3 % (12.1-15.1) 06/19/23 14:24 Plt Count 302 10^3/cmm (157-399) 06/19/23 14:24 MPV 9.2 fL (7.4-10.4) 06/19/23 14:24 Neut % (Auto) 42.7 % 06/19/23 14:24 Lymph % (Auto) 42.8 % 06/19/23 14:24 [place] % (Auto) 10.6 % 06/19/23 14:24 Eos % (Auto) 2.8 % 06/19/23 14:24 Baso % (Auto) 0.9 % 06/19/23 14:24 Neut # (Auto) 2.70 10^3/uL (1.8-7.7) 06/19/23 14:24 Lymph # (Auto) 2.7 10^3/uL (0.8-4.8) 06/19/23 14:24 [place] # (Auto) 0.7 10^3/uL (0.2-0.9) 06/19/23 14:24 Eos # (Auto) 0.2 10^3/uL (0.0-0.8) 06/19/23 14:24 Baso # (Auto) 0.1 10^3/uL (0.0-0.1) 06/19/23 14:24 Nucleated RBC % (auto) 0 % 06/19/23 14:24 Nucleated RBCs # 0.0 /100WBC 06/19/23 14:24 Sodium 140 mmol/L (136-145) 06/19/23 14:24 Potassium 3.7 mmol/L (3.5-5.1) 06/19/23 14:24 Chloride 102 mmol/L (98-107) 06/19/23 14:24 Carbon Dioxide 29 mmol/L (22-29) 06/19/23 14:24 Anion Gap 12.7 (5-19) 06/19/23 14:24 BUN 14 mg/dL (6-20) 06/19/23 14:24 Creatinine 0.8 mg/dL (0.7-1.2) 06/19/23 14:24 GFR Calculation 125.9 mL/min (90-130) 06/19/23 14:24 Glucose 93 mg/dL (65-115) 06/19/23 14:24 Calculated Osmolality 290 mOsm/kg (285-295) 06/19/23 14:24 Calcium 9.2 mg/dL (8.5-10.5) 06/19/23 14:24 Total Bilirubin 0.4 mg/dL (0.15-1.2) 06/19/23 14:24 AST 21 U/L (0-40) 06/19/23 14:24 ALT 47 U/L (0-41) H 06/19/23 14:24 Alkaline Phosphatase 86 U/L (40-130) 06/19/23 14:24 Total Protein 6.9 g/dL (6.6-8.7) 06/19/23 14:24 Albumin 4.1 g/dL (3.5-5.2) 06/19/23 14:24 Globulin 2.8 g/dL (1.3-4.6) 06/19/23 14:24 Urine Color Yellow (Yellow) 06/19/23 15:30 Urine Appearance Clear (CLEAR) 06/19/23 15:30 Urine pH 5 (5-7) 06/19/23 15:30 Ur Specific [place] 1.020 (1.005-1.030) 06/19/23 15:30 Urine Protein Neg (Negative) 06/19/23 15:30 Urine Glucose (UA) Norm (Normal) 06/19/23 15:30 Urine Ketones Negative (Negative) 06/19/23 15:30 Urine Blood Neg (Negative) 06/19/23 15:30 Urine Nitrate Negative (Negative) 06/19/23 15:30 Urine Bilirubin Neg (Negative) 06/19/23 15:30 Urine Urobilinogen Norm mg/dL (Negative) 06/19/23 15:30 Ur Leukocyte Esterase Negative (Negative) 06/19/23 15:30 All radiology interpretation(s) finalized by discharge Discharge Plan Discharge Patient Disposition: Home Clinical Impression: Headache, Blurred vision, left eye Condition: Stable Prescriptions: No Action Mucinex 600 mg tablet extended release 12hr 600 mg PO Q12H PRN (Reason: breathing/Congestion) Qty: 60 5RF clonidine HCl 0.1 mg tablet 0.1 mg PO .q hs Qty: 30 5RF buspirone 15 mg tablet 15 mg PO BID 30 Days Qty: 60 3RF Ventolin HFA 90 mcg/actuation HFA aerosol inhaler 2 puff INHALATION Q6H PRN (Reason: shortness of breath or wheezing) Qty: 18 5RF aspirin 81 mg tablet,delayed release (DR/EC) 81 mg PO DAILY Qty: 90 5RF fluticasone propionate 50 mcg/actuation spray,suspension 2 spray INTRANASAL DAILY PRN (Reason: nasal congestion) Qty: 16 5RF amlodipine 5 mg tablet 5 mg PO BEDTIME Qty: 90 1RF famotidine 40 mg tablet 40 mg PO BID Qty: 60 3RF Coreg 12.5 mg tablet 12.5 mg PO BID Qty: 60 5RF Rx Instructions: must administer with a meal/food guaifenesin 600 mg tablet extended release 12hr 600 mg PO Q12H PRN (Reason: congestion) Qty: 60 5RF potassium chloride 8 mEq tablet extended release 8 meq PO DAILY Qty: 90 0RF tziryjynhxptrmk-nscxpjjmd-CT [Bromfed DM] 2-30-10 mg/5 mL syrup 5 ml PO Q6H PRN (Reason: cold symptoms) Qty: 118 0RF Naprosyn 500 mg tablet 500 mg PO BID PRN (Reason: pain) Qty: 20 0RF quetiapine [Seroquel] 400 mg Tablet 400 mg PO BEDTIME 30 Days Qty: 30 1RF pantoprazole 40 mg tablet,delayed release (DR/EC) 40 mg PO DAILY Qty: 30 3RF Discharge Orders: Discharge ED (Routine); Ordered 06/19/23 Ordered By: Fer Garibay Referrals: Olaf Russell MD [Primary Care Provider] - Discharge Diet: Usual diet Discharge Activity: Increase activity as tolerated Patient Instructions: Opioid Safety, Pain Management Activity Restrictions/Additional Instructions: Thank you for choosing [facility] for your healthcare needs today. Please realize this is an emergency room and that we are providing you with a medical screening exam and this may not be complete and all inclusive of all the testing and or work up that you may need to determine your ailment or severity of your illness. It is very important that you follow up as instructed or that you return to the Emergency Department should you have concerns or if your condition changes or worsens in any way. You are seen today with complaint of headache and blurry vision there is no sign of Oliver's palsy or stroke. CT of your head was negative for any acute findings. You can use Tylenol ibuprofen or diphenhydramine for headache follow-up with your primary care doctor if you have further problems. You had asked regarding your foot care would recommend that you follow-up with the youth leader she was seen previously for this. You should also have your vision checked by an it support analyst or irrigation equipment mechanic. Coding Level of Care Code ED Cashier Or Checker Stock Clerk for Kelley Gomez
--- NOTE | 2023-06-19 16:13 | ECG_ITS ---
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 Measurements Intervals [place] Rate: 63 P: 65 IA: 170 QRS: 39 QRSD: 95 T: 37 QT: 359 QTc: 368 Interpretive Statements SINUS RHYTHM EARLY REPOLARIZATION [ST ELEVATION WITH NORMALLY INFLECTED T-WAVE] Compared to ECG 05/10/2023 03:13:26 ST (T wave) deviation no longer present T-wave abnormality no longer present Electronically Signed On 06-20-2023 0:38:59 ARTIFICIAL PEARL MAKER by Jihan Ware M.D. [email or web address]
[2023-06-19 17:42] VITALS: BP 143/73; PULSE 70; RESP 16; TEMP 36.7; O2SAT 95
== END 2023-06-19 17:43 | disposition home or self-care (01) ==
PROVIDERS: Emergency Medicine; Emergency Provider Family Medicine; PCP Family Medicine Adult Medicine
DX: H53.8 Other visual disturbances (principal); R51.9 Headache, unspecified; Z79.82 Long term (current) use of aspirin; J44.9 Chronic obstructive pulmonary disease, unspecified; I10 Essential (primary) hypertension
CPT/HCPCS: 36415; 70450; 71045; 80053; 81003; 85025; 93005; 99285

== ENCOUNTER 2023-07-14 23:36 | Emergency (ER) | payer MEDICAID, SELFPAY ==
[2023-07-15 00:14] VITALS: BP 144/90; PULSE 78; RESP 18; TEMP 36.4; O2SAT 97; BMI 28.8
[2023-07-15] MEDS: ketorolac 60 mg/2 mL INJ IM (02:04)
--- NOTE | 2023-07-15 02:12 | XRR_ITS ---
PROCEDURE INFORMATION: Exam: XR Chest Exam date and time: 07/15/2023 2:15 AM Age: 47 years old Clinical indication: Cough TECHNIQUE: Imaging protocol: Radiologic exam of the chest. Views: 1 view. COMPARISON: CR XR chest 1V portable [id number] 06/19/2023 4:07 PM FINDINGS: Lungs: Clear, symmetrically inflated lungs. Pleural spaces: No pleural effusion. No pneumothorax. Heart/Mediastinum: Cardiac silhouette is normal in size for technique. Bones/joints: Age appropriate. XR/XR chest 1V portable [id number] IMPRESSION: No acute cardiopulmonary abnormality.
[2023-07-15 02:26] LABS: Add Urine Microscopic? NO; Charge for UA Resulting for Rev
[2023-07-15 02:40] LABS: Glucose Urine UA Norm (Normal); Protein Urine Neg (Negative); Urine Appearance Clear (CLEAR); Urine Color Yellow (Yellow); pH Urine 6 (5-7)
[2023-07-15 02:41] LABS: Bilirubin Urine Neg (Negative); Blood Urine Neg (Negative); Ketones Urine Negative (Negative); Leukocyte Esterase Urine Negative (Negative); Nitrate Urine Negative (Negative); Urobilinogen Urine Neg (Negative)
[2023-07-15 02:43] VITALS: BP 157/96; PULSE 69; O2SAT 97
[2023-07-15 03:10] LABS: Basophils % 0.4 %; Eosinophils # 0.3 10^3/uL (0.0-0.8); Eosinophils % 4.4 %; Hematocrit 41.9 % (37-53); Lymphocytes # 3.9 10^3/uL (0.8-4.8); Lymphocytes % 51.1 %; Mean Corpuscular HGB Conc 33.2 g/dL (30-55); Mean Corpuscular Hemoglobin 30.1 pg (27-33); Mean Corpuscular Volume 90.7 fl (82-101); Mean Platelet Volume 9.2 fL (7.4-10.4); Monocytes # 0.8 10^3/uL (0.2-0.9); Neutrophils # 2.49 10^3/uL (1.8-7.7); Nucleated Red Blood Cells % 0 %; Platelet Count 320 10^3/cmm (157-399); Red Blood Count 4.62 10^6/uL (3.85-5.65); Red Cell Distribution Width 12.8 % (12.1-15.1); White Blood Count 7.54 10^3/uL (3.29-11.43)
--- NOTE | 2023-07-15 03:18 | ED_ITS ---
HPI - Headache 2 General: Chief Complaint: Headache Stated Complaint: Headache\Head feeling Tight Time Seen by Provider: 07/15/23 01:32 History of Present Illness: 47-year-old male presents to the emergen cy department with complaints of a headache he states he feels like he has a tight band around his head. He denies known injury or trauma. He states he also feels like his chest is intermittently burning and has a nonproductive cough. He states has been going on for the past 1 and half weeks. He states he is also mentioned it to Dr. Russell who is his primary care provider. Patient denies nausea vomiting fevers chills or night sweats. He denies neck pain or stiffness. He denies chest pain or shortness of breath. Review of Systems 2 General: Reports: 10 or more systems reviewed and unremarkable except in HPI and below Resp: Reports: non-productive cough Neuro: Reports: headache(s); Denies: dizziness or vertigo PFSH ED 2 PFSH: Medical History (Updated 07/15/23 @ 03:20 by Wilbert Kendall MD) Folliculitis Hypokalemia Smoker COPD (chronic obstructive pulmonary disease) Chronic foot pain Bilateral bunions TMJ arthralgia Night terrors, adult Allergic rhinitis GERD (gastroesophageal reflux disease) Intellectual disability Anxiety Hypertension Psychiatric care Social History Alcohol intake: current Substance/Drug Use: unknown Physical Exam 2 Narrative: EXAM NARRATIVE: Constitutional: the patient appears well nourished and with normal development. Vital signs reviewed as documented. HENMT: Normocephalic, atraumatic. External ears normal appearance without drainage. Nose without drainage, normal appearance. Mucus membranes moist. Neck is supple, No jugular venous distension, trachea is midline, no appreciable carotid bruits. No lymphadenopathy. No meningeal signs. Flexion, extension and lateral rotation is without pain. Eyes: Pupils are equal, round, reactive to light and accommodation. No scleral icterus. Extra-ocular movement are intact. Thorax is symmetrical and with equal rise and fall with respirations. Resp: Lungs are clear to auscultation. No wheezes, rales, crackles or ronchi at present. Cardio: Regular rate and rhythm. Positive S1, S2. No appreciable murmurs, rubs or gallops. GI: Abdominal exam reveals normal bowel sounds to all quadrants. No organomegaly. No obvious palpable masses noted. No hepatomegally appreciated. Soft, non-tender to palpation. Extremity: Extremities are non-edematous and both femoral and pedal pulses are 2+ and equal bilaterally. Moves all extremities well, sensation in all extremities. Neuro: Alert and oriented x4, person, place, time and situation. Cranial nerves II through XII are grossly intact, there is no focal neurological deficits that I can appreciate at present. Sensation intact to all extremities. 2-point discrimination intact. Light touch intact to all extremities. Motor strength in the upper and lower extremities are equal and bilateral 5/5. Psych: Cooperative, calm, normal thought process, appropriate judgment. Skin: No lesions, rashes. No gross abnormalities noted. Back: Symmetrical, no obvious deformity, No CVA tenderness Course 2 Vital Signs: Vital signs: Vital Signs Temperature 97.6 F 07/15/23 00:14 Pulse Rate 74 07/15/23 03:30 Respiratory Rate 18 07/15/23 03:30 Blood Pressure 141/107 07/15/23 03:30 Pulse Oximetry 97 07/15/23 03:30 Oxygen Delivery Me thod Room Air 07/15/23 00:14 MDM - Headache Medical Decision Making Physical exam completed and documented I did obtain a CBC and CMP as well as urinalysis which were essentially all normal. I did obtain a chest x-ray with no acute findings. Patient was provided Toradol for his headache and advised to follow-up with his primary care provider for additional evaluation treatment and care. Medical Records I reviewed the patient's medical records. Lab Data I reviewed the patient's lab results. 07/15/23 03:05 07/15/23 03:05 Radiology Impressions Chest X-Ray 07/15/23 02:12 IMPRESSION: No acute cardiopulmonary abnormality. Laboratory Results WBC 7.54 10^3/uL (3.29-11.43) 07/15/23 03:05 RBC 4.62 10^6/uL (3.85-5.65) 07/15/23 03:05 Hgb 13.90 g/dL (11.27-16.99) 07/15/23 03:05 Hct 41.9 % (37-53) 07/15/23 03:05 MCV 90.7 fl (82-101) 07/15/23 03:05 MCH 30.1 pg (27-33) 07/15/23 03:05 MCHC 33.2 g/dL (30-55) 07/15/23 03:05 RDW 12.8 % (12.1-15.1) 07/15/23 03:05 Plt Count 320 10^3/cmm (157-399) 07/15/23 03:05 MPV 9.2 fL (7.4-10.4) 07/15/23 03:05 Neut % (Auto) 33.0 % 07/15/23 03:05 Lymph % (Auto) 51.1 % 07/15/23 03:05 [place] % (Auto) 11.0 % 07/15/23 03:05 Eos % (Auto) 4.4 % 07/15/23 03:05 Baso % (Auto) 0.4 % 07/15/23 03:05 Neut # (Auto) 2.49 10^3/uL (1.8-7.7) 07/15/23 03:05 Lymph # (Auto) 3.9 10^3/uL (0.8-4.8) 07/15/23 03:05 [place] # (Auto) 0.8 10^3/uL (0.2-0.9) 07/15/23 03:05 Eos # (Auto) 0.3 10^3/uL (0.0-0.8) 07/15/23 03:05 Baso # (Auto) 0.0 10^3/uL (0.0-0.1) 07/15/23 03:05 Nucleated RBC % (auto) 0 % 07/15/23 03:05 Nucleated RBCs # 0.0 /100WBC 07/15/23 03:05 Sodium 137 mmol/L (136-145) 07/15/23 03:05 Potassium 3.9 mmol/L (3.5-5.1) 07/15/23 03:05 Chloride 103 mmol/L (98-107) 07/15/23 03:05 Carbon Dioxide 26 mmol/L (22-29) 07/15/23 03:05 Anion Gap 11.9 (5-19) 07/15/23 03:05 BUN 12 mg/dL (6-20) 07/15/23 03:05 Creatinine 0.6 mg/dL (0.7-1.2) L 07/15/23 03:05 GFR Calculation 175.5 mL/min (90-130) H 07/15/23 03:05 Glucose 103 mg/dL (65-115) 07/15/23 03:05 Calculated Osmolality 284 mOsm/kg (285-295) L 07/15/23 03:05 Calcium 9.1 mg/dL (8.5-10.5) 07/15/23 03:05 Total Bilirubin 0.2 mg/dL (0.15-1.2) 07/15/23 03:05 AST 22 U/L (0-40) 07/15/23 03:05 ALT 53 U/L (0-41) H 07/15/23 03:05 Alkaline Phosphatase 104 U/L (40-130) 07/15/23 03:05 Total Protein 7.4 g/dL (6.6-8.7) 07/15/23 03:05 Albumin 4.4 g/dL (3.5-5.2) 07/15/23 03:05 Globulin 3.0 g/dL (1.3-4.6) 07/15/23 03:05 Urine Color Yellow (Yellow) 07/15/23 02:17 Urine Appearance Clear (CLEAR) 07/15/23 02:17 Urine pH 6 (5-7) 07/15/23 02:17 Ur Specific [place] 1.020 (1.005-1.030) 07/15/23 02:17 Urine Protein Neg (Negative) 07/15/23 02:17 Urine Glucose (UA) Norm (Normal) 07/15/23 02:17 Urine Ketones Negative (Negative) 07/15/23 02:17 Urine Blood Neg (Negative) 07/15/23 02:17 Urine Nitrate Negative (Negative) 07/15/23 02:17 Urine Bilirubin Neg (Negative) 07/15/23 02:17 Urine Urobilinogen Neg mg/dL (Negative) 07/15/23 02:17 Ur Leukocyte Esterase Negative (Negative) 07/15/23 02:17 All radiology interpretation(s) finalized by discharge Discharge Plan Discharge Patient Disposition: Home Clinical Impression: Acute tension-type headache Qualifiers: Intractability: not intractable Qualified Code(s): G44.209 - Tension-type headache, unspecified, not intractable Condition: Stable Prescriptions: No Action clonidine HCl 0.1 mg tablet 0.1 mg PO .q hs Qty: 30 5RF buspirone 15 mg tablet 15 mg PO BID 30 Days Qty: 60 3RF Ventolin HFA 90 mcg/actuation HFA aerosol inhaler 2 puff INHALATION Q6H PRN (Reason: shortness of breath or wheezing) Qty: 18 5RF pantoprazole 40 mg tablet,delayed release (DR/EC) 40 mg PO .q hs Qty: 30 3RF potassium chloride 8 mEq tablet extended release 8 meq PO DAILY Qty: 90 1RF doxycycline hyclate 100 mg capsule 100 mg PO BID Qty: 14 0RF aspirin 81 mg tablet,delayed release (DR/EC) 81 mg PO DAILY Qty: 90 5RF amlodipine 5 mg tablet 5 mg PO BEDTIME Qty: 90 1RF Coreg 12.5 mg tablet 12.5 mg PO BID Qty: 60 5RF Rx Instructions: must administer with a meal/food guaifenesin 600 mg tablet extended release 12hr 600 mg PO Q12H PRN (Reason: congestion) Qty: 60 5RF ikpeshjauyfhzqn-nlzmvglkm-RV [Bromfed DM] 2-30-10 mg/5 mL syrup 5 ml PO Q6H PRN (Reason: cold symptoms) Qty: 118 0RF fluticasone propionate 50 mcg/actuation spray,suspension 2 spray INTRANASAL DAILY PRN (Reason: nasal congestion) Qty: 16 5RF Naprosyn 500 mg tablet 500 mg PO BID PRN (Reason: pain) Qty: 20 0RF quetiapine [Seroquel] 400 mg Tablet 400 mg PO BEDTIME 30 Days Qty: 30 1RF Discharge Orders: Discharge ED (Routine); Ordered 07/15/23 Ordered By: Wilbert Kendall Referrals: Olaf Russell MD [Primary Care Provider] - Discharge Diet: Usual diet Discharge Activity: Resume usual activity Patient Instructions: Opioid Safety, Pain Management Activity Restrictions/Additional Instructions: Activity Restrictions/Additional Instructions: Thank you for choosing [facility] for your healthcare needs today. Please realize that you were seen in the Emergency Department and that we are providing you with an emergency medical screening exam and this may not be a complete and all inclusive of all the testing and or medical work-up that you may need to determine your ailment or severity of your illness. It is very important that you follow-up as instructed with your Primary care provider or Specialist for additional evaluation and to discuss your medical treatment plan. Coding Level of Care Code ED Machine Veneer Repairer for Kelley Gomez
[2023-07-15 03:30] VITALS: BP 141/107; PULSE 74; RESP 18; O2SAT 97
[2023-07-15 03:30] LABS: Alanine Aminotransferase 53 U/L (0-41); Albumin Level 4.4 g/dL (3.5-5.2); Alkaline Phosphatase 104 U/L (40-130); Anion Gap 11.9 (5-19); Aspartate Amino Transferase 22 U/L (0-40); Blood Urea Nitrogen 12 mg/dL (6-20); Calcium 9.1 mg/dL (8.5-10.5); Carbon Dioxide 26 mmol/L (22-29); Chloride 103 mmol/L (98-107); Creatinine Clr Calc Pharmacy 201.5169; Glomerular Filtration Rate 175.5 mL/min (90-130); Glucose 103 mg/dL (65-115); Osmolality Calculated 284 mOsm/kg (285-295); Potassium 3.9 mmol/L (3.5-5.1); Sodium 137 mmol/L (136-145); Total Bilirubin 0.2 mg/dL (0.15-1.2); Total Protein 7.4 g/dL (6.6-8.7)
== END 2023-07-15 03:31 | disposition home or self-care (01) ==
PROVIDERS: Emergency Provider Internal Medicine; PCP Family Medicine Adult Medicine
DX: G44.209 Tension-type headache, unspecified, not intractable (principal); Z79.82 Long term (current) use of aspirin; J44.9 Chronic obstructive pulmonary disease, unspecified; I10 Essential (primary) hypertension
CPT/HCPCS: 36415; 71045; 80053; 81003; 85025; 96372; 99284; J1885

== ENCOUNTER 2023-08-11 15:52 | Outpatient (CLI) | payer MEDICAID, SELFPAY ==
--- NOTE | 2023-08-11 16:36 | XRR_ITS ---
PROCEDURE INFORMATION: Exam: XR Complete Acute Abdomen Series Including Chest Exam date and time: 08/11/2023 4:39 PM Age: 47 years old Clinical indication: Abdominal pain; Tenderness; Other: Epigastric; Additional info: Abdominal pain; Chest congestion x 1yr; Cough; Epigastric tenderness; Abdominal pain; Constipation x 3 weeks; Bilateral flank pain; Bloating TECHNIQUE: Imaging protocol: Radiologic exam. Complete acute abdomen series, including 2 or more views of the abdomen and a single view chest. COMPARISON: CR (CHEST, ) 07/15/2023 2:15 AM FINDINGS: Lungs: Normal. No consolidation. Pleural spaces: Normal. No pleural effusions. No pneumothorax. Heart/Mediastinum: Normal. No cardiomegaly. Gastrointestinal tract: No air-filled dilated bowel loops or sequential air-fluid levels. No evidence of bowel thickening. Intraperitoneal space: No free air. Organs: No calcific densities visualized overlying the renal shadows. Vasculature: Multiple pelvic phleboliths. Bones/joints: Unremarkable. No acute fracture. Soft tissues: Unremarkable. XR/XR acute abdomen series [id number] IMPRESSION: No acute findings.
== END 2023-08-11 15:53 | disposition home or self-care (01) ==
PROVIDERS: PCP Family Medicine Adult Medicine; Visit Provider Nurse Practitioner
DX: R10.13 Epigastric pain (principal); K59.00 Constipation, unspecified; Z79.899 Other long term (current) drug therapy
CPT/HCPCS: 74021; 74022; 81000

== ENCOUNTER 2023-08-11 21:39 | Emergency (ER) | payer MEDICAID, SELFPAY ==
--- NOTE | 2023-08-11 21:41 | XRR_ITS ---
PROCEDURE INFORMATION: Exam: XR Chest Exam date and time: 08/11/2023 9:51 PM Age: 47 years old Clinical indication: Chest pressure; Patient HX: New onset chest pain; No previous cardiac HX per PT TECHNIQUE: Imaging protocol: Radiologic exam of the chest. Views: 1 view. COMPARISON: CR (CHEST, ) 07/15/2023 2:15 AM FINDINGS: Lungs: No focal consolidation or other acute appearing pulmonary opacity. Pleural spaces: No pleural effusion or pneumothorax noted. Heart/Mediastinum: There is no cardiomegaly. Bones/joints: No acute osseous abnormality. Intraperitoneal space: There is no free intraperitoneal air. XR/XR chest 1V portable [id number] IMPRESSION: No acute cardiopulmonary disease.
--- NOTE | 2023-08-11 21:43 | ED_ITS ---
HPI - Chest Pain 2 General: Chief Complaint: Chest Pain Stated Complaint: CP Time Seen by Provider: 08/11/23 21:40 Source: patient and EMS Mode of arrival: EMS Limitations: no limitations History of Present Illness: 47-year-old male very well-known to ER h e states he started having some chest pain tonight. He states is a very sharp pain across his chest started roughly 4 hours ago. Had some mild dyspnea denies any cough denies any fever denies any radiation of his pain. Rates the pain a 4 out of 10 currently. Associated symptoms: Deny abdominal pain, dyspnea, fever(s), nausea or vomiting Review of Systems 2 Const: Denies: fever(s), chills, body aches or change in appetite ENMT: Denies: throat pain or dental pain Card: Reports: chest pain Resp: Denies: dyspnea GI: Denies: abdominal pain, nausea, vomiting or diarrhea : Denies: dysuria Musc: Denies: neck pain or back pain Skin/Breast: Denies: rash Neuro: Denies: headache(s) Psych: Denies: depression Dirk/Lymph: Denies: easy bruising All/Imm: Denies: urticaria PFSH ED 2 PFSH: Medical History Folliculitis Hypokalemia Smoker COPD (chronic obstructive pulmonary disease) Chronic foot pain Bilateral bunions TMJ arthralgia Night terrors, adult Allergic rhinitis GERD (gastroesophageal reflux disease) Intellectual disability Anxiety Hypertension Psychiatric care Social History Alcohol intake: current Substance/Drug Use: unknown Physical Exam 2 Const: COMMON NORMALS: no acute distress, patient oriented x3 and healthy appearing HENMT: COMMON NORMALS: normocephalic and atraumatic HEAD & SCALP: n ormocephalic and atraumatic Neck/C-Spine: COMMON NORMALS: full ROM and supple Chest: COMMONS NORMALS: normal inspection of the chest Resp: COMMON NORMALS: normal respiratory effort, No retractions, No use of accessory muscles and clear to auscultation bilaterally AUSCULTATION: clear to auscultation bilaterally Cardio: COMMON NORMALS: regular rate, regular rhythm and No murmurs present (Cardio) RATE: regular rate RHYTHM: regular rhythm GI: COMMON NORMALS: Normal to inspection, nondistended, normoactive bowel sounds present, Soft to palpation, non-tender and no masses PALPATION: Yes Soft to palpation Extremity: COMMON NORMALS: normal to inspection and full ROM Neuro: COMMON NORMALS: patient oriented x3, moves all extremities and no focal motor deficits Psych: COMMON NORMALS: mental status grossly normal, Normal thought process present and cooperative THOUGHT PROCESS: Normal thought process present Skin: COMMON NORMALS: no rashes or lesions noted and no wounds GENERAL SKIN EXAM: no rashes or lesions noted Course 2 Vital Signs: Vital signs: Vital Signs Temperature 98.6 F 08/11/23 21:46 Pulse Rate 85 08/11/23 21:46 Respiratory Rate 20 H 08/11/23 21:46 Blood Pressure 147/77 08/11/23 21:46 Pulse Oximetry 100 08/11/23 21:46 MDM - Chest Pain Medical Decision Making Patient presents for chest pains atypical in nature likely chest wall pain or costochondritis x-ray is normal EKG shows no acute abnormalities he does have a early repull at the same his old EKGs troponins negative he is stable for discharge we will prescribe him Naprosyn he is follow-up with PCP return if worsening Medical Records I reviewed the patient's medical records. Lab Data I reviewed the patient's lab results. 08/11/23 21:30 08/11/23 21:30 Laboratory Results WBC 7.83 10^3/uL (3.29-11.43) 08/11/23 21:30 RBC 4.70 10^6/uL (3.85-5.65) 08/11/23 21:30 Hgb 13.80 g/dL (11.27-16.99) 08/11/23 21:30 Hct 41.9 % (37-53) 08/11/23 21:30 MCV 89.1 fl (82-101) 08/11/23 21:30 MCH 29.4 pg (27-33) 08/11/23 21:30 MCHC 32.9 g/dL (30-55) 08/11/23 21:30 RDW 12.1 % (12.1-15.1) 08/11/23 21:30 Plt Count 349 10^3/cmm (157-399) 08/11/23 21:30 MPV 9.4 fL (7.4-10.4) 08/11/23 21:30 Neut % (Auto) 39.9 % 08/11/23 21:30 Lymph % (Auto) 42.5 % 08/11/23 21:30 [place] % (Auto) 13.3 % 08/11/23 21:30 Eos % (Auto) 3.8 % 08/11/23 21:30 Baso % (Auto) 0.4 % 08/11/23 21:30 Neut # (Auto) 3.12 10^3/uL (1.8-7.7) 08/11/23 21: Lymph # (Auto) 3.3 10^3/uL (0.8-4.8) 08/11/23 21:30 [place] # (Auto) 1.0 10^3/uL (0.2-0.9) H 08/11/23 21:30 Eos # (Auto) 0.3 10^3/uL (0.0-0.8) 08/11/23 21: Baso # (Auto) 0.0 10^3/uL (0.0-0.1) 08/11/23 21:30 Nucleated RBC % (auto) 0 % 08/11/23 21: Nucleated RBCs # 0.0 /100WBC 08/11/23 21:30 Sodium 135 mmol/L (136-145) L 08/11/23 21:30 Potassium 3.7 mmol/L (3.5-5.1) 08/11/23 21: Chloride 97 mmol/L (98-107) L 08/11/23 21: Carbon Dioxide 29 mmol/L (22-29) 08/11/23 21:30 Anion Gap 12.7 (5-19) 08/11/23 21:30 BUN 13 mg/dL (6-20) 08/11/23 21:30 Creatinine 0.7 mg/dL (0.7-1.2) 08/11/23 21: GFR Calculation 146.9 mL/min (90-130) H 08/11/23 21:30 Glucose 92 mg/dL (65-115) 08/11/23 21:30 Calculated Osmolality 280 mOsm/kg (285-295) L 08/11/23 21: Calcium 9.5 mg/dL (8.5-10.5) 08/11/23 21:30 Total Bilirubin 0.3 mg/dL (0.15-1.2) 08/11/23 21:30 AST 26 U/L (0-40) 08/11/23 21:30 ALT 50 U/L (0-41) H 08/11/23 21:30 Alkaline Phosphatase 106 U/L (40-130) 08/11/23 21:30 Troponin T Baseline 8 ng/L (0-15) 08/11/23 21:30 Total Protein 6.5 g/dL (6.6-8.7) L 08/11/23 21:30 Albumin 4.1 g/dL (3.5-5.2) 08/11/23 21:30 Globulin 2.4 g/dL (1.3-4.6) 08/11/23 21:30 All radiology interpretation(s) finalized by discharge EKG Data EKG 1: I personally reviewed and interpreted this EKG as follows: EKG interpretation date: 08/11/23 EKG interpretation time: 21:52 Interpretation: nsr hr [address] or t wave abnormalities qrs 97 qtc 372 Discharge Plan Discharge Patient Disposition: Home Clinical Impression: Chest pain Condition: Stable Prescriptions: New Naprosyn 500 mg tablet 500 mg PO BID PRN (Reason: pain) Qty: 20 0RF No Action clonidine HCl 0.1 mg tablet 0.1 mg PO .q hs Qty: 30 5RF buspirone 15 mg tablet 15 mg PO BID 30 Days Qty: 60 3RF Ventolin HFA 90 mcg/actuation HFA aerosol inhaler 2 puff INHALATION Q6H PRN (Reason: shortness of breath or wheezing) Qty: 18 5RF pantoprazole 40 mg tablet,delayed release (DR/EC) 40 mg PO .q hs Qty: 30 3RF potassium chloride 8 mEq tablet extended release 8 meq PO DAILY Qty: 90 1RF aspirin 81 mg tablet,delayed release (DR/EC) 81 mg PO DAILY Qty: 90 5RF amlodipine 5 mg tablet 5 mg PO BEDTIME Qty: 90 1RF Coreg 12.5 mg tablet 12.5 mg PO BID Qty: 60 5RF Rx Instructions: must administer with a meal/food guaifenesin 600 mg tablet extended release 12hr 600 mg PO Q12H PRN (Reason: congestion) Qty: 60 5RF fczdjhqevqiymqi-rblefmbtv-BG [Bromfed DM] 2-30-10 mg/5 mL syrup 5 ml PO Q6H PRN (Reason: cold symptoms) Qty: 118 0RF fluticasone propionate 50 mcg/actuation spray,suspension 2 spray INTRANASAL DAILY PRN (Reason: nasal congestion) Qty: 16 5RF famotidine 40 mg tablet 40 mg PO BID Qty: 60 5RF Naprosyn 500 mg tablet 500 mg PO BID PRN (Reason: pain) Qty: 20 0RF quetiapine [Seroquel] 400 mg Tablet 400 mg PO BEDTIME 30 Days Qty: 30 1RF Discharge Orders: Discharge ED (Routine); Ordered 08/11/23 Ordered By: Mak Schwarz Referrals: Olaf Russell MD [Primary Care Provider] - Discharge Diet: Advance as tolerated Discharge Activity: Resume usual activity Patient Instructions: Costochondritis (ED), Chest Wall Pain (ED) Coding Level of Care Code ED College And Career Counselor for Kelley Gomez
[2023-08-11 21:46] VITALS: BP 147/77; PULSE 85; RESP 20; TEMP 37; O2SAT 100; BMI 28.7
--- NOTE | 2023-08-11 21:52 | ECG_ITS ---
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 Measurements Intervals [place] Rate: 84 P: 68 [place]: 173 QRS: 57 QRSD: 97 T: 55 QT: 331 QTc: 392 Interpretive Statements SINUS RHYTHM ST ELEVATION, PROBABLY EARLY REPOLARIZATION [ST ELEVATION WITH NORMALLY INFLECTED T-WAVE] Compared to ECG 06/19/2023 16:13:24 ST (T wave) deviation now present Electronically Signed On 08-12-2023 9:18:37 CDT by Christiano Patel M.D. [email or web address] medical [email or web address]/OM/[id number]
[2023-08-11] MEDS: ketorolac 30 mg/mL INJ 15 MG IVP (21:54)
[2023-08-11 21:58] LABS: Basophils % 0.4 %; Eosinophils # 0.3 10^3/uL (0.0-0.8); Eosinophils % 3.8 %; Hematocrit 41.9 % (37-53); Lymphocytes # 3.3 10^3/uL (0.8-4.8); Lymphocytes % 42.5 %; Mean Corpuscular HGB Conc 32.9 g/dL (30-55); Mean Corpuscular Hemoglobin 29.4 pg (27-33); Mean Corpuscular Volume 89.1 fl (82-101); Mean Platelet Volume 9.4 fL (7.4-10.4); Monocytes % 13.3 %; Neutrophils # 3.12 10^3/uL (1.8-7.7); Neutrophils % 39.9 %; Nucleated Red Blood Cells % 0 %; Platelet Count 349 10^3/cmm (157-399); Red Cell Distribution Width 12.1 % (12.1-15.1); White Blood Count 7.83 10^3/uL (3.29-11.43)
[2023-08-11 22:12] LABS: Alanine Aminotransferase 50 U/L (0-41); Albumin Level 4.1 g/dL (3.5-5.2); Alkaline Phosphatase 106 U/L (40-130); Anion Gap 12.7 (5-19); Aspartate Amino Transferase 26 U/L (0-40); Blood Urea Nitrogen 13 mg/dL (6-20); Calcium 9.5 mg/dL (8.5-10.5); Carbon Dioxide 29 mmol/L (22-29); Chloride 97 mmol/L (98-107); Globulin 2.4 g/dL (1.3-4.6); Glomerular Filtration Rate 146.9 mL/min (90-130); Glucose 92 mg/dL (65-115); Osmolality Calculated 280 mOsm/kg (285-295); Potassium 3.7 mmol/L (3.5-5.1); Sodium 135 mmol/L (136-145); Total Bilirubin 0.3 mg/dL (0.15-1.2); Total Protein 6.5 g/dL (6.6-8.7); Troponin(5th) Baseline 8 ng/L (0-15)
== END 2023-08-11 22:39 | disposition home or self-care (01) ==
PROVIDERS: Emergency Provider Emergency Medicine; PCP Family Medicine Adult Medicine
DX: R07.9 Chest pain, unspecified (principal); Z79.82 Long term (current) use of aspirin
CPT/HCPCS: 71045; 80053; 84484; 85025; 93005; 99285; J1885

== ENCOUNTER 2023-08-13 21:34 | Emergency (ER) | payer MEDICAID, SELFPAY ==
[2023-08-13 21:39] VITALS: BP 153/83; PULSE 96; RESP 17; O2SAT 97; BMI 28.3
--- NOTE | 2023-08-13 21:52 | W.ED.GENADLT ---
HPI - General Adult General: Chief complaint: General Medical Stated complaint: sob with deep breaths Time Seen by Provider: 08/13/23 21:49 History of Present Illness: 47-year-old male patient comes in with chest wall pain and constipation. Patient was unable to get to the pharmacy due to change in the hours at his pharmacy. 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 Patient appears nontoxic. Respirations are even. Patient has a history of high blood pressure. Patient was seen on the and diagnosed with chest wall pain and constipation. Patient was prescribed MiraLAX and naproxen. Review of Systems General: Reports: 10 or more systems reviewed and unremarkable except in HPI and below PFSH ED PFSH: Medical History Folliculitis Hypokalemia Smoker COPD (chronic obstructive pulmonary disease) Chronic foot pain Bilateral bunions TMJ arthralgia Night terrors, adult Allergic rhinitis GERD (gastroesophageal reflux disease) Intellectual disability Anxiety Hypertension Psychiatric care Social History Alcohol intake: current Substance/Drug Use: unknown Physical Exam Const: COMMON NORMALS: alert HENMT: COMMON NORMALS: normocephalic HEAD & SCALP: normocephalic Neck/C-Spine: COMMON NORMALS: full ROM Chest: CHEST: Yes tenderness Resp: COMMON NORMALS: normal respiratory effort and clear to auscultation bilaterally AUSCULTATION: clear to auscultation bilaterally Cardio: COMMON NORMALS: regular rate and regular rhythm RATE: regular rate RHYTHM: regular rhythm Back/Pelvis: COMMON NORMALS: thoracic and lumbar spine normal to inspection Extremity: COMMON NORMALS: no pedal edema Neuro: SENSORIUM/ORIENTATION: Yes alert Skin: COMMON NORMALS: turgor normal GENERAL SKIN EXAM: turgor normal Course Vital Signs: Vital signs: Vital Signs Pulse Rate 96 08/13/23 21:39 Respiratory Rate 17 08/13/23 21:39 Blood Pressure 153/83 08/13/23 21:39 Pulse Oximetry 97 08/13/23 21:39 Oxygen Delivery Me thod Room Air 08/13/23 21:39 [facility] - General Adult Medical Decision Making Patient comes in today for complaints of anterior chest wall pain and constipation. On exam patient lungs are clear to auscultation. Skin is warm and dry. No edema is noted in the extremities. Abdomen soft with no tenderness. Vital signs are normal except for some mild elevation of blood pressure at 153 systolic. Differential diagnosis includes but not limited to constipation, costochondritis, pleurisy, malingering. Patient was given a GI cocktail and 30 mL of milk of magnesia for his abdominal discomfort. Patient was also given 10 mg of dexamethasone and 30 mg ketorolac for his chest wall pain. Patient will continue with his prescribed medications as directed at the pharmacy. Patient reported understanding of care plan need for follow-up or return to the ER. No radiology studies performed this visit Discharge Plan Discharge Patient Disposition: Home Clinical Impression: Chest wall pain Constipation Qualifiers: Constipation type: unspecified constipation type Qualified Code(s): K59.00 - Constipation, unspecified Condition: Stable Prescriptions: No Action clonidine HCl 0.1 mg tablet 0.1 mg PO .q hs Qty: 30 5RF buspirone 15 mg tablet 15 mg PO BID 30 Days Qty: 60 3RF Ventolin HFA 90 mcg/actuation HFA aerosol inhaler 2 puff INHALATION Q6H PRN (Reason: shortness of breath or wheezing) Qty: 18 5RF pantoprazole 40 mg tablet,delayed release (DR/EC) 40 mg PO .q hs Qty: 30 3RF potassium chloride 8 mEq tablet extended release 8 meq PO DAILY Qty: 90 1RF polyethylene glycol 3350 [Miralax] 17 gram/dose powder 4 g PO DAILY Qty: 119 0RF aspirin 81 mg tablet,delayed release (DR/EC) 81 mg PO DAILY Qty: 90 5RF amlodipine 5 mg tablet 5 mg PO BEDTIME Qty: 90 1RF Coreg 12.5 mg tablet 12.5 mg PO BID Qty: 60 5RF Rx Instructions: must administer with a meal/food guaifenesin 600 mg tablet extended release 12hr 600 mg PO Q12H PRN (Reason: congestion) Qty: 60 5RF tzwuofmaxouooxg-rcmubathm-BI [Bromfed DM] 2-30-10 mg/5 mL syrup 5 ml PO Q6H PRN (Reason: cold symptoms) Qty: 118 0RF fluticasone propionate 50 mcg/actuation spray,suspension 2 spray INTRANASAL DAILY PRN (Reason: nasal congestion) Qty: 16 5RF famotidine 40 mg tablet 40 mg PO BID Qty: 60 5RF Naprosyn 500 mg tablet 500 mg PO BID PRN (Reason: pain) Qty: 20 0RF Naprosyn 500 mg tablet 500 mg PO BID PRN (Reason: pain) Qty: 20 0RF quetiapine [Seroquel] 400 mg Tablet 400 mg PO BEDTIME 30 Days Qty: 30 1RF Discharge Orders: Discharge ED (Routine); Ordered 08/13/23 Ordered By: Buzz Muñoz Referrals: Olaf Russell MD [Primary Care Provider] - Discharge Diet: Usual diet Discharge Activity: Increase activity as tolerated Patient Instructions: Constipation (ED), Chest Wall Pain (ED) Activity Restrictions/Additional Instructions: Drink plenty of water. Is important to get a least 2 L of water a day to help with your constipation. Home and rest. Continue prescriptions as prescribed at the pharmacy. Return to ER for worsening symptoms such as high fever, blood in vomit or stool, or increasing shortness of breath. Coding Level of Care Code ED Senior Net Web Developer for Kelley Gomez
[2023-08-13] MEDS: magnesium hydroxide 30 mL UDC PO (22:04)
[2023-08-13] MEDS: ketorolac 30 mg/mL INJ IM (22:04)
[2023-08-13] MEDS: lidocaine 2% viscous 15 ML, aluminum-mag hydrox-simethicon 30 ML, sucralfate oral liq 1 GM PO (22:04)
[2023-08-13] MEDS: dexamethasone 10 mg/mL INJ IM (22:05)
[2023-08-13 22:23] VITALS: BP 153/83; PULSE 96; RESP 17; O2SAT 97
== END 2023-08-13 22:24 | disposition home or self-care (01) ==
PROVIDERS: Emergency Provider Nurse Practitioner Family; PCP Family Medicine Adult Medicine
DX: R07.89 Other chest pain (principal); K59.00 Constipation, unspecified; Z79.82 Long term (current) use of aspirin; J44.9 Chronic obstructive pulmonary disease, unspecified; I10 Essential (primary) hypertension
CPT/HCPCS: 96372; 99284; J1100; J1885; J9999

== ENCOUNTER 2023-09-26 09:52 | Emergency (ER) | payer MEDICAID, SELFPAY ==
[2023-09-26] VITALS (20 sets, daily range): BP systolic 127–172; BP diastolic 75–101; PULSE 0–90; RESP 14–29; TEMP 36.6; O2SAT 93–98
--- NOTE | 2023-09-26 09:58 | XR_ITS ---
WS: [id number] XR chest 1V portable [id number] REASON FOR EXAM: cp FINDINGS: The heart and mediastinum are within normal limits. Calcified granulomas disease bilaterally. There is loss of definition of the left ventricle which would imply opacity in the lingular segment o f the left lung. There is suboptimal inspiration. This could contribute to the appearance. The remainder of the lungs on the pleura demonstrate no significant abnormality. There is a mild thoracic dextroscoliosis. XR/XR chest 1V portable [id number] IMPRESSION: Possible lingular opacity. Recommend repeat chest x-ray with better inspiration .
--- NOTE | 2023-09-26 09:59 | ECG_ITS ---
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 Measurements Intervals [place] Rate: 83 P: 62 [place]: 151 QRS: 50 QRSD: 96 T: 54 QT: 331 QTc: 389 Interpretive Statements SINUS RHYTHM EARLY REPOLARIZATION [ST ELEVATION WITH NORMALLY INFLECTED T-WAVE] Compared to ECG 08/11/2023 21:52:20 ST (T wave) deviation no longer present Electronically Signed On 09-26-2023 16:19:27 CDT by Corbin Wu M.D. [email or web address]/[id number] f
--- NOTE | 2023-09-26 10:30 | XR_ITS ---
WS: [id number] XR chest 1V portable [id number] REASON FOR EXAM: REPEAT CXR-need better inspiration per radiologist FINDINGS: With better inspiratory effort the left lung is seen to be normal in the suspicion lung [facility] is no longer identified. XR/XR chest 1V portable [id number] IMPRESSION: No acute chest abnormality.
--- NOTE | 2023-09-26 10:32 | ED_ITS ---
HPI - Chest Pain 2 General: Chief Complaint: Chest Pain Stated Complaint: chest pain, left side numbness Time Seen by Provider: 09/26/23 10:29 Source: patient Mode of arrival: ambulatory Limitations: no limitations History of Present Illness: Patient is a 47-year-old male who is well-known here to our emergency department here with complaints of chest pain. Patient has been seen here multiple times for identical complaints. Cardiac workups from the emergency department have always been benign. He states at one point he was scheduled for an outpatient cardiac stress test but reportedly missed this appointment. He has complaints of chest congestion as well as acid reflux-these also seem to be fairly chronic complaints for patient. He has an appointment with his primary care provider scheduled for tomorrow at 0915. Patient states he does not have any significant shortness of breath or difficulty breathing. No fevers. No recent illness. MD complaint: chest pain Onset (ago): day(s) Timing of current episode: episodic Prior episodes: Yes Onset: during rest Pain location: substernal Pain radiation: left arm Severity: mild Relieving factors: nothing Exacerbating factors: nothing Associated symptoms: Deny abdominal pain, dyspnea, fever(s), nausea, palpitations, syncope or vomiting Treatment prior to arrival: none Risk Factors: Coronary artery disease risk factors: hypertension Thoracic aortic dissection risk factors: none Review of Systems 2 Const: Denies: fever(s), chills, body aches, fatigue or malaise ENMT: Denies: throat pain, odynophagia, ear or mastoid pain, nasal discharge, nasal congestion or sinus pain Card: Reports: chest pain; Denies: palpitations, irregular heart rhythm, edema, swelling of feet/ankles, lightheadedness, syncope, pre-syncope, dyspnea on exertion, orthopnea, leg pain with exertion or acrocyanosis Resp: Reports: chest congestion; Denies: dyspnea, productive cough, non-productive cough, wheezing, stridor, pain on inspiration, change in phlegm color or hemoptysis GI: Reports: heartburn; Denies: abdominal pain, nausea, vomiting or hematemesis : Denies: flank pain or dysuria Musc: Denies: neck pain, back pain, extremity pain or joint pain Skin/Breast: Denies: rash Neuro: Denies: headache(s), numbness in extremities, weakness in extremities, sensory changes or dizziness [facility] ED 2 PFSH: Medical History Hemorrhoids with complication Folliculitis Hypokalemia Smoker COPD (chronic obstructive pulmonary disease) Chronic foot pain Bilateral bunions TMJ arthralgia Night terrors, adult Allergic rhinitis GERD (gastroesophageal reflux disease) Intellectual disability Anxiety Hypertension Psychiatric care Social History Smoking and tobacco/nicotine status: current every day tobacco/nicotine user Alcohol intake: current Substance/Drug Use: unknown Physical Exam 2 Const: COMMON NORMALS: no acute distress, average body habitus, patient oriented x3, no limitations, healthy appearing, alert and well nourished G ENERAL APPEARANCE: cooperative ORIENTATION/CONSCIOUSNESS: Yes awake, Yes oriented to person, Yes oriented to place and Yes oriented to time HENMT: COMMON NORMALS: normocephalic and atraumatic HEAD & SCALP: normal to inspection, normocephalic and atraumatic Neck/C-Spine: COMMON NORMALS: full ROM, no lymphadenopathy, supple and no meningeal signs Chest: COMMONS NORMALS: normal inspection of the chest OTHER: pain is somewhat reproducible with palpation of anterior chest wall Resp: COMMON NORMALS: normal respiratory effort and clear to auscultation bilaterally AUSCULTATION: clear to auscultation bilaterally Cardio: COMMON NORMALS: regular rate and regular rhythm RATE: regular rate RHYTHM: regular rhythm GI: COMMON NORMALS: Normal to inspection, nondistended, normoactive bowel sounds present, Soft to palpation, non-tender, No hepatosplenomegaly present and no masses PALPATION: Yes Soft to palpation and Yes No hepatosplenomegaly present : COMMON NORMALS: Yes no CVA tenderness BLADDER/KIDNEY EXAM: Yes no CVA tenderness Back/Pelvis: COMMON NORMALS: no CVA tenderness and thoracic and lumbar spine normal to inspection Extremity: COMMON NORMALS: normal to inspection, no clubbing, cyanosis or edema, no calf tenderness and no pedal edema GENERAL: Yes normal exam except as noted Neuro: COMMON NORMALS: patient oriented x3, moves all extremities, no focal motor deficits, no sensory deficits noted and gait normal S ENSORIUM/ORIENTATION: Yes alert, Yes oriented to person, Yes oriented to place and Yes oriented to time MENINGEAL SIGNS: Yes no meningeal signs Skin: COMMON NORMALS: no rashes or lesions noted GENERAL SKIN EXAM: no rashes or lesions noted Course 2 Vital Signs: Vital signs: Vital Signs Temperature 97.8 F 09/26/23 10:01 Pulse Rate 85 09/26/23 11:25 Respiratory Rate 29 H 09/26/23 11:25 Blood Pressure 148/93 09/26/23 11:25 Pulse Oximetry 98 09/26/23 11:25 Oxygen Delivery Me thod Room Air 09/26/23 10:01 MDM - Chest Pain Medical Decision Making Patient is a 47-year-old male here for complaints of chest pain. He has been seen here in our emergency department many many times for similar complaints. He arrives in no acute distress with stable vital signs. He is slightly hypertensive. Blood work overall is unremarkable including a baseline troponin. Given length of symptoms I do not need to run a 2-hour troponin at this time. EKG is nonischemic. CXR is unremarkable. He has an appointment with primary care already scheduled for tomorrow. Medical Records I reviewed the patient's medical records. Lab Data I reviewed the patient's lab results. 09/26/23 10:33 09/26/23 10:33 Radiology Impressions Chest X-Ray 09/26/23 10:30 IMPRESSION: No acute chest abnormality. Laboratory Results WBC 5.56 10^3/uL (3.29-11.43) 09/26/23 10:33 RBC 4.80 10^6/uL (3.85-5.65) 09/26/23 10:33 Hgb 13.70 g/dL (11.27-16.99) 09/26/23 10:33 Hct 41.9 % (37-53) 09/26/23 10:33 MCV 87.3 fl (82-101) 09/26/23 10:33 MCH 28.5 pg (27-33) 09/26/23 10:33 MCHC 32.7 g/dL (30-55) 09/26/23 10:33 RDW 12.2 % (12.1-15.1) 09/26/23 10:33 Plt Count 341 10^3/cmm (157-399) 09/26/23 10:33 MPV 9.5 fL (7.4-10.4) 09/26/23 10:33 Neut % (Auto) 43.6 % 09/26/23 10:33 Lymph % (Auto) 36.2 % 09/26/23 10:33 [place] % (Auto) 13.8 % 09/26/23 10:33 Eos % (Auto) 5.8 % 09/26/23 10:33 Baso % (Auto) 0.4 % 09/26/23 10:33 Neut # (Auto) 2.43 10^3/uL (1.8-7.7) 09/26/23 10:33 Lymph # (Auto) 2.0 10^3/uL (0.8-4.8) 09/26/23 10:33 [place] # (Auto) 0.8 10^3/uL (0.2-0.9) 09/26/23 10:33 Eos # (Auto) 0.3 10^3/uL (0.0-0.8) 09/26/23 10:33 Baso # (Auto) 0.0 10^3/uL (0.0-0.1) 09/26/23 10:33 Nucleated RBC % (auto) 0 % 09/26/23 10:33 Nucleated RBCs # 0.0 /100WBC 09/26/23 10:33 Sodium 139 mmol/L (136-145) 09/26/23 10:33 Potassium 3.7 mmol/L (3.5-5.1) 09/26/23 10:33 Chloride 104 mmol/L (98-107) 09/26/23 10:33 Carbon Dioxide 26 mmol/L (22-29) 09/26/23 10:33 Anion Gap 12.7 (5-19) 09/26/23 10:33 BUN 13 mg/dL (6-20) 09/26/23 10:33 Creatinine 0.4 mg/dL (0.7-1.2) L 09/26/23 10:33 GFR Calculation 280.2 mL/min (90-130) H 09/26/23 10:33 Glucose 123 mg/dL (65-115) H 09/26/23 10:33 Calculated Osmolality 289 mOsm/kg (285-295) 09/26/23 10:33 Calcium 9.5 mg/dL (8.5-10.5) 09/26/23 10:33 Total Bilirubin 0.3 mg/dL (0.15-1.2) 09/26/23 10:33 AST 26 U/L (0-40) 09/26/23 10:33 ALT 61 U/L (0-41) H 09/26/23 10:33 Alkaline Phosphatase 134 U/L (40-130) H 09/26/23 10:33 Troponin T Baseline 12 ng/L (0-15) 09/26/23 10:33 Total Protein 6.7 g/dL (6.6-8.7) 09/26/23 10:33 Albumin 3.9 g/dL (3.5-5.2) 09/26/23 10:33 Globulin 2.8 g/dL (1.3-4.6) 09/26/23 10:33 All radiology interpretation(s) finalized by discharge Discharge Plan Discharge Patient Disposition: Home Clinical Impression: Chest pain Qualifiers: Chest pain type: unspecified Qualified Code(s): R07.9 - Chest pain, unspecified Condition: Stable Prescriptions: No Action buspirone 15 mg tablet 15 mg PO BID 30 Days Qty: 60 3RF Ventolin HFA 90 mcg/actuation HFA aerosol inhaler 2 puff INHALATION Q6H PRN (Reason: shortness of breath or wheezing) Qty: 18 5RF docusate calcium 240 mg capsule 240 mg PO DAILY Qty: 90 3RF Coreg 12.5 mg tablet 12.5 mg PO BID Qty: 60 5RF Rx Instructions: must administer with a meal/food guaifenesin 600 mg tablet extended release 12hr 600 mg PO Q12H PRN (Reason: congestion) Qty: 60 5RF fluticasone propionate 50 mcg/actuation spray,suspension 2 spray INTRANASAL DAILY PRN (Reason: nasal congestion) Qty: 16 5RF famotidine 40 mg tablet 40 mg PO BID Qty: 60 5RF aspirin 81 mg tablet,delayed release (DR/EC) 81 mg PO DAILY Qty: 90 5RF amlodipine 5 mg tablet 5 mg PO BEDTIME Qty: 90 1RF ClearLax 17 gram/dose powder See Rx Instructions .ROUTE .COMPLEX Rx Instructions: MIX 1 CAPFUL (17 GR) IN 8 OUNCES LIQUID AND DRINK ENTIRE LIQUID DAILY. potassium chloride 8 mEq tablet extended release 8 meq PO DAILY pantoprazole 40 mg tablet,delayed release (DR/EC) 40 mg PO BEDTIME Discharge Orders: Discharge ED (Routine); Ordered 09/26/23 Ordered By: Sri Penaloza Referrals: Olaf Russell MD [Primary Care Provider] - Patient Instructions: Chest Pain (DC) Activity Restrictions/Additional Instructions: As we discussed please follow-up with your primary care provider tomorrow at your currently scheduled appointment. Coding Level of Care Code ED Brass Reclaimer for Kelley Gomez
--- NOTE | 2023-09-26 10:54 | PC.NURSE ---
PT PLACED ON CM, NIBP, AND SPO2
[2023-09-26 11:06] LABS: Basophils % 0.4 %; Eosinophils # 0.3 10^3/uL (0.0-0.8); Eosinophils % 5.8 %; Hematocrit 41.9 % (37-53); Lymphocytes % 36.2 %; Mean Corpuscular HGB Conc 32.7 g/dL (30-55); Mean Corpuscular Hemoglobin 28.5 pg (27-33); Mean Corpuscular Volume 87.3 fl (82-101); Mean Platelet Volume 9.5 fL (7.4-10.4); Monocytes # 0.8 10^3/uL (0.2-0.9); Monocytes % 13.8 %; Neutrophils # 2.43 10^3/uL (1.8-7.7); Neutrophils % 43.6 %; Nucleated Red Blood Cells % 0 %; Platelet Count 341 10^3/cmm (157-399); Red Cell Distribution Width 12.2 % (12.1-15.1); White Blood Count 5.56 10^3/uL (3.29-11.43)
[2023-09-26 11:25] LABS: Alanine Aminotransferase 61 U/L (0-41); Albumin Level 3.9 g/dL (3.5-5.2); Alkaline Phosphatase 134 U/L (40-130); Anion Gap 12.7 (5-19); Aspartate Amino Transferase 26 U/L (0-40); Blood Urea Nitrogen 13 mg/dL (6-20); Calcium 9.5 mg/dL (8.5-10.5); Carbon Dioxide 26 mmol/L (22-29); Chloride 104 mmol/L (98-107); Globulin 2.8 g/dL (1.3-4.6); Glomerular Filtration Rate 280.2 mL/min (90-130); Glucose 123 mg/dL (65-115); Osmolality Calculated 289 mOsm/kg (285-295); Potassium 3.7 mmol/L (3.5-5.1); Sodium 139 mmol/L (136-145); Total Bilirubin 0.3 mg/dL (0.15-1.2); Total Protein 6.7 g/dL (6.6-8.7)
[2023-09-26 11:35] LABS: Troponin(5th) Baseline 12 ng/L (0-15)
[2023-09-26] MEDS: guaiFENesin 600 mg Tablet PO (12:21)
== END 2023-09-26 12:26 | disposition home or self-care (01) ==
PROVIDERS: Emergency Medicine; Emergency Provider Physician Assistant; PCP Family Medicine Adult Medicine
DX: R07.9 Chest pain, unspecified (principal); Z79.82 Long term (current) use of aspirin; J44.9 Chronic obstructive pulmonary disease, unspecified; I10 Essential (primary) hypertension; Z72.0 Tobacco use
CPT/HCPCS: 36415; 71045; 80053; 84484; 85025; 93005; 99285

== ENCOUNTER 2023-10-06 11:22 | Emergency (ER) | payer MEDICAID, SELFPAY ==
--- NOTE | 2023-10-06 12:10 | ED_ITS ---
HPI - General Adult General: Chief complaint: General Medical Stated complaint: STD testing Time Seen by Provider: 10/06/23 11:44 Source: patient Mode of arrival: ambulatory History of Present Illness: 47-year-old male presents emergency room with complaints of concerns that he may have gonorrhea and trichomonas. Several years ago he tested positive for gonorrhea he was treated he has had a little bit of discomfort with urination. He had unprotected intercourse a few weeks ago and states he has had intermittent symptoms since then he is also moderately constipated. No fever sweats or chills no hematuria. Onset (ago): week(s) Associated symptoms: Deny chest pain, dyspnea, nausea, rash or vomiting Review of Systems Const: Denies: fever(s) or chills Card: Denies: chest pain Resp: Denies: dyspnea GI: Reports: constipation; Denies: abdominal pain, nausea, vomiting or diarrhea : Reports: flank pain and dysuria; Denies: urinary frequency or urinary urgency Musc: Denies: neck pain or back pain Skin/Breast: Denies: rash PFSH ED PFSH: Medical History Skin rash Hypokalemia Hemorrhoids with complication Smoker COPD (chronic obstructive pulmonary disease) Night terrors, adult Allergic rhinitis GERD (gastroesophageal reflux disease) Intellectual disability Anxiety Hypertension Psychiatric care Social History Smoking and tobacco/nicotine status: current every day tobacco/nicotine user Alcohol intake: current Substance/Drug Use: unknown Physical Exam Const: GENERAL APPEARANCE: cooperative and comfortable ORIENTATION/CONSCIOUSNESS: Yes awake, Yes oriented to person, Yes oriented to place and Yes oriented to time HENMT: COMMON NORMALS: normocephalic, atraumatic and hearing grossly normal bilaterally HEAD & SCALP: normocephalic and atraumatic Resp: COMMON NORMALS: normal respiratory effort, No retractions, No use of accessory muscles and clear to auscultation bilaterally AUSCULTATION: clear to auscultation bilaterally Cardio: COMMON NORMALS: regular rate, regular rhythm and No murmurs present (Cardio) RATE: regular rate RHYTHM: regular rhythm : COMMON NORMALS: Yes no CVA tenderness BLADDER/KIDNEY EXAM: Yes no CVA tenderness Back/Pelvis: COMMON NORMALS: no CVA tenderness Extremity: COMMON NORMALS: normal to inspection, capillary refill normal, no clubbing, cyanosis or edema, no calf tenderness and no pedal edema Neuro: SENSORIUM/ORIENTATION: Yes oriented to person, Yes oriented to place and Yes oriented to time Skin: COMMON NORMALS: no rashes or lesions noted GENERAL SKIN EXAM: no rashes or lesions noted Course Vital Signs: Vital signs: Vital Signs Temperature 97.9 F 10/06/23 15:53 Pulse Rate 72 10/06/23 15:53 Respiratory Rate 16 10/06/23 15:53 Blood Pressure 138/86 10/06/23 15:53 Pulse Oximetry 98 10/06/23 15:53 MDM - General Adult Medical Decision Making UA does not show signs of infection treated empirically ceftriaxone and Zithromax direct observed therapy in the emergency room discharged home on doxycycline 100 twice daily for 14 days GC chlamydia and wet mount are all still pending Discharge had been ordered nurse informing that patient had left without completing treatment. Will try to contact him Lab Data I reviewed the patient's lab results. Laboratory Results Urine Color Yellow (Yellow) 10/06/23 12:31 Urine Appearance Clear (CLEAR) 10/06/23 12:31 Urine pH 5 (5-7) 10/06/23 12:31 Ur Specific Indian 1.020 (1.005-1.030) 10/06/23 12:31 Urine Protein Neg (Negative) 10/06/23 12:31 Urine Glucose (UA) Norm (Normal) 10/06/23 12:31 Urine Ketones Negative (Negative) 10/06/23 12:31 Urine Blood Neg (Negative) 10/06/23 12:31 Urine Nitrate Negative (Negative) 10/06/23 12:31 Urine Bilirubin Neg (Negative) 10/06/23 12:31 Urine Urobilinogen Norm mg/dL (Negative) 10/06/23 12:31 Ur Leukocyte Esterase Negative (Negative) 10/06/23 12:31 No radiology studies performed this visit Discharge Plan Discharge Patient Disposition: Home Clinical Impression: Urethritis Condition: Stable Prescriptions: New doxycycline hyclate 100 mg capsule 100 mg PO BID 14 Days Qty: 28 0RF No Action buspirone 15 mg tablet 15 mg PO BID 30 Days Qty: 60 3RF Ventolin HFA 90 mcg/actuation HFA aerosol inhaler 2 puff INHALATION Q6H PRN (Reason: shortness of breath or wheezing) Qty: 18 5RF Preparation H Maximum Strength 0.25-1 % cream 1 applic SD BID Qty: 51 3RF clotrimazole-betamethasone 1-0.05 % cream 1 applic topical BID 14 Days Qty: 45 3RF docusate calcium 240 mg capsule 240 mg PO BID Qty: 180 3RF pantoprazole 40 mg tablet,delayed release (DR/EC) 40 mg PO BEDTIME Qty: 60 3RF ceftriaxone 1 gram recon soln 1 g IM ONCE Qty: 1 0RF metronidazole 500 mg tablet 500 mg PO BID 10 Days Qty: 20 0RF magnesium citrate Solution 150 ml PO BID PRN (Reason: constipation) Qty: 296 0RF Coreg 12.5 mg tablet 12.5 mg PO BID Qty: 60 5RF Rx Instructions: must administer with a meal/food guaifenesin 600 mg tablet extended release 12hr 600 mg PO Q12H PRN (Reason: congestion) Qty: 60 5RF fluticasone propionate 50 mcg/actuation spray,suspension 2 spray INTRANASAL DAILY PRN (Reason: nasal congestion) Qty: 16 5RF famotidine 40 mg tablet 40 mg PO BID Qty: 60 5RF aspirin 81 mg tablet,delayed release (DR/EC) 81 mg PO DAILY Qty: 90 5RF amlodipine 5 mg tablet 5 mg PO BEDTIME Qty: 90 1RF ClearLax 17 gram/dose powder See Rx Instructions .ROUTE .COMPLEX Rx Instructions: MIX 1 CAPFUL (17 GR) IN 8 OUNCES LIQUID AND DRINK ENTIRE LIQUID DAILY. potassium chloride 8 mEq tablet extended release 8 meq PO DAILY Discharge Orders: Discharge ED (Routine); Ordered 10/06/23 Ordered By: Fer Garibay Referrals: Olaf Russell MD [Primary Care Provider] - Discharge Diet: Usual diet Discharge Activity: Resume usual activity Patient Instructions: Opioid Safety, Pain Management Activity Restrictions/Additional Instructions: You were seen today for urethritis. Recommend starting the oral doxycycline tomorrow 1 pill twice a day for 14 days we will contact you with results of the cultures done today. Coding Level of Care Code ED Telecommunications Engineer for Kelley Gomez
[2023-10-06 12:37] LABS: Add Urine Microscopic? NO; Charge for UA Resulting for Rev
[2023-10-06 12:48] LABS: Bilirubin Urine Neg (Negative); Blood Urine Neg (Negative); Glucose Urine UA Norm (Normal); Ketones Urine Negative (Negative); Leukocyte Esterase Urine Negative (Negative); Nitrate Urine Negative (Negative); Protein Urine Neg (Negative); Urine Appearance Clear (CLEAR); Urine Color Yellow (Yellow); Urobilinogen Urine Norm (Negative); pH Urine 5 (5-7)
[2023-10-06 15:53] VITALS: BP 138/86; PULSE 72; RESP 16; TEMP 36.6; O2SAT 98
[2023-10-10 14:34] LABS: Chlamydia Trachomatis RNA TMA NOT DETECTED (NOT DETECTED); Neisseria Gonorrhoeae RNA, TMA NOT DETECTED (NOT DETECTED)
== END 2023-10-06 13:00 | disposition home or self-care (01) ==
PROVIDERS: Emergency Provider Family Medicine; PCP Family Medicine Adult Medicine
DX: N34.2 Other urethritis (principal); Z79.82 Long term (current) use of aspirin; Z72.0 Tobacco use; J44.9 Chronic obstructive pulmonary disease, unspecified; I10 Essential (primary) hypertension
CPT/HCPCS: 81003; 87491; 87591; 87661; 99284; J0696

== ENCOUNTER 2023-10-08 20:27 | Emergency (ER) | payer MEDICAID, SELFPAY ==
[2023-10-08 20:33] VITALS: BP 145/89; PULSE 81; RESP 17; TEMP 36.8; O2SAT 97; BMI 30.7
[2023-10-08] MEDS: magnesium citrate Btl 296 mL PO (21:25)
[2023-10-08] MEDS: hydroCHLOROthiazide 25 mg Tablet PO (21:25)
[2023-10-08] MEDS: ketorolac 30 mg/mL INJ IM (21:25)
[2023-10-08 21:28] VITALS: BP 145/89; PULSE 81; RESP 17; TEMP 36.8; O2SAT 97
--- NOTE | 2023-10-09 03:39 | W.ED.GENADLT ---
HPI - General Adult General: Chief complaint: General Medical Stated complaint: High bp Time Seen by Provider: 10/08/23 20:41 History of Present Illness: 47-year-old male well-known to the emergency department. He he comes in with several complaints including that of hypertension, abdominal/epigastric discomfort, and pain to the right groin. He was seen a couple of days ago and treated empirically for possible STD. He received his antibiotics for this, and continues his treatment. He complains of constipation, that is more of a chronic problem. [facility] ED PFSH: Medical History Skin rash Hypokalemia Hemorrhoids with complication Smoker COPD (chronic obstructive pulmonary disease) Night terrors, adult Allergic rhinitis GERD (gastroesophageal reflux disease) Intellectual disability Anxiety Hypertension Psychiatric care Social History Smoking and tobacco/nicotine status: current every day tobacco/nicotine user Alcohol intake: current Substance/Drug Use: unknown Physical Exam Const: COMMON NORMALS: no acute distress GENERAL APPEARANCE: cooperative; not ill appearing and not frail appearing HENMT: COMMON NORMALS: normocephalic, atraumatic and Normal external nose present HEAD & SCALP: normocephalic and atraumatic FACE & SINUS: normal facial exam and face symmetric NOSE: Normal external nose present Eye: COMMON NORMALS: Equal, round and reactive pupils present and EOMs intact bilaterally PUPIL: Yes Equal, round and reactive pupils present Neck/C-Spine: GENERAL: Yes trachea midline Chest: CHEST: Yes Symmetrical chest wall rise Resp: COMMON NORMALS: normal respiratory effort, No retractions, No use of accessory muscles and clear to auscultation bilaterally AUSCULTATION: clear to auscultation bilaterally Cardio: COMMON NORMALS: regular rate and regular rhythm RATE: regular rate RHYTHM: regular rhythm GI: COMMON NORMALS: Normal to inspection, nondistended, normoactive bowel sounds present : COMMON NORMALS: Yes no CVA tenderness BLADDER/KIDNEY EXAM: Yes no CVA tenderness PENIS: normal penis, no condylomata and no masses SCROTUM: Yes testes descended bilaterally, No erythematous, No ecchymosis, No edematous, No scrotal swelling and No scrotal mass TESTES: Yes testicular lie normal, No Enlarged testicle(s) present and No epididymal mass Back/Pelvis: COMMON NORMALS: no CVA tenderness Extremity: COMMON NORMALS: no pedal edema Neuro: MILO COMA SCALE: document GCS findings [place] coma scale eye opening: Spontaneous Milo coma scale verbal response: Orientated [place] coma scale motor response: Obey commands Milo coma scale total score: 15 SENSORY EXAM: Yes extremities (intact) Psych: COMMON NORMALS: speech normal SPEECH: Yes normal speech Skin: COMMON NORMALS: no rashes or lesions noted GENERAL SKIN EXAM: no rashes or lesions noted Course Vital Signs: Vital signs: Vital Signs Temperature 98.3 F 10/08/23 21:28 Pulse Rate 81 10/08/23 21:28 Respiratory Rate 17 10/08/23 21:28 Blood Pressure 145/89 10/08/23 21:28 Pulse Oximetry 97 10/08/23 21:28 Oxygen Delivery Me thod Room Air 10/08/23 20:33 [facility] - General Adult Medical Decision Making On examination, the patient has no evidence of testicular torsion, hernia, epididymitis, etc. He may have strained groin muscle. There is no lymphadenopathy. No cause for further imaging. His urinalysis from 2 days ago is negative. He is given an IM injection of Toradol for this. He can follow-up as an outpatient. As for the hypertension, he states that he had been on hydrochlorothiazide prior, and likes this medication. We went ahead and gave him 1 this evening, with a prescription. As for the constipation, he will be treated with magnesium citrate at his request. He has an appointment this week with his doctor. All radiology interpretation(s) finalized by discharge Discharge Plan Discharge Patient Disposition: Home Clinical Impression: Right groin pain, Acute constipation Hypertension Qualifiers: Hypertension type: primary hypertension Qualified Code(s): I10 - Essential (primary) hypertension Condition: Stable Prescriptions: New hydrochlorothiazide 25 mg tablet 25 mg PO QAM Qty: 30 0RF No Action buspirone 15 mg tablet 15 mg PO BID 30 Days Qty: 60 3RF Ventolin HFA 90 mcg/actuation HFA aerosol inhaler 2 puff INHALATION Q6H PRN (Reason: shortness of breath or wheezing) Qty: 18 5RF Preparation H Maximum Strength 0.25-1 % cream 1 applic [place] BID Qty: 51 3RF clotrimazole-betamethasone 1-0.05 % cream 1 applic topical BID 14 Days Qty: 45 3RF docusate calcium 240 mg capsule 240 mg PO BID Qty: 180 3RF pantoprazole 40 mg tablet,delayed release (DR/EC) 40 mg PO BEDTIME Qty: 60 3RF metronidazole 500 mg tablet 500 mg PO BID 10 Days Qty: 20 0RF magnesium citrate Solution 150 ml PO BID PRN (Reason: constipation) Qty: 296 0RF Coreg 12.5 mg tablet 12.5 mg PO BID Qty: 60 5RF Rx Instructions: must administer with a meal/food guaifenesin 600 mg tablet extended release 12hr 600 mg PO Q12H PRN (Reason: congestion) Qty: 60 5RF fluticasone propionate 50 mcg/actuation spray,suspension 2 spray INTRANASAL DAILY PRN (Reason: nasal congestion) Qty: 16 5RF famotidine 40 mg tablet 40 mg PO BID Qty: 60 5RF aspirin 81 mg tablet,delayed release (DR/EC) 81 mg PO DAILY Qty: 90 5RF amlodipine 5 mg tablet 5 mg PO BEDTIME Qty: 90 1RF ClearLax 17 gram/dose powder See Rx Instructions .ROUTE .COMPLEX Rx Instructions: MIX 1 CAPFUL (17 GR) IN 8 OUNCES LIQUID AND DRINK ENTIRE LIQUID DAILY. potassium chloride 8 mEq tablet extended release 8 meq PO DAILY doxycycline hyclate 100 mg capsule 100 mg PO BID 14 Days Qty: 28 0RF Discharge Orders: Discharge ED (Routine); Ordered 10/08/23 Ordered By: Yohannes Mejia Referrals: Olaf Russell MD [Primary Care Provider] - 1-3 days Patient Instructions: Constipation (ED), Hypertension (ED), Groin Pain (ED), Opioid Safety, Pain Management Activity Restrictions/Additional Instructions: Take your medication as directed for blood pressure. Return for worsening problems despite treatment. Continue the antibiotics you were previously prescribed for potential STD exposure. Considering your urinalysis 2 days ago, and exam today, no other testing is needed for the groin pain at this time. Follow-up with your doctor this week. Coding Level of Care Code ED Sales Lead for Kelley Gomez
== END 2023-10-08 21:33 | disposition home or self-care (01) ==
PROVIDERS: Emergency Provider Emergency Medicine; PCP Family Medicine Adult Medicine
DX: I10 Essential (primary) hypertension (principal); K59.00 Constipation, unspecified; R10.31 Right lower quadrant pain; Z79.82 Long term (current) use of aspirin; Z72.0 Tobacco use; J44.9 Chronic obstructive pulmonary disease, unspecified
CPT/HCPCS: 96372; 99284; J1885

== ENCOUNTER 2023-10-09 23:32 | Emergency (ER) | payer MEDICAID, SELFPAY ==
[2023-10-09 23:40] VITALS: BP 138/81; PULSE 91; RESP 16; TEMP 36.8; O2SAT 97
--- NOTE | 2023-10-09 23:42 | ECG_ITS ---
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 Measurements Intervals [place] Rate: 89 P: 72 ME: 165 QRS: 52 QRSD: 91 T: 58 QT: 318 QTc: 388 Interpretive Statements SINUS RHYTHM EARLY REPOLARIZATION [ST ELEVATION WITH NORMALLY INFLECTED T-WAVE] Compared to ECG 09/26/2023 09:55:36 No significant changes Electronically Signed On 10-13-2023 13:21:28 CDT by Christiano Patel M.D. [email or web address]
--- NOTE | 2023-10-10 00:04 | XRR_ITS ---
PROCEDURE INFORMATION: Exam: XR Chest Exam date and time: 10/10/2023 12:19 AM Age: 47 years old Clinical indication: Angina; Additional info: Chest pain TECHNIQUE: Imaging protocol: Radiologic exam of the chest. Views: 1 view. COMPARISON: CR XR chest 1V portable [id number] 09/26/2023 10:40 AM FINDINGS: Lungs: Unremarkable. No consolidation. Pleural spaces: Unremarkable. No pleural effusion. No pneumothorax. Heart/Mediastinum: Unremarkable. No cardiomegaly. Bones/joints: No acute findings. XR/XR chest 1V portable [id number] IMPRESSION: No acute findings.
--- NOTE | 2023-10-10 00:21 | ED_ITS ---
HPI - Chest Pain 2 General: Chief Complaint: Chest Pain Stated Complaint: chest pain, heart racing Time Seen by Provider: 10/10/23 00:16 History of Present Illness: Patient presents to the ER today with complaints of intermittent sharpness to the substernal epigastric area heart racing that getting tight. 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 Patient is said he has done this once before when he was in [place]. Patient denies any chest tightness heart racing or neck tightness currently. Patient does have a history of COPD which she uses albuterol for as needed. Review of Systems 2 General: Reports: 10 or more systems reviewed and unremarkable except in HPI and below PFSH ED 2 PFSH: Medical History Skin rash Hypokalemia Hemorrhoids with complication Smoker COPD (chronic obstructive pulmonary disease) Night terrors, adult Allergic rhinitis GERD (gastroesophageal reflux disease) Intellectual disability Anxiety Hypertension Psychiatric care Social History Smoking and tobacco/nicotine status: current every day tobacco/nicotine user Alcohol intake: current Substance/Drug Use: unknown Physical Exam 2 Const: COMMON NORMALS: no acute distress, average body habitus, patient oriented x3, no limitations, healthy appearing, alert and well nourished HENMT: COMMON NORMALS: normocephalic, atraumatic, hearing grossly normal bilaterally, external ears normal, Normal external nose present and moist oral mucous membranes HEAD & SCALP: normocephalic and atraumatic NOSE: Normal external nose present EXTERNAL EAR: Yes external ears normal Neck/C-Spine: COMMON NORMALS: full ROM, no lymphadenopathy, supple, no meningeal signs, no JVD and Thyroid normal THYROID: Thyroid normal Chest: COMMONS NORMALS: normal inspection of the chest and normal palpation of entire chest wall Resp: COMMON NORMALS: normal respiratory effort, No retractions, No use of accessory muscles and clear to auscultation bilaterally AUSCULTATION: clear to auscultation bilaterally Cardio: COMMON NORMALS: no JVD, regular rate, regular rhythm, S1 normal heart sound present, S2 normal heart sound present, No gallops present (Cardio), No clicks present (Cardio), No murmurs present (Cardio) and No rub (Cardio) R ATE: regular rate RHYTHM: regular rhythm HEART SOUNDS: S1 normal heart sound present and S2 normal heart sound present GI: COMMON NORMALS: Normal to inspection, nondistended, normoactive bowel sounds present, Soft to palpation, non-tender, No hepatosplenomegaly present and no masses PALPATION: Yes Soft to palpation and Yes No hepatosplenomegaly present Neuro: COMMON NORMALS: patient oriented x3 SENSORIUM/ORIENTATION: Yes alert MENINGEAL SIGNS: Yes no meningeal signs Course 2 Vital Signs: Vital signs: Vital Signs Temperature 98.2 F 10/09/23 23:40 Pulse Rate 96 10/10/23 00:42 Respiratory Rate 16 10/09/23 23:40 Blood Pressure 138/75 10/10/23 00:42 Pulse Oximetry 98 10/10/23 00:42 Oxygen Delivery Me thod Room Air 10/10/23 00:42 MDM - Chest Pain Medical Decision Making Patient was worked up in a standard chest pain fashion with serial EKGs, serial enzymes, chest x-ray, all of which was essentially unremarkable, baseline troponin was 10 with a 2-hour troponin 9.9, EKG showed no acute changes, patient be discharged home to follow-up with his PCP. Differential Diagnosis Unlikely acute massive pulmonary embolism, acute respiratory failure, acute myocardial infarction, cardiac arrest or sudden cardiac Medical Records I reviewed the patient's medical records. Lab Data I reviewed the patient's lab results. 10/10/23 00:18 10/10/23 00:18 Radiology Impressions Chest X-Ray 10/10/23 00:04 IMPRESSION: No acute findings. Laboratory Results WBC 7.10 10^3/uL (3.29-11.43) 10/10/23 00:18 RBC 5.05 10^6/uL (3.85-5.65) 10/10/23 00:18 Hgb 14.50 g/dL (11.27-16.99) 10/10/23 00:18 Hct 43.4 % (37-53) 10/10/23 00:18 MCV 85.9 fl (82-101) 10/10/23 00:18 MCH 28.7 pg (27-33) 10/10/23 00:18 MCHC 33.4 g/dL (30-55) 10/10/23 00:18 RDW 12.4 % (12.1-15.1) 10/10/23 00:18 Plt Count 359 10^3/cmm (157-399) 10/10/23 00:18 MPV 9.3 fL (7.4-10.4) 10/10/23 00:18 Neut % (Auto) 47.0 % 10/10/23 00:18 Lymph % (Auto) 36.9 % 10/10/23 00:18 [place] % (Auto) 12.1 % 10/10/23 00:18 Eos % (Auto) 3.5 % 10/10/23 00:18 Baso % (Auto) 0.4 % 10/10/23 00:18 Neut # (Auto) 3.33 10^3/uL (1.8-7.7) 10/10/23 00:18 Lymph # (Auto) 2.6 10^3/uL (0.8-4.8) 10/10/23 00:18 [place] # (Auto) 0.9 10^3/uL (0.2-0.9) 10/10/23 00:18 Eos # (Auto) 0.3 10^3/uL (0.0-0.8) 10/10/23 00:18 Baso # (Auto) 0.0 10^3/uL (0.0-0.1) 10/10/23 00:18 Nucleated RBC % (auto) 0 % 10/10/23 00:18 Nucleated RBCs # 0.0 /100WBC 10/10/23 00:18 Sodium 136 mmol/L (136-145) 10/10/23 00:18 Potassium 3.9 mmol/L (3.5-5.1) 10/10/23 00:18 Chloride 96 mmol/L (98-107) L 10/10/23 00:18 Carbon Dioxide 27 mmol/L (22-29) 10/10/23 00:18 Anion Gap 16.9 (5-19) 10/10/23 00:18 BUN 13 mg/dL (6-20) 10/10/23 00:18 Creatinine 0.6 mg/dL (0.7-1.2) L 10/10/23 00:18 GFR Calculation 175.5 mL/min (90-130) H 10/10/23 00:18 Glucose 106 mg/dL (65-115) 10/10/23 00:18 Calculated Osmolality 283 mOsm/kg (285-295) L 10/10/23 00:18 Calcium 10.1 mg/dL (8.5-10.5) 10/10/23 00:18 Total Bilirubin 0.2 mg/dL (0.15-1.2) 10/10/23 00:18 AST 26 U/L (0-40) 10/10/23 00:18 ALT 49 U/L (0-41) H 10/10/23 00:18 Alkaline Phosphatase 138 U/L (40-130) H 10/10/23 00:18 Troponin T Baseline 10 ng/L (0-15) 10/10/23 00:18 Troponin T 120 Minute 9.09 ng/L (0-15) 10/10/23 02:01 Delta Troponin T -0.91 ABS# (0-10) L 10/10/23 02:01 Total Protein 7.0 g/dL (6.6-8.7) 10/10/23 00:18 Albumin 4.3 g/dL (3.5-5.2) 10/10/23 00:18 Globulin 2.7 g/dL (1.3-4.6) 10/10/23 00:18 All radiology interpretation(s) finalized by discharge Discharge Plan Discharge Patient Disposition: Home Clinical Impression: Chest pain, non-cardiac Condition: Stable Prescriptions: No Action buspirone 15 mg tablet 15 mg PO BID 30 Days Qty: 60 3RF Ventolin HFA 90 mcg/actuation HFA aerosol inhaler 2 puff INHALATION Q6H PRN (Reason: shortness of breath or wheezing) Qty: 18 5RF Preparation H Maximum Strength 0.25-1 % cream 1 applic [place] BID Qty: 51 3RF clotrimazole-betamethasone 1-0.05 % cream 1 applic topical BID 14 Days Qty: 45 3RF docusate calcium 240 mg capsule 240 mg PO BID Qty: 180 3RF pantoprazole 40 mg tablet,delayed release (DR/EC) 40 mg PO BEDTIME Qty: 60 3RF metronidazole 500 mg tablet 500 mg PO BID 10 Days Qty: 20 0RF magnesium citrate Solution 150 ml PO BID PRN (Reason: constipation) Qty: 296 0RF Coreg 12.5 mg tablet 12.5 mg PO BID Qty: 60 5RF Rx Instructions: must administer with a meal/food guaifenesin 600 mg tablet extended release 12hr 600 mg PO Q12H PRN (Reason: congestion) Qty: 60 5RF fluticasone propionate 50 mcg/actuation spray,suspension 2 spray INTRANASAL DAILY PRN (Reason: nasal congestion) Qty: 16 5RF famotidine 40 mg tablet 40 mg PO BID Qty: 60 5RF aspirin 81 mg tablet,delayed release (DR/EC) 81 mg PO DAILY Qty: 90 5RF amlodipine 5 mg tablet 5 mg PO BEDTIME Qty: 90 1RF hydrochlorothiazide 25 mg tablet 25 mg PO QAM Qty: 30 0RF ClearLax 17 gram/dose powder See Rx Instructions .ROUTE .COMPLEX Rx Instructions: MIX 1 CAPFUL (17 GR) IN 8 OUNCES LIQUID AND DRINK ENTIRE LIQUID DAILY. potassium chloride 8 mEq tablet extended release 8 meq PO DAILY doxycycline hyclate 100 mg capsule 100 mg PO BID 14 Days Qty: 28 0RF Discharge Orders: Discharge ED (Routine); Ordered 10/10/23 Ordered By: Gunnar Castañeda Referrals: Olaf Russell MD [Primary Care Provider] - 1 week Patient Instructions: Chest Pain - Noncardiac Activity Restrictions/Additional Instructions: Your evaluation in ER did not show any acute cardiac causes of your chest pain. Your chest pain is felt to be noncardiac in nature. Please follow-up with your family practice physician within the next Coding Level of Care Code ED Certified Maintenance Welder for Kelley Gomez
[2023-10-10 00:31] LABS: Basophils % 0.4 %; Eosinophils # 0.3 10^3/uL (0.0-0.8); Eosinophils % 3.5 %; Hematocrit 43.4 % (37-53); Lymphocytes # 2.6 10^3/uL (0.8-4.8); Lymphocytes % 36.9 %; Mean Corpuscular HGB Conc 33.4 g/dL (30-55); Mean Corpuscular Hemoglobin 28.7 pg (27-33); Mean Corpuscular Volume 85.9 fl (82-101); Mean Platelet Volume 9.3 fL (7.4-10.4); Monocytes # 0.9 10^3/uL (0.2-0.9); Monocytes % 12.1 %; Neutrophils # 3.33 10^3/uL (1.8-7.7); Nucleated Red Blood Cells % 0 %; Platelet Count 359 10^3/cmm (157-399); Red Blood Count 5.05 10^6/uL (3.85-5.65); Red Cell Distribution Width 12.4 % (12.1-15.1)
[2023-10-10 00:42] VITALS: BP 138/75; PULSE 96; O2SAT 98
[2023-10-10 00:46] LABS: Troponin(5th) Baseline 10 ng/L (0-15)
[2023-10-10 00:49] LABS: Alanine Aminotransferase 49 U/L (0-41); Albumin Level 4.3 g/dL (3.5-5.2); Alkaline Phosphatase 138 U/L (40-130); Anion Gap 16.9 (5-19); Aspartate Amino Transferase 26 U/L (0-40); Blood Urea Nitrogen 13 mg/dL (6-20); Calcium 10.1 mg/dL (8.5-10.5); Carbon Dioxide 27 mmol/L (22-29); Chloride 96 mmol/L (98-107); Globulin 2.7 g/dL (1.3-4.6); Glomerular Filtration Rate 175.5 mL/min (90-130); Glucose 106 mg/dL (65-115); Osmolality Calculated 283 mOsm/kg (285-295); Potassium 3.9 mmol/L (3.5-5.1); Sodium 136 mmol/L (136-145); Total Bilirubin 0.2 mg/dL (0.15-1.2)
[2023-10-10 01:07] LABS: Creatinine Clr Calc Pharmacy 204.2803
[2023-10-10] MEDS: lidocaine 2% viscous 15 ML, aluminum-mag hydrox-simethicon 30 ML, sucralfate oral liq 1 GM PO (01:51)
--- NOTE | 2023-10-10 01:55 | ECG_ITS ---
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 Measurements Intervals [place] Rate: 86 P: 61 [place]: 148 QRS: 44 QRSD: 89 T: 55 QT: 342 QTc: 409 Interpretive Statements SINUS RHYTHM EARLY REPOLARIZATION [ST ELEVATION WITH NORMALLY INFLECTED T-WAVE] Compared to ECG 10/09/2023 23:33:47 No significant changes Electronically Signed On 10-13-2023 13:48:05 CDT by Christiano Patel M.D. [id number]
[2023-10-10 02:24] LABS: Troponin 5 2HR 9.09 ng/L (0-15)
[2023-10-10 02:25] LABS: Troponin 5 2HR Delta -0.91 ABS# (0-10)
[2023-10-10 02:39] VITALS: BP 144/89; PULSE 96; O2SAT 97
[2023-10-10] MEDS: magnesium citrate Btl 296 mL PO (02:39)
== END 2023-10-10 02:44 | disposition home or self-care (01) ==
PROVIDERS: Emergency Provider Emergency Medicine; PCP Family Medicine Adult Medicine
DX: R07.89 Other chest pain (principal); Z79.82 Long term (current) use of aspirin; Z72.0 Tobacco use; J44.9 Chronic obstructive pulmonary disease, unspecified; I10 Essential (primary) hypertension
CPT/HCPCS: 71045; 80053; 84484; 85025; 93005; 99285

== ENCOUNTER 2023-10-20 00:07 | Emergency (ER) | payer MEDICAID, SELFPAY ==
[2023-10-20 00:08] VITALS: BP 167/92; PULSE 82; RESP 16; TEMP 36.4; O2SAT 99; BMI 28.8
--- NOTE | 2023-10-20 00:10 | XRR_ITS ---
PROCEDURE INFORMATION: Exam: XR Abdomen Exam date and time: 10/20/2023 12:31 AM Age: 48 years old Clinical indication: Abdominal pain; Additional info: Abd pain constipation TECHNIQUE: Imaging protocol: Radiologic exam of the abdomen. Views: Frontal supine view of the abdomen. 1 View. COMPARISON: CR XR acute abdomen series [id number] 08/11/2023 4:39 PM FINDINGS: Gastrointestinal tract: Scattered colonic gas and fecal matter. Apparent loads of fecal matter in the descending colon which can be seen in the setting of constipation. No obstructive gaseous pattern is identified. No air-fluid levels. Calcific densities in the left side of the pelvis could represent phleboliths. Bones/joints: Mild degenerative changes of the lumbosacral spine. Mild sclerosis of the superior acetabular margins. No acute fractures. XR/XR abdomen 1V* [id number] IMPRESSION: Scattered colonic gas and fecal matter. Apparent loads of fecal matter in the descending colon which can be seen in the setting of constipation. No obstructive gaseous pattern is identified. No air-fluid levels.
[2023-10-20] MEDS: lidocaine 2% viscous 15 ML, aluminum-mag hydrox-simethicon 30 ML, sucralfate oral liq 1 GM PO (00:20)
[2023-10-20 00:37] LABS: Basophils % 0.3 %; Eosinophils # 0.2 10^3/uL (0.0-0.8); Eosinophils % 2.8 %; Lymphocytes # 2.8 10^3/uL (0.8-4.8); Lymphocytes % 41.6 %; Mean Corpuscular HGB Conc 32.9 g/dL (30-55); Mean Corpuscular Hemoglobin 28.5 pg (27-33); Mean Corpuscular Volume 86.8 fl (82-101); Mean Platelet Volume 9.2 fL (7.4-10.4); Monocytes # 0.9 10^3/uL (0.2-0.9); Monocytes % 13.1 %; Neutrophils # 2.83 10^3/uL (1.8-7.7); Neutrophils % 42.1 %; Nucleated Red Blood Cells % 0 %; Platelet Count 312 10^3/cmm (157-399); Red Blood Count 4.84 10^6/uL (3.85-5.65); Red Cell Distribution Width 12.4 % (12.1-15.1); White Blood Count 6.73 10^3/uL (3.29-11.43)
--- NOTE | 2023-10-20 00:52 | ED_ITS ---
HPI - Abdominal Pain 2 General: Chief Complaint: Abdominal Pain Stated Complaint: constipation Time Seen by Provider: 10/20/23 00:08 History of Present Illness: Patient presents to the ER by EMS with complaints of a burning sensation in his stomach as well as pain on his right side of his abdomen. Patient then goes on about being constipated chronically and using MiraLAX but that he will flip-flop and say he had a normal bowel movement today. Upon patient's review of his chart he has been seen multiple times for constipation and abdominal pain. And it seems to be a chronic issue. Review of Systems 2 General: Reports: 10 or more systems reviewed and unremarkable except in HPI and below PFSH ED 2 PFSH: Medical History Constipation, chronic Skin rash Hypokalemia Hemorrhoids with complication Smoker COPD (chronic obstructive pulmonary disease) Night terrors, adult Allergic rhinitis GERD (gastroesophageal reflux disease) Intellectual disability Anxiety Hypertension Psychiatric care Social History Smoking and tobacco/nicotine status: former use of tobacco/nicotine Alcohol intake: current Substance/Drug Use: unknown Physical Exam 2 Const: COMMON NORMALS: no acute distress, average body habitus, patient oriented x3, no limitations, healthy appearing, alert and well nourished Neck/C-Spine: COMMON NORMALS: no JVD Chest: COMMONS NORMALS: normal inspection of the chest and normal palpation of entire chest wall Resp: COMMON NORMALS: normal respiratory effort, No retractions, No use of accessory muscles and clear to auscultation bilaterally AUSCULTATION: clear to auscultation bilaterally Cardio: COMMON NORMALS: no JVD, regular rate, regular rhythm, S1 normal heart sound present, S2 normal heart sound present, No gallops present (Cardio), No clicks present (Cardio), No murmurs present (Cardio) and No rub (Cardio) R ATE: regular rate RHYTHM: regular rhythm HEART SOUNDS: S1 normal heart sound present and S2 normal heart sound present GI: COMMON NORMALS: Normal to inspection, nondistended, normoactive bowel sounds present, Soft to palpation, non-tender, No hepatosplenomegaly present and no masses PALPATION: Yes Soft to palpation and Yes No hepatosplenomegaly present Neuro: COMMON NORMALS: patient oriented x3 SENSORIUM/ORIENTATION: Yes alert Course 2 Vital Signs: Vital signs: Vital Signs Temperature 97.6 F 10/20/23 00:08 Pulse Rate 86 10/20/23 01:17 Respiratory Rate 16 10/20/23 00:08 Blood Pressure 167/92 10/20/23 00:08 Pulse Oximetry 98 10/20/23 02:18 Oxygen Delivery Me thod Room Air 10/20/23 02:18 MDM - Abdominal Pain Medical Decision Making Patient has lab work that included CBC CMP lipase all which were essentially negative except an ALT of 61, abdomen x-ray showed loads of fecal matter or constipation. Patient said he was thirsty and is asking for water. Patient will be discharged home. Patient is to continue taking his MiraLAX. We will increase his dose to twice a day for the next 3 days. Differential Diagnosis Likely abdominal pain and constipation; Unlikely acute appendicitis, calculus of kidney, diverticulitis, endometriosis, gastroenteritis, pancreatitis or small bowel obstruction Medical Records I reviewed the patient's medical records. Lab Data I reviewed the patient's lab results. 10/20/23 00:28 10/20/23 00:28 Labs/Radiology: Radiology Impressions Abdomen X-Ray 10/20/23 00:10 IMPRESSION: Scattered colonic gas and fecal matter. Apparent loads of fecal matter in the descending colon which can be seen in the setting of constipation. No obstructive gaseous pattern is identified. No air-fluid levels. Laboratory Results WBC 6.73 10^3/uL (3.29-11.43) 10/20/23 00:28 RBC 4.84 10^6/uL (3.85-5.65) 10/20/23 00:28 Hgb 13.80 g/dL (11.27-16.99) 10/20/23 00:28 Hct 42.0 % (37-53) 10/20/23 00:28 MCV 86.8 fl (82-101) 10/20/23 00: MCH 28.5 pg (27-33) 10/20/23 00: MCHC 32.9 g/dL (30-55) 10/20/23 00:28 RDW 12.4 % (12.1-15.1) 10/20/23 00:28 Plt Count 312 10^3/cmm (157-399) 10/20/23 00:28 MPV 9.2 fL (7.4-10.4) 10/20/23 00:28 Neut % (Auto) 42.1 % 10/20/23 00: Lymph % (Auto) 41.6 % 10/20/23 00: [place] % (Auto) 13.1 % 10/20/23 00: Eos % (Auto) 2.8 % 10/20/23 00: Baso % (Auto) 0.3 % 10/20/23 00: Neut # (Auto) 2.83 10^3/uL (1.8-7.7) 10/20/23 00: Lymph # (Auto) 2.8 10^3/uL (0.8-4.8) 10/20/23 00: [place] # (Auto) 0.9 10^3/uL (0.2-0.9) 10/20/23 00: Eos # (Auto) 0.2 10^3/uL (0.0-0.8) 10/20/23 00: Baso # (Auto) 0.0 10^3/uL (0.0-0.1) 10/20/23 00:28 Nucleated RBC % (auto) 0 % 10/20/23: Nucleated RBCs # 0.0 /100WBC 10/20/23 00:28 Sodium 139 mmol/L (136-145) 10/20/23 00:28 Potassium 3.8 mmol/L (3.5-5.1) 10/20/23 00: Chloride 103 mmol/L (98-107) 10/20/23 00: Carbon Dioxide 26 mmol/L (22-29) 10/20/23 00:28 Anion Gap 13.8 (5-19) 10/20/23 00:28 BUN 12 mg/dL (6-20) 10/20/23 00: Creatinine 0.4 mg/dL (0.7-1.2) L 10/20/23 00: GFR Calculation 279.0 mL/min (90-130) H 10/20/23 00:28 Glucose 129 mg/dL (65-115) H 10/20/23 00:28 Calculated Osmolality 289 mOsm/kg (285-295) 10/20/23 00:28 Calcium 9.5 mg/dL (8.5-10.5) 10/20/23 00:28 Total Bilirubin 0.3 mg/dL (0.15-1.2) 10/20/23 00:28 AST 28 U/L (0-40) 10/20/23 00:28 ALT 61 U/L (0-41) H 10/20/23 00:28 Alkaline Phosphatase 128 U/L (40-130) 10/20/23 00:28 Total Protein 6.9 g/dL (6.6-8.7) 10/20/23 00:28 Albumin 3.9 g/dL (3.5-5.2) 10/20/23 00:28 Globulin 3.0 g/dL (1.3-4.6) 10/20/23 00:28 Lipase 19 U/L (13-60) 10/20/23 00:28 All radiology interpretation(s) finalized by discharge Discharge Plan Discharge Patient Disposition: Home Clinical Impression: Constipation Qualifiers: Constipation type: unspecified constipation type Qualified Code(s): K59.00 - Constipation, unspecified Condition: Stable Prescriptions: No Action Ventolin HFA 90 mcg/actuation HFA aerosol inhaler 2 puff INHALATION Q6H PRN (Reason: shortness of breath or wheezing) Qty: 18 5RF docusate calcium 240 mg capsule 240 mg PO BID Qty: 180 3RF pantoprazole 40 mg tablet,delayed release (DR/EC) 40 mg PO BEDTIME Qty: 60 3RF buspirone 15 mg tablet 15 mg PO BID 30 Days Qty: 60 5RF Coreg 12.5 mg tablet 12.5 mg PO BID Qty: 60 5RF Rx Instructions: must administer with a meal/food clotrimazole-betamethasone 1-0.05 % cream 1 applic topical BID 14 Days Qty: 45 3RF famotidine 40 mg tablet 40 mg PO BID Qty: 60 5RF fluticasone propionate 50 mcg/actuation spray,suspension 2 spray INTRANASAL DAILY PRN (Reason: nasal congestion) Qty: 16 5RF magnesium citrate Solution 150 ml PO BID PRN (Reason: constipation) Qty: 296 0RF Preparation H Maximum Strength 0.25-1 % cream 1 applic [place] BID Qty: 51 3RF ClearLax 17 gram/dose powder See Rx Instructions .ROUTE .COMPLEX Qty: 116 5RF Rx Instructions: MIX 1 CAPFUL (17 GR) IN 8 OUNCES LIQUID AND DRINK ENTIRE LIQUID DAILY. guaifenesin 600 mg tablet extended release 12hr 600 mg PO Q12H PRN (Reason: congestion) Qty: 60 5RF aspirin 81 mg tablet,delayed release (DR/EC) 81 mg PO DAILY Qty: 90 5RF amlodipine 5 mg tablet 5 mg PO BEDTIME Qty: 90 1RF hydrochlorothiazide 25 mg tablet 25 mg PO QAM Qty: 30 0RF potassium chloride 8 mEq tablet extended release 8 meq PO DAILY Discharge Orders: Discharge ED (Routine); Ordered 10/20/23 Ordered By: Gunnar Castañeda Referrals: Olaf Russell MD [Primary Care Provider] - 1 week Patient Instructions: Constipation (DC) Activity Restrictions/Additional Instructions: Please increase your dose of MiraLAX to 3 times a day for 3 days then back down to 2 times a day for 3 days and then back down to 1 time a day. Please follow- up with your family practice physician for further evaluation and treatment. Coding Level of Care Code ED Test Rack Operator for Kelley Gomez
[2023-10-20 00:56] LABS: Alanine Aminotransferase 61 U/L (0-41); Albumin Level 3.9 g/dL (3.5-5.2); Alkaline Phosphatase 128 U/L (40-130); Anion Gap 13.8 (5-19); Aspartate Amino Transferase 28 U/L (0-40); Blood Urea Nitrogen 12 mg/dL (6-20); Calcium 9.5 mg/dL (8.5-10.5); Carbon Dioxide 26 mmol/L (22-29); Chloride 103 mmol/L (98-107); Glucose 129 mg/dL (65-115); Lipase 19 U/L (13-60); Osmolality Calculated 289 mOsm/kg (285-295); Potassium 3.8 mmol/L (3.5-5.1); Sodium 139 mmol/L (136-145); Total Bilirubin 0.3 mg/dL (0.15-1.2); Total Protein 6.9 g/dL (6.6-8.7)
[2023-10-20 01:00] LABS: Creatinine Clr Calc Pharmacy 299.0596
[2023-10-20 01:17] VITALS: PULSE 86; O2SAT 96
[2023-10-20 02:18] VITALS: O2SAT 98
[2023-10-20 03:01] VITALS: PULSE 84; RESP 16; O2SAT 98
== END 2023-10-20 03:02 | disposition home or self-care (01) ==
PROVIDERS: Emergency Provider Emergency Medicine; PCP Family Medicine Adult Medicine
DX: K59.00 Constipation, unspecified (principal); J44.9 Chronic obstructive pulmonary disease, unspecified; I10 Essential (primary) hypertension; Z87.891 Personal history of nicotine dependence
CPT/HCPCS: 74018; 80053; 83690; 85025; 99284

== ENCOUNTER 2023-10-20 22:46 | Emergency (ER) | payer MEDICAID, SELFPAY ==
--- NOTE | 2023-10-20 22:43 | ECG_ITS ---
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 Measurements Intervals [place] Rate: 81 P: 77 [place]: 158 QRS: 61 QRSD: 97 T: 67 QT: 339 QTc: 394 Interpretive Statements SINUS RHYTHM Compared to ECG 10/10/2023 01:55:03 Early repolarization no longer present Electronically Signed On 10-21-2023 19:06:36 CDT by Jihan Ware M.D. [id number]
[2023-10-20 22:47] VITALS: BP 144/83; PULSE 99; RESP 18; TEMP 36.6; O2SAT 98; BMI 27.5
--- NOTE | 2023-10-20 22:48 | XRR_ITS ---
PROCEDURE INFORMATION: Exam: XR Chest Exam date and time: 10/20/2023 10:49 PM Age: 48 years old Clinical indication: Sternal or substernal pain; Patient HX: C/O substernal chest pain; Additional info: Cp TECHNIQUE: Imaging protocol: Radiologic exam of the chest. Views: 1 view. COMPARISON: CR (CHEST, ) 10/10/2023 12:19 AM FINDINGS: Lungs: Unremarkable. No consolidation. Pleural spaces: Unremarkable. No pleural effusion. No pneumothorax. Heart/Mediastinum: Unremarkable. No cardiomegaly. Bones/joints: Unremarkable. XR/XR chest 1V portable [id number] IMPRESSION: No acute findings.
--- NOTE | 2023-10-20 22:49 | ED_ITS ---
HPI - Chest Pain 2 General: Chief Complaint: Chest Pain Stated Complaint: CHEST PAIN Time Seen by Provider: 10/20/23 22:48 Source: patient and EMS Mode of arrival: EMS Limitations: no limitations History of Present Illness: 48-year-old male who is very well-known to the ER states he has been having chest pain for months. He states tonight the pain had been worse than typical. He states he also been having constipation he denies any worsening improving factors. Associated symptoms: Deny abdominal pain, dyspnea, fever(s), nausea or vomiting Review of Systems 2 Const: Denies: fever(s), chills, body aches or change in appetite ENMT: Denies: throat pain or dental pain Card: Reports: chest pain Resp: Denies: dyspnea GI: Reports: constipation; Denies: abdominal pain, nausea, vomiting or diarrhea Musc: Denies: neck pain or back pain Skin/Breast: Denies: rash PFSH ED 2 PFSH: Medical History Constipation, chronic Skin rash Hypokalemia Hemorrhoids with complication Smoker COPD (chronic obstructive pulmonary disease) Night terrors, adult Allergic rhinitis GERD (gastroesophageal reflux disease) Intellectual disability Anxiety Hypertension Psychiatric care Social History Smoking and tobacco/nicotine status: former use of tobacco/nicotine Alcohol intake: current Substance/Drug Use: unknown Physical Exam 2 Const: COMMON NORMALS: no acute distress, patient oriented x3 and healthy appearing HENMT: COMMON NORMALS: normocephalic and atraumatic HEAD & SCALP: n ormocephalic and atraumatic Eye: COMMON NORMALS: Equal, round and reactive pupils present and EOMs intact bilaterally PUPIL: Yes Equal, round and reactive pupils present Neck/C-Spine: COMMON NORMALS: full ROM and supple Chest: COMMONS NORMALS: normal inspection of the chest and normal palpation of entire chest wall Resp: COMMON NORMALS: normal respiratory effort, No retractions, No use of accessory muscles and clear to auscultation bilaterally AUSCULTATION: clear to auscultation bilaterally Cardio: COMMON NORMALS: regular rate, regular rhythm and No murmurs present (Cardio) RATE: regular rate RHYTHM: regular rhythm GI: COMMON NORMALS: Normal to inspection, nondistended, normoactive bowel sounds present, Soft to palpation, non-tender and no masses PALPATION: Yes Soft to palpation Extremity: COMMON NORMALS: normal to inspection and full ROM Neuro: COMMON NORMALS: patient oriented x3, moves all extremities and no focal motor deficits Psych: COMMON NORMALS: mental status grossly normal, Normal thought process present and cooperative THOUGHT PROCESS: Normal thought process present Skin: COMMON NORMALS: no rashes or lesions noted and no wounds GENERAL SKIN EXAM: no rashes or lesions noted Course 2 Vital Signs: Vital signs: Vital Signs Temperature 98 F 10/20/23 22:47 Pulse Rate 72 10/20/23 23:36 Respiratory Rate 20 H 10/20/23 23:36 Blood Pressure 139/73 10/20/23 23:36 Pulse Oximetry 97 10/20/23 23:36 MDM - Chest Pain Medical Decision Making Patient presents for chest pains atypical in nature doing well on for months his troponin here is negative he is well-appearing here patient stable for discharge follow-up PCP return if worsening. Medical Records I reviewed the patient's medical records. Lab Data I reviewed the patient's lab results. 10/20/23 22:53 10/20/23 22:53 Radiology Impressions Chest X-Ray 10/20/23 22:48 IMPRESSION: No acute findings. Laboratory Results WBC 6.91 10^3/uL (3.29-11.43) 10/20/23 22:53 RBC 5.07 10^6/uL (3.85-5.65) 10/20/23 22:53 Hgb 14.40 g/dL (11.27-16.99) 10/20/23 22:53 Hct 43.6 % (37-53) 10/20/23 22:53 MCV 86.0 fl (82-101) 10/20/23 22:53 MCH 28.4 pg (27-33) 10/20/23 22:53 MCHC 33.0 g/dL (30-55) 10/20/23 22:53 RDW 12.3 % (12.1-15.1) 10/20/23 22:53 Plt Count 348 10^3/cmm (157-399) 10/20/23 22:53 MPV 9.1 fL (7.4-10.4) 10/20/23 22:53 Neut % (Auto) 49.5 % 10/20/23 22:53 Lymph % (Auto) 36.2 % 10/20/23 22:53 [place] % (Auto) 12.6 % 10/20/23 22:53 Eos % (Auto) 1.3 % 10/20/23 22:53 Baso % (Auto) 0.3 % 10/20/23 22:53 Neut # (Auto) 3.42 10^3/uL (1.8-7.7) 10/20/23 22:53 Lymph # (Auto) 2.5 10^3/uL (0.8-4.8) 10/20/23 22:53 [place] # (Auto) 0.9 10^3/uL (0.2-0.9) 10/20/23 22:53 Eos # (Auto) 0.1 10^3/uL (0.0-0.8) 10/20/23 22:53 Baso # (Auto) 0.0 10^3/uL (0.0-0.1) 10/20/23 22:53 Nucleated RBC % (auto) 0 % 10/20/23 22:53 Nucleated RBCs # 0.0 /100WBC 10/20/23 22:53 Sodium 139 mmol/L (136-145) 10/20/23 22:53 Potassium 4.1 mmol/L (3.5-5.1) 10/20/23 22:53 Chloride 103 mmol/L (98-107) 10/20/23 22:53 Carbon Dioxide 26 mmol/L (22-29) 10/20/23 22:53 Anion Gap 14.1 (5-19) 10/20/23 22:53 BUN 12 mg/dL (6-20) 10/20/23 22:53 Creatinine 0.5 mg/dL (0.7-1.2) L 10/20/23 22:53 GFR Calculation 215.7 mL/min (90-130) H 10/20/23 22:53 Glucose 91 mg/dL (65-115) 10/20/23 22:53 Calculated Osmolality 287 mOsm/kg (285-295) 10/20/23 22:53 Calcium 10.1 mg/dL (8.5-10.5) 10/20/23 22:53 Total Bilirubin 0.3 mg/dL (0.15-1.2) 10/20/23 22:53 AST 28 U/L (0-40) 10/20/23 22:53 ALT 68 U/L (0-41) H 10/20/23 22:53 Alkaline Phosphatase 138 U/L (40-130) H 10/20/23 22:53 Troponin T Baseline 9 ng/L (0-15) 10/20/23 22:53 Total Protein 7.2 g/dL (6.6-8.7) 10/20/23 22:53 Albumin 4.4 g/dL (3.5-5.2) 10/20/23 22:53 Globulin 2.8 g/dL (1.3-4.6) 10/20/23 22:53 Lipase 17 U/L (13-60) 10/20/23 22:53 All radiology interpretation(s) finalized by discharge EKG Data EKG 1: I personally reviewed and interpreted this EKG as follows: EKG interpretation date: 10/20/23 EKG interpretation time: 22:43 Interpretation: nsr hr [address] or t wave abnormalities qrs 97 qtc 376 Discharge Plan Discharge Patient Disposition: Home Clinical Impression: Chest pain Constipation Qualifiers: Constipation type: unspecified constipation type Qualified Code(s): K59.00 - Constipation, unspecified Condition: Stable Prescriptions: No Action Ventolin HFA 90 mcg/actuation HFA aerosol inhaler 2 puff INHALATION Q6H PRN (Reason: shortness of breath or wheezing) Qty: 18 5RF docusate calcium 240 mg capsule 240 mg PO BID Qty: 180 3RF pantoprazole 40 mg tablet,delayed release (DR/EC) 40 mg PO BEDTIME Qty: 60 3RF buspirone 15 mg tablet 15 mg PO BID 30 Days Qty: 60 5RF Coreg 12.5 mg tablet 12.5 mg PO BID Qty: 60 5RF Rx Instructions: must administer with a meal/food clotrimazole-betamethasone 1-0.05 % cream 1 applic topical BID 14 Days Qty: 45 3RF famotidine 40 mg tablet 40 mg PO BID Qty: 60 5RF fluticasone propionate 50 mcg/actuation spray,suspension 2 spray INTRANASAL DAILY PRN (Reason: nasal congestion) Qty: 16 5RF magnesium citrate Solution 150 ml PO BID PRN (Reason: constipation) Qty: 296 0RF Preparation H Maximum Strength 0.25-1 % cream 1 applic MI BID Qty: 51 3RF ClearLax 17 gram/dose powder See Rx Instructions .ROUTE .COMPLEX Qty: 116 5RF Rx Instructions: MIX 1 CAPFUL (17 GR) IN 8 OUNCES LIQUID AND DRINK ENTIRE LIQUID DAILY. guaifenesin 600 mg tablet extended release 12hr 600 mg PO Q12H PRN (Reason: congestion) Qty: 60 5RF aspirin 81 mg tablet,delayed release (DR/EC) 81 mg PO DAILY Qty: 90 5RF amlodipine 5 mg tablet 5 mg PO BEDTIME Qty: 90 1RF hydrochlorothiazide 25 mg tablet 25 mg PO QAM Qty: 30 0RF potassium chloride 8 mEq tablet extended release 8 meq PO DAILY Discharge Orders: Discharge ED (Routine); Ordered 10/20/23 Ordered By: Mak Schwarz Referrals: Olaf Russell MD [Primary Care Provider] - 4-7 days Discharge Diet: Advance as tolerated Discharge Activity: Resume usual activity Patient Instructions: Chest Pain (ED) Coding Level of Care Code ED Corporate Wellness Coordinator for Kelley Gomez
[2023-10-20] MEDS: lactulose oral liq 20 gm/30 mL UDC 30 GM PO (22:59)
[2023-10-20 23:00] LABS: Basophils % 0.3 %; Eosinophils # 0.1 10^3/uL (0.0-0.8); Eosinophils % 1.3 %; Hematocrit 43.6 % (37-53); Lymphocytes # 2.5 10^3/uL (0.8-4.8); Lymphocytes % 36.2 %; Mean Corpuscular Hemoglobin 28.4 pg (27-33); Mean Platelet Volume 9.1 fL (7.4-10.4); Monocytes # 0.9 10^3/uL (0.2-0.9); Monocytes % 12.6 %; Neutrophils # 3.42 10^3/uL (1.8-7.7); Neutrophils % 49.5 %; Nucleated Red Blood Cells % 0 %; Platelet Count 348 10^3/cmm (157-399); Red Blood Count 5.07 10^6/uL (3.85-5.65); Red Cell Distribution Width 12.3 % (12.1-15.1); White Blood Count 6.91 10^3/uL (3.29-11.43)
[2023-10-20 23:03] VITALS: BP 152/84; PULSE 78; RESP 17; O2SAT 97
[2023-10-20 23:22] LABS: Troponin(5th) Baseline 9 ng/L (0-15)
[2023-10-20 23:34] LABS: Alanine Aminotransferase 68 U/L (0-41); Albumin Level 4.4 g/dL (3.5-5.2); Alkaline Phosphatase 138 U/L (40-130); Aspartate Amino Transferase 28 U/L (0-40); Blood Urea Nitrogen 12 mg/dL (6-20); Calcium 10.1 mg/dL (8.5-10.5); Carbon Dioxide 26 mmol/L (22-29); Chloride 103 mmol/L (98-107); Creatinine Clr Calc Pharmacy 234.0913; Globulin 2.8 g/dL (1.3-4.6); Glomerular Filtration Rate 215.7 mL/min (90-130); Glucose 91 mg/dL (65-115); Lipase 17 U/L (13-60); Osmolality Calculated 287 mOsm/kg (285-295); Sodium 139 mmol/L (136-145); Total Bilirubin 0.3 mg/dL (0.15-1.2); Total Protein 7.2 g/dL (6.6-8.7)
[2023-10-20 23:36] VITALS: BP 139/73; PULSE 72; RESP 20; O2SAT 97
[2023-10-20 23:36] LABS: Anion Gap 14.1 (5-19); Potassium 4.1 mmol/L (3.5-5.1)
[2023-10-20] MEDS: albuterol 8 gm MDI 2 PUFF INHALATION (23:54)
== END 2023-10-21 00:01 | disposition home or self-care (01) ==
PROVIDERS: Emergency Provider Emergency Medicine; PCP Family Medicine Adult Medicine
DX: R07.9 Chest pain, unspecified (principal); K59.00 Constipation, unspecified; Z79.82 Long term (current) use of aspirin; J44.9 Chronic obstructive pulmonary disease, unspecified; I10 Essential (primary) hypertension; Z87.891 Personal history of nicotine dependence
CPT/HCPCS: 71045; 80053; 83690; 84484; 85025; 93005; 99285; J3535

== ENCOUNTER 2023-10-21 13:12 | Emergency (ER) | payer MEDICAID, SELFPAY ==
[2023-10-21 13:13] VITALS: BP 149/81; PULSE 90; RESP 18; TEMP 36.7; O2SAT 100; BMI 22.5
--- NOTE | 2023-10-21 13:15 | XRR_ITS ---
PROCEDURE INFORMATION: Exam: XR Chest Exam date and time: 10/21/2023 1:30 PM Age: 48 years old Clinical indication: Pain; Chest pressure; Additional info: Chest pain TECHNIQUE: Imaging protocol: Radiologic exam of the chest. Views: 1 view. COMPARISON: CR (CHEST, ) 10/20/2023 10:49 PM FINDINGS: Lungs: Unremarkable. No consolidation or mass. Pleural spaces: Unremarkable. No pleural effusion. No pneumothorax. Heart/Mediastinum: Unremarkable. No cardiomegaly. Bones/joints: Unremarkable. XR/XR chest 1V portable [id number] IMPRESSION: No acute findings.
--- NOTE | 2023-10-21 13:16 | ED_ITS ---
HPI - Chest Pain 2 General: Chief Complaint: Chest Pain Stated Complaint: CHEST PAIN Time Seen by Provider: 10/21/23 13:14 History of Present Illness: 48-year-old male patient comes in today with right-sided chest pain. Patient had been seen yesterday for chest pain and was treated for constipation. Patient continues to have some constipation. Patient reports that the lactulose made him feel better but still he had more discomfort today. Patient significant other reports that he is constipated. Patient has some tenderness to the right chest wall with palpation. Patient appears nontoxic. Patient has a known history of high blood pressure, anxiety, substance use disorder, GERD. Review of Systems 2 General: Reports: 10 or more systems reviewed and unremarkable except in HPI and below PFSH ED 2 PFSH: Medical History Constipation, chronic Skin rash Hypokalemia Hemorrhoids with complication Smoker COPD (chronic obstructive pulmonary disease) Night terrors, adult Allergic rhinitis GERD (gastroesophageal reflux disease) Intellectual disability Anxiety Hypertension Psychiatric care Social History Smoking and tobacco/nicotine status: former use of tobacco/nicotine Alcohol intake: current Substance/Drug Use: unknown Physical Exam 2 Const: COMMON NORMALS: alert HENMT: COMMON NORMALS: normocephalic HEAD & SCALP: normocephalic Neck/C-Spine: COMMON NORMALS: full ROM Chest: CHEST: Yes tenderness (Right costal sternal border) Resp: COMMON NORMALS: normal respiratory effort Cardio: COMMON NORMALS: regular rate RATE: regular rate GI: COMMON NORMALS: Soft to palpation PALPATION: Yes Soft to palpation and Yes Tenderness to palpation present (GI) Details: RUQ : COMMON NORMALS: Yes no CVA tenderness BLADDER/KIDNEY EXAM: Yes no CVA tenderness Back/Pelvis: COMMON NORMALS: no CVA tenderness Extremity: COMMON NORMALS: normal to inspection and no pedal edema Neuro: SENSORIUM/ORIENTATION: Yes alert Skin: COMMON NORMALS: turgor normal GENERAL SKIN EXAM: turgor normal Course 2 Vital Signs: Vital signs: Vital Signs Temperature 98.0 F 10/21/23 13:13 Pulse Rate 88 10/21/23 14:30 Respiratory Rate 16 10/21/23 14:30 Blood Pressure 131/82 10/21/23 14:30 Pulse Oximetry 96 10/21/23 14:30 Oxygen Delivery Me thod Room Air 10/21/23 13:55 MDM - Chest Pain Medical Decision Making 48-year-old male patient comes in today with right-sided chest pain. On exam patient appears nontoxic. Patient appears no acute distress. Respirations are even. Lungs are clear to auscultation. Abdomen soft with some right upper quadrant tenderness. Bowel sounds are present. Vital signs are as normal except for some elevation in blood pressure at 149/81. EKG shows a sinus rhythm with regular rate at 82 bpm. Differential diagnosis costochondritis, ACS, CHF, gallbladder disease, gastritis, constipation. Laboratory values were unremarkable. Chest x-ray was normal. KUB noted normal bowel gas pattern. Believe patient probably has a little constipation but most likely his chest pain is due to chest wall discomfort. Patient was given a dose of Constulose for his constipation and written a prescription. Patient was recommended to follow-up with primary care for further instructions. Encouraged water and fluids and follow-up. Patient reported understanding agreed to plan. Lab Data 10/21/23 13:05 10/21/23 13:05 Radiology Impressions Chest X-Ray 10/21/23 13:15 IMPRESSION: No acute findings. Laboratory Results WBC 5.74 10^3/uL (3.29-11.43) 10/21/23 13:05 RBC 5.19 10^6/uL (3.85-5.65) 10/21/23 13:05 Hgb 14.70 g/dL (11.27-16.99) 10/21/23 13:05 Hct 44.4 % (37-53) 10/21/23 13:05 MCV 85.5 fl (82-101) 10/21/23 13:05 MCH 28.3 pg (27-33) 10/21/23 13:05 MCHC 33.1 g/dL (30-55) 10/21/23 13:05 RDW 12.1 % (12.1-15.1) 10/21/23 13:05 Plt Count 348 10^3/cmm (157-399) 10/21/23 13:05 MPV 9.1 fL (7.4-10.4) 10/21/23 13:05 Neut % (Auto) 43.5 % 10/21/23 13:05 Lymph % (Auto) 40.9 % 10/21/23 13:05 [place] % (Auto) 14.1 % 10/21/23 13:05 Eos % (Auto) 1.0 % 10/21/23 13:05 Baso % (Auto) 0.3 % 10/21/23 13:05 Neut # (Auto) 2.49 10^3/uL (1.8-7.7) 10/21/23 13:05 Lymph # (Auto) 2.4 10^3/uL (0.8-4.8) 10/21/23 13:05 [place] # (Auto) 0.8 10^3/uL (0.2-0.9) 10/21/23 13:05 Eos # (Auto) 0.1 10^3/uL (0.0-0.8) 10/21/23 13:05 Baso # (Auto) 0.0 10^3/uL (0.0-0.1) 10/21/23 13:05 Nucleated RBC % (auto) 0 % 10/21/23 13:05 Nucleated RBCs # 0.0 /100WBC 10/21/23 13:05 Sodium 143 mmol/L (136-145) 10/21/23 13:05 Potassium 4.0 mmol/L (3.5-5.1) 10/21/23 13:05 Chloride 105 mmol/L (98-107) 10/21/23 13:05 Carbon Dioxide 27 mmol/L (22-29) 10/21/23 13:05 Anion Gap 15.0 (5-19) 10/21/23 13:05 BUN 12 mg/dL (6-20) 10/21/23 13:05 Creatinine 0.6 mg/dL (0.7-1.2) L 10/21/23 13:05 GFR Calculation 174.7 mL/min (90-130) H 10/21/23 13:05 Glucose 95 mg/dL (65-115) 10/21/23 13:05 Calculated Osmolality 296 mOsm/kg (285-295) H 10/21/23 13:05 Calcium 10.4 mg/dL (8.5-10.5) 10/21/23 13:05 Troponin T Baseline 9 ng/L (0-15) 10/21/23 13:05 Lipase 19 U/L (13-60) 10/21/23 13:05 All radiology interpretation(s) finalized by discharge EKG Data EKG 1: I personally reviewed and interpreted this EKG as follows: EKG interpretation date: 10/21/23 EKG interpretation time: 13:25 Prior EKG tracings: available for review Interpretation: EKG shows a sinus rhythm with a regular rate [address] elevation or ectopy is noted. No significant changes noted from prior exam done on 10/20/2023. EKG was reviewed with Dr. Purvis, ER attending. Computer generated interpretation: Sinus rhythm, possible left atrial enlargement, borderline EKG, unconfirmed report. Discharge Plan Discharge Patient Disposition: Home Clinical Impression: Constipation, chronic Chest pain Qualifiers: Chest pain type: intercostal pain Qualified Code(s): R07.82 - Intercostal pain Condition: Stable Prescriptions: New lactulose 10 gram/15 mL (15 mL) solution 20 g PO DAILY PRN (Reason: constipation) Qty: 600 0RF No Action Ventolin HFA 90 mcg/actuation HFA aerosol inhaler 2 puff INHALATION Q6H PRN (Reason: shortness of breath or wheezing) Qty: 18 5RF docusate calcium 240 mg capsule 240 mg PO BID Qty: 180 3RF pantoprazole 40 mg tablet,delayed release (DR/EC) 40 mg PO BEDTIME Qty: 60 3RF buspirone 15 mg tablet 15 mg PO BID 30 Days Qty: 60 5RF Coreg 12.5 mg tablet 12.5 mg PO BID Qty: 60 5RF Rx Instructions: must administer with a meal/food clotrimazole-betamethasone 1-0.05 % cream 1 applic topical BID 14 Days Qty: 45 3RF famotidine 40 mg tablet 40 mg PO BID Qty: 60 5RF fluticasone propionate 50 mcg/actuation spray,suspension 2 spray INTRANASAL DAILY PRN (Reason: nasal congestion) Qty: 16 5RF magnesium citrate Solution 150 ml PO BID PRN (Reason: constipation) Qty: 296 0RF Preparation H Maximum Strength 0.25-1 % cream 1 applic ME BID Qty: 51 3RF ClearLax 17 gram/dose powder See Rx Instructions .ROUTE .COMPLEX Qty: 116 5RF Rx Instructions: MIX 1 CAPFUL (17 GR) IN 8 OUNCES LIQUID AND DRINK ENTIRE LIQUID DAILY. guaifenesin 600 mg tablet extended release 12hr 600 mg PO Q12H PRN (Reason: congestion) Qty: 60 5RF aspirin 81 mg tablet,delayed release (DR/EC) 81 mg PO DAILY Qty: 90 5RF amlodipine 5 mg tablet 5 mg PO BEDTIME Qty: 90 1RF hydrochlorothiazide 25 mg tablet 25 mg PO QAM Qty: 30 0RF potassium chloride 8 mEq tablet extended release 8 meq PO DAILY Discharge Orders: Discharge ED (Routine); Ordered 10/21/23 Ordered By: Buzz Muñoz Referrals: Olaf Russell MD [Primary Care Provider] - Discharge Diet: Usual diet Discharge Activity: Increase activity as tolerated Patient Instructions: Constipation (ED), Diet for Stomach Ulcers and Gastritis (ED) Activity Restrictions/Additional Instructions: Drink plenty of water and fluids. Activity as tolerated. Use acetaminophen as needed for pain. Take lactulose 30 mL daily as needed for constipation. Return to ED for new concerns. Coding Level of Care Code ED Early Childhood Services Coordinator for Kelley Gomez
--- NOTE | 2023-10-21 13:19 | ECG_ITS ---
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 Measurements Intervals Points Rate: 82 P: 71 IL: 169 QRS: 55 QRSD: 95 T: 59 QT: 331 QTc: 389 Interpretive Statements SINUS RHYTHM POSSIBLE LEFT ATRIAL ENLARGEMENT [-0.1mV P-WAVE IN V1/V2] Compared to ECG 10/20/2023 22:43:40 No significant changes Electronically Signed On 10-21-2023 19:11:44 CDT by Jihan Ware M.D. [email or web address]
[2023-10-21 13:28] LABS: Basophils % 0.3 %; Eosinophils # 0.1 10^3/uL (0.0-0.8); Hematocrit 44.4 % (37-53); Lymphocytes # 2.4 10^3/uL (0.8-4.8); Lymphocytes % 40.9 %; Mean Corpuscular HGB Conc 33.1 g/dL (30-55); Mean Corpuscular Hemoglobin 28.3 pg (27-33); Mean Corpuscular Volume 85.5 fl (82-101); Mean Platelet Volume 9.1 fL (7.4-10.4); Monocytes # 0.8 10^3/uL (0.2-0.9); Monocytes % 14.1 %; Neutrophils # 2.49 10^3/uL (1.8-7.7); Neutrophils % 43.5 %; Nucleated Red Blood Cells % 0 %; Platelet Count 348 10^3/cmm (157-399); Red Blood Count 5.19 10^6/uL (3.85-5.65); Red Cell Distribution Width 12.1 % (12.1-15.1); White Blood Count 5.74 10^3/uL (3.29-11.43)
--- NOTE | 2023-10-21 13:33 | XRR_ITS ---
PROCEDURE INFORMATION: Exam: XR Abdomen Exam date and time: 10/21/2023 1:59 PM Age: 48 years old Clinical indication: Constipation TECHNIQUE: Imaging protocol: Radiologic exam of the abdomen. Views: Frontal supine view of the abdomen. 1 View. COMPARISON: CR (ABDOMEN, ) 10/20/2023 12:31 AM FINDINGS: Gastrointestinal tract: Normal. No bowel dilation. Normal stool amount. Bones/joints: Unremarkable. XR/XR KUB [id number] IMPRESSION: No acute findings.
[2023-10-21 13:55] VITALS: BP 149/81; PULSE 85; RESP 16; O2SAT 97
[2023-10-21 13:55] LABS: Blood Urea Nitrogen 12 mg/dL (6-20); Calcium 10.4 mg/dL (8.5-10.5); Carbon Dioxide 27 mmol/L (22-29); Chloride 105 mmol/L (98-107); Glomerular Filtration Rate 174.7 mL/min (90-130); Glucose 95 mg/dL (65-115); Lipase 19 U/L (13-60); Osmolality Calculated 296 mOsm/kg (285-295); Sodium 143 mmol/L (136-145); Troponin(5th) Baseline 9 ng/L (0-15)
[2023-10-21] MEDS: lactulose oral liq 20 gm/30 mL UDC PO (14:28)
[2023-10-21 14:30] VITALS: BP 131/82; PULSE 88; RESP 16; O2SAT 96
== END 2023-10-21 14:46 | disposition home or self-care (01) ==
PROVIDERS: Emergency Provider Nurse Practitioner Family; PCP Family Medicine Adult Medicine
DX: R07.82 Intercostal pain (principal); K59.09 Other constipation; Z79.82 Long term (current) use of aspirin; Z87.891 Personal history of nicotine dependence; J44.9 Chronic obstructive pulmonary disease, unspecified; I10 Essential (primary) hypertension
CPT/HCPCS: 71045; 74018; 80048; 83690; 84484; 85025; 93005; 99285

== ENCOUNTER 2023-10-22 11:12 | Emergency (ER) | payer MEDICAID, SELFPAY ==
[2023-10-22 11:13] VITALS: BP 173/97; PULSE 76; RESP 16; TEMP 36.4; O2SAT 100
--- NOTE | 2023-10-22 11:16 | ECG_ITS ---
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 Measurements Intervals [place] Rate: 73 P: 66 MN: 172 QRS: 43 QRSD: 96 T: 25 QT: 349 QTc: 386 Interpretive Statements SINUS RHYTHM Compared to ECG 10/21/2023 13:19:52 No significant changes Electronically Signed On 10-22-2023 21:02:57 CDT by Jihan Ware M.D. [id number] f
[2023-10-22 12:04] VITALS: BP 131/82; PULSE 81; RESP 16; O2SAT 95
[2023-10-22 12:35] LABS: Basophils % 0.7 %; Eosinophils # 0.1 10^3/uL (0.0-0.8); Eosinophils % 1.8 %; Hematocrit 41.4 % (37-53); Lymphocytes # 2.2 10^3/uL (0.8-4.8); Lymphocytes % 40.2 %; Mean Corpuscular HGB Conc 32.9 g/dL (30-55); Mean Corpuscular Hemoglobin 28.1 pg (27-33); Mean Corpuscular Volume 85.5 fl (82-101); Mean Platelet Volume 9.2 fL (7.4-10.4); Monocytes # 0.8 10^3/uL (0.2-0.9); Monocytes % 14.6 %; Neutrophils % 42.5 %; Nucleated Red Blood Cells % 0 %; Platelet Count 332 10^3/cmm (157-399); Red Blood Count 4.84 10^6/uL (3.85-5.65); Red Cell Distribution Width 12.2 % (12.1-15.1); White Blood Count 5.42 10^3/uL (3.29-11.43)
--- NOTE | 2023-10-22 12:47 | XRR_ITS ---
PROCEDURE INFORMATION: Exam: XR Chest Exam date and time: 10/22/2023 12:57 PM Age: 48 years old Clinical indication: Pain; Chest pressure; Additional info: Chest pain TECHNIQUE: Imaging protocol: Radiologic exam of the chest. Views: 1 view. COMPARISON: CR (CHEST, ) 10/21/2023 1:30 PM FINDINGS: Lungs: Unremarkable. No consolidation or mass. Pleural spaces: Unremarkable. No pleural effusion. No pneumothorax. Heart/Mediastinum: Unremarkable. No cardiomegaly. Bones/joints: Unremarkable. XR/XR chest 1V portable [id number] IMPRESSION: No acute findings.
--- NOTE | 2023-10-22 12:48 | ED_ITS ---
HPI - Chest Pain 2 General: Chief Complaint: Chest Pain Stated Complaint: CHEST PAIN Time Seen by Provider: 10/22/23 12:13 Source: patient Mode of arrival: EMS History of Present Illness: 48-year-old male presents emergency room with complaint of chest pain and abdominal pain. No radiation chest pain no associated shortness of breath or diaphoresis. Patient has been seen multiple times this week with similar complaints he was seen yesterday for constipation he did have 1 bowel movement so he did not take any of the lactulose. No fever sweats chills no associated shortness of breath has not noticed anything that exacerbates or relieves his symptoms. complaint: chest pain Onset (ago): day(s) Timing of current episode: episodic Prior episodes: Yes Pain location: left chest Associated symptoms: Reports abdominal pain; Deny diaphoresis, dyspnea, fever(s), leg edema, nausea, palpitations, sense of impending doom, syncope or vomiting Review of Systems 2 Const: Denies: fever(s) or diaphoresis Card: Denies: palpitations or syncope Resp: Denies: dyspnea GI: Reports: abdominal pain; Denies: nausea or vomiting : Denies: dysuria, urinary frequency or urinary urgency Musc: Denies: neck pain or back pain Skin/Breast: Denies: rash PFSH ED 2 PFSH: Medical History Constipation, chronic Skin rash Hypokalemia Hemorrhoids with complication Smoker COPD (chronic obstructive pulmonary disease) Night terrors, adult Allergic rhinitis GERD (gastroesophageal reflux disease) Intellectual disability Anxiety Hypertension Psychiatric care Social History Smoking and tobacco/nicotine status: former use of tobacco/nicotine Alcohol intake: current Substance/Drug Use: unknown Physical Exam 2 Const: COMMON NORMALS: no acute distress GENERAL APPEARANCE: cooperative and comfortable ORIENTATION/CONSCIOUSNESS: Yes awake, Yes oriented to person, Yes oriented to place and Yes oriented to time HENMT: COMMON NORMALS: normocephalic, atraumatic and hearing grossly normal bilaterally HEAD & SCALP: normocephalic and atraumatic Resp: COMMON NORMALS: normal respiratory effort, No retractions, No use of accessory muscles and clear to auscultation bilaterally AUSCULTATION: clear to auscultation bilaterally Cardio: COMMON NORMALS: regular rate, regular rhythm and No murmurs present (Cardio) RATE: regular rate RHYTHM: regular rhythm GI: COMMON NORMALS: Soft to palpation and No hepatosplenomegaly present A USCULTATION: Yes normoactive bowel sounds PALPATION: Yes Soft to palpation, No Tenderness to palpation present (GI), No Guarding due to palpation present (GI) and Yes No hepatosplenomegaly present Extremity: COMMON NORMALS: normal to inspection, capillary refill normal, no clubbing, cyanosis or edema, no calf tenderness and no pedal edema Neuro: SENSORIUM/ORIENTATION: Yes oriented to person, Yes oriented to place and Yes oriented to time Skin: COMMON NORMALS: no rashes or lesions noted GENERAL SKIN EXAM: no rashes or lesions noted Course 2 Vital Signs: Vital signs: Vital Signs Temperature 76 F L 10/22/23 11:13 Pulse Rate 81 10/22/23 12:04 Respiratory Rate 16 10/22/23 12:04 Blood Pressure 131/82 10/22/23 12:04 Pulse Oximetry 95 10/22/23 12:04 Oxygen Delivery Me thod Room Air 10/22/23 12:04 MDM - Chest Pain Medical Decision Making Previous visits reviewed. His troponin is negative EKG does not show any acute changes will discharge patient home continues lactulose as needed follow-up with his primary care doctor no change in medications at this time. Medical Records I reviewed the patient's medical records. Lab Data I reviewed the patient's lab results. 10/22/23 12:19 10/22/23 12:19 Laboratory Results WBC 5.42 10^3/uL (3.29-11.43) 10/22/23 12:19 RBC 4.84 10^6/uL (3.85-5.65) 10/22/23 12:19 Hgb 13.60 g/dL (11.27-16.99) 10/22/23 12:19 Hct 41.4 % (37-53) 10/22/23 12:19 MCV 85.5 fl (82-101) 10/22/23 12:19 MCH 28.1 pg (27-33) 10/22/23 12:19 MCHC 32.9 g/dL (30-55) 10/22/23 12:19 RDW 12.2 % (12.1-15.1) 10/22/23 12:19 Plt Count 332 10^3/cmm (157-399) 10/22/23 12:19 MPV 9.2 fL (7.4-10.4) 10/22/23 12:19 Neut % (Auto) 42.5 % 10/22/23 12:19 Lymph % (Auto) 40.2 % 10/22/23 12:19 [place] % (Auto) 14.6 % 10/22/23 12:19 Eos % (Auto) 1.8 % 10/22/23 12:19 Baso % (Auto) 0.7 % 10/22/23 12:19 Neut # (Auto) 2.30 10^3/uL (1.8-7.7) 10/22/23 12:19 Lymph # (Auto) 2.2 10^3/uL (0.8-4.8) 10/22/23 12:19 [place] # (Auto) 0.8 10^3/uL (0.2-0.9) 10/22/23 12:19 Eos # (Auto) 0.1 10^3/uL (0.0-0.8) 10/22/23 12:19 Baso # (Auto) 0.0 10^3/uL (0.0-0.1) 10/22/23 12:19 Nucleated RBC % (auto) 0 % 10/22/23 12:19 Nucleated RBCs # 0.0 /100WBC 10/22/23 12:19 Sodium 137 mmol/L (136-145) 10/22/23 12:19 Potassium 3.8 mmol/L (3.5-5.1) 10/22/23 12:19 Chloride 104 mmol/L (98-107) 10/22/23 12:19 Carbon Dioxide 27 mmol/L (22-29) 10/22/23 12:19 Anion Gap 9.8 (5-19) 10/22/23 12:19 BUN 11 mg/dL (6-20) 10/22/23 12:19 Creatinine 0.4 mg/dL (0.7-1.2) L 10/22/23 12:19 GFR Calculation 279.0 mL/min (90-130) H 10/22/23 12:19 Glucose 113 mg/dL (65-115) 10/22/23 12:19 Calculated Osmolality 284 mOsm/kg (285-295) L 10/22/23 12:19 Calcium 9.5 mg/dL (8.5-10.5) 10/22/23 12:19 Total Bilirubin 0.2 mg/dL (0.15-1.2) 10/22/23 12:19 AST 29 U/L (0-40) 10/22/23 12:19 ALT 77 U/L (0-41) H 10/22/23 12:19 Alkaline Phosphatase 138 U/L (40-130) H 10/22/23 12:19 Troponin T Baseline 8 ng/L (0-15) 10/22/23 12:19 Total Protein 6.6 g/dL (6.6-8.7) 10/22/23 12:19 Albumin 4.1 g/dL (3.5-5.2) 10/22/23 12:19 Globulin 2.5 g/dL (1.3-4.6) 10/22/23 12:19 XR interpretation done by ED provider, pending radiology final review Discharge Plan Discharge Patient Disposition: Home Clinical Impression: Atypical chest pain, Constipation, chronic Condition: Stable Prescriptions: No Action Ventolin HFA 90 mcg/actuation HFA aerosol inhaler 2 puff INHALATION Q6H PRN (Reason: shortness of breath or wheezing) Qty: 18 5RF docusate calcium 240 mg capsule 240 mg PO BID Qty: 180 3RF pantoprazole 40 mg tablet,delayed release (DR/EC) 40 mg PO BEDTIME Qty: 60 3RF buspirone 15 mg tablet 15 mg PO BID 30 Days Qty: 60 5RF Coreg 12.5 mg tablet 12.5 mg PO BID Qty: 60 5RF Rx Instructions: must administer with a meal/food clotrimazole-betamethasone 1-0.05 % cream 1 applic topical BID 14 Days Qty: 45 3RF famotidine 40 mg tablet 40 mg PO BID Qty: 60 5RF fluticasone propionate 50 mcg/actuation spray,suspension 2 spray INTRANASAL DAILY PRN (Reason: nasal congestion) Qty: 16 5RF magnesium citrate Solution 150 ml PO BID PRN (Reason: constipation) Qty: 296 0RF Preparation H Maximum Strength 0.25-1 % cream 1 applic AL BID Qty: 51 3RF ClearLax 17 gram/dose powder See Rx Instructions .ROUTE .COMPLEX Qty: 116 5RF Rx Instructions: MIX 1 CAPFUL (17 GR) IN 8 OUNCES LIQUID AND DRINK ENTIRE LIQUID DAILY. guaifenesin 600 mg tablet extended release 12hr 600 mg PO Q12H PRN (Reason: congestion) Qty: 60 5RF aspirin 81 mg tablet,delayed release (DR/EC) 81 mg PO DAILY Qty: 90 5RF amlodipine 5 mg tablet 5 mg PO BEDTIME Qty: 90 1RF hydrochlorothiazide 25 mg tablet 25 mg PO QAM Qty: 30 0RF potassium chloride 8 mEq tablet extended release 8 meq PO DAILY lactulose 10 gram/15 mL (15 mL) solution 20 g PO DAILY PRN (Reason: constipation) Qty: 600 0RF Discharge Orders: Discharge ED (Routine); Ordered 10/22/23 Ordered By: Fer Garibay Referrals: Olaf Russell MD [Primary Care Provider] - Patient Instructions: Opioid Safety, Pain Management Activity Restrictions/Additional Instructions: Thank you for choosing [facility] for your healthcare needs today. It is very important that you follow up as instructed or that you return to the Emergency Department should you have concerns or if your condition changes or worsens in any way. You were seen today with complaints of chest pain and abdominal pain. Last several visits to the emergency room were reviewed your EKG does not show any acute changes your troponin is normal. Your abdominal exam was benign your chest x-ray was normal. At this point there is not appear to be any emergent condition present. You can continue to use the lactulose you are prescribed for constipation and follow-up as needed with your primary care doctor. Coding Level of Care Code ED [employer] Underwriter for Kelley Gomez
[2023-10-22 12:50] LABS: Alanine Aminotransferase 77 U/L (0-41); Albumin Level 4.1 g/dL (3.5-5.2); Alkaline Phosphatase 138 U/L (40-130); Anion Gap 9.8 (5-19); Aspartate Amino Transferase 29 U/L (0-40); Blood Urea Nitrogen 11 mg/dL (6-20); Calcium 9.5 mg/dL (8.5-10.5); Carbon Dioxide 27 mmol/L (22-29); Chloride 104 mmol/L (98-107); Globulin 2.5 g/dL (1.3-4.6); Glucose 113 mg/dL (65-115); Osmolality Calculated 284 mOsm/kg (285-295); Potassium 3.8 mmol/L (3.5-5.1); Sodium 137 mmol/L (136-145); Total Bilirubin 0.2 mg/dL (0.15-1.2); Total Protein 6.6 g/dL (6.6-8.7)
[2023-10-22 12:51] LABS: Troponin(5th) Baseline 8 ng/L (0-15)
[2023-10-22 13:07] LABS: Creatinine Clr Calc Pharmacy 288.5131
--- NOTE | 2023-10-22 13:19 | ECG_ITS ---
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 Measurements Intervals [place] Rate: 61 P: 58 HI: 170 QRS: 51 QRSD: 99 T: 55 QT: 367 QTc: 372 Interpretive Statements SINUS RHYTHM ST ELEVATION, PROBABLY EARLY REPOLARIZATION [ST ELEVATION WITH NORMALLY INFLECTED T-WAVE] Compared to ECG 10/22/2023 11:16:21 ST (T wave) deviation now present Early repolarization now present Electronically Signed On 10-22-2023 21:03:43 CDT by Jihan Ware M.D. [id number]
--- NOTE | 2023-10-22 13:27 | ED_ITS ---
HPI - Chest Pain 2 General: Chief Complaint: Chest Pain Stated Complaint: CHEST PAIN Time Seen by Provider: 10/22/23 12:13 Source: patient Mode of arrival: EMS History of Present Illness: 48-year-old male presents emergency room with complaint of chest pain and abdominal pain. He is seen for the same thing yesterday. He has been seen several times this week his workup is all been negative. He does not describe anything that seems to particularly exacerbate or relieve his symptoms. He had a bowel movement yesterday so he did not get his lactulose that was called in. No fever sweats or chills no productive cough he says he feels like he needs to cough something up at times. Pain location: left chest Associated symptoms: Deny abdominal pain, dyspnea, fever(s) or palpitations Review of Systems 2 Const: Denies: fever(s) or chills Card: Reports: chest pain; Denies: palpitations Resp: Reports: non-productive cough; Denies: dyspnea GI: Denies: abdominal pain : Denies: dysuria, urinary frequency or urinary urgency Musc: Denies: neck pain or back pain Skin/Breast: Denies: rash PFSH ED 2 PFSH: Medical History Constipation, chronic Skin rash Hypokalemia Hemorrhoids with complication Smoker COPD (chronic obstructive pulmonary disease) Night terrors, adult Allergic rhinitis GERD (gastroesophageal reflux disease) Intellectual disability Anxiety Hypertension Psychiatric care Social History Smoking and tobacco/nicotine status: former use of tobacco/nicotine Alcohol intake: current Substance/Drug Use: unknown Physical Exam 2 Const: COMMON NORMALS: no acute distress GENERAL APPEARANCE: cooperative and comfortable ORIENTATION/CONSCIOUSNESS: Yes awake, Yes oriented to person, Yes oriented to place and Yes oriented to time HENMT: COMMON NORMALS: normocephalic, atraumatic and hearing grossly normal bilaterally HEAD & SCALP: normocephalic and atraumatic Resp: COMMON NORMALS: normal respiratory effort, No retractions, No use of accessory muscles and clear to auscultation bilaterally AUSCULTATION: clear to auscultation bilaterally Cardio: COMMON NORMALS: regular rate, regular rhythm and No murmurs present (Cardio) RATE: regular rate RHYTHM: regular rhythm GI: COMMON NORMALS: Soft to palpation and No hepatosplenomegaly present A USCULTATION: Yes normoactive bowel sounds PALPATION: Yes Soft to palpation, No Tenderness to palpation present (GI), No Guarding due to palpation present (GI) and Yes No hepatosplenomegaly present Extremity: COMMON NORMALS: normal to inspection, capillary refill normal, no clubbing, cyanosis or edema, no calf tenderness and no pedal edema Neuro: SENSORIUM/ORIENTATION: Yes oriented to person, Yes oriented to place and Yes oriented to time Skin: COMMON NORMALS: no rashes or lesions noted GENERAL SKIN EXAM: no rashes or lesions noted Course 2 Vital Signs: Vital signs: Vital Signs Temperature 97.6 F 10/22/23 11:13 Pulse Rate 81 10/22/23 12:04 Respiratory Rate 16 10/22/23 12:04 Blood Pressure 131/82 10/22/23 12:04 Pulse Oximetry 95 10/22/23 12:04 Oxygen Delivery Me thod Room Air 10/22/23 12:04 MDM - Chest Pain Medical Decision Making Troponin is negative EKG does not show any acute changes abdominal exam is benign his labs are normal. There is no significant abnormality there is no emergent condition present. Reviewed with the patient was going to discharge home. He asked that we send in some Mucinex for congestion. His lungs are clear on auscultation and chest x-ray was normal. I sent in a prescription for [id number]-[id number] Mucinex that he can use as needed for symptoms. Use the lactulose sent in yesterday for his constipation. Medical Records I reviewed the patient's medical records. Lab Data I reviewed the patient's lab results. 10/22/23 12:19 10/22/23 12:19 Laboratory Results WBC 5.42 10^3/uL (3.29-11.43) 10/22/23 12:19 RBC 4.84 10^6/uL (3.85-5.65) 10/22/23 12:19 Hgb 13.60 g/dL (11.27-16.99) 10/22/23 12:19 Hct 41.4 % (37-53) 10/22/23 12:19 MCV 85.5 fl (82-101) 10/22/23 12:19 MCH 28.1 pg (27-33) 10/22/23 12:19 MCHC 32.9 g/dL (30-55) 10/22/23 12:19 RDW 12.2 % (12.1-15.1) 10/22/23 12:19 Plt Count 332 10^3/cmm (157-399) 10/22/23 12:19 MPV 9.2 fL (7.4-10.4) 10/22/23 12:19 Neut % (Auto) 42.5 % 10/22/23 12:19 Lymph % (Auto) 40.2 % 10/22/23 12:19 [place] % (Auto) 14.6 % 10/22/23 12:19 Eos % (Auto) 1.8 % 10/22/23 12:19 Baso % (Auto) 0.7 % 10/22/23 12:19 Neut # (Auto) 2.30 10^3/uL (1.8-7.7) 10/22/23 12:19 Lymph # (Auto) 2.2 10^3/uL (0.8-4.8) 10/22/23 12:19 [place] # (Auto) 0.8 10^3/uL (0.2-0.9) 10/22/23 12:19 Eos # (Auto) 0.1 10^3/uL (0.0-0.8) 10/22/23 12:19 Baso # (Auto) 0.0 10^3/uL (0.0-0.1) 10/22/23 12:19 Nucleated RBC % (auto) 0 % 10/22/23 12:19 Nucleated RBCs # 0.0 /100WBC 10/22/23 12:19 Sodium 137 mmol/L (136-145) 10/22/23 12:19 Potassium 3.8 mmol/L (3.5-5.1) 10/22/23 12:19 Chloride 104 mmol/L (98-107) 10/22/23 12:19 Carbon Dioxide 27 mmol/L (22-29) 10/22/23 12:19 Anion Gap 9.8 (5-19) 10/22/23 12:19 BUN 11 mg/dL (6-20) 10/22/23 12:19 Creatinine 0.4 mg/dL (0.7-1.2) L 10/22/23 12:19 GFR Calculation 279.0 mL/min (90-130) H 10/22/23 12:19 Glucose 113 mg/dL (65-115) 10/22/23 12:19 Calculated Osmolality 284 mOsm/kg (285-295) L 10/22/23 12:19 Calcium 9.5 mg/dL (8.5-10.5) 10/22/23 12:19 Total Bilirubin 0.2 mg/dL (0.15-1.2) 10/22/23 12:19 AST 29 U/L (0-40) 10/22/23 12:19 ALT 77 U/L (0-41) H 10/22/23 12:19 Alkaline Phosphatase 138 U/L (40-130) H 10/22/23 12:19 Troponin T Baseline 8 ng/L (0-15) 10/22/23 12:19 Total Protein 6.6 g/dL (6.6-8.7) 10/22/23 12:19 Albumin 4.1 g/dL (3.5-5.2) 10/22/23 12:19 Globulin 2.5 g/dL (1.3-4.6) 10/22/23 12:19 XR interpretation done by ED provider, pending radiology final review Discharge Plan Discharge Patient Disposition: Home Clinical Impression: Atypical chest pain, Constipation, chronic Condition: Stable Prescriptions: New Mucinex 600 mg tablet extended release 12hr 600 mg PO Q12H PRN (Reason: congestion) Qty: 14 0RF No Action Ventolin HFA 90 mcg/actuation HFA aerosol inhaler 2 puff INHALATION Q6H PRN (Reason: shortness of breath or wheezing) Qty: 18 5RF docusate calcium 240 mg capsule 240 mg PO BID Qty: 180 3RF pantoprazole 40 mg tablet,delayed release (DR/EC) 40 mg PO BEDTIME Qty: 60 3RF buspirone 15 mg tablet 15 mg PO BID 30 Days Qty: 60 5RF Coreg 12.5 mg tablet 12.5 mg PO BID Qty: 60 5RF Rx Instructions: must administer with a meal/food clotrimazole-betamethasone 1-0.05 % cream 1 applic topical BID 14 Days Qty: 45 3RF famotidine 40 mg tablet 40 mg PO BID Qty: 60 5RF fluticasone propionate 50 mcg/actuation spray,suspension 2 spray INTRANASAL DAILY PRN (Reason: nasal congestion) Qty: 16 5RF magnesium citrate Solution 150 ml PO BID PRN (Reason: constipation) Qty: 296 0RF Preparation H Maximum Strength 0.25-1 % cream 1 applic [place] BID Qty: 51 3RF ClearLax 17 gram/dose powder See Rx Instructions .ROUTE .COMPLEX Qty: 116 5RF Rx Instructions: MIX 1 CAPFUL (17 GR) IN 8 OUNCES LIQUID AND DRINK ENTIRE LIQUID DAILY. guaifenesin 600 mg tablet extended release 12hr 600 mg PO Q12H PRN (Reason: congestion) Qty: 60 5RF aspirin 81 mg tablet,delayed release (DR/EC) 81 mg PO DAILY Qty: 90 5RF amlodipine 5 mg tablet 5 mg PO BEDTIME Qty: 90 1RF hydrochlorothiazide 25 mg tablet 25 mg PO QAM Qty: 30 0RF potassium chloride 8 mEq tablet extended release 8 meq PO DAILY lactulose 10 gram/15 mL (15 mL) solution 20 g PO DAILY PRN (Reason: constipation) Qty: 600 0RF Discharge Orders: Discharge ED (Routine); Ordered 10/22/23 Ordered By: Fer Garibay Referrals: Olaf Russell MD [Primary Care Provider] - Patient Instructions: Opioid Safety, Pain Management Activity Restrictions/Additional Instructions: Thank you for choosing [facility] for your healthcare needs today. It is very important that you follow up as instructed or that you return to the Emergency Department should you have concerns or if your condition changes or worsens in any way. You were seen today with complaints of chest pain and abdominal pain. Last several visits to the emergency room were reviewed your EKG does not show any acute changes your troponin is normal. Your abdominal exam was benign your chest x-ray was normal. At this point there is not appear to be any emergent condition present. You can continue to use the lactulose you are prescribed for constipation and follow-up as needed with your primary care doctor. Coding Level of Care Code ED Television Program Director for Kelley Gomez
[2023-10-22 13:30] VITALS: BP 147/96; PULSE 72; O2SAT 95
== END 2023-10-22 13:31 | disposition home or self-care (01) ==
PROVIDERS: Emergency Provider Family Medicine; PCP Family Medicine Adult Medicine
DX: R07.89 Other chest pain (principal); K59.09 Other constipation; Z79.82 Long term (current) use of aspirin; J44.9 Chronic obstructive pulmonary disease, unspecified; I10 Essential (primary) hypertension; Z87.891 Personal history of nicotine dependence
CPT/HCPCS: 36415; 71045; 80053; 84484; 85025; 93005; 99285

== ENCOUNTER 2023-10-23 23:49 | Emergency (ER) | payer MEDICAID, SELFPAY ==
--- NOTE | 2023-10-23 23:51 | XRR_ITS ---
PROCEDURE INFORMATION: Exam: XR Chest Exam date and time: 10/24/2023 1:37 AM Age: 48 years old Clinical indication: Angina; Additional info: Cp TECHNIQUE: Imaging protocol: Radiologic exam of the chest. Views: 1 view. COMPARISON: CR (CHEST, ) 10/22/2023 12:57 PM FINDINGS: Lungs: Unremarkable. No consolidation. Pleural spaces: Unremarkable. No pleural effusion. No pneumothorax. Heart/Mediastinum: Unremarkable. No cardiomegaly. Bones/joints: Unremarkable. XR/XR chest 1V portable [id number] IMPRESSION: No acute findings.
--- NOTE | 2023-10-23 23:52 | ECG_ITS ---
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 Measurements Intervals [place] Rate: 96 P: 64 VA: 159 QRS: 55 QRSD: 94 T: 73 QT: 321 QTc: 407 Interpretive Statements SINUS RHYTHM NONSPECIFIC T-WAVE ABNORMALITY Compared to ECG 10/22/2023 13:19:55 T-wave abnormality now present ST (T wave) deviation no longer present Early repolarization no longer present Electronically Signed On 10-24-2023 21:55:13 CDT by Jihan Ware M.D. [id number]
[2023-10-23 23:59] VITALS: BP 143/98; PULSE 97; RESP 18; TEMP 37; O2SAT 98
--- NOTE | 2023-10-24 01:28 | ED_ITS ---
HPI - Chest Pain 2 General: Chief Complaint: Chest Pain Stated Complaint: CP Time Seen by Provider: 10/24/23 01:23 Source: patient and EMS Mode of arrival: EMS Limitations: no limitations History of Present Illness: 48-year-old male who is very well-known to the ER has been seen here multiple times over the last week he states that tonight he did felt like he is having irritation in his lungs. He states that he thinks it may be something in his room because he was in his room he has been having feelings of dyspnea with chest pain he states that has been out his symptoms have resolved he denies any fever. Associated symptoms: Reports dyspnea; Deny abdominal pain, fever(s), nausea or vomiting Review of Systems 2 Const: Denies: fever(s), chills, body aches or change in appetite ENMT: Denies: throat pain or dental pain Card: Reports: chest pain Resp: Reports: dyspnea GI: Denies: abdominal pain, nausea, vomiting or diarrhea : Denies: dysuria Musc: Denies: neck pain or back pain Skin/Breast: Denies: rash Neuro: Denies: headache(s) PFSH ED 2 PFSH: Medical History Constipation, chronic Skin rash Hypokalemia Hemorrhoids with complication Smoker COPD (chronic obstructive pulmonary disease) Night terrors, adult Allergic rhinitis GERD (gastroesophageal reflux disease) Intellectual disability Anxiety Hypertension Psychiatric care Social History Smoking and tobacco/nicotine status: former use of tobacco/nicotine Alcohol intake: current Substance/Drug Use: unknown Physical Exam 2 Const: COMMON NORMALS: no acute distress, patient oriented x3 and healthy appearing HENMT: COMMON NORMALS: normocephalic and atraumatic HEAD & SCALP: n ormocephalic and atraumatic Eye: COMMON NORMALS: conjunctivae normal CONJUNCTIVA: Yes conjunctivae normal Neck/C-Spine: COMMON NORMALS: full ROM and supple Chest: COMMONS NORMALS: normal inspection of the chest and normal palpation of entire chest wall Resp: COMMON NORMALS: normal respiratory effort, No retractions, No use of accessory muscles and clear to auscultation bilaterally AUSCULTATION: clear to auscultation bilaterally Cardio: COMMON NORMALS: regular rate, regular rhythm and No murmurs present (Cardio) RATE: regular rate RHYTHM: regular rhythm Extremity: COMMON NORMALS: normal to inspection and full ROM Neuro: COMMON NORMALS: patient oriented x3, moves all extremities and no focal motor deficits Psych: COMMON NORMALS: mental status grossly normal, Normal thought process present and cooperative THOUGHT PROCESS: Normal thought process present Skin: COMMON NORMALS: no rashes or lesions noted and no wounds GENERAL SKIN EXAM: no rashes or lesions noted Course 2 Vital Signs: Vital signs: Vital Signs Temperature 98.6 F 10/23/23 23:59 Pulse Rate 97 10/23/23 23:59 Respiratory Rate 18 10/23/23 23:59 Blood Pressure 143/98 10/23/23 23:59 Pulse Oximetry 98 10/23/23 23:59 Oxygen Delivery Me thod Room Air 10/23/23 23:59 MDM - Chest Pain Medical Decision Making Patient presents for chest pain dyspnea is atypical in nature he is well- appearing here EKG x-ray and troponin are all normal no signs of ACS no signs of pulmonary embolism he is stable for discharge follow-up with PCP return if worsening Medical Records I reviewed the patient's medical records. Lab Data I reviewed the patient's lab results. 10/24/23 01:54 10/24/23 01:54 Laboratory Results WBC 7.74 10^3/uL (3.29-11.43) 10/24/23 01:54 RBC 4.99 10^6/uL (3.85-5.65) 10/24/23 01:54 Hgb 14.20 g/dL (11.27-16.99) 10/24/23 01:54 Hct 43.3 % (37-53) 10/24/23 01:54 MCV 86.8 fl (82-101) 10/24/23 01:54 MCH 28.5 pg (27-33) 10/24/23 01:54 MCHC 32.8 g/dL (30-55) 10/24/23 01:54 RDW 12.2 % (12.1-15.1) 10/24/23 01:54 Plt Count 328 10^3/cmm (157-399) 10/24/23 01:54 MPV 9.4 fL (7.4-10.4) 10/24/23 01:54 Neut % (Auto) 47.9 % 10/24/23 01:54 Lymph % (Auto) 35.1 % 10/24/23 01:54 [place] % (Auto) 15.1 % 10/24/23 01:54 Eos % (Auto) 1.3 % 10/24/23 01:54 Baso % (Auto) 0.3 % 10/24/23 01:54 Neut # (Auto) 3.71 10^3/uL (1.8-7.7) 10/24/23 01:54 Lymph # (Auto) 2.7 10^3/uL (0.8-4.8) 10/24/23 01:54 [place] # (Auto) 1.2 10^3/uL (0.2-0.9) H 10/24/23 01:54 Eos # (Auto) 0.1 10^3/uL (0.0-0.8) 10/24/23 01:54 Baso # (Auto) 0.0 10^3/uL (0.0-0.1) 10/24/23 01:54 Nucleated RBC % (auto) 0 % 10/24/23 01:54 Nucleated RBCs # 0.0 /100WBC 10/24/23 01:54 Sodium 141 mmol/L (136-145) 10/24/23 01:54 Potassium 3.9 mmol/L (3.5-5.1) 10/24/23 01:54 Chloride 102 mmol/L (98-107) 10/24/23 01:54 Carbon Dioxide 28 mmol/L (22-29) 10/24/23 01:54 Anion Gap 14.9 (5-19) 10/24/23 01:54 BUN 18 mg/dL (6-20) 10/24/23 01:54 Creatinine 0.6 mg/dL (0.7-1.2) L 10/24/23 01:54 GFR Calculation 174.7 mL/min (90-130) H 10/24/23 01:54 Glucose 108 mg/dL (65-115) 10/24/23 01:54 Calculated Osmolality 294 mOsm/kg (285-295) 10/24/23 01:54 Calcium 9.8 mg/dL (8.5-10.5) 10/24/23 01:54 Total Bilirubin 0.3 mg/dL (0.15-1.2) 10/24/23 01:54 AST 26 U/L (0-40) 10/24/23 01:54 ALT 68 U/L (0-41) H 10/24/23 01:54 Alkaline Phosphatase 150 U/L (40-130) H 10/24/23 01:54 Troponin T Baseline 9 ng/L (0-15) 10/24/23 01:54 Total Protein 6.8 g/dL (6.6-8.7) 10/24/23 01:54 Albumin 4.3 g/dL (3.5-5.2) 10/24/23 01:54 Globulin 2.5 g/dL (1.3-4.6) 10/24/23 01:54 Lipase 25 U/L (13-60) 10/24/23 01:54 All radiology interpretation(s) finalized by discharge EKG Data EKG 1: I personally reviewed and interpreted this EKG as follows: EKG interpretation date: 10/23/23 EKG interpretation time: 23:52 Interpretation: nsr hr [address] or t wave abnormalities qrs 94 qtc 375 Discharge Plan Discharge Patient Disposition: Home Clinical Impression: Dyspnea Chest pain Qualifiers: Chest pain type: intercostal pain Qualified Code(s): R07.82 - Intercostal pain Condition: Stable Prescriptions: No Action Ventolin HFA 90 mcg/actuation HFA aerosol inhaler 2 puff INHALATION Q6H PRN (Reason: shortness of breath or wheezing) Qty: 18 5RF docusate calcium 240 mg capsule 240 mg PO BID Qty: 180 3RF pantoprazole 40 mg tablet,delayed release (DR/EC) 40 mg PO BEDTIME Qty: 60 3RF buspirone 15 mg tablet 15 mg PO BID 30 Days Qty: 60 5RF Coreg 12.5 mg tablet 12.5 mg PO BID Qty: 60 5RF Rx Instructions: must administer with a meal/food clotrimazole-betamethasone 1-0.05 % cream 1 applic topical BID 14 Days Qty: 45 3RF famotidine 40 mg tablet 40 mg PO BID Qty: 60 5RF fluticasone propionate 50 mcg/actuation spray,suspension 2 spray INTRANASAL DAILY PRN (Reason: nasal congestion) Qty: 16 5RF magnesium citrate Solution 150 ml PO BID PRN (Reason: constipation) Qty: 296 0RF Preparation H Maximum Strength 0.25-1 % cream 1 applic MO BID Qty: 51 3RF ClearLax 17 gram/dose powder See Rx Instructions .ROUTE .COMPLEX Qty: 116 5RF Rx Instructions: MIX 1 CAPFUL (17 GR) IN 8 OUNCES LIQUID AND DRINK ENTIRE LIQUID DAILY. guaifenesin 600 mg tablet extended release 12hr 600 mg PO Q12H PRN (Reason: congestion) Qty: 60 5RF aspirin 81 mg tablet,delayed release (DR/EC) 81 mg PO DAILY Qty: 90 5RF amlodipine 5 mg tablet 5 mg PO BEDTIME Qty: 90 1RF hydrochlorothiazide 25 mg tablet 25 mg PO QAM Qty: 30 0RF potassium chloride 8 mEq tablet extended release 8 meq PO DAILY lactulose 10 gram/15 mL (15 mL) solution 20 g PO DAILY PRN (Reason: constipation) Qty: 600 0RF Mucinex 600 mg tablet extended release 12hr 600 mg PO Q12H PRN (Reason: congestion) Qty: 14 0RF Discharge Orders: Discharge ED (Routine); Ordered 10/24/23 Ordered By: Mak Schwarz Referrals: Olaf Russell MD [Primary Care Provider] - 4-7 days Discharge Diet: Advance as tolerated Discharge Activity: Resume usual activity Patient Instructions: Dyspnea (ED) Coding Level of Care Code ED Apprentice Pattern Maker for Kelley Gomez
[2023-10-24 01:31] VITALS: BP 161/101; PULSE 94; RESP 13; O2SAT 97
[2023-10-24 02:00] VITALS: BP 150/90; PULSE 91; RESP 12; O2SAT 96
[2023-10-24 02:15] LABS: Basophils % 0.3 %; Eosinophils # 0.1 10^3/uL (0.0-0.8); Eosinophils % 1.3 %; Hematocrit 43.3 % (37-53); Lymphocytes # 2.7 10^3/uL (0.8-4.8); Lymphocytes % 35.1 %; Mean Corpuscular HGB Conc 32.8 g/dL (30-55); Mean Corpuscular Hemoglobin 28.5 pg (27-33); Mean Corpuscular Volume 86.8 fl (82-101); Mean Platelet Volume 9.4 fL (7.4-10.4); Monocytes # 1.2 10^3/uL (0.2-0.9); Monocytes % 15.1 %; Neutrophils # 3.71 10^3/uL (1.8-7.7); Neutrophils % 47.9 %; Nucleated Red Blood Cells % 0 %; Platelet Count 328 10^3/cmm (157-399); Red Blood Count 4.99 10^6/uL (3.85-5.65); Red Cell Distribution Width 12.2 % (12.1-15.1); White Blood Count 7.74 10^3/uL (3.29-11.43)
[2023-10-24] MEDS: dexamethasone 10 mg/mL INJ IM (02:22)
[2023-10-24 02:31] VITALS: BP 142/88; PULSE 92; RESP 20; O2SAT 94
[2023-10-24 02:34] LABS: Troponin(5th) Baseline 9 ng/L (0-15)
[2023-10-24 02:39] LABS: Alanine Aminotransferase 68 U/L (0-41); Albumin Level 4.3 g/dL (3.5-5.2); Alkaline Phosphatase 150 U/L (40-130); Anion Gap 14.9 (5-19); Aspartate Amino Transferase 26 U/L (0-40); Blood Urea Nitrogen 18 mg/dL (6-20); Calcium 9.8 mg/dL (8.5-10.5); Carbon Dioxide 28 mmol/L (22-29); Chloride 102 mmol/L (98-107); Creatinine Clr Calc Pharmacy 199.3731; Globulin 2.5 g/dL (1.3-4.6); Glomerular Filtration Rate 174.7 mL/min (90-130); Glucose 108 mg/dL (65-115); Lipase 25 U/L (13-60); Osmolality Calculated 294 mOsm/kg (285-295); Potassium 3.9 mmol/L (3.5-5.1); Sodium 141 mmol/L (136-145); Total Bilirubin 0.3 mg/dL (0.15-1.2); Total Protein 6.8 g/dL (6.6-8.7)
== END 2023-10-24 02:58 | disposition home or self-care (01) ==
PROVIDERS: Emergency Provider Emergency Medicine; PCP Family Medicine Adult Medicine
DX: R07.82 Intercostal pain (principal); R06.00 Dyspnea, unspecified; Z79.82 Long term (current) use of aspirin; J44.9 Chronic obstructive pulmonary disease, unspecified; I10 Essential (primary) hypertension; Z87.891 Personal history of nicotine dependence
CPT/HCPCS: 36415; 71045; 80053; 83690; 84484; 85025; 93005; 96372; 99285; J1100

== ENCOUNTER 2023-10-30 12:38 | Emergency (ER) | payer MEDICAID, SELFPAY ==
--- NOTE | 2023-10-30 12:41 | ECG_ITS ---
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 Measurements Intervals [place] Rate: 86 P: 85 NC: 159 QRS: 68 QRSD: 95 T: 75 QT: 345 QTc: 413 Interpretive Statements SINUS RHYTHM MINIMAL VOLTAGE CRITERIA FOR LVH, CONSIDER NORMAL VARIANT [MEETS CRITERIA IN ONE OF: R(aVL), S(V1), R(V5), R(V5/V6)+S(V1)] EARLY REPOLARIZATION [ST ELEVATION WITH NORMALLY INFLECTED T-WAVE] Compared to ECG 10/23/2023 23:52:45 Early repolarization now present T-wave abnormality no longer present Electronically Signed On 10-30-2023 14:32:56 CDT by Corbin Wu M.D. [id number]
--- NOTE | 2023-10-30 12:41 | XRR_ITS ---
PROCEDURE INFORMATION: Exam: XR Chest Exam date and time: 10/30/2023 12:55 PM Age: 48 years old Clinical indication: Pain; Angina pectoris; Additional info: Cp TECHNIQUE: Imaging protocol: Radiologic exam of the chest. Views: 1 view. Total images: 1 COMPARISON: CR (CHEST, ) 10/24/2023 1:37 AM FINDINGS: Lungs: Unremarkable. No consolidation. Pleural spaces: Unremarkable. No pleural effusion. No pneumothorax. Heart/Mediastinum: Unremarkable. No cardiomegaly. Bones/joints: Unremarkable. XR/XR chest 1V portable [id number] IMPRESSION: No acute findings.
[2023-10-30 12:49] VITALS: BP 159/98; PULSE 90; RESP 17; TEMP 36.6; O2SAT 98; BMI 28.8
[2023-10-30 14:11] LABS: Basophils % 0.3 %; Eosinophils # 0.2 10^3/uL (0.0-0.8); Eosinophils % 3.2 %; Hematocrit 42.9 % (37-53); Lymphocytes # 2.5 10^3/uL (0.8-4.8); Lymphocytes % 41.1 %; Mean Corpuscular HGB Conc 33.1 g/dL (30-55); Mean Corpuscular Hemoglobin 28.4 pg (27-33); Mean Corpuscular Volume 85.8 fl (82-101); Mean Platelet Volume 9.2 fL (7.4-10.4); Monocytes # 0.8 10^3/uL (0.2-0.9); Neutrophils # 2.54 10^3/uL (1.8-7.7); Neutrophils % 42.2 %; Nucleated Red Blood Cells % 0 %; Platelet Count 336 10^3/cmm (157-399); Red Cell Distribution Width 12.3 % (12.1-15.1); White Blood Count 6.01 10^3/uL (3.29-11.43)
[2023-10-30 14:31] VITALS: BP 149/80; PULSE 84; RESP 16; TEMP 36.6; O2SAT 97
[2023-10-30 14:41] LABS: Troponin(5th) Baseline 9 ng/L (0-15)
[2023-10-30 14:51] LABS: Alanine Aminotransferase 58 U/L (0-41); Albumin Level 3.9 g/dL (3.5-5.2); Alkaline Phosphatase 146 U/L (40-130); Anion Gap 13.7 (5-19); Aspartate Amino Transferase 25 U/L (0-40); Blood Urea Nitrogen 12 mg/dL (6-20); Calcium 9.5 mg/dL (8.5-10.5); Carbon Dioxide 27 mmol/L (22-29); Chloride 100 mmol/L (98-107); Creatinine Clr Calc Pharmacy 239.2477; Globulin 3.1 g/dL (1.3-4.6); Glomerular Filtration Rate 215.7 mL/min (90-130); Glucose 130 mg/dL (65-115); NT Pro B Type Natriuretic Pept < 36 pg/mL (0-125); Osmolality Calculated 286 mOsm/kg (285-295); Potassium 3.7 mmol/L (3.5-5.1); Sodium 137 mmol/L (136-145); Total Bilirubin 0.3 mg/dL (0.15-1.2)
--- NOTE | 2023-10-30 16:20 | W.ED.CHESTPA ---
HPI - Chest Pain General: Chief Complaint: Chest Pain Stated Complaint: SOB, heart palpitation Time Seen by Provider: 10/30/23 16:19 Source: patient Mode of arrival: ambulatory Limitations: no limitations History of Present Illness: Patient is a 48-year-old male who is well-known to our emergency department here for complaints of chest pain. Patient has been seen here in our emergency department multiple times just this year (over 15 visits) plus another 10+ visits at outlying clinics/primary care. He has countless visits last year. Many of his ED visits are for chest pain. He has always had negative cardiac workups. Patient overall is a fairly poor historian. He states he has pain in his chest currently after smoking marijuana. He states he has been told he also has been exposed to black mold. He states he feels like his heart is racing at night. He feels like there is some component to anxiety. Patient states his symptoms worsen when his window is shut and improves when the window is open. He wants a GI cocktail. MD complaint: chest pain Onset (ago): week(s) (2 weeks) Timing of current episode: episodic Prior episodes: Yes Onset: during rest Pain location: substernal Pain radiation: none Severity: moderate Quality: heaviness Exacerbating factors: other (lying down; windows closed?) Associated symptoms: Reports no associated symptoms; Deny abdominal pain, dyspnea, fever(s), nausea, syncope or vomiting Treatment prior to arrival: none Risk Factors: Coronary artery disease risk factors: hypertension Thoracic aortic dissection risk factors: none Review of Systems Const: Denies: fever(s), chills, body aches, fatigue or malaise ENMT: Denies: throat pain or odynophagia Card: Reports: chest pain; Denies: edema, swelling of feet/ankles, syncope, pre-syncope, dyspnea on exertion, orthopnea, leg pain with exertion or acrocyanosis Resp: Denies: dyspnea, productive cough, non-productive cough, wheezing, hemoptysis or chest congestion GI: Denies: abdominal pain, nausea, vomiting or diarrhea Musc: Denies: neck pain, back pain, extremity pain or joint pain Skin/Breast: Denies: rash Neuro: Denies: headache(s), numbness in extremities, weakness in extremities, sensory changes or dizziness [facility] ED PFSH: Medical History Constipation, chronic Skin rash Hypokalemia Hemorrhoids with complication Smoker COPD (chronic obstructive pulmonary disease) Night terrors, adult Allergic rhinitis GERD (gastroesophageal reflux disease) Intellectual disability Anxiety Hypertension Psychiatric care Social History Smoking and tobacco/nicotine status: former use of tobacco/nicotine Alcohol intake: current Substance/Drug Use: unknown Physical Exam Const: COMMON NORMALS: no acute distress, average body habitus, patient oriented x3, no limitations, alert and well nourished GENERAL APPEARANCE: cooperative Chest: COMMONS NORMALS: normal inspection of the chest and normal palpation of entire chest wall Resp: COMMON NORMALS: normal respiratory effort and clear to auscultation bilaterally AUSCULTATION: clear to auscultation bilaterally Cardio: COMMON NORMALS: regular rate, regular rhythm and Peripheral pulses 2+ throughout RATE: regular rate RHYTHM: regular rhythm PERIPHERAL PULSES: Peripheral pulses 2+ throughout GI: COMMON NORMALS: Normal to inspection, nondistended, normoactive bowel sounds present, Soft to palpation and non-tender PALPATION: Yes Soft to palpation Extremity: COMMON NORMALS: capillary refill normal, no joint enlargement, no clubbing, cyanosis or edema, no calf tenderness and no pedal edema GENERAL: Yes normal exam except as noted Neuro: COMMON NORMALS: patient oriented x3, moves all extremities, no focal motor deficits, no sensory deficits noted and gait normal SENSORIUM/ORIENTATION: Yes alert Skin: COMMON NORMALS: no rashes or lesions noted GENERAL SKIN EXAM: no rashes or lesions noted Course Vital Signs: Vital signs: Vital Signs Temperature 97.9 F 10/30/23 14:31 Pulse Rate 84 10/30/23 14:31 Respiratory Rate 16 10/30/23 14:31 Blood Pressure 149/80 10/30/23 14:31 Pulse Oximetry 97 10/30/23 14:31 Oxygen Delivery Me thod Room Air 10/30/23 14:31 MDM - Chest Pain Medical Decision Making Workup initiated from triage. His EKG is without change from previous. His baseline troponin is unremarkable. His BNP is normal. Remainder of blood work is unremarkable. CXR showing no acute findings. Again patient was encouraged to follow-up with his primary care provider. Medical Records I reviewed the patient's medical records. Lab Data I reviewed the patient's lab results. 10/30/23 13:48 10/30/23 13:48 Radiology Impressions Chest X-Ray 10/30/23 12:41 IMPRESSION: No acute findings. Laboratory Results WBC 6.01 10^3/uL (3.29-11.43) 10/30/23 13:48 RBC 5.00 10^6/uL (3.85-5.65) 10/30/23 13:48 Hgb 14.20 g/dL (11.27-16.99) 10/30/23 13:48 Hct 42.9 % (37-53) 10/30/23 13:48 MCV 85.8 fl (82-101) 10/30/23 13:48 MCH 28.4 pg (27-33) 10/30/23 13:48 MCHC 33.1 g/dL (30-55) 10/30/23 13:48 RDW 12.3 % (12.1-15.1) 10/30/23 13:48 Plt Count 336 10^3/cmm (157-399) 10/30/23 13:48 MPV 9.2 fL (7.4-10.4) 10/30/23 13:48 Neut % (Auto) 42.2 % 10/30/23 13:48 Lymph % (Auto) 41.1 % 10/30/23 13:48 [place] % (Auto) 13.0 % 10/30/23 13:48 Eos % (Auto) 3.2 % 10/30/23 13:48 Baso % (Auto) 0.3 % 10/30/23 13:48 Neut # (Auto) 2.54 10^3/uL (1.8-7.7) 10/30/23 13:48 Lymph # (Auto) 2.5 10^3/uL (0.8-4.8) 10/30/23 13:48 [place] # (Auto) 0.8 10^3/uL (0.2-0.9) 10/30/23 13:48 Eos # (Auto) 0.2 10^3/uL (0.0-0.8) 10/30/23 13:48 Baso # (Auto) 0.0 10^3/uL (0.0-0.1) 10/30/23 13:48 Nucleated RBC % (auto) 0 % 10/30/23 13:48 Nucleated RBCs # 0.0 /100WBC 10/30/23 13:48 Sodium 137 mmol/L (136-145) 10/30/23 13:48 Potassium 3.7 mmol/L (3.5-5.1) 10/30/23 13:48 Chloride 100 mmol/L (98-107) 10/30/23 13:48 Carbon Dioxide 27 mmol/L (22-29) 10/30/23 13:48 Anion Gap 13.7 (5-19) 10/30/23 13:48 BUN 12 mg/dL (6-20) 10/30/23 13:48 Creatinine 0.5 mg/dL (0.7-1.2) L 10/30/23 13:48 GFR Calculation 215.7 mL/min (90-130) H 10/30/23 13:48 Glucose 130 mg/dL (65-115) H 10/30/23 13:48 Calculated Osmolality 286 mOsm/kg (285-295) 10/30/23 13:48 Calcium 9.5 mg/dL (8.5-10.5) 10/30/23 13:48 Total Bilirubin 0.3 mg/dL (0.15-1.2) 10/30/23 13:48 AST 25 U/L (0-40) 10/30/23 13:48 ALT 58 U/L (0-41) H 10/30/23 13:48 Alkaline Phosphatase 146 U/L (40-130) H 10/30/23 13:48 Troponin T Baseline 9 ng/L (0-15) 10/30/23 13:48 NT-Pro-B Natriuret Pep < 36 pg/mL (0-125) 10/30/23 13:48 Total Protein 7.0 g/dL (6.6-8.7) 10/30/23 13:48 Albumin 3.9 g/dL (3.5-5.2) 10/30/23 13:48 Globulin 3.1 g/dL (1.3-4.6) 10/30/23 13:48 All radiology interpretation(s) finalized by discharge Discharge Plan Discharge Patient Disposition: Home Clinical Impression: Atypical chest pain Condition: Stable Prescriptions: No Action Ventolin HFA 90 mcg/actuation HFA aerosol inhaler 2 puff INHALATION Q6H PRN (Reason: shortness of breath or wheezing) Qty: 18 5RF docusate calcium 240 mg capsule 240 mg PO BID Qty: 180 3RF pantoprazole 40 mg tablet,delayed release (DR/EC) 40 mg PO BEDTIME Qty: 60 3RF buspirone 15 mg tablet 15 mg PO BID 30 Days Qty: 60 5RF Coreg 12.5 mg tablet 12.5 mg PO BID Qty: 60 5RF Rx Instructions: must administer with a meal/food clotrimazole-betamethasone 1-0.05 % cream 1 applic topical BID 14 Days Qty: 45 3RF famotidine 40 mg tablet 40 mg PO BID Qty: 60 5RF fluticasone propionate 50 mcg/actuation spray,suspension 2 spray INTRANASAL DAILY PRN (Reason: nasal congestion) Qty: 16 5RF magnesium citrate Solution 150 ml PO BID PRN (Reason: constipation) Qty: 296 0RF Preparation H Maximum Strength 0.25-1 % cream 1 applic ME BID Qty: 51 3RF ClearLax 17 gram/dose powder See Rx Instructions .ROUTE .COMPLEX Qty: 116 5RF Rx Instructions: MIX 1 CAPFUL (17 GR) IN 8 OUNCES LIQUID AND DRINK ENTIRE LIQUID DAILY. guaifenesin 600 mg tablet extended release 12hr 600 mg PO Q12H PRN (Reason: congestion) Qty: 60 5RF aspirin 81 mg tablet,delayed release (DR/EC) 81 mg PO DAILY Qty: 90 5RF amlodipine 5 mg tablet 5 mg PO BEDTIME Qty: 90 1RF hydrochlorothiazide 25 mg tablet 25 mg PO QAM Qty: 30 0RF potassium chloride 8 mEq tablet extended release 8 meq PO DAILY lactulose 10 gram/15 mL (15 mL) solution 20 g PO DAILY PRN (Reason: constipation) Qty: 600 0RF Mucinex 600 mg tablet extended release 12hr 600 mg PO Q12H PRN (Reason: congestion) Qty: 14 0RF Discharge Orders: Discharge ED (Routine); Ordered 10/30/23 Ordered By: Sri Penaloza Referrals: Olaf Russell MD [Primary Care Provider] - Coding Level of Care Code ED Shrimp Cleaner for Chg Patricia
[2023-10-30] MEDS: lidocaine 2% viscous 15 ML, aluminum-mag hydrox-simethicon 30 ML, sucralfate oral liq 1 GM PO (16:40)
[2023-10-30 16:48] LABS: Troponin 5 2HR 8.56 ng/L (0-15)
[2023-10-30 16:51] LABS: Troponin 5 2HR Delta -0.44 ABS# (0-10)
[2023-10-30 17:05] VITALS: BP 163/83; PULSE 76; O2SAT 96
== END 2023-10-30 17:06 | disposition home or self-care (01) ==
PROVIDERS: Emergency Medicine; Emergency Provider Physician Assistant; PCP Family Medicine Adult Medicine
DX: R07.89 Other chest pain (principal); Z79.82 Long term (current) use of aspirin; J44.9 Chronic obstructive pulmonary disease, unspecified; I10 Essential (primary) hypertension; Z87.891 Personal history of nicotine dependence
CPT/HCPCS: 36415; 71045; 80053; 83880; 84484; 85025; 93005; 99284

== ENCOUNTER → 2023-11-03 11:23 | Outpatient (BNVA) | payer MEDICAID, SELFPAY | PROVIDERS: PCP Family Medicine Adult Medicine; Referring Provider Family Medicine Adult Medicine; Visit Provider Surgery | DX: K21.9 Gastro-esophageal reflux disease without esophagitis (principal); R13.10 Dysphagia, unspecified; R10.30 Lower abdominal pain, unspecified; R10.31 Right lower quadrant pain | CPT/HCPCS: 99204 ==

== ENCOUNTER 2023-11-18 09:18 | Emergency (ER) | payer MEDICAID, SELFPAY ==
[2023-11-18] VITALS (9 sets, daily range): BP systolic 130–165; BP diastolic 74–98; PULSE 78–106; RESP 16–17; O2SAT 94–98; BMI 27.6
--- NOTE | 2023-11-18 09:50 | ECG_ITS ---
[facility] Test Date: 2023-11-18 Pat Name: Yoel Almeida Department: Room: Gender: Male Gastroenterology Manager: : 1975 Requested By: Fer Jin Order Number: [id number] Aubrey MD: Jan Hayes M.D. Measurements Intervals [place] Rate: 103 P: 66 [place]: 170 QRS: 44 QRSD: 95 T: 53 QT: 311 QTc: 408 Interpretive Statements SINUS TACHYCARDIA ST ELEVATION, due to EARLY REPOLARIZATION ABNORMAL RHYTHM ECG Compared to ECG 10/30/2023 12:48:22 No significant change Electronically Signed On 11-18-2023 16:22:58 CDT by Jan Hayes M.D. [id number]
--- NOTE | 2023-11-18 09:50 | XRR_ITS ---
PROCEDURE INFORMATION: Exam: XR Chest Exam date and time: 11/18/2023 9:53 AM Age: 48 years old Clinical indication: Cough and dyspnea; Additional info: Dyspnea/cough TECHNIQUE: Imaging protocol: Radiologic exam of the chest. Views: 1 view. COMPARISON: CR XR chest 1V portable [id number] 10/30/2023 12:55 PM FINDINGS: Lungs: Unremarkable. No consolidation. Pleural spaces: Unremarkable. No pleural effusion. No pneumothorax. Heart/Mediastinum: Unremarkable. No cardiomegaly. Bones/joints: Unremarkable. XR/XR chest 1V portable [id number] IMPRESSION: No acute findings.
[2023-11-18 10:21] LABS: Basophils % 0.5 %; Eosinophils # 0.1 10^3/uL (0.0-0.8); Hematocrit 40.5 % (37-53); Lymphocytes % 33.8 %; Mean Corpuscular HGB Conc 33.1 g/dL (30-55); Mean Corpuscular Hemoglobin 28.3 pg (27-33); Mean Corpuscular Volume 85.4 fl (82-101); Mean Platelet Volume 9.1 fL (7.4-10.4); Monocytes # 0.7 10^3/uL (0.2-0.9); Monocytes % 12.4 %; Neutrophils # 3.02 10^3/uL (1.8-7.7); Neutrophils % 52.1 %; Nucleated Red Blood Cells % 0 %; Platelet Count 320 10^3/cmm (157-399); Red Blood Count 4.74 10^6/uL (3.85-5.65); Red Cell Distribution Width 12.6 % (12.1-15.1)
--- NOTE | 2023-11-18 10:29 | ED_ITS ---
HPI - Arrhythmia/Palpitations 2 General: Chief Complaint: Arrhythmia/Palpitations Stated Complaint: High heart rate Time Seen by Provider: 11/18/23 09:40 History of Present Illness: 48-[facility] of [facility] discomfort. States he woke up around 4 AM and felt like his heart was beating out of his chest had some abdominal epigastric discomfort as well. Patient admits to binge drinking last evening. His chest pain has improved quite a bit since this initially began he brought in by EMS rating his pain 1 out of 10 at this time. No radiation pain in the neck back or arms no diaphoresis or associated shortness of breath Associated symptoms: Deny syncope Review of Systems 2 Const: Denies: fever(s) or chills Card: Reports: palpitations and irregular heart rhythm; Denies: chest pain, edema, swelling of feet/ankles, syncope or dyspnea on exertion Resp: Denies: dyspnea GI: Denies: abdominal pain : Denies: dysuria, urinary frequency or urinary urgency Musc: Denies: neck pain or back pain Skin/Breast: Denies: rash PFSH ED 2 PFSH: Medical History (Updated 11/18/23 @ 13:06 by Fer Garibay DO) Constipation, chronic Skin rash Hypokalemia Hemorrhoids with complication Smoker COPD (chronic obstructive pulmonary disease) Night terrors, adult Allergic rhinitis GERD (gastroesophageal reflux disease) Intellectual disability Anxiety Hypertension Psychiatric care Social History Smoking and tobacco/nicotine status: former use of tobacco/nicotine Alcohol intake: current Substance/Drug Use: unknown Physical Exam 2 Const: COMMON NORMALS: no acute distress GENERAL APPEARANCE: cooperative and comfortable ORIENTATION/CONSCIOUSNESS: Yes awake, Yes oriented to person, Yes oriented to place and Yes oriented to time HENMT: COMMON NORMALS: normocephalic, atraumatic and hearing grossly normal bilaterally HEAD & SCALP: normocephalic and atraumatic Resp: COMMON NORMALS: normal respiratory effort, No retractions, No use of accessory muscles and clear to auscultation bilaterally AUSCULTATION: clear to auscultation bilaterally Cardio: COMMON NORMALS: regular rhythm and No murmurs present (Cardio) R ATE: bradycardic RHYTHM: regular rhythm GI: COMMON NORMALS: Soft to palpation and No hepatosplenomegaly present A USCULTATION: Yes normoactive bowel sounds PALPATION: Yes Soft to palpation, No Tenderness to palpation present (GI), No Guarding due to palpation present (GI) and Yes No hepatosplenomegaly present Extremity: COMMON NORMALS: normal to inspection, capillary refill normal, no clubbing, cyanosis or edema, no calf tenderness and no pedal edema Neuro: SENSORIUM/ORIENTATION: Yes oriented to person, Yes oriented to place and Yes oriented to time Skin: COMMON NORMALS: no rashes or lesions noted GENERAL SKIN EXAM: no rashes or lesions noted Course 2 Vital Signs: Vital signs: Vital Signs Pulse Rate 90 11/18/23 13:05 Respiratory Rate 17 11/18/23 09:33 Blood Pressure 130/74 11/18/23 11:05 Pulse Oximetry 95 11/18/23 13:05 MDM - Arrhythmia/Palpitations Medical Decision Making Cardiac enzymes and EKG did not show any acute changes. Will discharge patient home. Did give him a GI cocktail prior to discharge he reported some improvement. He has been seen multiple times all of his cardiac enzymes and workup have been negative to this point. He should follow-up with his primary care doctor return if he has further problems. Lab Data 11/18/23 10:07 11/18/23 10:07 Radiology Impressions Chest X-Ray 11/18/23 09:50 IMPRESSION: No acute findings. Laboratory Results WBC 5.80 10^3/uL (3.29-11.43) 11/18/23 10:07 RBC 4.74 10^6/uL (3.85-5.65) 11/18/23 10:07 Hgb 13.40 g/dL (11.27-16.99) 11/18/23 10:07 Hct 40.5 % (37-53) 11/18/23 10:07 MCV 85.4 fl (82-101) 11/18/23 10:07 MCH 28.3 pg (27-33) 11/18/23 10:07 MCHC 33.1 g/dL (30-55) 11/18/23 10:07 RDW 12.6 % (12.1-15.1) 11/18/23 10:07 Plt Count 320 10^3/cmm (157-399) 11/18/23 10:07 MPV 9.1 fL (7.4-10.4) 11/18/23 10:07 Neut % (Auto) 52.1 % 11/18/23 10:07 Lymph % (Auto) 33.8 % 11/18/23 10:07 [place]ley % (Auto) 12.4 % 11/18/23 10:07 Eos % (Auto) 1.0 % 11/18/23 10:07 Baso % (Auto) 0.5 % 11/18/23 10:07 Neut # (Auto) 3.02 10^3/uL (1.8-7.7) 11/18/23 10:07 Lymph # (Auto) 2.0 10^3/uL (0.8-4.8) 11/18/23 10:07 Donley # (Auto) 0.7 10^3/uL (0.2-0.9) 11/18/23 10:07 Eos # (Auto) 0.1 10^3/uL (0.0-0.8) 11/18/23 10:07 Baso # (Auto) 0.0 10^3/uL (0.0-0.1) 11/18/23 10:07 Nucleated RBC % (auto) 0 % 11/18/23 10:07 Nucleated RBCs # 0.0 /100WBC 11/18/23 10:07 Sodium 134 mmol/L (136-145) L 11/18/23 10:07 Potassium 3.3 mmol/L (3.5-5.1) L 11/18/23 10:07 Chloride 98 mmol/L (98-107) 11/18/23 10:07 Carbon Dioxide 25 mmol/L (22-29) 11/18/23 10:07 Anion Gap 14.3 (5-19) 11/18/23 10:07 BUN 11 mg/dL (6-20) 11/18/23 10:07 Creatinine 0.5 mg/dL (0.7-1.2) L 11/18/23 10:07 GFR Calculation 215.7 mL/min (90-130) H 11/18/23 10:07 Glucose 148 mg/dL (65-115) H 11/18/23 10:07 Calculated Osmolality 280 mOsm/kg (285-295) L 11/18/23 10:07 Calcium 9.7 mg/dL (8.5-10.5) 11/18/23 10:07 Total Bilirubin 0.4 mg/dL (0.15-1.2) 11/18/23 10:07 AST 30 U/L (0-40) 11/18/23 10:07 ALT 56 U/L (0-41) H 11/18/23 10:07 Alkaline Phosphatase 141 U/L (40-130) H 11/18/23 10:07 Troponin T Baseline 8 ng/L (0-15) 11/18/23 10:07 Troponin T 120 Minute 8.03 ng/L (0-15) 11/18/23 12:12 Delta Troponin T 0.03 ABS# (0-10) 11/18/23 12:12 Total Protein 6.9 g/dL (6.6-8.7) 11/18/23 10:07 Albumin 3.9 g/dL (3.5-5.2) 11/18/23 10:07 Globulin 3.0 g/dL (1.3-4.6) 11/18/23 10:07 All radiology interpretation(s) finalized by discharge Discharge Plan Discharge Patient Disposition: Home Clinical Impression: Atypical chest pain Condition: Stable Prescriptions: No Action Ventolin HFA 90 mcg/actuation HFA aerosol inhaler 2 puff INHALATION Q6H PRN (Reason: shortness of breath or wheezing) Qty: 18 5RF Preparation H Maximum Strength 0.25-1 % cream 1 applic [place] BID Qty: 51 3RF docusate calcium 240 mg capsule 240 mg PO BID Qty: 180 3RF buspirone 15 mg tablet 15 mg PO BID 30 Days Qty: 60 5RF clotrimazole-betamethasone 1-0.05 % cream 1 applic topical BID 14 Days Qty: 45 3RF fluticasone propionate 50 mcg/actuation spray,suspension 2 spray INTRANASAL DAILY PRN (Reason: nasal congestion) Qty: 16 5RF magnesium citrate Solution 150 ml PO BID PRN (Reason: constipation) Qty: 296 0RF ClearLax 17 gram/dose powder See Rx Instructions .ROUTE .COMPLEX Qty: 116 5RF Rx Instructions: MIX 1 CAPFUL (17 GR) IN 8 OUNCES LIQUID AND DRINK ENTIRE LIQUID DAILY. sulfamethoxazole-trimethoprim [Bactrim DS] 800-160 mg tablet 1 tab PO BID 7 Days Qty: 14 0RF aspirin 81 mg tablet,delayed release (DR/EC) 81 mg PO DAILY Qty: 90 5RF Coreg 12.5 mg tablet 12.5 mg PO BID Qty: 60 5RF Rx Instructions: must administer with a meal/food pantoprazole 40 mg tablet,delayed release (DR/EC) 40 mg PO BID Qty: 60 1RF amlodipine 5 mg tablet 5 mg PO BEDTIME Qty: 90 1RF lactulose 10 gram/15 mL (15 mL) solution 20 g PO DAILY PRN (Reason: constipation) Qty: 600 0RF Discharge Orders: Discharge ED (Routine); Ordered 11/18/23 Ordered By: Fer Garibay Referrals: Olaf Russell MD [Primary Care Provider] - Patient Instructions: Opioid Safety, Pain Management Activity Restrictions/Additional Instructions: Thank you for choosing [facility] [place] for your healthcare needs today. It is very important that you follow up as instructed or that you return to the Emergency Department should you have concerns or if your condition changes or worsens in any way. You were seen today with complaints of rapid heart rate and chest discomfort. Your cardiac enzymes and EKG did not show any acute changes. No other clinically significant abnormalities were noted on your lab work. Recommend you follow-up with your primary care doctor. Coding Level of Care Code ED [employer] Librarian for Kelley Gomez
[2023-11-18 10:40] LABS: Alanine Aminotransferase 56 U/L (0-41); Albumin Level 3.9 g/dL (3.5-5.2); Alkaline Phosphatase 141 U/L (40-130); Anion Gap 14.3 (5-19); Aspartate Amino Transferase 30 U/L (0-40); Blood Urea Nitrogen 11 mg/dL (6-20); Calcium 9.7 mg/dL (8.5-10.5); Carbon Dioxide 25 mmol/L (22-29); Chloride 98 mmol/L (98-107); Glomerular Filtration Rate 215.7 mL/min (90-130); Glucose 148 mg/dL (65-115); Osmolality Calculated 280 mOsm/kg (285-295); Potassium 3.3 mmol/L (3.5-5.1); Sodium 134 mmol/L (136-145); Total Bilirubin 0.4 mg/dL (0.15-1.2); Total Protein 6.9 g/dL (6.6-8.7); Troponin(5th) Baseline 8 ng/L (0-15)
[2023-11-18 10:46] LABS: Creatinine Clr Calc Pharmacy 234.5605
--- NOTE | 2023-11-18 11:50 | ECG_ITS ---
[facility] Test Date: 2023-11-18 Pat Name: Yoel Almeida Department: Room: Gender: Male Inspector Filters: : 1975 Requested By: Fer Jin Order Number: [id number] Aubrey MD: Jan Hayes M.D. Measurements Intervals [place] Rate: 79 P: 62 [place]: 163 QRS: 48 QRSD: 96 T: 59 QT: 342 QTc: 393 Interpretive Statements SINUS RHYTHM ST ELEVATION, due to EARLY REPOLARIZATION [ST ELEVATION WITH NORMALLY INFLECTED T-WAVE] Compared to ECG 11/18/2023 09:25:35 Sinus tachycardia no longer present Electronically Signed On 11-18-2023 17:03:51 CDT by Jan Hayes M.D. [email or web address] memorial community hospitalNascent Surgicalblanchard [facility].[employer]/store/OM/[id number]
[2023-11-18 12:39] LABS: Troponin 5 2HR 8.03 ng/L (0-15); Troponin 5 2HR Delta 0.03 ABS# (0-10)
[2023-11-18] MEDS: lidocaine 2% viscous 15 ML, aluminum-mag hydrox-simethicon 30 ML, sucralfate oral liq 1 GM PO (13:07)
== END 2023-11-18 13:29 | disposition home or self-care (01) ==
PROVIDERS: Emergency Provider Family Medicine; PCP Family Medicine Adult Medicine
DX: R07.89 Other chest pain (principal); Z79.82 Long term (current) use of aspirin; Z87.891 Personal history of nicotine dependence; J44.9 Chronic obstructive pulmonary disease, unspecified; I10 Essential (primary) hypertension
CPT/HCPCS: 36415; 71045; 80053; 84484; 85025; 93005; 99285

== ENCOUNTER 2023-11-21 01:13 | Emergency (ER) | payer MEDICAID, SELFPAY ==
[2023-11-21 01:14] VITALS: BP 177/106; PULSE 80; RESP 16; TEMP 36.3; O2SAT 100; BMI 27.6
--- NOTE | 2023-11-21 01:18 | ECG_ITS ---
[facility] Test Date: 2023-11-21 Pat Name: Yoel Almeida Department: Room: Gender: Male Automation Qtp Tester: : 1975 Requested By: Gunnar Castañeda Order Number: [id number] Burgos MD: Jihan Ware M.D. Measurements Intervals [place] Rate: 80 P: 67 MD: 167 QRS: 51 QRSD: 97 T: 52 QT: 337 QTc: 389 Interpretive Statements SINUS RHYTHM POSSIBLE LEFT ATRIAL ENLARGEMENT [-0.1mV P-WAVE IN V1/V2] Compared to ECG 11/18/2023 12:26:59 ST (T wave) deviation no longer present Early repolarization no longer present Electronically Signed On 11-22-2023 6:34:16 CDT by Jihan Ware M.D. [email or web address]/store/[id number]
--- NOTE | 2023-11-21 01:21 | XRR_ITS ---
PROCEDURE INFORMATION: Exam: XR Chest Exam date and time: 11/21/2023 1:31 AM Age: 48 years old Clinical indication: Chest pressure; Patient HX: C/O chest pain TECHNIQUE: Imaging protocol: Radiologic exam of the chest. Views: 1 view. COMPARISON: CR (CHEST, ) 11/18/2023 9:53 AM FINDINGS: Lungs: Unremarkable. No consolidation. Pleural spaces: Unremarkable. No pleural effusion. No pneumothorax. Heart/Mediastinum: Unremarkable. No cardiomegaly. Bones/joints: Mild curvature of the thoracic spine convex to the left. XR/XR chest 1V portable [id number] IMPRESSION: No acute findings.
[2023-11-21] MEDS: carvedilol 12.5 mg Tablet PO (01:27)
--- NOTE | 2023-11-21 01:27 | ED_ITS ---
HPI - Abdominal Pain 2 General: Chief Complaint: Abdominal Pain Stated Complaint: abd pain Time Seen by Provider: 11/21/23 01:16 History of Present Illness: Patient presents to the ER complaining of right upper quadrant/epigastric/chest pain. Patient states his pain was relieved after taking medicine for heartburn. Patient also states he is 6 days into an Augmentin prescription for a bowel infection. Patient said he ran out of his medicine last night and has not taken anything for his blood pressure. He states his blood pressure normally a lot better controlled than it is now. Patient also complaining of a headache since his blood pressure was elevated. Review of Systems 2 General: Reports: 10 or more systems reviewed and unremarkable except in HPI and below PFSH ED 2 PFSH: Medical History Constipation, chronic Skin rash Hypokalemia Hemorrhoids with complication Smoker COPD (chronic obstructive pulmonary disease) Night terrors, adult Allergic rhinitis GERD (gastroesophageal reflux disease) Intellectual disability Anxiety Hypertension Psychiatric care Social History Smoking and tobacco/nicotine status: former use of tobacco/nicotine Alcohol intake: current Substance/Drug Use: unknown Physical Exam 2 Const: COMMON NORMALS: no acute distress, average body habitus, patient oriented x3, no limitations, healthy appearing, alert and well nourished HENMT: COMMON NORMALS: normocephalic, atraumatic, hearing grossly normal bilaterally, external ears normal, Normal external nose present and moist oral mucous membranes HEAD & SCALP: normocephalic and atraumatic NOSE: Normal external nose present EXTERNAL EAR: Yes external ears normal Neck/C-Spine: COMMON NORMALS: no JVD Chest: COMMONS NORMALS: normal inspection of the chest and normal palpation of entire chest wall Resp: COMMON NORMALS: normal respiratory effort, No retractions, No use of accessory muscles and clear to auscultation bilaterally AUSCULTATION: clear to auscultation bilaterally Cardio: COMMON NORMALS: no JVD, regular rate, regular rhythm, S1 normal heart sound present, S2 normal heart sound present, No gallops present (Cardio), No clicks present (Cardio), No murmurs present (Cardio) and No rub (Cardio) R ATE: regular rate RHYTHM: regular rhythm HEART SOUNDS: S1 normal heart sound present and S2 normal heart sound present GI: COMMON NORMALS: Normal to inspection, nondistended, normoactive bowel sounds present, Soft to palpation, non-tender, No hepatosplenomegaly present and no masses PALPATION: Yes Soft to palpation and Yes No hepatosplenomegaly present Neuro: COMMON NORMALS: patient oriented x3 SENSORIUM/ORIENTATION: Yes alert Course 2 Vital Signs: Vital signs: Vital Signs Temperature 97.3 F L 11/21/23 01:14 Pulse Rate 71 11/21/23 01:40 Respiratory Rate 19 H 11/21/23 01:40 Blood Pressure 178/84 11/21/23 01:40 Pulse Oximetry 94 11/21/23 01:40 Oxygen Delivery Me thod Room Air 11/21/23 01:40 MDM - Abdominal Pain Medical Decision Making Patient CBC CMP, cardiac enzymes, chest x-ray all of which was essentially benign. Patient was given hydrochlorothiazide 25 mg and carvedilol 12.5 mg to make up for the blood pressure medicine that he missed. Patient be discharged home. Medical Records I reviewed the patient's medical records. Lab Data I reviewed the patient's lab results. 11/21/23 01:29 11/21/23 01:29 Labs/Radiology: Radiology Impressions Chest X-Ray 11/21/23 01:21 IMPRESSION: No acute findings. Laboratory Results WBC 8.24 10^3/uL (3.29-11.43) 11/21/23 01:29 RBC 4.79 10^6/uL (3.85-5.65) 11/21/23 01:29 Hgb 13.40 g/dL (11.27-16.99) 11/21/23 01:29 Hct 40.9 % (37-53) 11/21/23 01:29 MCV 85.4 fl (82-101) 11/21/23 01:29 MCH 28.0 pg (27-33) 11/21/23 01: MCHC 32.8 g/dL (30-55) 11/21/23 01:29 RDW 12.7 % (12.1-15.1) 11/21/23 01:29 Plt Count 336 10^3/cmm (157-399) 11/21/23 01:29 MPV 9.1 fL (7.4-10.4) 11/21/23: Neut % (Auto) 41.0 % 11/21/23 01: Lymph % (Auto) 43.8 % 11/21/23 01: [place] % (Auto) 12.7 % 11/21/23 01: Eos % (Auto) 1.7 % 11/21/23 01:29 Baso % (Auto) 0.4 % 11/21/23 01:29 Neut # (Auto) 3.38 10^3/uL (1.8-7.7) 11/21/23 01:29 Lymph # (Auto) 3.6 10^3/uL (0.8-4.8) 11/21/23 01: [place] # (Auto) 1.1 10^3/uL (0.2-0.9) H 11/21/23 01: Eos # (Auto) 0.1 10^3/uL (0.0-0.8) 11/21/23 01: Baso # (Auto) 0.0 10^3/uL (0.0-0.1) 11/21/23 01: Nucleated RBC % (auto) 0 % 11/21/23 01: Nucleated RBCs # 0.0 /100WBC 11/21/23 01:29 Sodium 139 mmol/L (136-145) 11/21/23 01:29 Potassium 4.0 mmol/L (3.5-5.1) 11/21/23 01: Chloride 105 mmol/L (98-107) 11/21/23 01: Carbon Dioxide 24 mmol/L (22-29) 11/21/23 01:29 Anion Gap 14.0 (5-19) 11/21/23 01:29 BUN 13 mg/dL (6-20) 11/21/23 01:29 Creatinine 0.5 mg/dL (0.7-1.2) L 11/21/23 01:29 GFR Calculation 215.7 mL/min (90-130) H 11/21/23 01:29 Glucose 112 mg/dL (65-115) 11/21/23 01:29 Calculated Osmolality 289 mOsm/kg (285-295) 11/21/23 01:29 Calcium 9.8 mg/dL (8.5-10.5) 11/21/23 01:29 Magnesium 1.9 mg/dL (1.7-2.3) 11/21/23 01:29 Total Bilirubin 0.2 mg/dL (0.15-1.2) 11/21/23 01:29 AST 24 U/L (0-40) 11/21/23 01:29 ALT 61 U/L (0-41) H 11/21/23 01:29 Alkaline Phosphatase 169 U/L (40-130) H 11/21/23 01:29 Troponin T Baseline < 6 ng/L (0-15) 11/21/23 01:29 Troponin T 120 Minute 6.92 ng/L (0-15) 11/21/23 03:25 Delta Troponin T 0.30375 ABS# (0-10) 11/21/23 03:25 Total Protein 6.7 g/dL (6.6-8.7) 11/21/23 01:29 Albumin 4.2 g/dL (3.5-5.2) 11/21/23 01:29 Globulin 2.5 g/dL (1.3-4.6) 11/21/23 01:29 Lipase 35 U/L (13-60) 11/21/23 01:29 All radiology interpretation(s) finalized by discharge Discharge Plan Discharge Patient Disposition: Home Clinical Impression: Hypertension, Abdominal pain, acute, epigastric Condition: Stable Prescriptions: No Action Ventolin HFA 90 mcg/actuation HFA aerosol inhaler 2 puff INHALATION Q6H PRN (Reason: shortness of breath or wheezing) Qty: 18 5RF Preparation H Maximum Strength 0.25-1 % cream 1 applic [place] BID Qty: 51 3RF docusate calcium 240 mg capsule 240 mg PO BID Qty: 180 3RF buspirone 15 mg tablet 15 mg PO BID 30 Days Qty: 60 5RF clotrimazole-betamethasone 1-0.05 % cream 1 applic topical BID 14 Days Qty: 45 3RF fluticasone propionate 50 mcg/actuation spray,suspension 2 spray INTRANASAL DAILY PRN (Reason: nasal congestion) Qty: 16 5RF magnesium citrate Solution 150 ml PO BID PRN (Reason: constipation) Qty: 296 0RF ClearLax 17 gram/dose powder See Rx Instructions .ROUTE .COMPLEX Qty: 116 5RF Rx Instructions: MIX 1 CAPFUL (17 GR) IN 8 OUNCES LIQUID AND DRINK ENTIRE LIQUID DAILY. sulfamethoxazole-trimethoprim [Bactrim DS] 800-160 mg tablet 1 tab PO BID 7 Days Qty: 14 0RF aspirin 81 mg tablet,delayed release (DR/EC) 81 mg PO DAILY Qty: 90 5RF Coreg 12.5 mg tablet 12.5 mg PO BID Qty: 60 5RF Rx Instructions: must administer with a meal/food pantoprazole 40 mg tablet,delayed release (DR/EC) 40 mg PO BID Qty: 60 1RF amlodipine 5 mg tablet 5 mg PO BEDTIME Qty: 90 1RF lactulose 10 gram/15 mL (15 mL) solution 20 g PO DAILY PRN (Reason: constipation) Qty: 600 0RF Discharge Orders: Discharge ED (Routine); Ordered 11/21/23 Ordered By: Gunnar Castañeda Referrals: Olaf Russell MD [Physician] - 1-3 days Patient Instructions: Abdominal Pain (ED), Hypertension Activity Restrictions/Additional Instructions: Please call your family practice physician at 9:00 this morning or when they open up and please get them to refill your blood pressure medicines. Your lab work did not show any acute cause of your abdominal pain or chest pain. Please follow-up with your family practice doc within next 7 to 10 days for further evaluation of these problems. 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
[2023-11-21] MEDS: hydroCHLOROthiazide 25 mg Tablet PO (01:32)
[2023-11-21 01:34] LABS: Basophils % 0.4 %; Eosinophils # 0.1 10^3/uL (0.0-0.8); Eosinophils % 1.7 %; Hematocrit 40.9 % (37-53); Lymphocytes # 3.6 10^3/uL (0.8-4.8); Lymphocytes % 43.8 %; Mean Corpuscular HGB Conc 32.8 g/dL (30-55); Mean Corpuscular Volume 85.4 fl (82-101); Mean Platelet Volume 9.1 fL (7.4-10.4); Monocytes # 1.1 10^3/uL (0.2-0.9); Monocytes % 12.7 %; Neutrophils # 3.38 10^3/uL (1.8-7.7); Nucleated Red Blood Cells % 0 %; Platelet Count 336 10^3/cmm (157-399); Red Blood Count 4.79 10^6/uL (3.85-5.65); Red Cell Distribution Width 12.7 % (12.1-15.1); White Blood Count 8.24 10^3/uL (3.29-11.43)
[2023-11-21 01:40] VITALS: BP 178/84; PULSE 71; RESP 19; O2SAT 94
[2023-11-21 01:56] LABS: Troponin(5th) Baseline < 6 ng/L (0-15)
[2023-11-21 01:59] LABS: Alanine Aminotransferase 61 U/L (0-41); Albumin Level 4.2 g/dL (3.5-5.2); Alkaline Phosphatase 169 U/L (40-130); Aspartate Amino Transferase 24 U/L (0-40); Blood Urea Nitrogen 13 mg/dL (6-20); Calcium 9.8 mg/dL (8.5-10.5); Carbon Dioxide 24 mmol/L (22-29); Chloride 105 mmol/L (98-107); Creatinine Clr Calc Pharmacy 234.5605; Globulin 2.5 g/dL (1.3-4.6); Glomerular Filtration Rate 215.7 mL/min (90-130); Glucose 112 mg/dL (65-115); Lipase 35 U/L (13-60); Magnesium 1.9 mg/dL (1.7-2.3); Osmolality Calculated 289 mOsm/kg (285-295); Sodium 139 mmol/L (136-145); Total Bilirubin 0.2 mg/dL (0.15-1.2); Total Protein 6.7 g/dL (6.6-8.7)
[2023-11-21 03:49] LABS: Troponin 5 2HR 6.92 ng/L (0-15); Troponin 5 2HR Delta 0.92001 ABS# (0-10)
--- NOTE | 2023-11-21 04:14 | PC.NURSE ---
PT STATES HE BROUGHT IN A $400.00 SPEAKER . I DID NOT SEE A SPEAKER ON ARRIVAL FROM EMS. I LET PT KNOW I HAVE NOT SEEN A SPEAKER SINCE HE ARRIVED. PT WAS D/C HOME, AMBULATORY, AND HAD NO FURTHER QUESTIONS OR CONCERNS ABOUT D/C.
[2023-11-21 04:16] VITALS: BP 154/89; PULSE 92; RESP 16; O2SAT 98
== END 2023-11-21 04:18 | disposition home or self-care (01) ==
PROVIDERS: Emergency Provider Emergency Medicine
DX: R10.13 Epigastric pain (principal); I10 Essential (primary) hypertension; Z79.82 Long term (current) use of aspirin; J44.9 Chronic obstructive pulmonary disease, unspecified; Z87.891 Personal history of nicotine dependence
CPT/HCPCS: 71045; 80053; 83690; 83735; 84484; 85025; 93005; 99285

== ENCOUNTER 2023-11-23 07:54 | Day surgery (SDC) | payer MEDICAID, SELFPAY ==
[2023-11-23 08:23] VITALS: BP 122/82; PULSE 93; RESP 16; TEMP 36.3; O2SAT 97
[2023-11-23 08:24] VITALS: BMI 27.6
[2023-11-23] MEDS: sodium chloride 0.9% 1,000 ML 30 ML IV (08:28)
--- NOTE | 2023-11-23 09:00 | W.PM.OPSUD ---
Surgery/Procedure H&P Update DATE OF PROCEDURE: November 23, 2023 DATE H&P PERFORMED: 11/03/23 H&P UPDATE INFORMATION: I have reviewed H&P completed within last 30 days, I have examined patient prior to procedure and No changes to prior documentation PLANNED PROCEDURE: Operation Date: 11/23/23 09:00 Proposed Procedures p EGD 41700, 92538 , G0105, K21.9, R10.9, R13.10, Z12.11(Not Applicable) - DO raj Fitzgerald Colonoscopy(Not Applicable) - Matthew Gonsalves DO
--- NOTE | 2023-11-23 09:00 | ANES.PREANE2 ---
Pre-Anesthetic Assessment Height/Weight: Height 1.91 m Weight 100.244 kg Temp Pulse Resp BP Pulse Ox O2 Del Method 97.4 F L 93 16 122/82 97 Room Air 11/23/23 08:23 11/23/23 08:23 11/23/23 08:23 11/23/23 08:23 11/23/23 08:23 11/23/23 08:23 Operation Date: 11/23/23 09:00 Proposed Procedures p EGD 36105, 30067 , G0105, K21.9, R10.9, R13.10, Z12.11(Not Applicable) - Matthew Gonsalves DO s Colonoscopy(Not Applicable) - Matthew Gonsalves DO Familial anesthetic complications: none Was Beta Cale taken within 24 hours: N/A Was Clonidine taken within 24 hours: N/A Last intake: Intake Last Liquid Date 11/22/23 Last Liquid Time 23:30 Last Solid Date 11/21/23 Last Solid Time 23:30 Social Alcohol (alcohol use, states he quit a week ago) and Tobacco (1ppd, states he quit a week ago) MJ use- states he quit 2 weeks ago. previous meth use Exam alert and oriented x 3 Airway Submandibular: within normal limits Cervical ROM: within normal limits Mallampati: Class IV Dentition: full Pulmonary None reported CV/HEM Hypertension None reported Hepatic None reported GI Gastroesophageal Reflux Disease Metabolic None reported Musc/skel Lower Back Pain Neuropsych possibly schizo? feels bug crawling all over Anesthetic Plan ASA status: 3 Anesthesia: Anesthesia Evaluation, General and MAC Medications/Allergies Home Medications Medication Instructions Recorded Confirmed Last Taken Type albuterol sulfate 90 mcg/actuation 2 puff inhalation Q6H PRN 11/11/22 11/21/23 1 Month Ago Rx aerosol inhaler (Ventolin HFA) shortness of breath or wheezing ~10/22/23 #18 grams aspirin 81 mg tablet,delayed 81 mg PO DAILY #90 tabs 09/12/23 11/21/23 11/20/23 Rx release docusate calcium 240 mg capsule 240 mg PO BID #180 caps 09/27/23 11/21/23 11/20/23 Rx fluticasone propionate 50 2 spray intranasal DAILY PRN nasal 10/19/23 11/21/23 11/20/23 Rx mcg/actuation nasal congestion #16 grams spray,suspension magnesium citrate 150 ml PO BID PRN constipation 10/19/23 11/21/23 11/20/23 Rx #296 mL polyethylene glycol 3350 17 See Rx Instructions .Route 10/19/23 11/21/23 11/20/23 Rx gram/dose oral powder (ClearLax) .COMPLEX #116 grams lactulose 10 gram/15 mL (15 mL) 20 g (30 mL) PO DAILY PRN 10/21/23 11/21/23 11/20/23 Rx oral solution constipation #600 mL phenylephrine 0.25 %-pramoxine 1 1 applic [place] BID hemorrhoids #51 10/31/23 11/21/23 11/20/23 Rx %-glycerin-wh.petrolatum rectal grams cream (Preparation H Maximum Strength) amlodipine 5 mg tablet 5 mg PO BEDTIME hypertension #90 11/15/23 11/21/23 11/20/23 Rx tabs pantoprazole 40 mg tablet,delayed 40 mg PO BID acid reflux #60 tabs 11/15/23 11/21/23 11/20/23 Rx release carvedilol 12.5 mg tablet (Coreg) 12.5 mg PO BID blood pressure #60 11/21/23 11/23/23 11/23/23 Rx tabs clotrimazole-betamethasone 1 1 applic topical BID rash 2 weeks 11/21/23 11/21/23 11/20/23 Rx %-0.05 % topical cream #45 grams hydrochlorothiazide 25 mg tablet 25 mg PO DAILY 11/21/23 11/21/23 11/21/23 History Allergies Allergy/AdvReac Type Severity Reaction Status Date / Time No Known Allergies Allergy Verified 11/21/23 13:25 Current Medications Generic Name Dose Route Start Last Admin Trade Name Freq PRN Reason Stop Dose Admin Sodium Chloride 1,000 mls @ 30 mls/hr 11/23/23 08:15 11/23/23 08:28 Sodium Chloride 0.9% IV 11/24/23 08:14 30 mls/hr .Q24H IVY Administration PFSH Anesthesia Medical History Constipation, chronic Skin rash Hypokalemia Hemorrhoids with complication Smoker COPD (chronic obstructive pulmonary disease) Night terrors, adult Allergic rhinitis GERD (gastroesophageal reflux disease) Intellectual disability Anxiety Hypertension Psychiatric care Social History Smoking and tobacco/nicotine status: former use of tobacco/nicotine Alcohol intake: current Substance/Drug Use: unknown Data Anesthesia Cardiac Studies: No Data to Display
[2023-11-23 09:26] VITALS: BP 124/75; PULSE 85; RESP 13; TEMP 36.2; O2SAT 97
[2023-11-23 09:42] VITALS: BP 123/78; PULSE 90; RESP 18; O2SAT 98
--- NOTE | 2023-11-23 10:15 | ANE.PACU2 ---
Inpatient post-anesthesia follow up: Airway intact: Yes Vital signs: Temperature 97.2 F Pulse Rate 90 Respiratory Rate 18 Blood Pressure 123/78 Pulse Oximetry 98 Oxygen Delivery Me thod Room Air Oxygen Flow Rate Fraction of Inspir ed Oxygen Hydration adequate: Yes Nausea and vomiting: No Pain level: 1 Mental status: Baseline
== END 2023-11-23 10:18 | disposition home or self-care (01) ==
PROVIDERS: PCP Family Medicine Adult Medicine; Visit Provider Surgery
PROC: 0DJ08ZZ Inspection of Upper Intestinal Tract, Via Natural or Artificial Opening Endoscopic (ICD-10-PCS; CPT 43235; principal; 2023-11-23 09:00)
PROC: 0DJD8ZZ Inspection of Lower Intestinal Tract, Via Natural or Artificial Opening Endoscopic (ICD-10-PCS; CPT 45378; 2023-11-23 09:00)
DX: Z12.11 Encounter for screening for malignant neoplasm of colon (principal); R13.10 Dysphagia, unspecified; R10.9 Unspecified abdominal pain; K21.9 Gastro-esophageal reflux disease without esophagitis; D12.8 Benign neoplasm of rectum; K29.50 Unspecified chronic gastritis without bleeding; Z87.891 Personal history of nicotine dependence; I10 Essential (primary) hypertension; Z79.82 Long term (current) use of aspirin; F41.9 Anxiety disorder, unspecified
CPT/HCPCS: 43239; 45385; 88305; 88342; J2704; J7030